=== PATIENT | female | born 1945 | race Caucasian/White ===

== ENCOUNTER → 2017-12-07 13:12 | Outpatient (CLI) | payer OTHER, SELFPAY | PROVIDERS: Family Provider Family Medicine; PCP Family Medicine; Visit Provider Family Medicine | DX: Z78.0 Asymptomatic menopausal state (principal); E07.9 Disorder of thyroid, unspecified; R29.890 Loss of height | CPT/HCPCS: 77080 ==

== ENCOUNTER 2018-07-22 08:38 | Emergency (ER) | payer OTHER, SELFPAY ==
[2018-07-22 08:39] VITALS: BP 176/84; PULSE 105; RESP 14; TEMP 36.7; O2SAT 100; BMI 30.5
--- NOTE | 2018-07-22 08:47 | DI.RAD.S_ITS ---
PROCEDURE: XR CHEST 2V INDICATIONS: fatigue, palpitations TECHNIQUE: 2 views of the chest were acquired. COMPARISON: [facility], , CHEST 2 VIEW, 01/29/2014, 14:43. FINDINGS: Surgical changes and devices: Surgical clips project over the right upper quadrant of the abdomen, suggestive of prior cholecystectomy. Lungs and pleura: There are diffuse bilateral perihilar and reticular interstitial pulmonary opacities. There are hazy opacities projecting over the right lung base. There is prominence of pulmonary vasculature. No pleural effusion or pneumothorax. Mediastinum: Mediastinal silhouette appears within normal limits for size. Cardiac silhouette measures at the upper limits of normal in size. Bones and chest wall: No acute osseous abnormality. Mild multilevel degenerative changes of the imaged spine. IMPRESSION: Findings suggestive of mild pulmonary edema, with hazy opacities at the right lung base likely represent atelectasis (less likely pneumonia). Dictated by: Baron Gutierrez M.D. on 07/22/2018 at 9:22 Approved by: Baron Gutierrez M.D. on 07/22/2018 at 9:24
[2018-07-22 09:06] LABS: Add Manual Diff / Slide Review NO; Basophils Absolute Auto 100 /uL (0-100); Basophils Percent Auto 1.2 % (0-2); Eosinophils Absolute Auto 300 /uL (0-450); Eosinophils Percent Auto 5.2 % (2-4); Hematocrit 40.2 % (36-46); Hemoglobin 13.6 g/dL (12.0-16.0); Lymphocytes Absolute Auto 2000 /uL (1100-4500); Lymphocytes Percent Auto 33.1 % (25-40); Mean Corpuscular HGB Conc 33.7 % (30-36); Mean Corpuscular Hemoglobin 32.4 PG (26-34); Mean Corpuscular Volume 96.1 fL (80-100); Monocytes Absolute Auto 600 /uL (0-900); Monocytes Percent Auto 10.2 % (3-14); Neutrophils Absolute Auto 3100 /uL (1500-7000); Neutrophils Percent Auto 50.3 % (50-75); Platelet Count 245 X10^3/uL (150-400); Red Blood Cell Count 4.18 X10^6/uL (4.0-5.2); White Blood Cell Count 6.1 X10^3/uL (4.5-11.0)
[2018-07-22 09:14] LABS: D Dimer 323 ng/mL (<230)
--- NOTE | 2018-07-22 09:14 | ED_ITS ---
HPI - Arrhythmia/Palpitations General Chief Complaint: Arrhythmia/Palpitations Stated Complaint: RAPID HEART RATE Time Seen by Provider: 07/22/18 08:40 Source: patient and family Mode of arrival: ambulatory Limitations: no limitations History of Present Illness HPI narrative: 73F nonsmoker with minimal medical history presents with her in the chief complaint of palpitation shins this morning which were very bothersome. She felt fatigued and a bit dizzy when they were happening and admittedly that has resolved on her arrival. She states that she has had increasing fatigue, particularly with exertion over the past 6 months and has had multiple episodes of these palpitations, primarily at night. She had been on propanolol for migraines and went to see her primary care provider last week and stopped her propanolol as there was some concern about this contributing to her fatigue. She denies any chest pain or shortness of breath. She denies any recent international travel, history of clots or other risk factors for DVT or PE. MD complaint: rapid heart beat, heart racing and palpitations Onset (ago): week(s) Duration: intermittent Severity: moderate Context: occurred during rest and occurred during exertion Associated symptoms: shortness of breath Related Data Home Medications Medication Instructions Recorded Confirmed [VITEYES areds II] PO DAILY #0 07/21/17 meloxicam 15 mg PO DAILY #0 07/21/17 07/22/18 propranolol 60 mg PO QDAY #0 07/21/17 aspirin 81 mg PO DAILY 07/22/18 07/22/18 Allergies Allergy/AdvReac Type Severity Reaction Status Date / Time meperidine Allergy Unknown EXTREME Verified 07/22/18 08:49 NAUSEA Review of Systems Review of Systems ROS Unobtainable: All systems reviewed & are unremarkable except as noted in HPI and below Constitutional Denies chills, Denies fever(s), Denies lethargy and Denies weakness Eyes Denies change in vision, Denies eye discharge, Denies irritation and Denies loss of vision ENT Ears, Nose, Mouth, and Throat: Denies change in voice, Denies neck pain and Denies sore throat Cardiovascular Denies chest pain, Denies irregular heart rhythm, Denies lightheadedness, Reports palpitations, Reports dyspnea, Reports dyspnea on exertion and Denies orthopnea Respiratory Denies cough, Reports dyspnea, Reports dyspnea on exertion and Denies wheezing Gastrointestinal Gastrointestinal: Denies abdominal pain, Denies change in bowel habits, Denies diarrhea, Denies nausea and Denies vomiting Genitourinary Denies hematuria, Denies flank pain, Denies urinary incontinence and Denies urinary urgency Musculoskeletal Denies neck pain Integumentary/Breasts Denies pruritus, Denies erythema, Denies rash and Denies wounds Neurologic Denies confusion, Denies loss of vision and Denies weakness Psychiatric Denies anxiety, Denies confusion, Denies depression, Denies homicidal ideation and Denies suicidal ideation Endocrine Reports palpitations Hematologic/Lymphatic Denies easy bruising Allergic/Immunologic Denies wheezing [facility] Social History (Updated 07/22/18 @ 09:18 by Vishal Crow DO) marital status: Smoking Status: Never smoker alcohol intake: current Exam Narrative Exam Narrative: GENERAL: 73-year-old female, appears younger than stated age is pleasant and resting comfortably HEAD: Atraumatic. Normocephalic. No temporal or scalp tenderness. EYES: Pupils equal round and reactive. Extraocular motions intact. No scleral icterus. No injection or drainage. ENT: Nose without bleeding, purulent drainage or septal hematoma. Throat without erythema, tonsillar hypertrophy or exudate. Uvula midline. Airway patent. NECK: Trachea midline. No JVD or lymphadenopathy. Supple, nontender, no meningeal signs. CARDIOVASCULAR: Regular rate and rhythm without murmurs, gallops, or rubs. RESPIRATORY: Clear to auscultation. Breath sounds equal bilaterally. No wheezes, rales, or rhonchi. GASTROINTESTINAL: Abdomen soft, non-tender, nondistended. No hepato- splenomegaly, or palpable masses. No guarding. EXTREMITIES: No clubbing, cyanosis, or edema. No joint tenderness, effusion, or edema noted. BACK: Nontender without deformity or crepitance. No flank tenderness. NEURO: AOx3. SKIN: No rash or erythema. Initial Vital Signs Initial Vital Signs: Vital Signs Temperature 98.1 F 07/22/18 08:39 Pulse Rate 105 H 07/22/18 08:39 Respiratory Rate 14 07/22/18 08:39 Blood Pressure 176/84 H 07/22/18 08:39 Pulse Oximetry 100 07/22/18 08:39 Course Course Narrative: 73-year-old female with increasing fatigue and multiple episodes of palpitations. She denies any chest pain or shortness of breath. She denies orthopnea or exertional dyspnea as much as fatigue. Vital signs have improved tremendously over the visit and on discharge her heart rate is down to the 80s and blood pressure is at her normal 105-110. I have spoken with Dr. Segura and related information regarding this patient's recent complaints and findings of her visit. We surely pain in the echocardiogram cardiac monitoring plus or minus a stress test would be indicated Orders Ordered: ED Orders 07/22/18 08:45 EKG-12 Lead Routine 07/22/18 08:47 XR chest 2V Stat 07/22/18 08:55 B Type Natriuretic Peptide Stat Complete Blood Count AUTO DIFF Stat Comprehensive Metabolic Panel Stat D Dimer Stat Magnesium Stat Thyroid Stimulating Hormone Stat Troponin I Stat Sodium Chloride (Normal Saline 0.9%) 1,000 mls @ 150 mls/hr IV CONT ROSS Last Admin: 07/22/18 09:21 Dose: 150 mls/hr Vital Signs - 8 hr 07/22/18 08:39 07/22/18 09:25 Temperature 98.1 F Pulse Rate 105 H 85 Respiratory Rate 14 28 H Blood Pressure 176/84 H Blood Pressure [Left Arm] 150/84 H Pulse Oximetry 100 100 MDM - Arrhythmia/Palpitations Lab Data Attestation: I reviewed the patient's lab results. Lab results narrative: D-dimer is above normal but when corrected for age is below the threshold Result diagrams: 07/22/18 08:55 07/22/18 08:55 Lab Results 07/22/18 07/22/18 07/22/18 Range/Units 08:55 08:55 08:55 WBC 6.1 (4.5-11.0) X10^3/uL RBC 4.18 (4.0-5.2) X10^6/uL Hgb 13.6 (12.0-16.0) g/dL Hct 40.2 (36-46) % MCV 96.1 (80-100) fL MCH 32.4 (26-34) PG MCHC 33.7 (30-36) % RDW 13.0 (11.6-14.8) % Plt Count 245 (150-400) X10^3/uL Neut % (Auto) 50.3 (50-75) % Lymph % (Auto) 33.1 (25-40) % [place] % (Auto) 10.2 (3-14) % Eos % (Auto) 5.2 H (2-4) % Baso % (Auto) 1.2 (0-2) % Neut # (Auto) 3100 (8176-2700) /uL Lymph # (Auto) 2000 (7241-7890) /uL [place] # (Auto) 600 (0-900) /uL Eos # (Auto) 300 (0-450) /uL Baso # (Auto) 100 (0-100) /uL D-Dimer 323 H (<230) ng/mL Sodium 138 (137-145) mmol/L Potassium 3.9 (3.4-5.1) mmol/L Chloride 102 (98-107) mmol/L Carbon Dioxide 26 (22-32) mmol/L BUN 18 H (7-17) mg/dL Creatinine 0.80 (0.52-1.04) mg/dL Estimated GFR > 60.0 (>60) mL/min BUN/Creatinine Ratio 22.5 H (6-22) Glucose 108 (80-110) mg/dL Calcium 9.3 (8.4-10.2) mg/dL Magnesium (1.6-2.3) mg/dL Total Bilirubin 0.4 (0.2-1.3) mg/dL AST 24 (14-36) IU/L ALT 27 (9-52) IU/L Alkaline Phosphatase 86 (38-126) U/L Troponin I < 0.012 (0.01-0.034) ng/mL Total Protein 7.3 (6.3-8.2) g/dL Albumin 4.1 (3.5-5.0) g/dL Globulin 3.2 (1.7-4.1) g/dL Albumin/Globulin Ratio 1.3 (1.0-2.8) 07/22/18 Range/Units 08:55 WBC (4.5-11.0) X10^3/uL RBC (4.0-5.2) X10^6/uL Hgb (12.0-16.0) g/dL Hct (36-46) % MCV (80-100) fL MCH (26-34) PG MCHC (30-36) % RDW (11.6-14.8) % Plt Count (150-400) X10^3/uL Neut % (Auto) (50-75) % Lymph % (Auto) (25-40) % [place] % (Auto) (3-14) % Eos % (Auto) (2-4) % Baso % (Auto) (0-2) % Neut # (Auto) (0271-5364) /uL Lymph # (Auto) (3669-0729) /uL [place] # (Auto) (0-900) /uL Eos # (Auto) (0-450) /uL Baso # (Auto) (0-100) /uL D-Dimer (<230) ng/mL Sodium (137-145) mmol/L Potassium (3.4-5.1) mmol/L Chloride (98-107) mmol/L Carbon Dioxide (22-32) mmol/L BUN (7-17) mg/dL Creatinine (0.52-1.04) mg/dL Estimated GFR (>60) mL/min BUN/Creatinine Ratio (6-22) Glucose (80-110) mg/dL Calcium (8.4-10.2) mg/dL Magnesium 2.0 (1.6-2.3) mg/dL Total Bilirubin (0.2-1.3) mg/dL AST (14-36) IU/L ALT (9-52) IU/L Alkaline Phosphatase (38-126) U/L Troponin I (0.01-0.034) ng/mL Total Protein (6.3-8.2) g/dL Albumin (3.5-5.0) g/dL Globulin (1.7-4.1) g/dL Albumin/Globulin Ratio (1.0-2.8) Imaging Data Chest x-ray: Radiologist's impression: [address] [address] XRay Report Signed Patient: Marci Corrales [facility]#: [id number] : 8Acct:[id number] Age/Sex: 73 / FDate of Service: 07/22/18 Loc: ED Accession Number: [id number] Procedure: XR chest 2V Ordering Provider: Vishal Crow D.O. PROCEDURE: XR CHEST 2V INDICATIONS: fatigue, palpitations TECHNIQUE: 2 views of the chest were acquired. COMPARISON: [facility] , CHEST 2 VIEW, 01/29/2014, 14:43. FINDINGS: Surgical changes and devices: Surgical clips project over the right upper quadrant of the abdomen, suggestive of prior cholecystectomy. Lungs and pleura: There are diffuse bilateral perihilar and reticular interstitial pulmonary opacities. There are hazy opacities projecting over the right lung base. There is prominence of pulmonary vasculature. No pleural effusion or pneumothorax. Mediastinum: Mediastinal silhouette appears within normal limits for size. Cardiac silhouette measures at the upper limits of normal in size. Bones and chest wall: No acute osseous abnormality. Mild multilevel degenerative changes of the imaged spine. IMPRESSION: Findings suggestive of mild pulmonary edema, with hazy opacities at the right lung base likely represent atelectasis (less likely pneumonia). Dictated by: Baron Gutierrez M.D. on 07/22/2018 at 9:22 Approved by: Baron Gutierrez M.D. on 07/22/2018 at 9:24 MDM Narrative Medical decision making narrative: Labs are unremarkable. D-dimer is slightly elevated but when corrected for age is below the threshold. Chest x-ray suggests mild pulmonary edema. Patient complains of no shortness of breath, cou gh and is not hypoxic. Patient has been given extensive return precautions. I have spoken with the on-call provider for her group and they will get her in early in the week Discharge Plan Departure Patient Disposition: Home Clinical Impression: Palpitations Fatigue Qualifiers: Fatigue type: unspecified Qualified Code(s): R53.83 - Other fatigue Instructions: DI for Arrhythmias Activity Restrictions/Additional Instructions: *You have been diagnosed with [ palpitations, fatigue ] *What to do: * continue to take medications as directed. Avoid excess caffeine, nicotine, alcohol as this may precipitate palpitations *Follow up with your primary care provider. I spoke with Dr. Segura today and he encouraged you to call the office 1st thing in the morning so they can get UA in. We sure the opinion that an echocardiogram and some type of heart monitor to evaluate your palpitations and even possibly a stress test are indicated by your complaints *Return to ER if you should have any new, worsening or concerning symptoms Prescriptions: No Action meloxicam 15 MG tablet 15 mg PO DAILY Qty: 0 RF: 0 propranolol 60 MG capsule,extended release 24 hr 60 mg PO QDAY Qty: 0 RF: 0 [VITEYES areds II] PO DAILY Qty: 0 RF: 0 aspirin 81 mg Tablet,Chewable 81 mg PO DAILY RF: 0 Referrals: Juan Lorenzana MD [Primary Care Provider] -
[2018-07-22 09:17] LABS: Alanine Aminotransferase 27 IU/L (9-52); Albumin 4.1 g/dL (3.5-5.0); Albumin Globulin Ratio 1.3 (1.0-2.8); Alkaline Phosphatase 86 U/L (38-126); Aspartate Aminotransferase 24 IU/L (14-36); BUN Creatinine Ratio 22.5 (6-22); Bilirubin Total 0.4 mg/dL (0.2-1.3); Blood Urea Nitrogen 18 mg/dL (7-17); Calcium 9.3 mg/dL (8.4-10.2); Carbon Dioxide 26 mmol/L (22-32); Chloride 102 mmol/L (98-107); Estimated Glomerular Filt Rate > 60.0 mL/min (>60); Globulin 3.2 g/dL (1.7-4.1); Glucose 108 mg/dL (80-110); HEMOLYSIS < 15 (0-50); Potassium 3.9 mmol/L (3.4-5.1); Sodium 138 mmol/L (137-145); Total Protein 7.3 g/dL (6.3-8.2)
[2018-07-22] MEDS: SODIUM CHLORIDE 0.9% 1,000 ML 150 ML IV (09:21)
[2018-07-22 09:25] VITALS: BP 150/84; PULSE 85; RESP 28; O2SAT 100
[2018-07-22 09:28] LABS: Troponin I < 0.012 ng/mL (0.01-0.034)
[2018-07-22 09:47] LABS: Thyroid Stimulating Hormone 2.02 uIU/mL (0.47-4.68)
[2018-07-22 10:03] VITALS: BP 105/84; PULSE 79; RESP 17; O2SAT 97
[2018-07-22 10:26] LABS: B Type Natriuretic Peptide < 100 (<100)
== END 2018-07-22 10:05 | disposition home or self-care (01) ==
PROVIDERS: Emergency Provider Emergency Medicine; PCP Family Medicine
DX: R00.2 Palpitations (principal); R42 Dizziness and giddiness; R53.83 Other fatigue
CPT/HCPCS: 36591; 71046; 80053; 83735; 83880; 84443; 84484; 85025; 85379; 93005; 93010; 93041; 96360; 96361; 99283; 99285

== ENCOUNTER → 2018-08-28 09:03 | Outpatient (CLI) | payer OTHER, SELFPAY ==
--- NOTE | 2018-08-28 | DI.ECHO.S_ITS ---
[facility]---------+ [facility] +---------+ : : [address] [place] : : : : [id number] : : : : Phone: [phone] Echocardiogram Report + + :Name: FRANTZ BUTTERFIELD Study Date: 08/28/2018 Height: 64 in : :[facility] Exam Location: IS Weight: 183 lb : : Gender: Female BSA: 1.9 m2 : :: 1945 Age: 73 yrs BP: 150/75 mmHg: :Reason For Study: VALENTIN : :Ordering Physician: Dr. Valdes : :[place] Performed By: Dennise Page : + + Interpretation Summary The left ventricle is normal in size, wall thickness, and systolic function without any focal wall motion abnormalities. The ejection fraction is estimated to be 60-65%. Diastolic parameters suggest a relaxation abnormality of the left ventricle, consistent with probable normal filling pressures. The right ventricle is normal in size and function. Pulmonary artery pressures cannot be estimated because of the lack of a measurable TR jet velocity. Both atria are normal in size. There is no significant valvular heart disease. The aortic root is normal size. Procedure: A two-dimensional transthoracic echocardiogram with color flow and Doppler was performed. The study quality was technically adequate. There is no prior echocardiogram noted for this patient. The patient was in normal sinus rhythm during the exam. Left Ventricle: The left ventricle is normal in size, wall thickness, and systolic function without any focal wall motion abnormalities. The ejection fraction is estimated to be 60-65%. Diastolic parameters suggest a relaxation abnormality of the left ventricle, consistent with probable normal filling pressures. Right Ventricle: The right ventricle is normal in size and function. Atria: Both atria are normal in size. There is no Doppler evidence for an interatrial shunt. Mitral Valve: The mitral valve is normal in structure and function. There is trace mitral regurgitation. Aortic Valve: The aortic valve is trileaflet. The aortic valve opens well. No aortic regurgitation is present. Tricuspid Valve: The tricuspid valve is normal in structure and function. There is a trace or physiologic amount of tricuspid regurgitation. Pulmonary artery pressures cannot be estimated because of the lack of a measurable TR jet velocity. Pulmonic Valve: The pulmonic valve is not well visualized. There is no significant valvular heart disease. Great Vessels: The aortic root is normal size. The ascending aorta is normal in size. The pulmonary is not well visualized. The IVC is of normal diameter and collapses greater than 50% with a sniff. This suggests a low right atrial pressure of 3 mm Hg. Pericardium/ Pleura There is no pericardial effusion. There is no pleural effusion. MMode/2D Measurements & Calculations LVIDd: 4.2 cm LVOT diam: 2.0 cm LVIDs: 2.5 cm Ao root diam: 3.0 cm FS: 39.4 % asc Aorta Diam: 2.8 cm EPSS: 0.50 cm IVSd: 0.90 cm LVPWd: 0.92 cm LV pantoja. diameter/BSA (cm/m^2): 2.2 LV sys. diameter/BSA (cm/m^2): 1.3 LA A2 area: 19.1 cm2 RA long axis: 4.9 cm LA A4 area: 22.9 cm2 RA area: 16.0 cm2 LA length (vol): 5.9 cm RA vol: 44.6 ml LA vol: 62.9 ml RA : 23.7 ml/m2 LA vol index: 33.4 ml/m2 IVC diam: 1.3 cm RVD1 (basal): 4.2 cm RVD2 (mid): 3.2 cm Doppler Measurements & Calculations Ao V2 max: 145.4 cm/sec LVOT Max Angel: 78.8 cm/sec Ao V2 mean: 104.4 cm/sec LV V1 max P.5 mmHg Ao max P.5 mmHg LV V1 VTI: 15.5 cm Ao mean P.7 mmHg MARTÍN(I,D): 1.6 cm2 Ao V2 VTI: 28.9 cm MARTÍN(V,D): 1.6 cm2 sev ratio: 0.53 MARTÍN indexed to BSA (cm^2/m^2): 0.85 MV E max angel: 67.6 cm/sec PA V2 max: 75.8 cm/sec MV A max angel: 86.6 cm/sec PA V2 mean: 54.7 cm/sec MV E/A: 0.78 PA mean P.3 mmHg Med Peak E' Angel: 6.3 cm/sec PA Accel Time: 0.12 sec E/E' med: 10.7 Lat Peak E' Angel: 6.5 cm/sec E/E' lat: 10.4 E/e' average: 10.6 MV dec time: 0.24 sec MV P1/2t: 72.7 msec MV P1/2t max angel: 67.9 cm/sec SV(LVOT): 46.5 ml MVA(P1/2t): 3.0 cm2 Reading Physician:03:34 PM
== END ==
PROVIDERS: PCP Family Medicine; Visit Provider Family Medicine
DX: R06.00 Dyspnea, unspecified (principal); R06.02 Shortness of breath
CPT/HCPCS: 93306

== ENCOUNTER → 2018-10-02 12:47 | Outpatient (CLI) | payer OTHER, SELFPAY ==
--- NOTE | 2018-10-02 | DI.RAD.S_ITS ---
PROCEDURE: XR KNEE LT 3V INDICATIONS: LEFT KNEE PAIN TECHNIQUE: 3 views of the knee were acquired. COMPARISON: [facility], , KNEE 3V LEFT, 05/10/2016, 11:03. FINDINGS: Bones: No fractures or dislocations. No suspicious bony lesions. Scattered degenerative subchondral sclerosis and spurring. Mild narrowing of the lateral joint space Soft tissues: Prepatellar soft tissue swelling. Possible trace joint effusion. IMPRESSION: Mild left knee joint degeneration. Prepatellar soft tissue swelling. Dictated by: Romie Calderon M.D. on 10/02/2018 at 13:57 Approved by: Romie Calderon M.D. on 10/02/2018 at 13:58
== END ==
PROVIDERS: PCP Family Medicine; Visit Provider Family Medicine
DX: M25.562 Pain in left knee (principal); M79.89 Other specified soft tissue disorders
CPT/HCPCS: 73562

== ENCOUNTER → 2018-10-24 10:53 | Outpatient (CLI) | payer OTHER, SELFPAY ==
--- NOTE | 2018-10-24 | DI.RAD.S_ITS ---
PROCEDURE: XR CHEST 2V INDICATIONS: COUGH TECHNIQUE: 2 views of the chest were acquired. COMPARISON: [facility], , XR CHEST 2V, 07/22/2018, 8:52. [facility], , CHEST 2 VIEW, 01/29/2014, 14:43. FINDINGS: Surgical changes and devices: None. Lungs and pleura: Lungs are clear. No pleural effusions or pneumothorax. Mediastinum: Mediastinal contours are normal. Heart size is normal. Bones and chest wall: No suspicious bony abnormalities. Soft tissues appear unremarkable. IMPRESSION: Source of cough is not seen. No pneumonia suspected. Dictated by: Hammad Browne M.D. on 10/24/2018 at 14:11 Approved by: Hammad Browne M.D. on 10/24/2018 at 14:11
== END ==
PROVIDERS: PCP Student in an Organized Health Care Education/Training Program; Visit Provider Student in an Organized Health Care Education/Training Program
DX: R05 Cough (principal)
CPT/HCPCS: 71046

== ENCOUNTER 2019-01-08 09:00 | Outpatient (RCR) | payer OTHER, SELFPAY ==
--- NOTE | 2018-10-04 17:02 | PT.OIE ---
Current Diagnoses Pain in unspecified joint (10/04/18) Pain in right hip (10/04/18) Pain in left hip (10/04/18) Pain in right knee (10/04/18) Pain in left knee (10/04/18) Weakness (10/04/18) Provider Visit Care Team Role Provider Type Juan Lorenzana MD Attending Provider Physician Primary Care Provider Specialty: Family Practice Address: [address] [place] [address], [facility] Email: [email or web address] Physical Therapy Initial Evaluation PT-OP-A Visit Information Start: 10/04/18 09:24 Freq: Status: Active Protocol: Document 10/04/18 13:44 SAK (Rec: 10/04/18 14:33 SAK [id number]) Out-Patient Physical Therapy Visit Information Visit Information Visit Type Initial Evaluation Visit Start Time 13:45 Visit Stop Time 14:35 Total Visit Minutes 50 Visit Number 1 Number of BALLISTICS EXPERT Visits 0 Evaluation Information Evaluation Date 10/04/18 PT-OP-B Current Condition Start: 10/04/18 09:24 Freq: Status: Active Protocol: Document 10/04/18 13:44 SAK (Rec: 10/04/18 14:33 SAK [id number]) Current Condition History of Current Condition Onset Date 6 months Current Complaints left knee pain, bilateral knee pain History of Current Condition Reports that for the past 6 months she has been noticing soreness and exhaustion after her usual work-outs out at pool and fitness center; usual schedule is 4-5x/wk. Pain bilateral knees and hips, occasional stabbing pain in back of left knee. Has had 1 month of not exercising due to travel and illness from flu and reports some decrease in pain. . Also c/o pain left IT band and enrico tops of feet at times. Has bunion left foot. Reports feeling weak, especially ambulating on stairs. Prior Treatments and Tests left knee OA per x-ray Future Testing and Treatments Planned none planned Treatment Goals Patient/Caregiver Goals Decrease her pain and modify her exercise and activity program to be able to function with less pain and fatigue. Prior Functional Status Baseline Function- ADL's Independent Baseline Function- Mobility Independent Baseline Function- Gait independent with no pain Baseline Function- Recreation/Hobbies painful and exhausting PT-OP-C Subjective Start: 10/04/18 09:24 Freq: Status: Active Protocol: Document 10/04/18 13:44 SAK (Rec: 10/04/18 17:00 [facility] [id number]) OP-PT Pain Assessment Location enrico knees and hips, worst left knee Intensity 4 Other Pain Aggravating Factors lunges, plies PT-OP-D Balance Start: 10/04/18 09:24 Freq: Status: Active Protocol: Document 10/04/18 13:44 SAK (Rec: 10/04/18 17:00 [facility] [id number]) Balance Tests Single Limb Standing Single Limb- Right needs UE support, Trendelenberg Single Limb- Left needs UE support, Trendelenberg PT-OP-G Mobility & Gait Start: 10/04/18 09:24 Freq: Status: Active Protocol: Document 10/04/18 13:44 SAK (Rec: 10/04/18 17:00 [facility] [id number]) OP Mobility Evaluation Transfers Sit to Stand excess ER enrico LE's Functional Movements Squats excess enrico LE ER OP Gait Assessment Gait Gait Assistance Required: Independent Assistive Devices Assistive Device None Comments Gait Comments excess enrico LE ER, increased lateral sway, decreased trunk rotation Stair Climbing Evaluation Evaluation Level of Assist On Stairs Independent Devices Stair Climbing Assistive Devices Left Railing Right Railing PT-OP-H Neuro Start: 10/04/18 09:24 Freq: Status: Active Protocol: Document 10/04/18 13:44 SAK (Rec: 10/04/18 17:00 [facility] [id number]) Sensation Evaluation Gross Sensation Gross Sensation WNL PT-OP-J Posture/Palpation/Skin Start: 10/04/18 09:24 Freq: Status: Active Protocol: Document 10/04/18 13:44 SAK (Rec: 10/04/18 17:00 [facility] [id number]) Posture Evaluation Position Standing Weight Distribution Decreased Wt.Bear on (L) Hip Posture (L) Externally Rotated (R) Externally Rotated Knee Posture (L) Genu Valgus (R) Genu Valgus Patellar Posture (L) Neutral (R) Neutral Ankle/Foot Posture (L) Pronated (R) Pronated Foot Arch (L) Medium Arch (R) Medium Arch PT-OP-K Range of Motion Start: 10/04/18 09:24 Freq: Status: Active Protocol: Document 10/04/18 13:44 [facility] (Rec: 10/04/18 17:00 [facility] [id number]) Hip Goniometric Range of Motion Hip enrico Hip ROM WFL No Hip ROM Limitations Comments mod tightness in left IT band, enrico quads, enrico hamstrings Knee Goniometric Range of Motion Knee enrico Knee ROM WFL No Knee ROM Limitations Knee ROM Limitations Soft Tissue Tightness Ankle and Foot Goniometric Range of Motion Ankle and Foot enrico Ankle/Foot ROM WFL No Dorsiflexion with Knee Flexed 5 Dorsiflexion with Knee Extended 0 Ankle and Foot ROM Limitations ROM Limitations Soft Tissue Tightness PT-OP-M Strength Start: 10/04/18 09:24 Freq: Status: Active Protocol: Document 10/04/18 13:44 [facility] (Rec: 10/04/18 17:00 [facility] [id number]) Hip Strength Hip Manual Muscle Testing Left Flexion (L2) 4 Good Extension (S1) 4 Good Abduction 3+ Fair+ Adduction 3+ Fair+ External Rotation 4- Good- Right Flexion (L2) 4 Good Extension (S1) 4 Good Abduction 4- Good- External Rotation 3+ Fair+ Internal Rotation 4- Good- Knee Strength Knee Manual Muscle Testing Left Flexion (S2) 4+ Good+ Extension (L3) 4+ Good+ Right Flexion (S2) 4+ Good+ Extension (L3) 4+ Good+ Ankle/Foot Strength Ankle and Foot Manual Muscle Testing Left Dorsiflexion (L4) 4+ Good+ Plantarflexion (S1) 4+ Good+ Right Dorsiflexion (L4) 4+ Good+ Plantarflexion (S1) 4+ Good+ PT-OP-Q Treatments Start: 10/04/18 09:24 Freq: Status: Active Protocol: Document 10/04/18 13:44 [facility] (Rec: 10/04/18 17:00 [facility] [id number]) Self-Care/Home Management Treatment Education Patient Education Body Mechanics Home Exercise Program Other Education Emphasis on need for neutral LE alignment statically and dynamically with function, with all ther ex. Issued written HEP. PT-OP-T Assessment and Plan Start: 10/04/18 09:24 Freq: Status: Active Protocol: Document 10/04/18 13:44 [facility] (Rec: 10/04/18 17:00 [facility] [id number]) Physical Therapy Assessment Rehab Potential Rehabilitation Potential Good Evaluation Complexity Number of Personal Factors/Comorbidities 1-2 Number of Body Systems Impaired 3 Clinical Presentation at Evaluation Evolving Impairments Impairments Activity Tolerance Pain Posture Strength Goals 4 Impairment weakness Longterm Goal (LTG) Improve LE strength to at least 4+/5 all muscle groups LTG Duration 12/04/18 3 Impairment Trendelenberg gait [employer] Service Supervisor Goal (LTG) Patient able to ambulate without Trendelenberg LTG Duration 12/04/18 2 Impairment impaired alignment enrico LE's Short Term Goal (STG) Patient to demonstrate good understanding of neutral LE alignment STG Duration 11/03/18 Longterm Goal (LTG) Patient able to demonstrate improved LE alignment with functional movement and activities including gait LTG Duration 12/04/18 1 Impairment pain enrico hips and knees Short Term Goal (STG) Decrease pain 50% STG Duration 11/03/18 [employer] Service Supervisor Goal (LTG) Decrease pain by 75%, with patient able to tolerate HEP, exercise classess both land and aquatic-based without an increase in pain. LTG Duration 12/04/18 Physical Therapy Plan Frequency and Duration Frequency of Treatment 8 visits Duration of Treatment 2 months Plan of Care Start Date 10/04/18 Plan of Care End Date 12/04/18 Therapeutic Interventions Therapeutic Interventions Aquatic Therapy Gait Training Home Exercise Program Manual Therapy Neuromuscular Re-education Patient/Caregiver Education Self-Care/Home Management Soft Tissue Mobilization Taping Therapeutic Activities Therapeutic Exercises Modalities Cold Pack/Ice Massage Electric Stimulation Hot Packs Ultrasound Next Visit Focus/Plan Next Note Type Treatment Note Next Visit Plan Review HEP, initiate gait training with mirror for visual feedback, progress ther ex with emphasis on neutral alignment.
--- NOTE | 2018-10-04 17:02 | PT.OPPOC ---
Current Diagnoses Pain in unspecified joint (10/04/18) Pain in right hip (10/04/18) Pain in left hip (10/04/18) Pain in right knee (10/04/18) Pain in left knee (10/04/18) Weakness (10/04/18) Provider Visit Care Team Role Provider Type Juan Lorenzana MD Attending Provider Physician Primary Care Provider Specialty: Family Practice Address: [address] [place] [address], [facility] Email: [email or web address] Plan Of Care PT-OP-T Assessment and Plan Start: 10/04/18 09:24 Freq: Status: Active Protocol: Document 10/04/18 13:44 SAK (Rec: 10/04/18 17:00 SAK [id number]) Physical Therapy Assessment Rehab Potential Rehabilitation Potential Good Evaluation Complexity Number of Personal Factors/Comorbidities 1-2 Number of Body Systems Impaired 3 Clinical Presentation at Evaluation Evolving Impairments Impairments Activity Tolerance Pain Posture Strength Goals 4 Impairment weakness Manager Hair Goal (LTG) Improve LE strength to at least 4+/5 all muscle groups LTG Duration 12/04/18 3 Impairment Trendelenberg gait Fdc Goal (LTG) Patient able to ambulate without Trendelenberg LTG Duration 12/04/18 2 Impairment impaired alignment enrico LE's Short Term Goal (STG) Patient to demonstrate good understanding of neutral LE alignment STG Duration 11/03/18 Manager Hair Goal (LTG) Patient able to demonstrate improved LE alignment with functional movement and activities including gait LTG Duration 12/04/18 1 Impairment pain enrico hips and knees Short Term Goal (STG) Decrease pain 50% STG Duration 11/03/18 Manager Hair Goal (LTG) Decrease pain by 75%, with patient able to tolerate HEP, exercise classess both land and aquatic-based without an increase in pain. LTG Duration 12/04/18 Physical Therapy Plan Frequency and Duration Frequency of Treatment 8 visits Duration of Treatment 2 months Plan of Care Start Date 10/04/18 Plan of Care End Date 12/04/18 Therapeutic Interventions Therapeutic Interventions Aquatic Therapy Gait Training Home Exercise Program Manual Therapy Neuromuscular Re-education Patient/Caregiver Education Self-Care/Home Management Soft Tissue Mobilization Taping Therapeutic Activities Therapeutic Exercises Modalities Cold Pack/Ice Massage Electric Stimulation Hot Packs Ultrasound Next Visit Focus/Plan Next Note Type Treatment Note Next Visit Plan Review HEP, initiate gait training with mirror for visual feedback, progress ther ex with emphasis on neutral alignment. Plan of Care Dates Plan of Care Start Date 10/04/18 Plan of Care End Date 12/04/18 Please Sign and Return: I have reviewed this Plan of Care and certify that the skilled therapy services above are required to meet the patient?s needs. Physician Signature Date Printed Name and Credentials Clinical Instructor Signature Printed Name and Credentials
--- NOTE | 2018-10-22 16:23 | PT.OTN ---
Current Diagnoses Pain in unspecified joint (10/22/18) Pain in right hip (10/22/18) Pain in left hip (10/22/18) Pain in right knee (10/22/18) Pain in left knee (10/22/18) Weakness (10/22/18) Physical Therapy Treatment Note PT-OP-A Visit Information Start: 10/04/18 09:24 Freq: Status: Active Protocol: Document 10/22/18 16:14 SAK (Rec: 10/22/18 16:23 SAK [id number]) Out-Patient Physical Therapy Visit Information Visit Information Visit Type Aquatic Treatment Note Visit Start Time 12:15 Visit Stop Time 13:00 Total Visit Minutes 45 Number of EIGHT SECTION BLOWER Visits 0 Evaluation Information Evaluation Date 10/04/18 PT-OP-B Current Condition Start: 10/04/18 09:24 Freq: Status: Active Protocol: Document 10/04/18 13:44 SAK (Rec: 10/04/18 14:33 SAK [id number]) Current Condition History of Current Condition Onset Date 6 months Current Complaints left knee pain, bilateral knee pain History of Current Condition Reports that for the past 6 months she has been noticing soreness and exhaustion after her usual work-outs out at pool and fitness center; usual schedule is 4-5x/wk. Pain bilateral knees and hips, occasional stabbing pain in back of left knee. Has had 1 month of not exercising due to travel and illness from flu and reports some decrease in pain. . Also c/o pain left IT band and enrico tops of feet at times. Has bunion left foot. Reports feeling weak, especially ambulating on stairs. Prior Treatments and Tests left knee OA per x-ray Future Testing and Treatments Planned none planned Treatment Goals Patient/Caregiver Goals Decrease her pain and modify her exercise and activity program to be able to function with less pain and fatigue. Prior Functional Status Baseline Function- ADL's Independent Baseline Function- Mobility Independent Baseline Function- Gait independent with no pain Baseline Function- Recreation/Hobbies painful and exhausting PT-OP-C Subjective Start: 10/04/18 09:24 Freq: Status: Active Protocol: Document 10/22/18 16:14 SAK (Rec: 10/22/18 16:23 SAK [id number]) OP-PT Subjective Patient Comments Patient Comments Reports was at a conference in [place], now has a cold but didn't want to miss PT. PT-OP-D Balance Start: 10/04/18 09:24 Freq: Status: Active Protocol: Document 10/04/18 13:44 SAK (Rec: 10/04/18 17:00 [facility] [id number]) Balance Tests Single Limb Standing Single Limb- Right needs UE support, Trendelenberg Single Limb- Left needs UE support, Trendelenberg PT-OP-G Mobility & Gait Start: 10/04/18 09:24 Freq: Status: Active Protocol: Document 10/04/18 13:44 SAK (Rec: 10/04/18 17:00 [facility] [id number]) OP Mobility Evaluation Transfers Sit to Stand excess ER enrico LE's Functional Movements Squats excess enrico LE ER OP Gait Assessment Gait Gait Assistance Required: Independent Assistive Devices Assistive Device None Comments Gait Comments excess enrico LE ER, increased lateral sway, decreased trunk rotation Stair Climbing Evaluation Evaluation Level of Assist On Stairs Independent Devices Stair Climbing Assistive Devices Left Railing Right Railing PT-OP-H Neuro Start: 10/04/18 09:24 Freq: Status: Active Protocol: Document 10/04/18 13:44 [facility] (Rec: 10/04/18 17:00 [facility] [id number]) Sensation Evaluation Gross Sensation Gross Sensation WNL PT-OP-J Posture/Palpation/Skin Start: 10/04/18 09:24 Freq: Status: Active Protocol: Document 10/04/18 13:44 [facility] (Rec: 10/04/18 17:00 [facility] [id number]) Posture Evaluation Position Standing Weight Distribution Decreased Wt.Bear on (L) Hip Posture (L) Externally Rotated (R) Externally Rotated Knee Posture (L) Genu Valgus (R) Genu Valgus Patellar Posture (L) Neutral (R) Neutral Ankle/Foot Posture (L) Pronated (R) Pronated Foot Arch (L) Medium Arch (R) Medium Arch PT-OP-K Range of Motion Start: 10/04/18 09:24 Freq: Status: Active Protocol: Document 10/04/18 13:44 [facility] (Rec: 10/04/18 17:00 [facility] [id number]) Hip Goniometric Range of Motion Hip enrico Hip ROM WFL No Hip ROM Limitations Comments mod tightness in left IT band, enrico quads, enrico hamstrings Knee Goniometric Range of Motion Knee enrico Knee ROM WFL No Knee ROM Limitations Knee ROM Limitations Soft Tissue Tightness Ankle and Foot Goniometric Range of Motion Ankle and Foot enrico Ankle/Foot ROM WFL No Dorsiflexion with Knee Flexed 5 Dorsiflexion with Knee Extended 0 Ankle and Foot ROM Limitations ROM Limitations Soft Tissue Tightness PT-OP-M Strength Start: 10/04/18 09:24 Freq: Status: Active Protocol: Document 10/04/18 13:44 [facility] (Rec: 10/04/18 17:00 [facility] [id number]) Hip Strength Hip Manual Muscle Testing Left Flexion (L2) 4 Good Extension (S1) 4 Good Abduction 3+ Fair+ Adduction 3+ Fair+ External Rotation 4- Good- Right Flexion (L2) 4 Good Extension (S1) 4 Good Abduction 4- Good- External Rotation 3+ Fair+ Internal Rotation 4- Good- Knee Strength Knee Manual Muscle Testing Left Flexion (S2) 4+ Good+ Extension (L3) 4+ Good+ Right Flexion (S2) 4+ Good+ Extension (L3) 4+ Good+ Ankle/Foot Strength Ankle and Foot Manual Muscle Testing Left Dorsiflexion (L4) 4+ Good+ Plantarflexion (S1) 4+ Good+ Right Dorsiflexion (L4) 4+ Good+ Plantarflexion (S1) 4+ Good+ PT-OP-Q Treatments Start: 10/04/18 09:24 Freq: Status: Active Protocol: Document 10/04/18 13:44 [facility] (Rec: 10/04/18 17:00 [facility] [id number]) Self-Care/Home Management Treatment Education Patient Education Body Mechanics Home Exercise Program Other Education Emphasis on need for neutral LE alignment statically and dynamically with function, with all ther ex. Issued written HEP. PT-OP-S Aquatic Treatment Start: 10/04/18 09:24 Freq: Status: Active Protocol: Document 10/22/18 16:14 [facility] (Rec: 10/22/18 16:21 [facility] [id number]) Aquatics Treatment Pool Entry/Exit Pool Entry/Exit Method Stairs Assistance Independent Water Walking Lunge Walk Water Level Chest Level Level of Assistance Verbal Cues Marching Water Level Chest Level Level of Assistance Verbal Cues Sideways Water Level Chest Level Level of Assistance Verbal Cues Backwards Water Level Chest Level Level of Assistance Verbal Cues fwd Water Level Chest Level Level of Assistance Verbal Cues Lower Extremity Exercises squats Body Position Standing Reps/Duration 12x knee flex/ext Body Position Standing Water Level Chest Level Reps/Duration 12x Lower Extremity Stretches DKTC, SKTC Body Position Standing Water Level [place] Reps/Duration edge of pool hip ER Body Position chair position leaning against wall HS Body Position Standing Water Level Chest Level Equipment Small Noodle quad Body Position Standing Water Level Chest Level Equipment Small Noodle Reps/Duration 2x30 [place] Activities [place] Activities Bicycle Bicycle Backwards [place] Running Duration 20 min Comments cues for postural and LE alignment and movement PT-OP-T Assessment and Plan Start: 10/04/18 09:24 Freq: Status: Active Protocol: Document 10/22/18 16:14 JAMES (Rec: 10/22/18 16:21 JAMES [id number]) Physical Therapy Assessment Goals 4 Impairment weakness Camp Assistant Goal (LTG) Improve LE strength to at least 4+/5 all muscle groups LTG Duration 12/04/18 3 Impairment Trendelenberg gait Camp Assistant Goal (LTG) Patient able to ambulate without Trendelenberg LTG Duration 12/04/18 2 Impairment impaired alignment enrico LE's Short Term Goal (STG) Patient to demonstrate good understanding of neutral LE alignment STG Duration 11/03/18 Camp Assistant Goal (LTG) Patient able to demonstrate improved LE alignment with functional movement and activities including gait LTG Duration 12/04/18 1 Impairment pain enrico hips and knees Short Term Goal (STG) Decrease pain 50% STG Duration 11/03/18 Camp Assistant Goal (LTG) Decrease pain by 75%, with patient able to tolerate HEP, exercise classess both land and aquatic-based without an increase in pain. LTG Duration 12/04/18 Assessment Summary Assessment Patient required moderate cues for aquatic exercise performance, asked good questions and demonstrated good understanding when corrected. Appears highly motivated. Denied increase in pain with ther ex this date. Physical Therapy Plan Frequency and Duration Frequency of Treatment 8 visits Duration of Treatment 2 months Plan of Care Start Date 10/04/18 Plan of Care End Date 12/04/18 Therapeutic Interventions Therapeutic Interventions Aquatic Therapy Gait Training Home Exercise Program Manual Therapy Neuromuscular Re-education Patient/Caregiver Education Self-Care/Home Management Soft Tissue Mobilization Taping Therapeutic Activities Therapeutic Exercises Modalities Cold Pack/Ice Massage Electric Stimulation Hot Packs Ultrasound Next Visit Focus/Plan Next Note Type Treatment Note Next Visit Plan If land-based:Review HEP, initiate gait training with mirror for visual feedback, progress ther ex with emphasis on neutral alignment. If aquatic-based: progress aquatic ex as tolerated. Add deep water sit kicks, shallow hip flex/ext, ab/ad
--- NOTE | 2018-10-26 15:38 | PT.OTN ---
Current Diagnoses Pain in unspecified joint (10/26/18) Pain in right hip (10/26/18) Pain in left hip (10/26/18) Pain in right knee (10/26/18) Pain in left knee (10/26/18) Weakness (10/26/18) Physical Therapy Treatment Note PT-OP-A Visit Information Start: 10/04/18 09:24 Freq: Status: Active Protocol: Document 10/26/18 13:00 LJ (Rec: 10/26/18 15:34 LJ [id number]) Out-Patient Physical Therapy Visit Information Visit Information Visit Type Aquatic Treatment Note Visit Start Time 13:00 Visit Stop Time 13:45 Total Visit Minutes 45 Visit Number 2 Number of ENCYCLOPEDIA RESEARCH WORKER Visits 1 Evaluation Information Evaluation Date 10/04/18 PT-OP-B Current Condition Start: 10/04/18 09:24 Freq: Status: Active Protocol: Document 10/04/18 13:44 SAK (Rec: 10/04/18 14:33 SAK [id number]) Current Condition History of Current Condition Onset Date 6 months Current Complaints left knee pain, bilateral knee pain History of Current Condition Reports that for the past 6 months she has been noticing soreness and exhaustion after her usual work-outs out at pool and fitness center; usual schedule is 4-5x/wk. Pain bilateral knees and hips, occasional stabbing pain in back of left knee. Has had 1 month of not exercising due to travel and illness from flu and reports some decrease in pain. . Also c/o pain left IT band and enrico tops of feet at times. Has bunion left foot. Reports feeling weak, especially ambulating on stairs. Prior Treatments and Tests left knee OA per x-ray Future Testing and Treatments Planned none planned Treatment Goals Patient/Caregiver Goals Decrease her pain and modify her exercise and activity program to be able to function with less pain and fatigue. Prior Functional Status Baseline Function- ADL's Independent Baseline Function- Mobility Independent Baseline Function- Gait independent with no pain Baseline Function- Recreation/Hobbies painful and exhausting PT-OP-C Subjective Start: 10/04/18 09:24 Freq: Status: Active Protocol: Document 10/26/18 13:00 LJ (Rec: 10/26/18 15:34 LJ [id number]) OP-PT Subjective Patient Comments Patient Comments Pt arrived 20 min early and began walking and doing deep water exercises. PT-OP-D Balance Start: 10/04/18 09:24 Freq: Status: Active Protocol: Document 10/04/18 13:44 SAK (Rec: 10/04/18 17:00 [facility] [id number]) Balance Tests Single Limb Standing Single Limb- Right needs UE support, Trendelenberg Single Limb- Left needs UE support, Trendelenberg PT-OP-G Mobility & Gait Start: 10/04/18 09:24 Freq: Status: Active Protocol: Document 10/04/18 13:44 SAK (Rec: 10/04/18 17:00 [facility] [id number]) OP Mobility Evaluation Transfers Sit to Stand excess ER enrico LE's Functional Movements Squats excess enrico LE ER OP Gait Assessment Gait Gait Assistance Required: Independent Assistive Devices Assistive Device None Comments Gait Comments excess enrico LE ER, increased lateral sway, decreased trunk rotation Stair Climbing Evaluation Evaluation Level of Assist On Stairs Independent Devices Stair Climbing Assistive Devices Left Railing Right Railing PT-OP-H Neuro Start: 10/04/18 09:24 Freq: Status: Active Protocol: Document 10/04/18 13:44 [facility] (Rec: 10/04/18 17:00 [facility] [id number]) Sensation Evaluation Gross Sensation Gross Sensation WNL PT-OP-J Posture/Palpation/Skin Start: 10/04/18 09:24 Freq: Status: Active Protocol: Document 10/04/18 13:44 [facility] (Rec: 10/04/18 17:00 [facility] [id number]) Posture Evaluation Position Standing Weight Distribution Decreased Wt.Bear on (L) Hip Posture (L) Externally Rotated (R) Externally Rotated Knee Posture (L) Genu Valgus (R) Genu Valgus Patellar Posture (L) Neutral (R) Neutral Ankle/Foot Posture (L) Pronated (R) Pronated Foot Arch (L) Medium Arch (R) Medium Arch PT-OP-K Range of Motion Start: 10/04/18 09:24 Freq: Status: Active Protocol: Document 10/04/18 13:44 [facility] (Rec: 10/04/18 17:00 [facility] [id number]) Hip Goniometric Range of Motion Hip enrico Hip ROM WFL No Hip ROM Limitations Comments mod tightness in left IT band, enrico quads, enrico hamstrings Knee Goniometric Range of Motion Knee enrico Knee ROM WFL No Knee ROM Limitations Knee ROM Limitations Soft Tissue Tightness Ankle and Foot Goniometric Range of Motion Ankle and Foot enrico Ankle/Foot ROM WFL No Dorsiflexion with Knee Flexed 5 Dorsiflexion with Knee Extended 0 Ankle and Foot ROM Limitations ROM Limitations Soft Tissue Tightness PT-OP-M Strength Start: 10/04/18 09:24 Freq: Status: Active Protocol: Document 10/04/18 13:44 [facility] (Rec: 10/04/18 17:00 [facility] [id number]) Hip Strength Hip Manual Muscle Testing Left Flexion (L2) 4 Good Extension (S1) 4 Good Abduction 3+ Fair+ Adduction 3+ Fair+ External Rotation 4- Good- Right Flexion (L2) 4 Good Extension (S1) 4 Good Abduction 4- Good- External Rotation 3+ Fair+ Internal Rotation 4- Good- Knee Strength Knee Manual Muscle Testing Left Flexion (S2) 4+ Good+ Extension (L3) 4+ Good+ Right Flexion (S2) 4+ Good+ Extension (L3) 4+ Good+ Ankle/Foot Strength Ankle and Foot Manual Muscle Testing Left Dorsiflexion (L4) 4+ Good+ Plantarflexion (S1) 4+ Good+ Right Dorsiflexion (L4) 4+ Good+ Plantarflexion (S1) 4+ Good+ PT-OP-Q Treatments Start: 10/04/18 09:24 Freq: Status: Active Protocol: Document 10/04/18 13:44 SAK (Rec: 10/04/18 17:00 [facility] [id number]) Self-Care/Home Management Treatment Education Patient Education Body Mechanics Home Exercise Program Other Education Emphasis on need for neutral LE alignment statically and dynamically with function, with all ther ex. Issued written HEP. PT-OP-S Aquatic Treatment Start: 10/04/18 09:24 Freq: Status: Active Protocol: Document 10/26/18 13:00 CATHERINE (Rec: 10/26/18 15:34 LJ [email or web address]) Aquatics Treatment Pool Entry/Exit Pool Entry/Exit Method Stairs Assistance Independent Water Walking Lunge Walk Water Level Chest Level Level of Assistance Verbal Cues Marching Water Level Chest Level Level of Assistance Verbal Cues Sideways Water Level Chest Level Level of Assistance Verbal Cues Backwards Water Level Chest Level Level of Assistance Verbal Cues fwd Water Level Chest Level Level of Assistance Verbal Cues Lower Extremity Exercises split squats Details on boxes; mini squats Body Position Standing Water Level Waist Level Reps/Duration 12x2 bilat Comments VC for form correction squats Body Position Standing on box at wall Reps/Duration 15x Comments cues for posture Lower Extremity Stretches gastroc and soleus Details on stairs and standing on pool bottom Reps/Duration 2x 45 sec HS Body Position Standing Water Level Chest Level Equipment Small Noodle Reps/Duration 2x45 sec bilat quad Body Position Standing Water Level Chest Level Equipment Small Noodle Reps/Duration 2x30 Comments PT assist Spinal Exercises rotations w/cords Details both cords Body Position Standing Water Level Chest Level Reps/Duration 10x2 bilat PT-OP-T Assessment and Plan Start: 10/04/18 09:24 Freq: Status: Active Protocol: Document 10/26/18 13:00 CATHERINE (Rec: 10/26/18 15:34 CATHERINE [id number]) Physical Therapy Assessment Rehab Potential Rehabilitation Potential Good Evaluation Complexity Number of Personal Factors/Comorbidities 1-2 Number of Body Systems Impaired 3 Clinical Presentation at Evaluation Evolving Impairments Impairments Activity Tolerance Pain Posture Strength Goals 4 Impairment weakness Physician Compensation Analyst Goal (LTG) Improve LE strength to at least 4+/5 all muscle groups LTG Duration 12/04/18 3 Impairment Trendelenberg gait Fdc Goal (LTG) Patient able to ambulate without Trendelenberg LTG Duration 12/04/18 2 Impairment impaired alignment enrico LE's Short Term Goal (STG) Patient to demonstrate good understanding of neutral LE alignment STG Duration 11/03/18 Physician Compensation Analyst Goal (LTG) Patient able to demonstrate improved LE alignment with functional movement and activities including gait LTG Duration 12/04/18 1 Impairment pain enrico hips and knees Short Term Goal (STG) Decrease pain 50% STG Duration 11/03/18 Physician Compensation Analyst Goal (LTG) Decrease pain by 75%, with patient able to tolerate HEP, exercise classess both land and aquatic-based without an increase in pain. LTG Duration 12/04/18 Assessment Summary Assessment Patient required moderate cues for aquatic exercise performance, asked good questions and demonstrated good understanding when corrected. Appears highly motivated. Denied increase in pain with ther ex this date. Physical Therapy Plan Frequency and Duration Frequency of Treatment 8 visits Duration of Treatment 2 months Plan of Care Start Date 10/04/18 Plan of Care End Date 12/04/18 Therapeutic Interventions Therapeutic Interventions Aquatic Therapy Gait Training Home Exercise Program Manual Therapy Neuromuscular Re-education Patient/Caregiver Education Self-Care/Home Management Soft Tissue Mobilization Taping Therapeutic Activities Therapeutic Exercises Modalities Cold Pack/Ice Massage Electric Stimulation Hot Packs Ultrasound Next Visit Focus/Plan Next Note Type Treatment Note Next Visit Plan If land-based:Review HEP, initiate gait training with mirror for visual feedback, progress ther ex with emphasis on neutral alignment. If aquatic-based: progress aquatic ex as tolerated. Add deep water sit kicks, shallow hip flex/ext, ab/ad
--- NOTE | 2018-11-05 16:20 | PT.OTN ---
Current Diagnoses Pain in unspecified joint (11/05/18) Pain in right hip (11/05/18) Pain in left hip (11/05/18) Pain in right knee (11/05/18) Pain in left knee (11/05/18) Weakness (11/05/18) Physical Therapy Treatment Note PT-OP-A Visit Information Start: 10/04/18 09:24 Freq: Status: Active Protocol: Document 11/05/18 15:16 SAK (Rec: 11/05/18 16:20 SAK [id number]) Out-Patient Physical Therapy Visit Information Visit Information Visit Type Treatment Note Visit Start Time 15:15 Visit Stop Time 16:02 Total Visit Minutes 47 Visit Number 3 Number of PILOT SAFETY INSPECTOR Visits 0 Evaluation Information Evaluation Date 10/04/18 PT-OP-B Current Condition Start: 10/04/18 09:24 Freq: Status: Active Protocol: Document 10/04/18 13:44 SAK (Rec: 10/04/18 14:33 SAK [id number]) Current Condition History of Current Condition Onset Date 6 months Current Complaints left knee pain, bilateral knee pain History of Current Condition Reports that for the past 6 months she has been noticing soreness and exhaustion after her usual work-outs out at pool and fitness center; usual schedule is 4-5x/wk. Pain bilateral knees and hips, occasional stabbing pain in back of left knee. Has had 1 month of not exercising due to travel and illness from flu and reports some decrease in pain. . Also c/o pain left IT band and enrico tops of feet at times. Has bunion left foot. Reports feeling weak, especially ambulating on stairs. Prior Treatments and Tests left knee OA per x-ray Future Testing and Treatments Planned none planned Treatment Goals Patient/Caregiver Goals Decrease her pain and modify her exercise and activity program to be able to function with less pain and fatigue. Prior Functional Status Baseline Function- ADL's Independent Baseline Function- Mobility Independent Baseline Function- Gait independent with no pain Baseline Function- Recreation/Hobbies painful and exhausting PT-OP-C Subjective Start: 10/04/18 09:24 Freq: Status: Active Protocol: Document 11/05/18 15:16 SAK (Rec: 11/05/18 16:20 SAK [id number]) OP-PT Subjective Patient Comments Patient Comments compliant with HEP. Doing clamshells, reverse clamshells and hip abd in bed. Feels more comfortable with correct form for squats, needs help with lunges, standing posture, walking mechanics. PT-OP-D Balance Start: 10/04/18 09:24 Freq: Status: Active Protocol: Document 10/04/18 13:44 SAK (Rec: 10/04/18 17:00 [facility] [id number]) Balance Tests Single Limb Standing Single Limb- Right needs UE support, Trendelenberg Single Limb- Left needs UE support, Trendelenberg PT-OP-G Mobility & Gait Start: 10/04/18 09:24 Freq: Status: Active Protocol: Document 10/04/18 13:44 SAK (Rec: 10/04/18 17:00 SAK [id number]) OP Mobility Evaluation Transfers Sit to Stand excess ER enrico LE's Functional Movements Squats excess enrico LE ER OP Gait Assessment Gait Gait Assistance Required: Independent Assistive Devices Assistive Device None Comments Gait Comments excess enrico LE ER, increased lateral sway, decreased trunk rotation Stair Climbing Evaluation Evaluation Level of Assist On Stairs Independent Devices Stair Climbing Assistive Devices Left Railing Right Railing PT-OP-H Neuro Start: 10/04/18 09:24 Freq: Status: Active Protocol: Document 10/04/18 13:44 SAK (Rec: 10/04/18 17:00 [facility] [id number]) Sensation Evaluation Gross Sensation Gross Sensation WNL PT-OP-J Posture/Palpation/Skin Start: 10/04/18 09:24 Freq: Status: Active Protocol: Document 10/04/18 13:44 SAK (Rec: 10/04/18 17:00 [facility] [id number]) Posture Evaluation Position Standing Weight Distribution Decreased Wt.Bear on (L) Hip Posture (L) Externally Rotated (R) Externally Rotated Knee Posture (L) Genu Valgus (R) Genu Valgus Patellar Posture (L) Neutral (R) Neutral Ankle/Foot Posture (L) Pronated (R) Pronated Foot Arch (L) Medium Arch (R) Medium Arch PT-OP-K Range of Motion Start: 10/04/18 09:24 Freq: Status: Active Protocol: Document 10/04/18 13:44 SAK (Rec: 10/04/18 17:00 [facility] [id number]) Hip Goniometric Range of Motion Hip enrico Hip ROM WFL No Hip ROM Limitations Comments mod tightness in left IT band, enrico quads, enrico hamstrings Knee Goniometric Range of Motion Knee enrico Knee ROM WFL No Knee ROM Limitations Knee ROM Limitations Soft Tissue Tightness Ankle and Foot Goniometric Range of Motion Ankle and Foot enrico Ankle/Foot ROM WFL No Dorsiflexion with Knee Flexed 5 Dorsiflexion with Knee Extended 0 Ankle and Foot ROM Limitations ROM Limitations Soft Tissue Tightness PT-OP-M Strength Start: 10/04/18 09:24 Freq: Status: Active Protocol: Document 10/04/18 13:44 [facility] (Rec: 10/04/18 17:00 [facility] [id number]) Hip Strength Hip Manual Muscle Testing Left Flexion (L2) 4 Good Extension (S1) 4 Good Abduction 3+ Fair+ Adduction 3+ Fair+ External Rotation 4- Good- Right Flexion (L2) 4 Good Extension (S1) 4 Good Abduction 4- Good- External Rotation 3+ Fair+ Internal Rotation 4- Good- Knee Strength Knee Manual Muscle Testing Left Flexion (S2) 4+ Good+ Extension (L3) 4+ Good+ Right Flexion (S2) 4+ Good+ Extension (L3) 4+ Good+ Ankle/Foot Strength Ankle and Foot Manual Muscle Testing Left Dorsiflexion (L4) 4+ Good+ Plantarflexion (S1) 4+ Good+ Right Dorsiflexion (L4) 4+ Good+ Plantarflexion (S1) 4+ Good+ PT-OP-Q Treatments Start: 10/04/18 09:24 Freq: Status: Active Protocol: Document 11/05/18 15:16 [facility] (Rec: 11/05/18 16:20 [facility] [id number]) Therapeutic Exercises Sitting Exercises figure 4 and piriformis stretch Side bilateral Reps/Minutes 2x Standing Exercises SLS Reps/Minutes 5x each side Comments UE support, Trendelenberg on right lunges Side bilateral Reps/Minutes 10x squats Reps/Minutes 10x HC and hip flexor stretch Side bilateral Reps/Minutes 2x Gait Training Gait Activity stairs Description 4 stairs Treatment Focus gluteal activaton Comments enrico UE support pre-gait wt shifts Surface 5 min Treatment Focus LE alignment, gluteal activation Neuro Re-Education Treatment Balance Activities heel/toe gait Equipment UE support on parallel bars Reps/Duration 3 min Self-Care/Home Management Treatment Education Patient Education Body Mechanics Home Exercise Program Posture PT-OP-S Aquatic Treatment Start: 10/04/18 09:24 Freq: Status: Active Protocol: Document 10/26/18 13:00 LJ (Rec: 10/26/18 15:34 LJ [email or web address]) Aquatics Treatment Pool Entry/Exit Pool Entry/Exit Method Stairs Assistance Independent Water Walking Lunge Walk Water Level Chest Level Level of Assistance Verbal Cues Marching Water Level Chest Level Level of Assistance Verbal Cues Sideways Water Level Chest Level Level of Assistance Verbal Cues Backwards Water Level Chest Level Level of Assistance Verbal Cues fwd Water Level Chest Level Level of Assistance Verbal Cues Lower Extremity Exercises split squats Details on boxes; mini squats Body Position Standing Water Level Waist Level Reps/Duration 12x2 bilat Comments VC for form correction squats Body Position Standing on box at wall Reps/Duration 15x Comments cues for posture Lower Extremity Stretches gastroc and soleus Details on stairs and standing on pool bottom Reps/Duration 2x 45 sec HS Body Position Standing Water Level Chest Level Equipment Small Noodle Reps/Duration 2x45 sec bilat quad Body Position Standing Water Level Chest Level Equipment Small Noodle Reps/Duration 2x30 Comments PT assist Spinal Exercises rotations w/cords Details both cords Body Position Standing Water Level Chest Level Reps/Duration 10x2 bilat PT-OP-T Assessment and Plan Start: 10/04/18 09:24 Freq: Status: Active Protocol: Document 11/05/18 15:16 SAK (Rec: 11/05/18 16:20 SAK [id number]) Physical Therapy Assessment Goals 4 Impairment weakness Group Home Goal (LTG) Improve LE strength to at least 4+/5 all muscle groups LTG Duration 12/04/18 3 Impairment Trendelenberg gait Senior Windows Systems Administrator Goal (LTG) Patient able to ambulate without Trendelenberg LTG Duration 12/04/18 2 Impairment impaired alignment enrico LE's Short Term Goal (STG) Patient to demonstrate good understanding of neutral LE alignment STG Duration 11/03/18 Senior Windows Systems Administrator Goal (LTG) Patient able to demonstrate improved LE alignment with functional movement and activities including gait LTG Duration 12/04/18 1 Impairment pain enrico hips and knees Short Term Goal (STG) Decrease pain 50% STG Duration 11/03/18 Group Home Goal (LTG) Decrease pain by 75%, with patient able to tolerate HEP, exercise classess both land and aquatic-based without an increase in pain. LTG Duration 12/04/18 Physical Therapy Plan Frequency and Duration Frequency of Treatment 8 visits Duration of Treatment 2 months Plan of Care Start Date 10/04/18 Plan of Care End Date 12/04/18 Therapeutic Interventions Therapeutic Interventions Aquatic Therapy Gait Training Home Exercise Program Manual Therapy Neuromuscular Re-education Patient/Caregiver Education Self-Care/Home Management Soft Tissue Mobilization Taping Therapeutic Activities Therapeutic Exercises Modalities Cold Pack/Ice Massage Electric Stimulation Hot Packs Ultrasound Next Visit Focus/Plan Next Note Type Treatment Note Next Visit Plan Problem solve any further questions about HEP, progress aquatic ex as tolerated with emphasis on neutral LE alignment and correct muscle activation sequencing.
--- NOTE | 2018-11-07 13:00 | PT.OTN ---
Current Diagnoses Pain in unspecified joint (11/07/18) Pain in right hip (11/07/18) Pain in left hip (11/07/18) Pain in right knee (11/07/18) Pain in left knee (11/07/18) Weakness (11/07/18) Physical Therapy Treatment Note PT-OP-A Visit Information Start: 10/04/18 09:24 Freq: Status: Active Protocol: Document 11/07/18 13:00 SAK (Rec: 11/08/18 16:56 [facility] [id number]) Out-Patient Physical Therapy Visit Information Visit Information Visit Type Treatment Note Visit Start Time 13:00 Visit Stop Time 13:45 Total Visit Minutes 45 Visit Number 4 Number of SUPERVISOR DRYING AND SOFTENING Visits 0 PT-OP-B Current Condition Start: 10/04/18 09:24 Freq: Status: Active Protocol: Document 10/04/18 13:44 SAK (Rec: 10/04/18 14:33 SAK [id number]) Current Condition History of Current Condition Onset Date 6 months Current Complaints left knee pain, bilateral knee pain History of Current Condition Reports that for the past 6 months she has been noticing soreness and exhaustion after her usual work-outs out at [employer] and [employer] [facility]; usual schedule is 4-5x/wk. Pain bilateral knees and hips, occasional stabbing pain in back of left knee. Has had 1 month of not exercising due to travel and illness from flu and reports some decrease in pain. . Also c/o pain left IT band and enrico tops of feet at times. Has bunion left foot. Reports feeling weak, especially ambulating on stairs. Prior Treatments and Tests left knee OA per x-ray Future Testing and Treatments Planned none planned Treatment Goals Patient/Caregiver Goals Decrease her pain and modify her exercise and activity program to be able to function with less pain and fatigue. Prior Functional Status Baseline Function- ADL's Independent Baseline Function- Mobility Independent Baseline Function- Gait independent with no pain Baseline Function- Recreation/Hobbies painful and exhausting PT-OP-C Subjective Start: 10/04/18 09:24 Freq: Status: Active Protocol: Document 11/05/18 15:16 SAK (Rec: 11/05/18 16:20 SAK [id number]) OP-PT Subjective Patient Comments Patient Comments compliant with HEP. Doing clamshells, reverse clamshells and hip abd in bed. Feels more comfortable with correct form for squats, needs help with lunges, standing posture, walking mechanics. PT-OP-D Balance Start: 10/04/18 09:24 Freq: Status: Active Protocol: Document 10/04/18 13:44 SAK (Rec: 10/04/18 17:00 [facility] [id number]) Balance Tests Single Limb Standing Single Limb- Right needs UE support, Trendelenberg Single Limb- Left needs UE support, Trendelenberg PT-OP-G Mobility & Gait Start: 10/04/18 09:24 Freq: Status: Active Protocol: Document 10/04/18 13:44 SAK (Rec: 10/04/18 17:00 SAK [id number]) OP Mobility Evaluation Transfers Sit to Stand excess ER enrico LE's Functional Movements Squats excess enrico LE ER OP Gait Assessment Gait Gait Assistance Required: Independent Assistive Devices Assistive Device None Comments Gait Comments excess enrico LE ER, increased lateral sway, decreased trunk rotation Stair Climbing Evaluation Evaluation Level of Assist On Stairs Independent Devices Stair Climbing Assistive Devices Left Railing Right Railing PT-OP-H Neuro Start: 10/04/18 09:24 Freq: Status: Active Protocol: Document 10/04/18 13:44 SAK (Rec: 10/04/18 17:00 [facility] [id number]) Sensation Evaluation Gross Sensation Gross Sensation WNL PT-OP-J Posture/Palpation/Skin Start: 10/04/18 09:24 Freq: Status: Active Protocol: Document 10/04/18 13:44 SAK (Rec: 10/04/18 17:00 [facility] [id number]) Posture Evaluation Position Standing Weight Distribution Decreased Wt.Bear on (L) Hip Posture (L) Externally Rotated (R) Externally Rotated Knee Posture (L) Genu Valgus (R) Genu Valgus Patellar Posture (L) Neutral (R) Neutral Ankle/Foot Posture (L) Pronated (R) Pronated Foot Arch (L) Medium Arch (R) Medium Arch PT-OP-K Range of Motion Start: 10/04/18 09:24 Freq: Status: Active Protocol: Document 10/04/18 13:44 SAK (Rec: 10/04/18 17:00 SAK [id number]) Hip Goniometric Range of Motion Hip enrico Hip ROM WFL No Hip ROM Limitations Comments mod tightness in left IT band, enrico quads, enrico hamstrings Knee Goniometric Range of Motion Knee enrico Knee ROM WFL No Knee ROM Limitations Knee ROM Limitations Soft Tissue Tightness Ankle and Foot Goniometric Range of Motion Ankle and Foot enrico Ankle/Foot ROM WFL No Dorsiflexion with Knee Flexed 5 Dorsiflexion with Knee Extended 0 Ankle and Foot ROM Limitations ROM Limitations Soft Tissue Tightness PT-OP-M Strength Start: 10/04/18 09:24 Freq: Status: Active Protocol: Document 10/04/18 13:44 [facility] (Rec: 10/04/18 17:00 [facility] [id number]) Hip Strength Hip Manual Muscle Testing Left Flexion (L2) 4 Good Extension (S1) 4 Good Abduction 3+ Fair+ Adduction 3+ Fair+ External Rotation 4- Good- Right Flexion (L2) 4 Good Extension (S1) 4 Good Abduction 4- Good- External Rotation 3+ Fair+ Internal Rotation 4- Good- Knee Strength Knee Manual Muscle Testing Left Flexion (S2) 4+ Good+ Extension (L3) 4+ Good+ Right Flexion (S2) 4+ Good+ Extension (L3) 4+ Good+ Ankle/Foot Strength Ankle and Foot Manual Muscle Testing Left Dorsiflexion (L4) 4+ Good+ Plantarflexion (S1) 4+ Good+ Right Dorsiflexion (L4) 4+ Good+ Plantarflexion (S1) 4+ Good+ PT-OP-Q Treatments Start: 10/04/18 09:24 Freq: Status: Active Protocol: Document 11/05/18 15:16 [facility] (Rec: 11/05/18 16:20 [facility] [id number]) Therapeutic Exercises Sitting Exercises figure 4 and piriformis stretch Side bilateral Reps/Minutes 2x Standing Exercises SLS Reps/Minutes 5x each side Comments UE support, Trendelenberg on right lunges Side bilateral Reps/Minutes 10x squats Reps/Minutes 10x HC and hip flexor stretch Side bilateral Reps/Minutes 2x Gait Training Gait Activity stairs Description 4 stairs Treatment Focus gluteal activaton Comments enrico UE support pre-gait wt shifts Surface 5 min Treatment Focus LE alignment, gluteal activation Neuro Re-Education Treatment Balance Activities heel/toe gait Equipment UE support on parallel bars Reps/Duration 3 min Self-Care/Home Management Treatment Education Patient Education Body Mechanics Home Exercise Program Posture PT-OP-S Aquatic Treatment Start: 10/04/18 09:24 Freq: Status: Active Protocol: Document 11/07/18 13:00 [facility] (Rec: 11/08/18 16:56 [facility] [id number]) Aquatics Treatment Pool Entry/Exit Pool Entry/Exit Method Stairs Assistance Independent Water Walking [place] Water Level Chest Level Level of Assistance Verbal Cues Lunge Walk Water Level Chest Level Level of Assistance Verbal Cues Marching Water Level Chest Level Level of Assistance Verbal Cues Sideways Water Level Chest Level Level of Assistance Verbal Cues Backwards Water Level Chest Level Level of Assistance Verbal Cues fwd Water Level Chest Level Level of Assistance Verbal Cues Lower Extremity Exercises hip SLR 4 way with stretch cords Body Position Standing Water Level Chest Level Equipment yellow stretch cord Reps/Duration 10x ea Comments cues for alignment; verbal and manual squats Body Position Standing on box at wall Reps/Duration 15x Comments cues for posture knee flex/ext Body Position Standing Water Level Chest Level Reps/Duration 12x Lower Extremity Stretches gastroc and soleus Details on stairs and standing on pool bottom Reps/Duration 2x 45 sec HS Body Position Standing Water Level Chest Level Equipment Small Noodle Reps/Duration 2x45 sec bilat quad Body Position Standing Water Level Chest Level Equipment Small Noodle Reps/Duration 2x30 Comments PT assist PT-OP-T Assessment and Plan Start: 10/04/18 09:24 Freq: Status: Active Protocol: Document 11/07/18 13:00 [facility] (Rec: 11/08/18 16:56 [facility] [id number]) Physical Therapy Assessment Goals 4 Impairment weakness Snf Goal (LTG) Improve LE strength to at least 4+/5 all muscle groups LTG Duration 12/04/18 3 Impairment Trendelenberg gait Snf Goal (LTG) Patient able to ambulate without Trendelenberg LTG Duration 12/04/18 2 Impairment impaired alignment enrico LE's Short Term Goal (STG) Patient to demonstrate good understanding of neutral LE alignment STG Duration 11/03/18 Snf Goal (LTG) Patient able to demonstrate improved LE alignment with functional movement and activities including gait LTG Duration 12/04/18 1 Impairment pain enrico hips and knees Short Term Goal (STG) Decrease pain 50% STG Duration 11/03/18 Snf Goal (LTG) Decrease pain by 75%, with patient able to tolerate HEP, exercise classess both land and aquatic-based without an increase in pain. LTG Duration 12/04/18 Assessment Summary Assessment Patient demonstrates good undrstanding of neutral LE alignment but has difficulty with functional follow-through . Physical Therapy Plan Frequency and Duration Frequency of Treatment 8 visits Duration of Treatment 2 months Plan of Care Start Date 10/04/18 Plan of Care End Date 12/04/18 Therapeutic Interventions Therapeutic Interventions Aquatic Therapy Gait Training Home Exercise Program Manual Therapy Neuromuscular Re-education Patient/Caregiver Education Self-Care/Home Management Soft Tissue Mobilization Taping Therapeutic Activities Therapeutic Exercises Modalities Cold Pack/Ice Massage Electric Stimulation Hot Packs Ultrasound Next Visit Focus/Plan Next Note Type Treatment Note Next Visit Plan Continue PT with ther ex emphasizing neutral LE alignment and correct muscle activation sequencing.
--- NOTE | 2018-11-08 16:56 | PT.OTN ---
Current Diagnoses Pain in unspecified joint (11/07/18) Pain in right hip (11/07/18) Pain in left hip (11/07/18) Pain in right knee (11/07/18) Pain in left knee (11/07/18) Weakness (11/07/18) Physical Therapy Treatment Note PT-OP-A Visit Information Start: 10/04/18 09:24 Freq: Status: Active Protocol: Document 11/08/18 16:48 SAK (Rec: 11/08/18 16:56 [facility] [id number]) Out-Patient Physical Therapy Visit Information Visit Information Visit Type Treatment Note Visit Start Time 13:00 Visit Stop Time 13:45 Total Visit Minutes 45 Visit Number 4 Number of SENIOR RESEARCH EXECUTIVE Visits 0 PT-OP-B Current Condition Start: 10/04/18 09:24 Freq: Status: Active Protocol: Document 10/04/18 13:44 SAK (Rec: 10/04/18 14:33 SAK [id number]) Current Condition History of Current Condition Onset Date 6 months Current Complaints left knee pain, bilateral knee pain History of Current Condition Reports that for the past 6 months she has been noticing soreness and exhaustion after her usual work-outs out at [employer] [facility] [employer] [facility]; usual schedule is 4-5x/wk. Pain bilateral knees and hips, occasional stabbing pain in back of left knee. Has had 1 month of not exercising due to travel and illness from flu and reports some decrease in pain. . Also c/o pain left IT band and enrico tops of feet at times. Has bunion left foot. Reports feeling weak, especially ambulating on stairs. Prior Treatments and Tests left knee OA per x-ray Future Testing and Treatments Planned none planned Treatment Goals Patient/Caregiver Goals Decrease her pain and modify her exercise and activity program to be able to function with less pain and fatigue. Prior Functional Status Baseline Function- ADL's Independent Baseline Function- Mobility Independent Baseline Function- Gait independent with no pain Baseline Function- Recreation/Hobbies painful and exhausting PT-OP-C Subjective Start: 10/04/18 09:24 Freq: Status: Active Protocol: Document 11/05/18 15:16 SAK (Rec: 11/05/18 16:20 SAK [id number]) OP-PT Subjective Patient Comments Patient Comments compliant with HEP. Doing clamshells, reverse clamshells and hip abd in bed. Feels more comfortable with correct form for squats, needs help with lunges, standing posture, walking mechanics. PT-OP-D Balance Start: 10/04/18 09:24 Freq: Status: Active Protocol: Document 10/04/18 13:44 SAK (Rec: 10/04/18 17:00 [facility] [id number]) Balance Tests Single Limb Standing Single Limb- Right needs UE support, Trendelenberg Single Limb- Left needs UE support, Trendelenberg PT-OP-G Mobility & Gait Start: 10/04/18 09:24 Freq: Status: Active Protocol: Document 10/04/18 13:44 SAK (Rec: 10/04/18 17:00 SAK [id number]) OP Mobility Evaluation Transfers Sit to Stand excess ER enrico LE's Functional Movements Squats excess enrico LE ER OP Gait Assessment Gait Gait Assistance Required: Independent Assistive Devices Assistive Device None Comments Gait Comments excess enrico LE ER, increased lateral sway, decreased trunk rotation Stair Climbing Evaluation Evaluation Level of Assist On Stairs Independent Devices Stair Climbing Assistive Devices Left Railing Right Railing PT-OP-H Neuro Start: 10/04/18 09:24 Freq: Status: Active Protocol: Document 10/04/18 13:44 SAK (Rec: 10/04/18 17:00 [facility] [id number]) Sensation Evaluation Gross Sensation Gross Sensation WNL PT-OP-J Posture/Palpation/Skin Start: 10/04/18 09:24 Freq: Status: Active Protocol: Document 10/04/18 13:44 SAK (Rec: 10/04/18 17:00 [facility] [id number]) Posture Evaluation Position Standing Weight Distribution Decreased Wt.Bear on (L) Hip Posture (L) Externally Rotated (R) Externally Rotated Knee Posture (L) Genu Valgus (R) Genu Valgus Patellar Posture (L) Neutral (R) Neutral Ankle/Foot Posture (L) Pronated (R) Pronated Foot Arch (L) Medium Arch (R) Medium Arch PT-OP-K Range of Motion Start: 10/04/18 09:24 Freq: Status: Active Protocol: Document 10/04/18 13:44 SAK (Rec: 10/04/18 17:00 SAK [id number]) Hip Goniometric Range of Motion Hip enrico Hip ROM WFL No Hip ROM Limitations Comments mod tightness in left IT band, enrico quads, enrico hamstrings Knee Goniometric Range of Motion Knee enrico Knee ROM WFL No Knee ROM Limitations Knee ROM Limitations Soft Tissue Tightness Ankle and Foot Goniometric Range of Motion Ankle and Foot enrico Ankle/Foot ROM WFL No Dorsiflexion with Knee Flexed 5 Dorsiflexion with Knee Extended 0 Ankle and Foot ROM Limitations ROM Limitations Soft Tissue Tightness PT-OP-M Strength Start: 10/04/18 09:24 Freq: Status: Active Protocol: Document 10/04/18 13:44 [facility] (Rec: 10/04/18 17:00 [facility] [id number]) Hip Strength Hip Manual Muscle Testing Left Flexion (L2) 4 Good Extension (S1) 4 Good Abduction 3+ Fair+ Adduction 3+ Fair+ External Rotation 4- Good- Right Flexion (L2) 4 Good Extension (S1) 4 Good Abduction 4- Good- External Rotation 3+ Fair+ Internal Rotation 4- Good- Knee Strength Knee Manual Muscle Testing Left Flexion (S2) 4+ Good+ Extension (L3) 4+ Good+ Right Flexion (S2) 4+ Good+ Extension (L3) 4+ Good+ Ankle/Foot Strength Ankle and Foot Manual Muscle Testing Left Dorsiflexion (L4) 4+ Good+ Plantarflexion (S1) 4+ Good+ Right Dorsiflexion (L4) 4+ Good+ Plantarflexion (S1) 4+ Good+ PT-OP-Q Treatments Start: 10/04/18 09:24 Freq: Status: Active Protocol: Document 11/05/18 15:16 [facility] (Rec: 11/05/18 16:20 [facility] [id number]) Therapeutic Exercises Sitting Exercises figure 4 and piriformis stretch Side bilateral Reps/Minutes 2x Standing Exercises SLS Reps/Minutes 5x each side Comments UE support, Trendelenberg on right lunges Side bilateral Reps/Minutes 10x squats Reps/Minutes 10x HC and hip flexor stretch Side bilateral Reps/Minutes 2x Gait Training Gait Activity stairs Description 4 stairs Treatment Focus gluteal activaton Comments enrico UE support pre-gait wt shifts Surface 5 min Treatment Focus LE alignment, gluteal activation Neuro Re-Education Treatment Balance Activities heel/toe gait Equipment UE support on parallel bars Reps/Duration 3 min Self-Care/Home Management Treatment Education Patient Education Body Mechanics Home Exercise Program Posture PT-OP-S Aquatic Treatment Start: 10/04/18 09:24 Freq: Status: Active Protocol: Document 11/08/18 16:48 SAK (Rec: 11/08/18 16:56 [facility] [id number]) Aquatics Treatment Pool Entry/Exit Pool Entry/Exit Method Stairs Assistance Independent Water Walking [place] Water Level Chest Level Level of Assistance Verbal Cues Lunge Walk Water Level Chest Level Level of Assistance Verbal Cues Marching Water Level Chest Level Level of Assistance Verbal Cues Sideways Water Level Chest Level Level of Assistance Verbal Cues Backwards Water Level Chest Level Level of Assistance Verbal Cues fwd Water Level Chest Level Level of Assistance Verbal Cues Lower Extremity Exercises hip SLR 4 way with stretch cords Body Position Standing Water Level Chest Level Equipment yellow stretch cord Reps/Duration 10x ea Comments cues for alignment; verbal and manual squats Body Position Standing on box at wall Reps/Duration 15x Comments cues for posture knee flex/ext Body Position Standing Water Level Chest Level Reps/Duration 12x Lower Extremity Stretches gastroc and soleus Details on stairs and standing on pool bottom Reps/Duration 2x 45 sec HS Body Position Standing Water Level Chest Level Equipment Small Noodle Reps/Duration 2x45 sec bilat quad Body Position Standing Water Level Chest Level Equipment Small Noodle Reps/Duration 2x30 Comments PT assist PT-OP-T Assessment and Plan Start: 10/04/18 09:24 Freq: Status: Active Protocol: Document 11/08/18 16:48 [facility] (Rec: 11/08/18 16:56 [facility] [id number]) Physical Therapy Assessment Goals 4 Impairment weakness Halfway Goal (LTG) Improve LE strength to at least 4+/5 all muscle groups LTG Duration 12/04/18 3 Impairment Trendelenberg gait Halfway Goal (LTG) Patient able to ambulate without Trendelenberg LTG Duration 12/04/18 2 Impairment impaired alignment enrico LE's Short Term Goal (STG) Patient to demonstrate good understanding of neutral LE alignment STG Duration 11/03/18 Halfway Goal (LTG) Patient able to demonstrate improved LE alignment with functional movement and activities including gait LTG Duration 12/04/18 1 Impairment pain enrico hips and knees Short Term Goal (STG) Decrease pain 50% STG Duration 11/03/18 Halfway Goal (LTG) Decrease pain by 75%, with patient able to tolerate HEP, exercise classess both land and aquatic-based without an increase in pain. LTG Duration 12/04/18 Assessment Summary Assessment Patient demonstrates good undrstanding of neutral LE alignment but has difficulty with functional follow-through . Physical Therapy Plan Frequency and Duration Frequency of Treatment 8 visits Duration of Treatment 2 months Plan of Care Start Date 10/04/18 Plan of Care End Date 12/04/18 Therapeutic Interventions Therapeutic Interventions Aquatic Therapy Gait Training Home Exercise Program Manual Therapy Neuromuscular Re-education Patient/Caregiver Education Self-Care/Home Management Soft Tissue Mobilization Taping Therapeutic Activities Therapeutic Exercises Modalities Cold Pack/Ice Massage Electric Stimulation Hot Packs Ultrasound Next Visit Focus/Plan Next Note Type Treatment Note Next Visit Plan Continue PT with ther ex emphasizing neutral LE alignment and correct muscle activation sequencing.
--- NOTE | 2018-11-16 13:00 | PT.OTN ---
Current Diagnoses Pain in unspecified joint (11/16/18) Pain in right hip (11/16/18) Pain in left hip (11/16/18) Pain in right knee (11/16/18) Pain in left knee (11/16/18) Weakness (11/16/18) Physical Therapy Treatment Note PT-OP-A Visit Information Start: 10/04/18 09:24 Freq: Status: Active Protocol: Document 11/16/18 13:00 SAK (Rec: 11/19/18 16:37 [facility] [id number]) Out-Patient Physical Therapy Visit Information Visit Information Visit Type Aquatic Treatment Note Visit Start Time 13:00 Visit Stop Time 13:45 Total Visit Minutes 45 Visit Number 5 Number of COMPUTER BOOKKEEPER Visits 0 Evaluation Information Evaluation Date 10/04/18 PT-OP-B Current Condition Start: 10/04/18 09:24 Freq: Status: Active Protocol: Document 10/04/18 13:44 SAK (Rec: 10/04/18 14:33 SAK [id number]) Current Condition History of Current Condition Onset Date 6 months Current Complaints left knee pain, bilateral knee pain History of Current Condition Reports that for the past 6 months she has been noticing soreness and exhaustion after her usual work-outs out at pool and fitness center; usual schedule is 4-5x/wk. Pain bilateral knees and hips, occasional stabbing pain in back of left knee. Has had 1 month of not exercising due to travel and illness from flu and reports some decrease in pain. . Also c/o pain left IT band and enrico tops of feet at times. Has bunion left foot. Reports feeling weak, especially ambulating on stairs. Prior Treatments and Tests left knee OA per x-ray Future Testing and Treatments Planned none planned Treatment Goals Patient/Caregiver Goals Decrease her pain and modify her exercise and activity program to be able to function with less pain and fatigue. Prior Functional Status Baseline Function- ADL's Independent Baseline Function- Mobility Independent Baseline Function- Gait independent with no pain Baseline Function- Recreation/Hobbies painful and exhausting PT-OP-C Subjective Start: 10/04/18 09:24 Freq: Status: Active Protocol: Document 11/16/18 13:00 SAK (Rec: 11/19/18 16:37 [facility] [id number]) OP-PT Subjective Patient Comments Patient Comments Reports good compliance to HEP . I know I just have to be consistent with these exercises. PT-OP-D Balance Start: 10/04/18 09:24 Freq: Status: Active Protocol: Document 10/04/18 13:44 [facility] (Rec: 10/04/18 17:00 [facility] [id number]) Balance Tests Single Limb Standing Single Limb- Right needs UE support, Trendelenberg Single Limb- Left needs UE support, Trendelenberg PT-OP-G Mobility & Gait Start: 10/04/18 09:24 Freq: Status: Active Protocol: Document 10/04/18 13:44 SAK (Rec: 10/04/18 17:00 [facility] [id number]) OP Mobility Evaluation Transfers Sit to Stand excess ER enrico LE's Functional Movements Squats excess enrico LE ER OP Gait Assessment Gait Gait Assistance Required: Independent Assistive Devices Assistive Device None Comments Gait Comments excess enrico LE ER, increased lateral sway, decreased trunk rotation Stair Climbing Evaluation Evaluation Level of Assist On Stairs Independent Devices Stair Climbing Assistive Devices Left Railing Right Railing PT-OP-H Neuro Start: 10/04/18 09:24 Freq: Status: Active Protocol: Document 10/04/18 13:44 [facility] (Rec: 10/04/18 17:00 [facility] [id number]) Sensation Evaluation Gross Sensation Gross Sensation WNL PT-OP-J Posture/Palpation/Skin Start: 10/04/18 09:24 Freq: Status: Active Protocol: Document 10/04/18 13:44 [facility] (Rec: 10/04/18 17:00 [facility] [id number]) Posture Evaluation Position Standing Weight Distribution Decreased Wt.Bear on (L) Hip Posture (L) Externally Rotated (R) Externally Rotated Knee Posture (L) Genu Valgus (R) Genu Valgus Patellar Posture (L) Neutral (R) Neutral Ankle/Foot Posture (L) Pronated (R) Pronated Foot Arch (L) Medium Arch (R) Medium Arch PT-OP-K Range of Motion Start: 10/04/18 09:24 Freq: Status: Active Protocol: Document 10/04/18 13:44 [facility] (Rec: 10/04/18 17:00 [facility] [id number]) Hip Goniometric Range of Motion Hip enrico Hip ROM WFL No Hip ROM Limitations Comments mod tightness in left IT band, enrico quads, enrico hamstrings Knee Goniometric Range of Motion Knee enrico Knee ROM WFL No Knee ROM Limitations Knee ROM Limitations Soft Tissue Tightness Ankle and Foot Goniometric Range of Motion Ankle and Foot enrico Ankle/Foot ROM WFL No Dorsiflexion with Knee Flexed 5 Dorsiflexion with Knee Extended 0 Ankle and Foot ROM Limitations ROM Limitations Soft Tissue Tightness PT-OP-M Strength Start: 10/04/18 09:24 Freq: Status: Active Protocol: Document 10/04/18 13:44 [facility] (Rec: 10/04/18 17:00 [facility] [id number]) Hip Strength Hip Manual Muscle Testing Left Flexion (L2) 4 Good Extension (S1) 4 Good Abduction 3+ Fair+ Adduction 3+ Fair+ External Rotation 4- Good- Right Flexion (L2) 4 Good Extension (S1) 4 Good Abduction 4- Good- External Rotation 3+ Fair+ Internal Rotation 4- Good- Knee Strength Knee Manual Muscle Testing Left Flexion (S2) 4+ Good+ Extension (L3) 4+ Good+ Right Flexion (S2) 4+ Good+ Extension (L3) 4+ Good+ Ankle/Foot Strength Ankle and Foot Manual Muscle Testing Left Dorsiflexion (L4) 4+ Good+ Plantarflexion (S1) 4+ Good+ Right Dorsiflexion (L4) 4+ Good+ Plantarflexion (S1) 4+ Good+ PT-OP-Q Treatments Start: 10/04/18 09:24 Freq: Status: Active Protocol: Document 11/05/18 15:16 [facility] (Rec: 11/05/18 16:20 [facility] [id number]) Therapeutic Exercises Sitting Exercises figure 4 and piriformis stretch Side bilateral Reps/Minutes 2x Standing Exercises SLS Reps/Minutes 5x each side Comments UE support, Trendelenberg on right lunges Side bilateral Reps/Minutes 10x squats Reps/Minutes 10x HC and hip flexor stretch Side bilateral Reps/Minutes 2x Gait Training Gait Activity stairs Description 4 stairs Treatment Focus gluteal activaton Comments enrico UE support pre-gait wt shifts Surface 5 min Treatment Focus LE alignment, gluteal activation Neuro Re-Education Treatment Balance Activities heel/toe gait Equipment UE support on parallel bars Reps/Duration 3 min Self-Care/Home Management Treatment Education Patient Education Body Mechanics Home Exercise Program Posture PT-OP-S Aquatic Treatment Start: 10/04/18 09:24 Freq: Status: Active Protocol: Document 08/02/19 13:00 [facility] (Rec: 11/19/18 16:37 [facility] [id number]) Aquatics Treatment Pool Entry/Exit Pool Entry/Exit Method Stairs Assistance Independent Water Walking [place] Water Level Chest Level Level of Assistance Verbal Cues Lunge Walk Water Level Chest Level Level of Assistance Verbal Cues Marching Water Level Chest Level Level of Assistance Verbal Cues Sideways Water Level Chest Level Level of Assistance Verbal Cues Backwards Water Level Chest Level Level of Assistance Verbal Cues fwd Water Level Chest Level Level of Assistance Verbal Cues Lower Extremity Exercises hip SLR [address] way with stretch cords Body Position Standing Water Level Chest Level Equipment yellow stretch cord Reps/Duration 10x ea Comments cues for alignment; verbal and manual split squats Details on boxes; mini squats Body Position Standing Water Level Waist Level Reps/Duration 12x2 bilat Comments VC for form correction squats Body Position Standing on box at wall Reps/Duration 15x Comments cues for posture knee flex/ext Body Position Standing Water Level Chest Level Reps/Duration 12x Lower Extremity Stretches gastroc and soleus Details on stairs and standing on pool bottom Reps/Duration 2x 45 sec DKTC, SKTC Body Position Standing Water Level [place] Reps/Duration edge of pool hip ER Body Position chair position leaning against wall HS Body Position Standing Water Level Chest Level Equipment Small Noodle Reps/Duration 2x45 sec bilat quad Body Position Standing Water Level Chest Level Equipment Small Noodle Reps/Duration 2x30 Comments PT assist Spinal Exercises rotations w/cords Details both cords Body Position Standing Water Level Chest Level Reps/Duration 10x2 bilat [place] Activities [place] Activities Bicycle Bicycle Backwards Cross Country Running Duration 20 min Comments cues for postural and LE alignment and movement PT-OP-T Assessment and Plan Start: 10/04/18 09:24 Freq: Status: Active Protocol: Document 11/16/18 13:00 [facility] (Rec: 11/19/18 16:37 [facility] [id number]) Physical Therapy Assessment Goals 4 Impairment weakness Director Of Teacher Education Goal (LTG) Improve LE strength to at least 4+/5 all muscle groups LTG Duration 12/04/18 3 Impairment Trendelenberg gait [facility] Goal (LTG) Patient able to ambulate without Trendelenberg LTG Duration 12/04/18 2 Impairment impaired alignment enrico LE's Short Term Goal (STG) Patient to demonstrate good understanding of neutral LE alignment STG Duration 11/03/18 [facility] Goal (LTG) Patient able to demonstrate improved LE alignment with functional movement and activities including gait LTG Duration 12/04/18 1 Impairment pain enrico hips and knees Short Term Goal (STG) Decrease pain 50% STG Duration 11/03/18 Director Of Teacher Education Goal (LTG) Decrease pain by 75%, with patient able to tolerate HEP, exercise classess both land and aquatic-based without an increase in pain. LTG Duration 12/04/18 Assessment Summary Assessment Good progress in all goal areas. Recommend patient return in 3-4 weeks after working independently with aquatic exercise program and HEP. Physical Therapy Plan Frequency and Duration Frequency of Treatment 8 visits Duration of Treatment 2 months Plan of Care Start Date 10/04/18 Plan of Care End Date 12/04/18 Therapeutic Interventions Therapeutic Interventions Aquatic Therapy Gait Training Home Exercise Program Manual Therapy Neuromuscular Re-education Patient/Caregiver Education Self-Care/Home Management Soft Tissue Mobilization Taping Therapeutic Activities Therapeutic Exercises Modalities Cold Pack/Ice Massage Electric Stimulation Hot Packs Ultrasound Next Visit Focus/Plan Next Note Type Treatment Note Next Visit Plan PT re-check in 3-4 wks to assess progress and further problem solve any issues with her HEP.
--- NOTE | 2019-01-08 16:28 | PT.OTN ---
Current Diagnoses Pain in unspecified joint (01/08/19) Pain in right hip (01/08/19) Pain in left hip (01/08/19) Pain in right knee (01/08/19) Pain in left knee (01/08/19) Weakness (01/08/19) Physical Therapy Treatment Note PT-OP-A Visit Information Start: 10/04/18 09:24 Freq: Status: Active Protocol: Document 01/08/19 08:59 SAK (Rec: 01/08/19 09:57 SAK [id number]) Out-Patient Physical Therapy Visit Information Visit Information Visit Type Re-Evaluation Visit Start Time 09:00 Visit Stop Time 09:45 Total Visit Minutes 45 Visit Number 6 Number of CHINESE LANGUAGE PROFESSOR Visits 0 Evaluation Information Evaluation Date 10/04/18 PT-OP-B Current Condition Start: 10/04/18 09:24 Freq: Status: Active Protocol: Document 10/04/18 13:44 SAK (Rec: 10/04/18 14:33 SAK [id number]) Current Condition History of Current Condition Onset Date 6 months Current Complaints left knee pain, bilateral knee pain History of Current Condition Reports that for the past 6 months she has been noticing soreness and exhaustion after her usual work-outs out at pool and fitness center; usual schedule is 4-5x/wk. Pain bilateral knees and hips, occasional stabbing pain in back of left knee. Has had 1 month of not exercising due to travel and illness from flu and reports some decrease in pain. . Also c/o pain left IT band and enrico tops of feet at times. Has bunion left foot. Reports feeling weak, especially ambulating on stairs. Prior Treatments and Tests left knee OA per x-ray Future Testing and Treatments Planned none planned Treatment Goals Patient/Caregiver Goals Decrease her pain and modify her exercise and activity program to be able to function with less pain and fatigue. Prior Functional Status Baseline Function- ADL's Independent Baseline Function- Mobility Independent Baseline Function- Gait independent with no pain Baseline Function- Recreation/Hobbies painful and exhausting PT-OP-C Subjective Start: 10/04/18 09:24 Freq: Status: Active Protocol: Document 01/08/19 08:59 SAK (Rec: 01/08/19 09:57 SAK [id number]) OP-PT Subjective Patient Comments Patient Comments Reports she has been working hard on her walking, hoping better. Doing bed exercises includes supine bicycling 12- 15 min before getting up. Knees feeling better, hips bothersome especially after prolonged sitting. PT-OP-D Balance Start: 10/04/18 09:24 Freq: Status: Active Protocol: Document 10/04/18 13:44 SAK (Rec: 10/04/18 17:00 [facility] [id number]) Balance Tests Single Limb Standing Single Limb- Right needs UE support, Trendelenberg Single Limb- Left needs UE support, Trendelenberg PT-OP-G Mobility & Gait Start: 10/04/18 09:24 Freq: Status: Active Protocol: Document 10/04/18 13:44 SAK (Rec: 10/04/18 17:00 [facility] [id number]) OP Mobility Evaluation Transfers Sit to Stand excess ER enrico LE's Functional Movements Squats excess enrico LE ER OP Gait Assessment Gait Gait Assistance Required: Independent Assistive Devices Assistive Device None Comments Gait Comments excess enrico LE ER, increased lateral sway, decreased trunk rotation Stair Climbing Evaluation Evaluation Level of Assist On Stairs Independent Devices Stair Climbing Assistive Devices Left Railing,Right Railing PT-OP-H Neuro Start: 10/04/18 09:24 Freq: Status: Active Protocol: Document 10/04/18 13:44 SAK (Rec: 10/04/18 17:00 [facility] [id number]) Sensation Evaluation Gross Sensation Gross Sensation WNL PT-OP-J Posture/Palpation/Skin Start: 10/04/18 09:24 Freq: Status: Active Protocol: Document 10/04/18 13:44 SAK (Rec: 10/04/18 17:00 [facility] [id number]) Posture Evaluation Position Standing Weight Distribution Decreased Wt.Bear on (L) Hip Posture (L) Externally Rotated,(R) Externally Rotated Knee Posture (L) Genu Valgus,(R) Genu Valgus Patellar Posture (L) Neutral,(R) Neutral Ankle/Foot Posture (L) Pronated,(R) Pronated Foot Arch (L) Medium Arch,(R) Medium Arch PT-OP-K Range of Motion Start: 10/04/18 09:24 Freq: Status: Active Protocol: Document 10/04/18 13:44 SAK (Rec: 10/04/18 17:00 [facility] [id number]) Hip Goniometric Range of Motion Hip enrico Hip ROM WFL No Hip ROM Limitations Comments mod tightness in left IT band, enrico quads, enrico hamstrings Knee Goniometric Range of Motion Knee enrico Knee ROM WFL No Knee ROM Limitations Knee ROM Limitations Soft Tissue Tightness Ankle and Foot Goniometric Range of Motion Ankle and Foot enrico Ankle/Foot ROM WFL No Dorsiflexion with Knee Flexed 5 Dorsiflexion with Knee Extended 0 Ankle and Foot ROM Limitations ROM Limitations Soft Tissue Tightness PT-OP-M Strength Start: 10/04/18 09:24 Freq: Status: Active Protocol: Document 10/04/18 13:44 [facility] (Rec: 10/04/18 17:00 [facility] [id number]) Hip Strength Hip Manual Muscle Testing Left Flexion (L2) 4 Good Extension (S1) 4 Good Abduction 3+ Fair+ Adduction 3+ Fair+ External Rotation 4- Good- Right Flexion (L2) 4 Good Extension (S1) 4 Good Abduction 4- Good- External Rotation 3+ Fair+ Internal Rotation 4- Good- Knee Strength Knee Manual Muscle Testing Left Flexion (S2) 4+ Good+ Extension (L3) 4+ Good+ Right Flexion (S2) 4+ Good+ Extension (L3) 4+ Good+ Ankle/Foot Strength Ankle and Foot Manual Muscle Testing Left Dorsiflexion (L4) 4+ Good+ Plantarflexion (S1) 4+ Good+ Right Dorsiflexion (L4) 4+ Good+ Plantarflexion (S1) 4+ Good+ PT-OP-Q Treatments Start: 10/04/18 09:24 Freq: Status: Active Protocol: Document 01/08/19 08:59 [facility] (Rec: 01/08/19 09:57 [facility] [id number]) Gym Equipment Sport Cord forward Cord/Resistance 2 Comments cues for gluteal activation, LE alignment; mirror for visual feedback Therapeutic Exercises Supine Exercises bridge Reps/Minutes 10x glut sets, TrA, march, SKTC, HS stretch Reps/Minutes 10x Sidelying Exercises hip abd, clamshell, reverse clamshell Reps/Minutes 10x Standing Exercises SLS Reps/Minutes 5x each side Comments UE support, Trendelenberg on right Gait Training Gait Activity pre-gait wt shifts Surface 5 min Treatment Focus LE alignment, gluteal activation Manual Therapy Treatment Other Other Manual Treatments MMT LE's Self-Care/Home Management Treatment Education Patient Education Body Mechanics,Home Exercise Program,Posture PT-OP-S Aquatic Treatment Start: 10/04/18 09:24 Freq: Status: Active Protocol: Document 11/16/18 13:00 [facility] (Rec: 11/19/18 16:37 [facility] [id number]) Aquatics Treatment Pool Entry/Exit Pool Entry/Exit Method Stairs Assistance Independent Water Walking [place] Water Level Chest Level Level of Assistance Verbal Cues Lunge Walk Water Level Chest Level Level of Assistance Verbal Cues Marching Water Level Chest Level Level of Assistance Verbal Cues Sideways Water Level Chest Level Level of Assistance Verbal Cues Backwards Water Level Chest Level Level of Assistance Verbal Cues fwd Water Level Chest Level Level of Assistance Verbal Cues Lower Extremity Exercises hip SLR [address] way with stretch cords Body Position Standing Water Level Chest Level Equipment yellow stretch cord Reps/Duration 10x ea Comments cues for alignment; verbal and manual split squats Details on boxes; mini squats Body Position Standing Water Level Waist Level Reps/Duration 12x2 bilat Comments VC for form correction squats Body Position Standing on box at wall Reps/Duration 15x Comments cues for posture knee flex/ext Body Position Standing Water Level Chest Level Reps/Duration 12x Lower Extremity Stretches gastroc and soleus Details on stairs and standing on pool bottom Reps/Duration 2x 45 sec DKTC, SKTC Body Position Standing Water Level [place] Reps/Duration edge of pool hip ER Body Position chair position leaning against wall HS Body Position Standing Water Level Chest Level Equipment Small Noodle Reps/Duration 2x45 sec bilat quad Body Position Standing Water Level Chest Level Equipment Small Noodle Reps/Duration 2x30 Comments PT assist Spinal Exercises rotations w/cords Details both cords Body Position Standing Water Level Chest Level Reps/Duration 10x2 bilat [place] Activities [place] Activities Bicycle,Bicycle Backwards, Cross Country,Running Duration 20 min Comments cues for postural and LE alignment and movement PT-OP-T Assessment and Plan Start: 10/04/18 09:24 Freq: Status: Active Protocol: Document 01/08/19 08:59 [facility] (Rec: 01/08/19 09:57 [facility] [id number]) Physical Therapy Assessment Goals 4 Impairment weakness Skilled Nursing Goal (LTG) Improve LE strength to at least 4+/5 all muscle groups 01/08/19: goal progress, not achieved in right hip abd, enrico hip extension. Patient has been issued ther ex to address these weak areas 3 Impairment Trendelenberg gait Floriculture Teacher Goal (LTG) Patient able to ambulate without Trendelenberg 01/08/19: good goal progress, patient able to ambulate with minimal Trendelenberg when focusing on it, but as soon as she stops focusing on it, this gait pattern returns 2 Impairment impaired alignment enrico LE's Short Term Goal (STG) Patient to demonstrate good understanding of neutral LE alignment 01/08/19: goal met STG Duration Goal met Floriculture Teacher Goal (LTG) Patient able to demonstrate improved LE alignment with functional movement and activities including gait 01/08/19: goal met LTG Duration Goal met 1 Impairment pain enrico hips and knees Short Term Goal (STG) Decrease pain 50% 01/08/19: goal met STG Duration goal met Floriculture Teacher Goal (LTG) Decrease pain by 75%, with patient able to tolerate HEP, exercise classess both land and aquatic-based without an increase in pain01/08/19: goal met LTG Duration goal met Assessment Summary Assessment Patient demonstrates improving postural awareness hugo ability to perform her HEP, especially after further corrections today. Aquatic exercise program was verbally reviewed. Feel she will do well with continued HEP, aquatic exercise program, and community-based ther ex classes. Ready for discharge after today's PT visit. Physical Therapy Plan Frequency and Duration Frequency of Treatment 1 visit Duration of Treatment 1 wk Plan of Care Start Date 01/08/19 Plan of Care End Date 01/15/19 Therapeutic Interventions Therapeutic Interventions Aquatic Therapy,Gait Training, Home Exercise Program,Manual Therapy,Neuromuscular Re- education,Patient/Caregiver Education,Self-Care/Home Management,Soft Tissue Mobilization,Taping, Therapeutic Activities, Therapeutic Exercises Modalities Cold Pack/Ice Massage,Electric Stimulation,Hot Packs, Ultrasound Discharge Physical Therapy Discharge Comments Patient independent with HEP and aquatic exercise program.
--- NOTE | 2019-01-08 16:29 | PT.OPPOC ---
Current Diagnoses Pain in unspecified joint (01/08/19) Pain in right hip (01/08/19) Pain in left hip (01/08/19) Pain in right knee (01/08/19) Pain in left knee (01/08/19) Weakness (01/08/19) Visit Care Team Role Provider Type Juan Lorenzana MD Attending Provider Non-Staff Primary Care Provider Specialty: [facility] Address: [address] [place] [address], [facility] Email: [email or web address] Plan Of Care PT-OP-T Assessment and Plan Start: 10/04/18 09:24 Freq: Status: Active Protocol: Document 01/08/19 08:59 SAK (Rec: 01/08/19 09:57 SAK [id number]) Physical Therapy Assessment Goals 4 Impairment weakness Assisted Goal (LTG) Improve LE strength to at least 4+/5 all muscle groups 01/08/19: goal progress, not achieved in right hip abd, enrico hip extension. Patient has been issued ther ex to address these weak areas 3 Impairment Trendelenberg gait Appeals Examiner Goal (LTG) Patient able to ambulate without Trendelenberg 01/08/19: good goal progress, patient able to ambulate with minimal Trendelenberg when focusing on it, but as soon as she stops focusing on it, this gait pattern returns 2 Impairment impaired alignment enrico LE's Short Term Goal (STG) Patient to demonstrate good understanding of neutral LE alignment 01/08/19: goal met STG Duration Goal met Assisted Goal (LTG) Patient able to demonstrate improved LE alignment with functional movement and activities including gait 01/08/19: goal met LTG Duration Goal met 1 Impairment pain enrico hips and knees Short Term Goal (STG) Decrease pain 50% 01/08/19: goal met STG Duration goal met Assisted Goal (LTG) Decrease pain by 75%, with patient able to tolerate HEP, exercise classess both land and aquatic-based without an increase in pain01/08/19: goal met LTG Duration goal met Assessment Summary Assessment Patient demonstrates improving postural awareness hugo ability to perform her HEP, especially after further corrections today. Aquatic exercise program was verbally reviewed. Feel she will do well with continued HEP, aquatic exercise program, and community-based ther ex classes. Ready for discharge after today's PT visit. Physical Therapy Plan Frequency and Duration Frequency of Treatment 1 visit Duration of Treatment 1 wk Plan of Care Start Date 01/08/19 Plan of Care End Date 01/15/19 Therapeutic Interventions Therapeutic Interventions Aquatic Therapy,Gait Training, Home Exercise Program,Manual Therapy,Neuromuscular Re- education,Patient/Caregiver Education,Self-Care/Home Management,Soft Tissue Mobilization,Taping, Therapeutic Activities, Therapeutic Exercises Modalities Cold Pack/Ice Massage,Electric Stimulation,Hot Packs, Ultrasound Discharge Physical Therapy Discharge Comments Patient independent with HEP and aquatic exercise program. Plan of Care Dates Plan of Care Start Date 01/08/19 Plan of Care End Date 01/15/19
--- NOTE | 2019-03-07 16:22 | PT.OPDS ---
Current Diagnoses Pain in unspecified joint (01/08/19) Pain in right hip (01/08/19) Pain in left hip (01/08/19) Pain in right knee (01/08/19) Pain in left knee (01/08/19) Weakness (01/08/19) Visit Care Team Role Provider Type Juan Lorenzana MD Attending Provider Non-Staff Primary Care Provider Specialty: [facility] Address: [address] [place] [address], [facility] Email: [email or web address] Visit Number Visit Number 6 Discharge Summary PT-OP-B Current Condition Start: 10/04/18 09:24 Freq: Status: Active Protocol: Document 10/04/18 13:44 SAK (Rec: 10/04/18 14:33 SAK [id number]) Current Condition History of Current Condition Onset Date 6 months Current Complaints left knee pain, bilateral knee pain History of Current Condition Reports that for the past 6 months she has been noticing soreness and exhaustion after her usual work-outs out at [employer] [facility] [employer]; usual schedule is 4-5x/wk. Pain bilateral knees and hips, occasional stabbing pain in back of left knee. Has had 1 month of not exercising due to travel and illness from flu and reports some decrease in pain. . Also c/o pain left IT band and enrico tops of feet at times. Has bunion left foot. Reports feeling weak, especially ambulating on stairs. Prior Treatments and Tests left knee OA per x-ray Future Testing and Treatments Planned none planned Treatment Goals Patient/Caregiver Goals Decrease her pain and modify her exercise and activity program to be able to function with less pain and fatigue. Prior Functional Status Baseline Function- ADL's Independent Baseline Function- Mobility Independent Baseline Function- Gait independent with no pain Baseline Function- Recreation/Hobbies painful and exhausting PT-OP-C Subjective Start: 10/04/18 09:24 Freq: Status: Active Protocol: Document 01/08/19 08:59 SAK (Rec: 01/08/19 09:57 SAK [id number]) OP-PT Subjective Patient Comments Patient Comments Reports she has been working hard on her walking, hoping better. Doing bed exercises includes supine bicycling 12- 15 min before getting up. Knees feeling better, hips bothersome especially after prolonged sitting. PT-OP-D Balance Start: 10/04/18 09:24 Freq: Status: Active Protocol: Document 10/04/18 13:44 SAK (Rec: 10/04/18 17:00 [facility] [id number]) Balance Tests Single Limb Standing Single Limb- Right needs UE support, Trendelenberg Single Limb- Left needs UE support, Trendelenberg PT-OP-G Mobility & Gait Start: 10/04/18 09:24 Freq: Status: Active Protocol: Document 10/04/18 13:44 SAK (Rec: 10/04/18 17:00 [facility] [id number]) OP Mobility Evaluation Transfers Sit to Stand excess ER enrico LE's Functional Movements Squats excess enrico LE ER OP Gait Assessment Gait Gait Assistance Required: Independent Assistive Devices Assistive Device None Comments Gait Comments excess enrico LE ER, increased lateral sway, decreased trunk rotation Stair Climbing Evaluation Evaluation Level of Assist On Stairs Independent Devices Stair Climbing Assistive Devices Left Railing,Right Railing PT-OP-H Neuro Start: 10/04/18 09:24 Freq: Status: Active Protocol: Document 10/04/18 13:44 [facility] (Rec: 10/04/18 17:00 [facility] [id number]) Sensation Evaluation Gross Sensation Gross Sensation WNL PT-OP-J Posture/Palpation/Skin Start: 10/04/18 09:24 Freq: Status: Active Protocol: Document 10/04/18 13:44 [facility] (Rec: 10/04/18 17:00 [facility] [id number]) Posture Evaluation Position Standing Weight Distribution Decreased Wt.Bear on (L) Hip Posture (L) Externally Rotated,(R) Externally Rotated Knee Posture (L) Genu Valgus,(R) Genu Valgus Patellar Posture (L) Neutral,(R) Neutral Ankle/Foot Posture (L) Pronated,(R) Pronated Foot Arch (L) Medium Arch,(R) Medium Arch PT-OP-K Range of Motion Start: 10/04/18 09:24 Freq: Status: Active Protocol: Document 10/04/18 13:44 [facility] (Rec: 10/04/18 17:00 [facility] [id number]) Hip Goniometric Range of Motion Hip enrico Hip ROM WFL No Hip ROM Limitations Comments mod tightness in left IT band, enrico quads, enrico hamstrings Knee Goniometric Range of Motion Knee enrico Knee ROM WFL No Knee ROM Limitations Knee ROM Limitations Soft Tissue Tightness Ankle and Foot Goniometric Range of Motion Ankle and Foot enrico Ankle/Foot ROM WFL No Dorsiflexion with Knee Flexed 5 Dorsiflexion with Knee Extended 0 Ankle and Foot ROM Limitations ROM Limitations Soft Tissue Tightness PT-OP-M Strength Start: 10/04/18 09:24 Freq: Status: Active Protocol: Document 10/04/18 13:44 [facility] (Rec: 10/04/18 17:00 [facility] [id number]) Hip Strength Hip Manual Muscle Testing Left Flexion (L2) 4 Good Extension (S1) 4 Good Abduction 3+ Fair+ Adduction 3+ Fair+ External Rotation 4- Good- Right Flexion (L2) 4 Good Extension (S1) 4 Good Abduction 4- Good- External Rotation 3+ Fair+ Internal Rotation 4- Good- Knee Strength Knee Manual Muscle Testing Left Flexion (S2) 4+ Good+ Extension (L3) 4+ Good+ Right Flexion (S2) 4+ Good+ Extension (L3) 4+ Good+ Ankle/Foot Strength Ankle and Foot Manual Muscle Testing Left Dorsiflexion (L4) 4+ Good+ Plantarflexion (S1) 4+ Good+ Right Dorsiflexion (L4) 4+ Good+ Plantarflexion (S1) 4+ Good+ PT-OP-T Assessment and Plan Start: 10/04/18 09:24 Freq: Status: Active Protocol: Document 01/08/19 08:59 [facility] (Rec: 01/08/19 09:57 [facility] [id number]) Physical Therapy Assessment Goals 4 Impairment weakness Material Chaser Goal (LTG) Improve LE strength to at least 4+/5 all muscle groups 01/08/19: goal progress, not achieved in right hip abd, enrico hip extension. Patient has been issued ther ex to address these weak areas 3 Impairment Trendelenberg gait Mcc Goal (LTG) Patient able to ambulate without Trendelenberg 01/08/19: good goal progress, patient able to ambulate with minimal Trendelenberg when focusing on it, but as soon as she stops focusing on it, this gait pattern returns 2 Impairment impaired alignment enrico LE's Short Term Goal (STG) Patient to demonstrate good understanding of neutral LE alignment 01/08/19: goal met STG Duration Goal met Material Chaser Goal (LTG) Patient able to demonstrate improved LE alignment with functional movement and activities including gait 01/08/19: goal met LTG Duration Goal met 1 Impairment pain enrico hips and knees Short Term Goal (STG) Decrease pain 50% 01/08/19: goal met STG Duration goal met Mcc Goal (LTG) Decrease pain by 75%, with patient able to tolerate HEP, exercise classess both land and aquatic-based without an increase in pain01/08/19: goal met LTG Duration goal met Assessment Summary Assessment Patient demonstrates improving postural awareness hugo ability to perform her HEP, especially after further corrections today. Aquatic exercise program was verbally reviewed. Feel she will do well with continued HEP, aquatic exercise program, and community-based ther ex classes. Ready for discharge after today's PT visit. Physical Therapy Plan Frequency and Duration Frequency of Treatment 1 visit Duration of Treatment 1 wk Plan of Care Start Date 01/08/19 Plan of Care End Date 01/15/19 Therapeutic Interventions Therapeutic Interventions Aquatic Therapy,Gait Training, Home Exercise Program,Manual Therapy,Neuromuscular Re- education,Patient/Caregiver Education,Self-Care/Home Management,Soft Tissue Mobilization,Taping, Therapeutic Activities, Therapeutic Exercises Modalities Cold Pack/Ice Massage,Electric Stimulation,Hot Packs, Ultrasound Discharge Physical Therapy Discharge Comments Patient independent with HEP and aquatic exercise program. Late entry for 01/08/19
== END 2019-04-12 11:56 ==
LOC: PHYS 09:00
PROVIDERS: PCP Family Medicine; Visit Provider Family Medicine
DX: M25.50 Pain in unspecified joint (principal); R53.1 Weakness; M25.552 Pain in left hip; M25.562 Pain in left knee; M25.561 Pain in right knee; M25.551 Pain in right hip
CPT/HCPCS: 97110; 97113; 97116; 97161; 97535

== ENCOUNTER 2019-11-19 13:56 | Outpatient (RCR) | payer OTHER, SELFPAY ==
--- NOTE | 2019-11-19 15:15 | PT.OIE ---
Current Diagnoses Difficulty in walking, not elsewhere classified (11/19/19) Weakness (11/19/19) Other fatigue (11/19/19) Visit Care Team Role Provider Type Maria Elena Canchola MD Attending Provider Physician Primary Care Provider Referring Provider Specialty: [facility] Address: [address] [place] [address], [id number] Email: [email or web address] Physical Therapy Initial Evaluation PT-OP-A Visit Information Start: 11/18/19 17:56 Freq: Status: Active Protocol: Document 11/19/19 15:21 SAK (Rec: 11/24/19 13:11 SAK [id number]) Out-Patient Physical Therapy Visit Information Visit Information Visit Type Initial Evaluation Visit Start Time 15:15 Visit Stop Time 16:00 Total Visit Minutes 45 Visit Number 1 Number of CHECKER LOADER Visits 0 Evaluation Information Evaluation Date 11/19/19 PT-OP-B Current Condition Start: 11/18/19 17:56 Freq: Status: Active Protocol: Document 11/19/19 15:21 SAK (Rec: 11/19/19 15:27 SAK [id number]) Current Condition History of Current Condition Onset Date 1 yr Current Complaints concern about fatigue, weakness, is HEP adequate History of Current Condition Has been not been doing much, staying home due to Covid19, feels weak and fatigued. Trying to do HEP, hasn't been able to go to the pool as she typically does. Compliant to HEP. Can now do bridge, reports can stretch hamstring better. Wants help in assessing her HEP, but doesn't have a lot of energy. Wants to be able to travel when able . Treatment Goals Patient/Caregiver Goals Assess for further PT needs including modification of HEP to address fatigue and weakness Prior Functional Status Baseline Function- ADL's Independent Baseline Function- Mobility Independent Baseline Function- Gait independent, no device Baseline Function- Work/School retired Current Functional Impairments (Reported) Functional Limitations- ADL's takes more time, balance not as good Functional Limitations- Mobility/Gait can't walk as far Personal Factors Other Personal Factors That May Effect Patient is highly motivated Therapy/Recovery and compliant to her HEP. PT-OP-D Balance Start: 11/18/19 17:56 Freq: Status: Active Protocol: Document 11/19/19 15:21 [facility] (Rec: 11/24/19 13:11 [facility] [id number]) Balance Tests Single Limb Standing Single Limb- Right 6 Single Limb- Left 7 Tandem Tandem Standing 4 sec Raymond Balance Assessment Evaluation Sitting to Standing Ability Independent w/out Hands Unsupported Stance Safely- 2 minutes Sitting Unsupported, Feet on Floor Safely- 2 minutes Standing to Sitting Ability Safely, Minimal Hand Use Transfer Ability Safely, Minimal Hand Use Unsupported Stance- Eyes Closed Supervision, 10 seconds Unsupported Stance- Eyes Open Independent, 1 minute Reaching Forward Standing Safely, 5 inches Pick- Up Object From Floor Independent/Safe Look Behind Shoulder - Standing Shifts Weight Well Turning 360 Degrees Turns , < 4 secs Unsupported Stance, Alternating Feet on (I)- 8 Steps in > 20 secs Stair Unsupported Tandem Stance Balance Lost- Step/Stand Unilateral Leg Stance Lifts Leg/Holds 5-10 secs Total Score Raymond Total Score (out of 56 points) 47 PT-OP-E Functional Tests Start: 11/18/19 17:56 Freq: Status: Active Protocol: Document 11/19/19 15:21 [facility] (Rec: 11/24/19 13:11 [facility] [id number]) Functional Tests Five Times Sit to Stand Test Score 12 sec PT-OP-G Mobility & Gait Start: 11/18/19 17:56 Freq: Status: Active Protocol: Document 11/19/19 15:21 [facility] (Rec: 11/24/19 13:11 [facility] [id number]) OP Mobility Evaluation Bed Mobility Rolling indep Supine to and from Sit indep Transfers Sit to Stand indep Bed to Chair Transfers indep Car Transfers indep OP Gait Assessment Gait Gait Assistance Required: Independent Assistive Devices Assistive Device None Gait Deviations General Gait Pattern Wide Based Gait Stair Climbing Evaluation Evaluation Level of Assist On Stairs Independent Devices Stair Climbing Assistive Devices Left Railing PT-OP-K Range of Motion Start: 11/18/19 17:56 Freq: Status: Active Protocol: Document 11/19/19 15:21 [facility] (Rec: 11/24/19 13:11 [facility] [id number]) Hip Goniometric Range of Motion Hip enrico Hip ROM WFL Yes Knee Goniometric Range of Motion Knee nerico Knee ROM WFL Yes Ankle and Foot Goniometric Range of Motion Ankle and Foot enrico Ankle/Foot ROM WFL Yes PT-OP-M Strength Start: 11/18/19 17:56 Freq: Status: Active Protocol: Document 11/19/19 15:21 [facility] (Rec: 11/24/19 13:11 [facility] [id number]) Trunk Strength Trunk Manual Muscle Testing Reason Not Measured WFL Hip Strength Hip Manual Muscle Testing enrico Flexion (L2) 4- Good- Extension (S1) 4 Good Abduction 4 Good External Rotation 4+ Good+ Internal Rotation 4+ Good+ Knee Strength Knee Manual Muscle Testing enrico Flexion (S2) 5 Normal Extension (L3) 4+ Good+ Ankle/Foot Strength Ankle and Foot Manual Muscle Testing enrico Dorsiflexion (L4) 4+ Good+ Plantarflexion (S1) 4+ Good+ PT-OP-Q Treatments Start: 11/18/19 17:56 Freq: Status: Active Protocol: Document 11/19/19 15:21 [facility] (Rec: 11/24/19 13:11 [facility] [id number]) Self-Care/Home Management Treatment Education Patient Education Home Exercise Program Other Education Evaluation of current HEP with instruction in addition of SLR, SLS and tandem stand to HEP. Corrections made to performance of sidelying hip abduction and clamshell exercises. Discussed benefits vs risks of further PT during Covid19 pandemic and mutual decision for this to be only PT visit at this time. Patient given PT card with instructions to call or email with any questions PT-OP-T Assessment and Plan Start: 11/18/19 17:56 Freq: Status: Active Protocol: Document 11/19/19 15:21 [facility] (Rec: 11/24/19 13:11 [facility] [id number]) Physical Therapy Assessment Rehab Potential Rehabilitation Potential Good Evaluation Complexity Number of Personal Factors/Comorbidities 1-2 Number of Body Systems Impaired 3 Clinical Presentation at Evaluation Stable Impairments Impairments Activity Tolerance,Balance, Strength Goals 4 Impairment weakness It Admin Goal (LTG) Modification of HEP as indicated to address weakness in hip flex, abduction, and extension LTG Duration met this date 2 Impairment balance dysfunction; Raymond Balance score 47/56 Alf Goal (LTG) Patient will be independent with HEP to address balance dysfunction LTG Duration met today 1 Impairment activity tolerance Alf Goal (LTG) Patient to gradually increase length/time of walks to improve her activity tolerance . LTG Duration will be ongoing but no further PT needed to address this Assessment Summary Assessment Patient presented back to PT approximately 1 year after last being seen reporting weakness and fatigue, decreased activity tolerance , and some increased difficulty with balance. Patient evaluation including evaluation of her current HEP was performed. Corrections and modifications made to her HEP and 2 balance exercises added with patient demonstrating good understanding. She is highly motivated and compliant with her HEP. Will try to get back to aquatic exercise as local pool has reopened with modifications. We discussed benefits vs risks of continued in person PT during Covid19 pandemic and at this time have decided as she is highly motivated and compliant with her HEP she will continue independently. She has contact information for PT if she has any questions. She should do well with HEP and resumption of aquatic exercise if comfortable for her during this pandemic. No further PT needs at this time. Physical Therapy Plan Frequency and Duration Frequency of Treatment 1x/Week Duration of Treatment 1 week Plan of Care Start Date 11/19/19 Plan of Care End Date 11/26/19 Therapeutic Interventions Therapeutic Interventions Self-Care/Home Management Next Visit Focus/Plan Next Note Type Discharge Summary Next Visit Plan No further PT needs.
--- NOTE | 2019-11-19 15:15 | PT.OPPOC ---
Physical, Occupational & Speech Therapy At [facility] Current Diagnoses Difficulty in walking, not elsewhere classified (11/19/19) Weakness (11/19/19) Other fatigue (11/19/19) Visit Care Team Role Provider Type Maria Elena Canchola MD Attending Provider Physician Primary Care Provider Referring Provider Specialty: [facility] Address: [address] [place] [address], [facility] Email: Plan Of Care PT-OP-T Assessment and Plan Start: 11/18/19 17:56 Freq: Status: Active Protocol: Document 11/19/19 15:21 JAMES (Rec: 11/24/19 13:11 SAK [id number]) Physical Therapy Assessment Rehab Potential Rehabilitation Potential Good Evaluation Complexity Number of Personal Factors/Comorbidities 1-2 Number of Body Systems Impaired 3 Clinical Presentation at Evaluation Stable Impairments Impairments Activity Tolerance,Balance, Strength Goals 4 Impairment weakness Junior Assistant Manager Goal (LTG) Modification of HEP as indicated to address weakness in hip flex, abduction, and extension LTG Duration met this date 2 Impairment balance dysfunction; Raymond Balance score 47/56 Snf Goal (LTG) Patient will be independent with HEP to address balance dysfunction LTG Duration met today 1 Impairment activity tolerance Snf Goal (LTG) Patient to gradually increase length/time of walks to improve her activity tolerance . LTG Duration will be ongoing but no further PT needed to address this Assessment Summary Assessment Patient presented back to PT approximately 1 year after last being seen reporting weakness and fatigue, decreased activity tolerance , and some increased difficulty with balance. Patient evaluation including evaluation of her current HEP was performed. Corrections and modifications made to her HEP and 2 balance exercises added with patient demonstrating good understanding. She is highly motivated and compliant with her HEP. Will try to get back to aquatic exercise as local pool has reopened with modifications. We discussed benefits vs risks of continued in person PT during Covid19 pandemic and at this time have decided as she is highly motivated and compliant with her HEP she will continue independently. She has contact information for PT if she has any questions. She should do well with HEP and resumption of aquatic exercise if comfortable for her during this pandemic. No further PT needs at this time. Physical Therapy Plan Frequency and Duration Frequency of Treatment 1x/Week Duration of Treatment 1 week Plan of Care Start Date 11/19/19 Plan of Care End Date 11/26/19 Therapeutic Interventions Therapeutic Interventions Self-Care/Home Management Next Visit Focus/Plan Next Note Type Discharge Summary Next Visit Plan No further PT needs. Plan of Care Dates Plan of Care Start Date 11/19/19 Plan of Care End Date 11/26/19 Electronically Signed by: Fadumo Morse, PT 11/24/19 [id number] Please Sign and Return: I have reviewed this Plan of Care and certify that the skilled therapy services above are required to meet the patient?s needs. Physician Signature Date Printed Name and Credentials Clinical Instructor Signature Printed Name and Credentials
== END 2019-11-26 14:03 ==
LOC: PHYS 13:56
PROVIDERS: PCP Student in an Organized Health Care Education/Training Program; Referring Provider Student in an Organized Health Care Education/Training Program; Visit Provider Student in an Organized Health Care Education/Training Program
DX: R53.83 Other fatigue (principal); R53.1 Weakness; R26.2 Difficulty in walking, not elsewhere classified
CPT/HCPCS: 97161

== ENCOUNTER → 2019-11-29 11:19 | Outpatient (CLI) | payer OTHER, SELFPAY ==
--- NOTE | 2019-11-29 | DI.MG.S_ITS ---
BILATERAL DIGITAL SCREENING MAMMOGRAM 3D/2D WITH CAD: 11/29/2019 CLINICAL: Routine screening. Comparison is made to exams dated: 05/19/2017 mammogram, 01/29/2015 mammogram, 12/07/2012 mammogram, 02/23/2011 mammogram, 02/19/2010 mammogram, and 02/02/2009 mammogram - [facility]. The tissue of both breasts is predominantly fatty. Current study was also evaluated with a Computer Aided Detection (CAD) system. No significant masses, calcifications, or other findings are seen in either breast. There has been no significant interval change. IMPRESSION: NEGATIVE There is no mammographic evidence of malignancy. A 1 year screening mammogram is recommended. This exam was interpreted at Station ID: [id number]. NOTE: For mammograms, a report in lay terms will be sent to the patient. Approximately 15% of breast malignancies will not be visualized mammographically. In the management of a palpable breast mass, a negative mammogram must not discourage biopsy of a clinically suspicious lesion. Electronically Signed By: Ashu valdes/tiffanie:11/29/2019 13:00:30 letter sent: Normal Exam ACR BI-RADS Category 1: Negative 3341F
== END ==
PROVIDERS: PCP Student in an Organized Health Care Education/Training Program; Referring Provider Student in an Organized Health Care Education/Training Program; Visit Provider Student in an Organized Health Care Education/Training Program
DX: Z12.31 Encounter for screening mammogram for malignant neoplasm of breast (principal)
CPT/HCPCS: 77063; 77067

== ENCOUNTER → 2020-01-31 14:09 | Outpatient (CLI) | payer OTHER, SELFPAY | PROVIDERS: PCP Student in an Organized Health Care Education/Training Program; Referring Provider Student in an Organized Health Care Education/Training Program; Visit Provider Student in an Organized Health Care Education/Training Program | DX: M85.852 Other specified disorders of bone density and structure, left thigh (principal); Z78.0 Asymptomatic menopausal state; E07.9 Disorder of thyroid, unspecified; Z82.62 Family history of osteoporosis | CPT/HCPCS: 77080 ==

== ENCOUNTER → 2021-11-15 15:33 | Outpatient (CLI) | payer MEDICARE, SELFPAY ==
--- NOTE | 2021-11-15 15:35 | DI.RAD.S_ITS ---
PROCEDURE: XR HIP W PEL IF DONE KIARA MIN 4V INDICATIONS: GLUTEAL PAIN TECHNIQUE: AP pelvis with lateral view(s) of the right and left hip(s). COMPARISON: None. FINDINGS: Bones: No fractures or dislocations. Pelvic ring appears intact. No suspicious bony lesions. Mild osseous hypertrophy noted in the hips bilaterally compatible with mild osteoarthritis. Soft tissues: The visualized bowel gas pattern is normal. No suspicious soft tissue calcifications. IMPRESSION: Mild bilateral hip osteoarthritis. Dictated by: Indy Nuno MD, PhD on 11/15/2021 at 17:01 Approved by: Indy Nuno MD, PhD on 11/15/2021 at 17:02
== END ==
PROVIDERS: Family Provider Internal Medicine; PCP Internal Medicine; Referring Provider Internal Medicine; Visit Provider Internal Medicine
DX: M16.0 Bilateral primary osteoarthritis of hip (principal); M79.18 Myalgia, other site
CPT/HCPCS: 73522

== ENCOUNTER → 2021-11-26 14:44 | Outpatient (CLI) | payer MEDICARE, SELFPAY ==
--- NOTE | 2021-11-26 | DI.MG.S_ITS ---
BILATERAL DIGITAL SCREENING MAMMOGRAM 3D/2D WITH CAD: 11/26/2021 CLINICAL: Routine screening. Comparison is made to exams dated: 11/29/2019 mammogram, 05/19/2017 mammogram, and 01/29/2015 mammogram - [facility]. The tissue of both breasts is predominantly fatty. Current study was also evaluated with a Computer Aided Detection (CAD) system. No significant masses, calcifications, or other findings are seen in either breast. There has been no significant interval change. IMPRESSION: NEGATIVE There is no mammographic evidence of malignancy. A 1 year screening mammogram is recommended. Based on the Tyrer Cuzick model (a risk assessment model) the patient's lifetime risk is 2.1% and her 10 year risk is 1.9%. According to the ACR, ACS, and NCCN guidelines, an annual breast MRI exam along with mammogram is recommended if the patient's lifetime risk is 20% or greater. This exam was interpreted at Station ID: [id number]. NOTE: For mammograms, a report in lay terms will be sent to the patient. Approximately 15% of breast malignancies will not be visualized mammographically. In the management of a palpable breast mass, a negative mammogram must not discourage biopsy of a clinically suspicious lesion. Electronically Signed By: Ashu valdes/tiffanie:11/27/2021 16:19:48 letter sent: Normal Exam ACR BI-RADS Category 1: Negative [id number]
--- NOTE | 2021-11-26 14:49 | DI.RAD.S_ITS ---
PROCEDURE: XR T AND L SPINE 4 TO 5 VIEWS INDICATIONS: ASYMMETRICAL HIPS, LOW BACK PAIN, R/O SCOLIOSIS TECHNIQUE: 2 views acquired of the thoracolumbar spine. COMPARISON: None. FINDINGS: Bones: No acute fractures or dislocations. Visualized inferior ribs appear intact. No suspicious bony lesions. There is mild levoconvex curvature of the lower thoracic and upper lumbar spine centered at the L1 level with Mario angle measuring approximately 12?. Mild secondary dextroconvex curvature of the lower lumbar spine measures approximately 5?. There is also trace levoconvex curvature of the upper thoracic spine. There is grade 2 anterolisthesis of L5 on S1 measuring approximately 12 mm. Mild 4 mm grade 1 anterolisthesis of L3 on L4. There is also approximately 4 mm retrolisthesis of L2 on L3 and L1 on L2. Multilevel disc space narrowing degenerative endplate changes are seen. Prominent facet hypertrophy is seen throughout the lumbar spine that is most prominent at the L4-5 level. No anomalous vertebral body. Twelve rib-bearing vertebral bodies are present. There are 5 [id number] lumbar vertebral bodies. Soft tissues: No suspicious soft tissue calcifications. Right upper quadrant cholecystectomy clips. IMPRESSION: 1. Mild scoliotic curvature of the lower thoracic and lumbar spine. 2. Multilevel degenerative spondylolisthesis throughout the lumbar spine, most prominent at the L4-5 level where there is grade 2 anterolisthesis of L4 on L5. 3. Multilevel moderate to severe spondylosis. Dictated by: Ian Bowen M.D. on 11/26/2021 at 16:23 Approved by: Ian Bowen M.D. on 11/26/2021 at 16:31
== END ==
PROVIDERS: Family Provider Internal Medicine; PCP Internal Medicine; Referring Provider Internal Medicine; Visit Provider Internal Medicine
DX: Z12.31 Encounter for screening mammogram for malignant neoplasm of breast (principal); Z13.820 Encounter for screening for osteoporosis; Z78.0 Asymptomatic menopausal state; M85.852 Other specified disorders of bone density and structure, left thigh; M41.86 Other forms of scoliosis, lumbar region; M41.84 Other forms of scoliosis, thoracic region; M43.16 Spondylolisthesis, lumbar region; M47.816 Spondylosis without myelopathy or radiculopathy, lumbar region
CPT/HCPCS: 72083; 77063; 77067; 77080

== ENCOUNTER 2022-02-03 11:16 | Emergency (ER) | payer MEDICARE, SELFPAY ==
[2022-02-03 11:21] VITALS: BP 144/69; PULSE 87; RESP 17; TEMP 35.8; O2SAT 95; BMI 29.0
--- NOTE | 2022-02-03 12:52 | ED_ITS ---
HPI - Extremity Problem <Morris Garcia PA-C - Last Filed: 02/03/22 12:59> General Chief complaint: Extremity Problem,Nontraumatic Stated complaint: extreme pain in hips and legs Time Seen by Provider: 02/03/22 12:36 Source: patient Mode of arrival: Wheelchair History of Present Illness HPI Narrative: This is a 76-year-old female presents to the emergency department due to acute on chronic sciatic like pain. Patient states that she has been dealing with this pain for ?months? and has seen her primary care physician for this similar problem. Patient has tried physical therapy, NSAIDs, and gabapentin. Recently saw her primary care provider yesterday who recommended increasing the gabapentin the patient has not done so. Patient denies any saddle paresthesia, urinary or bowel incontinence, fevers, midline lower back pain, unilateral weakness, or any other concerning signs or symptoms. Patient has had bilateral hip x-rays as well as lumbar x-rays which show no concerning or acute findings, only mild osteoarthritis. Related Data Home Medications Medication Instructions Recorded Confirmed [VAL[place] areds II] PO DAILY ##0 07/21/17 meloxicam 15 mg tablet 15 mg PO DAILY ##0 07/21/17 07/22/18 propranolol 60 mg capsule,24 60 mg PO QDAY ##0 07/21/17 hr,extended release aspirin 81 mg chewable tablet 81 mg PO DAILY 07/22/18 07/22/18 Allergies Allergy/AdvReac Type Severity Reaction Status Date / Time meperidine Allergy Unknown EXTREME Verified 02/03/22 11:21 NAUSEA Review of Systems <Morris Garcia PA-C - Last Filed: 02/03/22 12:59> Review of Systems Narrative: GENERAL: Denies chills, fatigue, malaise, fever, sweats. HEENT: Denies sinus pain, ear pain, sore throat, difficulty swallowing, dizziness. RESPIRATORY: Denies dyspnea, cough, wheezing, hemoptysis, sputum. CARDIOVASCULAR: Denies chest pain, palpitations, orthopnea, edema, GASTROINTESTINAL: Denies nausea, vomiting, abdominal pain, diarrhea, constipation, melena. : Denies dysuria, frequency, incontinence, hematuria, urinary retention. MUSCULOSKELETAL: Reports buttock and lower extremity pain, denies weakness SKIN: Denies rash, skin lesions, or other NEUROLOGIC: Denies weakness, headache, numbness, change in speech, confusion, seizures, incoordination. PSYCHIATRIC: No concerning psychosocial issues. 12 point review of systems is negative except for those stated above Patient History <Morris Garcia PA-C - Last Filed: 02/03/22 12:59> Social History (Updated 07/22/18 @ 09:18 by Vishal Crow DO) marital status: Smoking Status: Never smoker alcohol intake: current Smoking Status: Never smoker alcohol intake frequency: holidays/special occasions only Substance Use Type: does not use Exam <Morris Garcia PA-C - Last Filed: 02/03/22 12:59> Narrative Exam Narrative: GENERAL: Well-developed patient, in mild distress. HEAD: Atraumatic. Normocephalic. EYES: Pupils equal round and reactive. Extraocular motions intact. No scleral icterus. No injection or drainage. ENT: Nose without bleeding, purulent drainage. Throat without erythema, tonsillar hypertrophy or exudate. Airway patent. NECK: Trachea midline. Non tender CARDIOVASCULAR: Regular rate and rhythm without murmurs, gallops, or rubs. RESPIRATORY: Clear to auscultation. Breath sounds equal bilaterally. No wheezes, rales, or rhonchi. GASTROINTESTINAL: Abdomen soft, non-tender, nondistended. EXTREMITIES: Mild tenderness to palpation to bilateral SI joint areas BACK: Nontender without deformity or crepitance. No flank tenderness. NEURO: AOx3. SKIN: No rash or erythema of visible areas Initial Vital Signs Initial Vital Signs: Vital Signs Temperature 96.5 F L 02/03/22 11:21 Pulse Rate 87 02/03/22 11:21 Respiratory Rate 17 02/03/22 11:21 Blood Pressure 144/69 H 02/03/22 11:21 Pulse Oximetry 95 02/03/22 11:21 Oxygen Delivery Method 02/03/22 11:21 <Monika Heller DO - Last Filed: 02/04/22 07:53> Initial Vital Signs Initial Vital Signs: Vital Signs Temperature 96.5 F L 02/03/22 11:21 Pulse Rate 87 02/03/22 11:21 Respiratory Rate 17 02/03/22 11:21 Blood Pressure 144/69 H 02/03/22 11:21 Pulse Oximetry 95 02/03/22 11:21 Oxygen Delivery Method 02/03/22 11:21 Course <Morris Garcia PA-C - Last Filed: 02/03/22 12:59> Vital Signs Vital signs: Vital Signs - 8 hr 02/03/22 11:21 Temperature 96.5 F L Pulse Rate 87 Respiratory Rate 17 Blood Pressure 144/69 H Pulse Oximetry 95 Oxygen Delivery Method Room Air <Monika Heller DO - Last Filed: 02/04/22 07:53> Vital Signs Vital signs: Vital Signs - 8 hr 02/03/22 11:21 Temperature 96.5 F L Pulse Rate 87 Respiratory Rate 17 Blood Pressure 144/69 H Pulse Oximetry 95 Oxygen Delivery Method Room Air MDM - Extremity (Nontraumatic) <Morris Garcia PA-C - Last Filed: 02/03/22 12:59> MDM Narrative Medical decision making narrative: This is a 76-year-old female presents emergency department due to acute on chronic sciatic leg pain. Patient is not describe any red flag symptoms including urinary or bowel incontinence, saddle paresthesia, unilateral weakness, or any other concerning signs or symptoms. Patient is mostly frustrated due to the chronic pain and states that ?nothing has helped?. I advised patient to continue following up with her primary care provider and pain medicine clinic that she was recently referred to for continued management of his bilateral sciatic like pain. Patient has already had x-rays performed which showed no fractures and patient is not describe any recent injuries. Patient was instructed to increase her gabapentin from T3 100 q.d. to 300 t.i.d. which I advised her to do. Patient declined a Toradol injection as she states that ?I do not do well with NSAIDs?. Discharge Plan Departure Patient Disposition: Home Clinical Impression: Sciatica Instructions: DI for Sciatica Activity Restrictions/Additional Instructions: Thank you for coming to the [facility] Emergency Department today. As we discussed I think this is acute on chronic sciatic like pain. I recommend and you continue falling off the primary care provider and pain clinic that you ref erred to [facility] to help treat this long-term pain. Also recommend you increasing gabapentin as instructed by your primary care provider as I believe this is the best medication to help treat this pain. Also recommend getting the MRI that you are referred to as well for further investigation. I hope you feel better soon. Prescriptions: No Action meloxicam 15 MG tablet 15 mg PO DAILY Qty: 0 propranolol 60 MG capsule,extended release 24 hr 60 mg PO QDAY Qty: 0 [VITEYES areds II] PO DAILY Qty: 0 aspirin 81 mg Tablet,Chewable 81 mg PO DAILY Referrals: Shannon Moura ARNP [Primary Care Provider] - Visit Report Forms: Patient Portal/API <Monika Heller DO - Last Filed: 02/04/22 07:53> Cosign ED Attending Cosmiguelinaature Attestation: I was immediately available in the department for consultation. Documentation has been reviewed. I agree with assessment and plan.
== END 2022-02-03 13:05 | disposition home or self-care (01) ==
PROVIDERS: Emergency Provider Physician Assistant Medical; Family Provider Internal Medicine; PCP Internal Medicine
DX: M54.32 Sciatica, left side (principal); M54.31 Sciatica, right side
CPT/HCPCS: 99281

== ENCOUNTER → 2022-02-04 14:28 | Outpatient (CLI) | payer MEDICARE, SELFPAY ==
--- NOTE | 2022-02-04 14:29 | DI.MRI.S_ITS ---
PROCEDURE: MR LUMBAR SPINE WO CON INDICATIONS: Radiculopathy, lumbar region TECHNIQUE: Noncontrast sagittal T1 spin echo and T2 fast echo, sagittal STIR, and T2 fast spin echo through the lumbar spine. In cases with scoliosis, additional coronal T2 fast spin echo may be performed. COMPARISON: None. FINDINGS: Image quality: Excellent. Alignment and Curvature: There is grade 1 anterolisthesis of L4 on L5 measuring 8 mm, 4 mm anterolisthesis of L3 on L4, 3 mm retrolisthesis of L1 on L2, L2 on L3. Bone Marrow: Marrow is of normal overall signal. There is mild reactive endplate changes at L1-2, L2-3, moderate L4-5, minimal L3-4 and L5-S1. No acute vertebral body compression fractures. Spinal Cord: Conus medullaris terminates at the L1 level. Visualized cord demonstrates normal signal and size. There is a somewhat oval circumscribed appearance of increased T2 signal within the distal spinal canal at the level of L5-S1. Paraspinous Soft Tissues: No paravertebral masses. Discs: Multilevel severe desiccation is present. L1-L2: Mild disc bulge with slight appearance of canal narrowing. Moderate bilateral foraminal narrowing with facet and ligamentum flavum hypertrophy. L2-L3: Mild disc bulge with moderate spinal stenosis. Moderate left foraminal narrowing with facet and ligamentum flavum hypertrophy. L3-L4: Mild disc bulge with severe spinal stenosis and canal compression. Severe left foraminal narrowing with facet and ligamentum flavum hypertrophy. L4-L5: Mild disc bulge with severe spinal stenosis and canal compression. Moderate to severe right and moderate left foraminal narrowing with facet and ligamentum flavum hypertrophy. L5-S1: Mild disc bulge without spinal stenosis. Severe right foraminal narrowing with facet and ligamentum flavum hypertrophy. IMPRESSION: Multilevel spinal stenosis severe at L3-4 and L4-5 secondary to disc bulge with contributing effect of facet/ligamentum flavum arthropathy. Multilevel foraminal narrowing severe at L3-4, L5-S1 predominance secondary to facet arthropathy. Ovoid circumscribed focus of increased T2 signal in the spinal canal as above. While this could represent a large Tarlov cyst, given appearance, lumbar spine with contrast is recommended for further evaluation to exclude other pathology. Dictated by: Aurora Sow M.D. on 02/04/2022 at 17:06 Approved by: Aurora Sow M.D. on 02/04/2022 at 17:13
== END ==
PROVIDERS: Family Provider Internal Medicine; PCP Internal Medicine; Referring Provider Internal Medicine; Visit Provider Internal Medicine
DX: M48.061 Spinal stenosis, lumbar region without neurogenic claudication (principal); M48.07 Spinal stenosis, lumbosacral region; M47.26 Other spondylosis with radiculopathy, lumbar region; M51.16 Intervertebral disc disorders with radiculopathy, lumbar region; M79.18 Myalgia, other site
CPT/HCPCS: 72148

== ENCOUNTER 2022-02-05 10:49 | Emergency (ER) | payer MEDICARE, SELFPAY ==
--- NOTE | 2022-02-05 10:59 | ED_ITS ---
HPI - Back Pain/Injury General Chief Complaint: Back Pain/Injury Stated Complaint: severe Hip, groin pain Time Seen by Provider: 02/05/22 10:52 History of Present Illness HPI Narrative: 76-year-old female nonsmoker with history of known lumbar radiculopathy presents with a chief complaint of pain on her left anterior thigh which is new. She had been having trouble with increasing pain in her lower back into her left hip and sometimes down her leg and actually had an MRI without contrast yesterday demonstrating spinal stenosis and disc bulge as well as an ovoid circumscribed focus of increased T2 signal in the spinal canal at L5-S1 which recommended lumbar spine with contrast. She denies any injury or overuse. She denies any lower extremity weakness, fever, chills or the use of blood thinners. She denies loss of control of bowel or bladder, lower extremity weakness, footdrop or other red flag finding Related Data Home Medications Medication Instructions Recorded Confirmed [VALENTINA areds II] PO DAILY ##0 07/21/17 meloxicam 15 mg tablet 15 mg PO DAILY ##0 07/21/17 07/22/18 propranolol 60 mg capsule,24 60 mg PO QDAY ##0 07/21/17 hr,extended release aspirin 81 mg chewable tablet 81 mg PO DAILY 07/22/18 07/22/18 Previous Rx's Medication Instructions Recorded cyclobenzaprine 10 mg tablet 10 mg PO TID PRN muscle spasm #14 02/05/22 tabs hydrocodone 5 mg-acetaminophen 325 1 tab PO Q4-6H PRN pain #10 tabs 02/05/22 mg tablet methylprednisolone 4 mg tablets in See Rx Instructions PO .COMPLEX 02/05/22 a dose pack (Medrol (Santino)) #21 ea Allergies Allergy/AdvReac Type Severity Reaction Status Date / Time meperidine Allergy Unknown EXTREME Verified 02/05/22 11:05 NAUSEA Review of Systems Review of Systems Narrative: GENERAL: Denies chills, fatigue, malaise, fever, sweats. HEENT: Denies sinus pain, ear pain, sore throat, difficulty swallowing, dizziness. RESPIRATORY: Denies dyspnea, cough, wheezing, hemoptysis, sputum. CARDIOVASCULAR: Denies chest pain, palpitations, orthopnea, edema, GASTROINTESTINAL: Denies nausea, vomiting, abdominal pain, diarrhea, constipation, melena. : Denies dysuria, frequency, incontinence, hematuria, urinary retention. MUSCULOSKELETAL: See HPI SKIN: Denies rash, skin lesions, or other NEUROLOGIC: See HPI PSYCHIATRIC: No concerning psychosocial issues. 12 point review of systems is negative except for those stated above Patient History Social History marital status: Smoking Status: Never smoker alcohol intake: current Smoking Status: Never smoker alcohol intake frequency: holidays/special occasions only Substance Use Type: does not use Exam Narrative Exam Narrative: GENERAL: [76] year old patient appears stated age. Well-developed patient, in mild distress. HEAD: Atraumatic. Normocephalic. EYES: Pupils equal round and reactive. Extraocular motions intact. No scleral icterus. No injection or drainage. ENT: Nose without bleeding, purulent drainage. Throat without erythema, tonsillar hypertrophy or exudate. Airway patent. NECK: Trachea midline. Non tender CARDIOVASCULAR: Regular rate and rhythm without murmurs, gallops, or rubs. RESPIRATORY: Clear to auscultation. Breath sounds equal bilaterally. No wheezes, rales, or rhonchi. GASTROINTESTINAL: Abdomen soft, non-tender, nondistended. EXTREMITIES: No edema or joint tenderness. BACK: nub card tender but free of any obvious external abnormalities. no CVA tenderness, or vertebral point tenderness. There are no symptoms of cauda equina such as saddle anesthesia, and decreased reflexes, decreased sensation or strength. NEURO: AOx3. SKIN: No rash or erythema of visible areas Initial Vital Signs Initial Vital Signs: Vital Signs Temperature 97.5 F L 02/05/22 11:05 Pulse Rate 101 H 02/05/22 11:05 Respiratory Rate 20 02/05/22 11:05 Blood Pressure 186/102 H 02/05/22 11:05 Pulse Oximetry 96 02/05/22 11:05 Oxygen Delivery Method 02/05/22 11:05 Course Orders Ordered: ED Orders 02/05/22 11:14 BMP [Basic Metabolic Panel] Stat CBC Auto Diff [Complete Blood Count AUTO DIFF] Stat CRP [C-Reactive Protein Quant] Stat ESR [Erythrocyte Sedimentation Rate] Stat 02/05/22 12:37 MR lumbar spine w con Stat Discontinued Medications Dexamethasone (Dexamethasone 4 Mg/Ml Vial) 4 mg IV NOW ONE Stop: 02/05/22 15:49 Last Admin: 02/05/22 16:01 Dose: 4 mg Documented By: GAGE Ketorolac Tromethamine (Ketorolac 30 Mg/Ml Vial) 15 mg IV NOW ONE Stop: 02/05/22 15:49 Last Admin: 02/05/22 16:05 Dose: 15 mg Documented By: GAGE Vital Signs Vital signs: Vital Signs - 8 hr 02/05/22 11:05 02/05/22 14:43 Temperature 97.5 F L Pulse Rate 101 H 70 Respiratory Rate 20 16 Blood Pressure 186/102 H 156/72 H Pulse Oximetry 96 98 Oxygen Delivery Method Room Air Room Air MDM - Back Pain/Injury Lab Data Result diagrams: 02/05/22 11:14 02/05/22 11:14 Labs: Lab Results 02/05/22 02/05/22 Range/Units 11:14 11:14 WBC 9.1 (4.5-11.0) X10^3/uL RBC 3.92 L (4.0-5.2) X10^6/uL Hgb 12.9 (12.0-16.0) g/dL Hct 38.6 (36-46) % MCV 98.4 (80-100) fL MCH 32.9 (26-34) PG MCHC 33.4 (30-36) % RDW 12.9 (11.6-14.8) % Plt Count 274 (150-400) X10^3/uL Neut % (Auto) 67.2 (50-75) % Lymph % (Auto) 21.0 L (25-40) % Kaufman % (Auto) 9.2 (3-14) % Eos % (Auto) 1.8 L (2-4) % Baso % (Auto) 0.8 (0-2) % Neut # (Auto) 6100 (8983-0466) /uL Lymph # (Auto) 1900 (2204-2039) /uL Kaufman # (Auto) 800 (0-900) /uL Eos # (Auto) 200 (0-450) /uL Baso # (Auto) 100 (0-100) /uL ESR 12 (0-20) MM/HR Sodium 137 (137-145) mmol/L Potassium 3.9 (3.4-5.1) mmol/L Chloride 104 (98-107) mmol/L Carbon Dioxide 23 (22-32) mmol/L BUN 13 (7-17) mg/dL Creatinine 0.63 (0.52-1.04) mg/dL Estimated GFR > 60 (>60) mL/min BUN/Creatinine Ratio 20.6 (6-22) Glucose 126 H (80-110) mg/dL Calcium 8.8 (8.4-10.2) mg/dL C-Reactive Protein < 0.5 (<1.0) mg/dL Discharge Plan Departure Patient Disposition: Home Clinical Impression: Acute back pain with radiculopathy Activity Restrictions/Additional Instructions: *You have been diagnosed with [lumbar radiculopathy due to spinal stenosis] *What to do: *Please continue to take your regular medications as directed. [ x] New medication prescriptions sent to your pharmacy: [ [facility]] [ ] New medication written as a paper prescription [ ] No new medications given *Please follow up with your primary care provider in 2-3 days, call for an appointment. Let them know you were seen in the Emergency Department and that we ask that you be seen in follow up. We will electronically transmit a record of today's note if your PCP is in our system * as we discussed, I have included contact information for Dr. Braxton and Dr. Hardwick, both work here at [facility] and are back pain specialists. I will electronically transmitted a copy of the note as well *Return to Emergency Department if you should have any new, worsening or concerning symptoms, such as [fever greater than 101 F, shaking chills, worsening pain, persistent vomiting or other bothersome symptoms] Prescriptions: New cyclobenzaprine 10 mg tablet 10 mg PO TID PRN (Reason: muscle spasm) Qty: 14 0RF hydrocodone-acetaminophen 5-325 mg tablet 1 tab PO Q4-6H PRN (Reason: pain) Qty: 10 0RF methylprednisolone [Medrol (Santino)] 4 mg tablets,dose pack See Rx Instructions .ROUTE .COMPLEX Qty: 21 0RF Rx Instructions: orally per package directions No Action meloxicam 15 MG tablet 15 mg PO DAILY Qty: 0 propranolol 60 MG capsule,extended release 24 hr 60 mg PO QDAY Qty: 0 [VITEYES areds II] PO DAILY Qty: 0 aspirin 81 mg Tablet,Chewable 81 mg PO DAILY Referrals: Roddy Braxton DO [Physician] - Angela Hardwick MD [Physician] - Shannon Moura ARNP [Primary Care Provider] -
[2022-02-05 11:05] VITALS: BP 186/102; PULSE 101; RESP 20; TEMP 36.4; O2SAT 96; BMI 28.6
[2022-02-05 11:29] LABS: Add Manual Diff / Slide Review NO; Basophils Absolute Auto 100 /uL (0-100); Basophils Percent Auto 0.8 % (0-2); Eosinophils Absolute Auto 200 /uL (0-450); Eosinophils Percent Auto 1.8 % (2-4); Hematocrit 38.6 % (36-46); Hemoglobin 12.9 g/dL (12.0-16.0); Lymphocytes Absolute Auto 1900 /uL (1100-4500); Mean Corpuscular HGB Conc 33.4 % (30-36); Mean Corpuscular Hemoglobin 32.9 PG (26-34); Mean Corpuscular Volume 98.4 fL (80-100); Monocytes Absolute Auto 800 /uL (0-900); Monocytes Percent Auto 9.2 % (3-14); Neutrophils Absolute Auto 6100 /uL (1500-7000); Neutrophils Percent Auto 67.2 % (50-75); Platelet Count 274 X10^3/uL (150-400); Red Blood Cell Count 3.92 X10^6/uL (4.0-5.2); Red Cell Distribution Width 12.9 % (11.6-14.8); White Blood Cell Count 9.1 X10^3/uL (4.5-11.0)
[2022-02-05 11:51] LABS: BUN Creatinine Ratio 20.6 (6-22); Blood Urea Nitrogen 13 mg/dL (7-17); C-Reactive Protein Quant < 0.5 mg/dL (<1.0); Calcium 8.8 mg/dL (8.4-10.2); Carbon Dioxide 23 mmol/L (22-32); Chloride 104 mmol/L (98-107); Estimated Glomerular Filt Rate > 60 mL/min (>60); Glucose 126 mg/dL (80-110); Potassium 3.9 mmol/L (3.4-5.1); Sodium 137 mmol/L (137-145)
[2022-02-05 11:55] LABS: HEMOLYSIS 58 (0-50)
[2022-02-05 12:32] LABS: Erythrocyte Sedimentation Rate 12 MM/HR (0-20)
--- NOTE | 2022-02-05 12:37 | DI.MRI.S_ITS ---
PROCEDURE: MR LUMBAR SPINE W CON INDICATIONS: radicular pains, increased T2 signal at L5-S1 TECHNIQUE: Noncontrast axial T1 and postcontrast sagittal and axial T1 imaging was acquired. COMPARISON: [facility], , MR LUMBAR SPINE WO CON, 02/04/2022, 14:58. FINDINGS: Image quality: Excellent. Postcontrast only exam is focused on the L5-S1 spinal canal. L1 through L4 levels as described previously. There is no unusual enhancement in the vertebral bodies or cord to the L4 level. Grade 1 anterolisthesis at L4-5. Contrast outlines of focal left disc herniation with cranial extrusion extending 1.5 cm above the disc line. Mild diffuse disc bulge caudally and severe facet arthropathy all contribute to severe central canal stenosis at this level. Distal to the stenosis, nerve roots are no longer clumped and have no suspicious enhancement. There is no peripheral enhancement of T2 hyperintense ovoid area behind L5 and S1. IMPRESSION: 1. No unusual peripheral or internal enhancement the homogeneously T2 hyperintense ectasia of the central canal at the L5-S1 level. 2. 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 Dictated by: Liz Odonnell M.D. on 02/05/2022 at 13:51 Approved by: Liz Odonnell M.D. on 02/05/2022 at 14:02
[2022-02-05 14:43] VITALS: BP 156/72; PULSE 70; RESP 16; O2SAT 98
[2022-02-05] MEDS: DEXAMETHASONE 4 MG/ML VIAL IV (16:01)
[2022-02-05] MEDS: KETOROLAC 30 MG/ML VIAL 15 MG IV (16:05)
== END 2022-02-05 16:20 | disposition home or self-care (01) ==
PROVIDERS: Emergency Provider Emergency Medicine; Family Provider Internal Medicine; PCP Internal Medicine
DX: M54.16 Radiculopathy, lumbar region (principal)
CPT/HCPCS: 36415; 72149; 80048; 85025; 85651; 86140; 96374; 96375; 99284; A9579; J1100; J1885

== ENCOUNTER 2022-02-12 06:59 | Emergency (ER) | payer MEDICARE, SELFPAY ==
--- NOTE | 2022-02-12 07:04 | ED_ITS ---
HPI - Back Pain/Injury General Chief Complaint: Back Pain/Injury Stated Complaint: back pain Time Seen by Provider: 02/12/22 07:02 History of Present Illness HPI Narrative: 76-year-old female nonsmoker with history of known lumbar radiculopathy presents with a chief complaint of?back pain which has been increasingly bothersome over the past few months but significantly increasing over the past week. She denies any new trauma or injury. She is had no fever or chills. She denies use of blood thinners. She has severe pain in her left lower back that radiates down her left leg and is notably worse when she attempts to move. She denies loss of control of bowel or bladder, she denies numbness or tingling in her groin, she denies lower extremity weakness or footdrop but does admit to numbness and tingling in her great toe. Patient was seen and evaluated by myself on February 05 and had an MRI of her lumbar spine noting disc herniation and extrusion at L4-L5 with significant central canal stenosis. She states she had been doing relatively well on the cocktail medications that she was given which includes gabapentin 3 times daily, hydrocodone, Flexeril and steroid taper but these have run out. She has an appointment with neuro surgery in [place] on Monday Related Data Home Medications Medication Instructions Recorded Confirmed [VALENTINA smith II] PO DAILY ##0 07/21/17 meloxicam 15 mg tablet 15 mg PO DAILY ##0 07/21/17 07/22/18 propranolol 60 mg capsule,24 60 mg PO QDAY ##0 07/21/17 hr,extended release aspirin 81 mg chewable tablet 81 mg PO DAILY 07/22/18 07/22/18 Previous Rx's Medication Instructions Recorded cyclobenzaprine 10 mg tablet 10 mg PO TID PRN muscle spasm #14 02/05/22 tabs hydrocodone 5 mg-acetaminophen 325 1 tab PO Q4-6H PRN pain #10 tabs 02/05/22 mg tablet methylprednisolone 4 mg tablets in See Rx Instructions PO .COMPLEX 02/05/22 a dose pack (Medrol (Santino)) #21 ea gabapentin 300 mg capsule See Rx Instructions .Route 02/12/22 .COMPLEX #30 caps hydrocodone 5 mg-acetaminophen 325 1 tab PO Q4-6H PRN pain #20 tabs 02/12/22 mg tablet ketorolac 10 mg tablet 10 mg PO Q6H PRN pain #20 tabs 02/12/22 lorazepam 0.5 mg tablet 0.5 mg PO BID PRN back spasm #20 02/12/22 tabs Allergies Allergy/AdvReac Type Severity Reaction Status Date / Time meperidine Allergy Unknown EXTREME Verified 02/05/22 11:05 NAUSEA Review of Systems Review of Systems Narrative: GENERAL: Denies chills, fatigue, malaise, fever, sweats. HEENT: Denies sinus pain, ear pain, sore throat, difficulty swallowing, dizziness. RESPIRATORY: Denies dyspnea, cough, wheezing, hemoptysis, sputum. CARDIOVASCULAR: Denies chest pain, palpitations, orthopnea, edema, GASTROINTESTINAL: Denies nausea, vomiting, abdominal pain, diarrhea, constipation, melena. : Denies dysuria, frequency, incontinence, hematuria, urinary retention. MUSCULOSKELETAL: See HPI SKIN: Denies rash, skin lesions, or other NEUROLOGIC: See HPI PSYCHIATRIC: No concerning psychosocial issues. 12 point review of systems is negative except for those stated above Patient History Social History marital status: Smoking Status: Never smoker alcohol intake: current Smoking Status: Never smoker alcohol intake frequency: holidays/special occasions only Substance Use Type: does not use Exam Narrative Exam Narrative: GENERAL: [76] year old patient appears stated age. Well-developed patient, in mild distress. HEAD: Atraumatic. Normocephalic. EYES: Pupils equal round and reactive. Extraocular motions intact. No scleral icterus. No injection or drainage. ENT: Nose without bleeding, purulent drainage. Throat without erythema, tonsillar hypertrophy or exudate. Airway patent. NECK: Trachea midline. Non tender CARDIOVASCULAR: Regular rate and rhythm without murmurs, gallops, or rubs. RESPIRATORY: Clear to auscultation. Breath sounds equal bilaterally. No wheezes, rales, or rhonchi. GASTROINTESTINAL: Abdomen soft, non-tender, nondistended. EXTREMITIES: No edema or joint tenderness. BACK: screen tender but free of any obvious external abnormalities. Patient exam notes no obvious muscle spasm, but no CVA tenderness, or vertebral point tenderness. There are no symptoms of cauda equina such as saddle anesthesia, an d decreased reflexes, decreased sensation or strength. Cap refill, sensation in tact. DP pulse 2+ NEURO: AOx3. SKIN: No rash or erythema of visible areas Initial Vital Signs Initial Vital Signs: Vital Signs Temperature 97.9 F 02/12/22 07:07 Pulse Rate 80 02/12/22 07:07 Respiratory Rate 18 02/12/22 07:07 Blood Pressure 178/94 H 02/12/22 07:07 Pulse Oximetry 100 02/12/22 07:07 Oxygen Delivery Method 02/12/22 07:07 Course Orders Ordered: Discontinued Medications Dexamethasone (Dexamethasone 4 Mg/Ml Vial) 4 mg IV NOW ONE Stop: 02/12/22 07:54 Last Admin: 02/12/22 08:06 Dose: 4 mg Documented By: CRYSTAL Ketorolac Tromethamine (Ketorolac 30 Mg/Ml Vial) 15 mg IV NOW ONE Stop: 02/12/22 07:54 Last Admin: 02/12/22 08:05 Dose: 15 mg Documented By: CRYSTAL Lorazepam (Lorazepam 2 Mg/Ml Inj) 0.5 mg IV NOW ONE Stop: 02/12/22 07:54 Last Admin: 02/12/22 08:04 Dose: 0.5 mg Documented By: CRYSTAL Reevaluation(s) Reevaluation #1: Patient with significant improvement after above-stated therapies. She is ambulatory through the department with use of a walker Consultations Consultation #1: Discussed with Dr. Louise (neurosurgery instructional design specialist for Dr. Rose). In agreement that there is no indication for neurosurgical emergent intervention. Recommend against the use of another round of steroids. Does recommend increasing dosing of gabapentin to 600 mg at night for now Vital Signs Vital signs: Vital Signs - 8 hr 02/12/22 07:07 Temperature 97.9 F Pulse Rate 80 Respiratory Rate 18 Blood Pressure 178/94 H Pulse Oximetry 100 Oxygen Delivery Method Room Air MDM - Back Pain/Injury MDM Narrative Medical decision making narrative: Multiple etiologies of back pain considered including; Epidural abscess, cauda equina, mass occupying lesion, and other considered, however, thankfully, no signs or symptoms of red flag findings at this time. Will increase dosing regimen of her gabapentin per my discussion with Neurosurgery. Patient given extensive return precautions and questions answered to her apparent satisfaction Discharge Plan Departure Patient Disposition: Home Clinical Impression: Acute back pain with radiculopathy Instructions: DI for Back Pain With Sciatica Activity Restrictions/Additional Instructions: *You have been diagnosed with [lumbar radiculopathy] *What to do: *Please continue to take your regular medications as directed. [ x] New medication prescriptions sent to your pharmacy: [ [facility] in [place]] [ ] New medication written as a paper prescription [ ] No new medications given *Please follow up with your neurosurgeon on Monday as planned *Return to Emergency Department if you should have any new, worsening or concerning symptoms, such as [fever greater than 101 F, shaking chills, worsening pain, persistent vomiting or other bothersome symptoms] You have been prescribed a short course of narcotic medications. These are potentially dangerous and addictive medications that should be used carefully. While on these medications you cannot drive or operate heavy machinery. Additionally, you cannot sign legal documents or perform any duties such as this. Many people get constipated on narcotic medications so it would be advisable to discuss stool softeners with the pharmacist when you picker packer your prescription. Please understand that we cannot provide further refills of narcotics or controlled substances through the ED and your pain management will need to be through your Primary Care Provider Prescriptions: New hydrocodone-acetaminophen 5-325 mg tablet 1 tab PO Q4-6H PRN (Reason: pain) Qty: 20 0RF ketorolac 10 mg tablet 10 mg PO Q6H PRN (Reason: pain) Qty: 20 0RF lorazepam 0.5 mg tablet 0.5 mg PO BID PRN (Reason: back spasm) Qty: 20 0RF gabapentin 300 mg capsule See Rx Instructions .ROUTE .COMPLEX Qty: 30 0RF Rx Instructions: 300 mg orally morning and afternoon 600mg orally at night #30 No Action meloxicam 15 MG tablet 15 mg PO DAILY Qty: 0 propranolol 60 MG capsule,extended release 24 hr 60 mg PO QDAY Qty: 0 [VITEYES areds II] PO DAILY Qty: 0 aspirin 81 mg Tablet,Chewable 81 mg PO DAILY cyclobenzaprine 10 mg tablet 10 mg PO TID PRN (Reason: muscle spasm) Qty: 14 0RF hydrocodone-acetaminophen 5-325 mg tablet 1 tab PO Q4-6H PRN (Reason: pain) Qty: 10 0RF methylprednisolone [Medrol (Santino)] 4 mg tablets,dose pack See Rx Instructions .ROUTE .COMPLEX Qty: 21 0RF Rx Instructions: orally per package directions Referrals: Shannon Moura ARNP [Primary Care Provider] -
[2022-02-12 07:07] VITALS: BP 178/94; PULSE 80; RESP 18; TEMP 36.6; O2SAT 100
[2022-02-12] MEDS: LORazepam 2 MG/ML INJ 0.5 MG IV (08:04)
[2022-02-12] MEDS: KETOROLAC 30 MG/ML VIAL 15 MG IV (08:05)
[2022-02-12] MEDS: DEXAMETHASONE 4 MG/ML VIAL IV (08:06)
[2022-02-12 10:17] VITALS: BP 135/65; PULSE 83; O2SAT 99
== END 2022-02-12 10:17 | disposition home or self-care (01) ==
PROVIDERS: Emergency Provider Emergency Medicine; Family Provider Internal Medicine; PCP Internal Medicine
DX: M54.16 Radiculopathy, lumbar region (principal)
CPT/HCPCS: 96374; 96375; 99283; 99284; J1100; J1885; J2060

== ENCOUNTER 2022-03-21 11:45 | Outpatient (RCR) | payer MEDICARE, SELFPAY ==
--- NOTE | 2021-12-21 17:56 | PT.OIE ---
Current Diagnoses Myalgia, other site (12/21/21) Difficulty in walking, not elsewhere classified (12/21/21) Visit Care Team Role Provider Type DAMION Guadalupe Attending Provider Advanced Deputy Commonwealth'S Attorney Family Provider Primary Care Provider Referring Provider Specialty: Family Practice Address: [address] [place] [address], [facility] [place], [address] Email: [email or web address] Physical Therapy Initial Evaluation PT-OP-A Visit Information Start: 12/21/21 08:47 Freq: Status: Active Protocol: Document 12/21/21 11:15 AW (Rec: 12/21/21 08:55 AW [id number]) Out-Patient Physical Therapy Visit Information Visit Information Visit Type Initial Evaluation Visit Start Time 10:30 Visit Stop Time 11:15 Total Visit Minutes 45 Visit Number 1 Evaluation Information Evaluation Date 12/21/21 Precautions Precautions osteopenia PT-OP-B Current Condition Start: 12/21/21 08:47 Freq: Status: Active Protocol: Document 12/21/21 11:15 AW (Rec: 12/21/21 08:55 AW [id number]) Current Condition History of Current Condition Onset Date 3+ months Current Complaints bilateral hip/buttock pain History of Current Condition Marci reports terrible pain in the back of her hips first thing in the morning before getting out of bed. I dread it. Better with rest and heat . For the past few days, she has tried icing before she gets out of bed and that has been even more effective than heat. Right side is worse in the morning but both sides hurt getting out of the bed. Worse with walking even just a few blocks. Getting out of bed, sitting down to the toilet, anything jarring such as stubbing her toe or sudden movement hurts. There are stairs at home but Marci is able to avoid them. She is taking 1000 mg Tylenol 3x/day and etodolac 400 mg 2x/day. Feels she hasn't been getting as much exercise as before because of pandemic. Trying to walk and to go to the pool twice/week. Pool feels good. Has stairs at home but does not have to do them. Has done some calf stretching and does some stretches and simple movement in the bed before getting up in the morning. She is wearing supportive shoes inside and outside the house. Prior Treatments and Tests -11/15 hip x-ray: mild B hip OA -11/26 thoraco-lumbar x-ray: 1. Mild scoliotic curvature of the lower thoracic and lumbar spine. 2. Multilevel degenerative spondylolisthesis throughout the lumbar spine, most prominent at the L4-5 level where there is grade 2 anterolisthesis of L4 on L5. 3 . Multilevel moderate to severe spondylosis. -Previous PT for knee pain Treatment Goals Patient/Caregiver Goals Reduce pain, improve strength, walk better, be able to move on the bed with less pain. PT-OP-C Subjective Start: 12/21/21 08:47 Freq: Status: Active Protocol: Document 12/21/21 11:15 AW (Rec: 12/21/21 17:39 AW [id number]) OP-PT Pain Assessment Pain Assessment Grid Paper Pain Assessment Grid Completed No Home Pain Medication Use Pain Medications Used Yes Home Pain Medication Frequency Tylenol 100 mg 3x/day. Etodolac 400 mg 2x/day. Patient Goal Reduce PT-OP-D Balance Start: 12/21/21 08:47 Freq: Status: Active Protocol: Document 12/21/21 11:15 AW (Rec: 12/21/21 17:39 AW [id number]) Balance Tests Single Limb Standing Single Limb- Right needs UE support, positive Trendelenberg Single Limb- Left needs UE support, positive Trendelenberg PT-OP-G Mobility & Gait Start: 12/21/21 08:47 Freq: Status: Active Protocol: Document 12/21/21 11:15 AW (Rec: 12/21/21 18:00 AW [id number]) OP Mobility Evaluation Bed Mobility Rolling Bridging is challenging and increases pain. Supine to and from Sit Pt log rolls and has difficulty primarily with the roll. SL to sit takes extra time but pt is able to manage. Transfers Sit to Stand Positive Harris's sign OP Gait Assessment Gait Gait Assistance Required: Independent Comments Gait Comments Pt has bilateral foot turnout in gait, increased right ipsilateral lean in stance phase, decreased trunk rotation generally. PT-OP-J Posture/Palpation/Skin Start: 12/21/21 08:47 Freq: Status: Active Protocol: Document 12/21/21 11:15 AW (Rec: 12/21/21 18:00 AW [id number]) Posture Evaluation Comments Posture Comments Decreased RLE weightbearing, bilateral ER hips, bilateral genu valgus, pronated feet, moderate arch at feet. Palpation Assessment Location ischial tuberosities Palpation Location ischial tuberosities Palpation Findings Tenderness Palpation Details Pt has point tenderness at both ischial tuberosities. PT-OP-K Range of Motion Start: 12/21/21 08:47 Freq: Status: Active Protocol: Document 12/21/21 11:15 AW (Rec: 12/21/21 18:00 AW [id number]) Hip Goniometric Range of Motion Hip bilat Comments Moderate tightness in bilateral ITB and hamstrings. Pt lacks ~20 degrees in passive SLR bilaterally. IR:ER ratio is ~1:3 bilaterally and end-range PROM does not reproduce pain. Hip ROM Limitations Hip ROM Limitations Soft Tissue Tightness,Pain Knee Goniometric Range of Motion Knee bilat Knee ROM WFL Yes Ankle and Foot Goniometric Range of Motion Ankle and Foot bilat Comments Dorsiflexion is to neutral with knees flexed and to ~5 deg with knees extended. PT-OP-L Special Tests Start: 12/21/21 08:47 Freq: Status: Active Protocol: Document 12/21/21 11:15 AW (Rec: 12/21/21 18:04 AW [id number]) Special Tests Hip Special Tests Buttocks Sign Test Results negative bilaterally Scour Test Test Results negative bilaterally PT-OP-M Strength Start: 12/21/21 08:47 Freq: Status: Active Protocol: Document 12/21/21 11:15 AW (Rec: 12/21/21 18:04 AW [id number]) Hip Strength Hip Manual Muscle Testing bilat Flexion (L2) 4 Good Extension (S1) 4 Good Abduction 3 Fair Adduction 3+ Fair+ External Rotation 4 Good Internal Rotation 4- Good- Knee Strength Knee Manual Muscle Testing bilat Flexion (S2) 4+ Good+ Extension (L3) 4+ Good+ Ankle/Foot Strength Ankle and Foot Manual Muscle Testing bilat Dorsiflexion (L4) 4 Good Plantarflexion (S1) 4 Good PT-OP-Q Treatments Start: 12/21/21 08:47 Freq: Status: Active Protocol: Document 12/21/21 11:15 AW (Rec: 12/22/21 12:32 AW [id number]) Self-Care/Home Management Treatment Education Other Education Educated pt on evaluation findings and proposed plan of care baseed on pain management , gait training, and strengthening. Pt understood and agreed. PT-OP-T Assessment and Plan Start: 12/21/21 08:47 Freq: Status: Active Protocol: Document 12/21/21 11:15 AW (Rec: 12/22/21 12:32 AW [id number]) Physical Therapy Assessment Rehab Potential Rehabilitation Potential Good Evaluation Complexity Number of Personal Factors/Comorbidities 1-2 Number of Body Systems Impaired 1-2 Clinical Presentation at Evaluation Evolving Impairments Impairments Balance,Gait,Pain,Posture,ROM, Sensation,Soft Tissue Mobility ,Strength Goals Four Impairment pain limits bed mobility Jail Goal (LTG) [place] will roll and bridge without increase in baseline pain. LTG Duration 03/23/22 Three Impairment gait Community Outreach Director Goal (LTG) Pt will complete 6MWT without AD or with LRAD without Trendelenberg sign. LTG Duration 03/23/22 Two Impairment impaired strength Community Outreach Director Goal (LTG) Pt will improve BLE hip strength to at least 4+/5 all planes for improved gait mechanics. LTG Duration 03/23/22 One Impairment lacks HEP Short Term Goal (STG) Pt will be instructed in HEP for hip mobility and strength to support therapy services provided in clinic. STG Duration 02/01/22 Community Outreach Director Goal (LTG) Pt will be independent with HEP for hip mobility and strength to maintain and improve upon goal progress. LTG Duration 03/23/22 Assessment Summary Assessment Marci attends outpatient physical therapy with complaints of bilateral hip/ buttock pain which is worst in the morning and has not been responsive to regular stretching and exercise program. She presents with point tenderness at both ischial tuberosities and lacks ~20 degrees in passive straight leg raise, suggesting possible hamstring tendinosis . Her gait is characterized by Trendelenberg sign. She is expected to benefit from skilled therapy to reduce pain , improve hip mobility, and improve hip strength. Physical Therapy Plan Frequency and Duration Frequency of Treatment 2x/Week Duration of Treatment 3 months Plan of Care Start Date 12/22/21 Plan of Care End Date 03/23/22 Therapeutic Interventions Therapeutic Interventions Aquatic Therapy,Gait Training, Home Exercise Program,Manual Therapy,Neuromuscular Re- education,Self-Care/Home Management,Soft Tissue Mobilization,Taping, Therapeutic Activities, Therapeutic Exercises Next Visit Focus/Plan Next Note Type Treatment Note Next Visit Plan STM proximal hamstrings. Hip mobility and gentle strengthening. Consider assessing 6MWT. Consider assessing gait with AD.
--- NOTE | 2021-12-21 17:57 | PT.OPPOC ---
Physical, Occupational & Speech Therapy At [facility] Current Diagnoses Myalgia, other site (12/21/21) Difficulty in walking, not elsewhere classified (12/21/21) Visit Care Team Role Provider Type DAMION Guadalupe Attending Provider Advanced Java Jsf Developer Family Provider Primary Care Provider Referring Provider Specialty: Family Practice Address: [address] [place] [address] [place], [facility] Email: Plan Of Care PT-OP-T Assessment and Plan Start: 12/21/21 08:47 Freq: Status: Active Protocol: Document 12/21/21 11:15 AW (Rec: 12/22/21 12:32 AW [id number]) Physical Therapy Assessment Rehab Potential Rehabilitation Potential Good Evaluation Complexity Number of Personal Factors/Comorbidities 1-2 Number of Body Systems Impaired 1-2 Clinical Presentation at Evaluation Evolving Impairments Impairments Balance,Gait,Pain,Posture,ROM, Sensation,Soft Tissue Mobility ,Strength Goals Four Impairment pain limits bed mobility Straddle Carrier Operator Goal (LTG) Marci will roll and bridge without increase in baseline pain. LTG Duration 03/23/22 Three Impairment gait Care Home Goal (LTG) Pt will complete 6MWT without AD or with LRAD without Trendelenberg sign. LTG Duration 03/23/22 Two Impairment impaired strength Care Home Goal (LTG) Pt will improve BLE hip strength to at least 4+/5 all planes for improved gait mechanics. LTG Duration 03/23/22 One Impairment lacks HEP Short Term Goal (STG) Pt will be instructed in HEP for hip mobility and strength to support therapy services provided in clinic. STG Duration 02/01/22 Care Home Goal (LTG) Pt will be independent with HEP for hip mobility and strength to maintain and improve upon goal progress. LTG Duration 03/23/22 Assessment Summary Assessment Marci attends outpatient physical therapy with complaints of bilateral hip/ buttock pain which is worst in the morning and has not been responsive to regular stretching and exercise program. She presents with point tenderness at both ischial tuberosities and lacks ~20 degrees in passive straight leg raise, suggesting possible hamstring tendinosis . Her gait is characterized by Trendelenberg sign. She is expected to benefit from skilled therapy to reduce pain , improve hip mobility, and improve hip strength. Physical Therapy Plan Frequency and Duration Frequency of Treatment 2x/Week Duration of Treatment 3 months Plan of Care Start Date 12/22/21 Plan of Care End Date 03/23/22 Therapeutic Interventions Therapeutic Interventions Aquatic Therapy,Gait Training, Home Exercise Program,Manual Therapy,Neuromuscular Re- education,Self-Care/Home Management,Soft Tissue Mobilization,Taping, Therapeutic Activities, Therapeutic Exercises Next Visit Focus/Plan Next Note Type Treatment Note Next Visit Plan STM proximal hamstrings. Hip mobility and gentle strengthening. Consider assessing 6MWT. Consider assessing gait with AD. Plan of Care Dates Plan of Care Start Date 12/22/21 Plan of Care End Date 03/23/22 Electronically Signed by: Sandra Mitchell, PT 12/22/21 2477 If you are in agreement with this Plan of Care, please return a signed and dated copy. I have reviewed this Plan of Care and certify that the skilled therapy services above are required to meet the patient?s needs. Physician Signature Date Printed Name and Credentials Clinical Instructor Signature Printed Name and Credentials
--- NOTE | 2021-12-23 16:00 | PT.OTN ---
Current Diagnoses Myalgia, other site (12/23/21) Difficulty in walking, not elsewhere classified (12/23/21) Physical Therapy Treatment Note PT-OP-A Visit Information Start: 12/21/21 08:47 Freq: Status: Active Protocol: Document 12/23/21 14:30 AMB (Rec: 12/23/21 15:39 AMB [id number]) Out-Patient Physical Therapy Visit Information Visit Information Visit Type Treatment Note Visit Start Time 14:30 Visit Stop Time 15:15 Total Visit Minutes 45 Visit Number 2 PT-OP-B Current Condition Start: 12/21/21 08:47 Freq: Status: Active Protocol: Document 12/21/21 11:15 AW (Rec: 12/21/21 08:55 AW [id number]) Current Condition History of Current Condition Onset Date 3+ months Current Complaints bilateral hip/buttock pain History of Current Condition Marci reports terrible pain in the back of her hips first thing in the morning before getting out of bed. I dread it. Better with rest and heat . For the past few days, she has tried icing before she gets out of bed and that has been even more effective than heat. Right side is worse in the morning but both sides hurt getting out of the bed. Worse with walking even just a few blocks. Getting out of bed, sitting down to the toilet, anything jarring such as stubbing her toe or sudden movement hurts. There are stairs at home but Marci is able to avoid them. She is taking 1000 mg Tylenol 3x/day and etodolac 400 mg 2x/day. Feels she hasn't been getting as much exercise as before because of pandemic. Trying to walk and to go to the pool twice/week. Pool feels good. Has stairs at home but does not have to do them. Has done some calf stretching and does some stretches and simple movement in the bed before getting up in the morning. She is wearing supportive shoes inside and outside the house. Prior Treatments and Tests -11/15 hip x-ray: mild B hip OA -11/26 thoraco-lumbar x-ray: 1. Mild scoliotic curvature of the lower thoracic and lumbar spine. 2. Multilevel degenerative spondylolisthesis throughout the lumbar spine, most prominent at the L4-5 level where there is grade 2 anterolisthesis of L4 on L5. 3 . Multilevel moderate to severe spondylosis. -Previous PT for knee pain Treatment Goals Patient/Caregiver Goals Reduce pain, improve strength, walk better, be able to move on the bed with less pain. PT-OP-C Subjective Start: 12/21/21 08:47 Freq: Status: Active Protocol: Document 12/23/21 14:30 AMB (Rec: 12/23/21 15:39 AMB [id number]) OP-PT Subjective Patient Comments Patient Comments Getting out of bed this morning took 20 minutes, another 30 minutes later feeling PT-OP-D Balance Start: 12/21/21 08:47 Freq: Status: Active Protocol: Document 12/21/21 11:15 AW (Rec: 12/21/21 17:39 AW [id number]) Balance Tests Single Limb Standing Single Limb- Right needs UE support, positive Trendelenberg Single Limb- Left needs UE support, positive Trendelenberg PT-OP-G Mobility & Gait Start: 12/21/21 08:47 Freq: Status: Active Protocol: Document 12/21/21 11:15 AW (Rec: 12/21/21 18:00 AW [id number]) OP Mobility Evaluation Bed Mobility Rolling Bridging is challenging and increases pain. Supine to and from Sit Pt log rolls and has difficulty primarily with the roll. SL to sit takes extra time but pt is able to manage. Transfers Sit to Stand Positive Emily's sign OP Gait Assessment Gait Gait Assistance Required: Independent Comments Gait Comments Pt has bilateral foot turnout in gait, increased right ipsilateral lean in stance phase, decreased trunk rotation generally. PT-OP-J Posture/Palpation/Skin Start: 12/21/21 08:47 Freq: Status: Active Protocol: Document 12/21/21 11:15 AW (Rec: 12/21/21 18:00 AW [id number]) Posture Evaluation Comments Posture Comments Decreased RLE weightbearing, bilateral ER hips, bilateral genu valgus, pronated feet, moderate arch at feet. Palpation Assessment Location ischial tuberosities Palpation Location ischial tuberosities Palpation Findings Tenderness Palpation Details Pt has point tenderness at both ischial tuberosities. PT-OP-K Range of Motion Start: 12/21/21 08:47 Freq: Status: Active Protocol: Document 12/21/21 11:15 AW (Rec: 12/21/21 18:00 AW [id number]) Hip Goniometric Range of Motion Hip bilat Comments Moderate tightness in bilateral ITB and hamstrings. Pt lacks ~20 degrees in passive SLR bilaterally. IR:ER ratio is ~1:3 bilaterally and end-range PROM does not reproduce pain. Hip ROM Limitations Hip ROM Limitations Soft Tissue Tightness,Pain Knee Goniometric Range of Motion Knee bilat Knee ROM WFL Yes Ankle and Foot Goniometric Range of Motion Ankle and Foot bilat Comments Dorsiflexion is to neutral with knees flexed and to ~5 deg with knees extended. PT-OP-L Special Tests Start: 12/21/21 08:47 Freq: Status: Active Protocol: Document 12/21/21 11:15 AW (Rec: 12/21/21 18:04 AW [id number]) Special Tests Hip Special Tests Buttocks Sign Test Results negative bilaterally Scour Test Test Results negative bilaterally PT-OP-M Strength Start: 12/21/21 08:47 Freq: Status: Active Protocol: Document 12/21/21 11:15 AW (Rec: 12/21/21 18:04 AW [id number]) Hip Strength Hip Manual Muscle Testing bilat Flexion (L2) 4 Good Extension (S1) 4 Good Abduction 3 Fair Adduction 3+ Fair+ External Rotation 4 Good Internal Rotation 4- Good- Knee Strength Knee Manual Muscle Testing bilat Flexion (S2) 4+ Good+ Extension (L3) 4+ Good+ Ankle/Foot Strength Ankle and Foot Manual Muscle Testing bilat Dorsiflexion (L4) 4 Good Plantarflexion (S1) 4 Good PT-OP-Q Treatments Start: 12/21/21 08:47 Freq: Status: Active Protocol: Document 12/23/21 14:30 AMB (Rec: 12/24/21 11:24 AMB [id number]) Therapeutic Exercises Supine Exercises DTKC Reps/Minutes 5x5 Comments don't force LTR Reps/Minutes 10 Sitting Exercises pelvic tilt Reps/Minutes 10 Gait Training Gait Activity SPC Comments 50'x2 with education on step through gait patterning FWW Comments educate in how to adjust for height if she gets one from [facility], educate in appropriate usage Self-Care/Home Management Treatment Activities Self-Care/Home Management Activities Bed mobility ideas: keep legs together, flex hips and knees in sidelying push with UEs to get into sitting, then perform pelvic tilts before moving from sit to stand. Encouraged to sit upright as much as possible when taking tylenol, if can provide extra pillows, and to perform chin tuck while swallowing pills. PT-OP-T Assessment and Plan Start: 12/21/21 08:47 Freq: Status: Active Protocol: Document 12/23/21 14:30 AMB (Rec: 12/24/21 11:24 AMB [id number]) Physical Therapy Assessment Goals Four Impairment pain limits bed mobility Counseling Aide Goal (LTG) [place] will roll and bridge without increase in baseline pain. LTG Duration 03/23/22 Three Impairment gait [facility] Goal (LTG) Pt will complete 6MWT without AD or with LRAD without Trendelenberg sign. LTG Duration 03/23/22 Two Impairment impaired strength [facility] Goal (LTG) Pt will improve BLE hip strength to at least 4+/5 all planes for improved gait mechanics. LTG Duration 03/23/22 One Impairment lacks HEP Short Term Goal (STG) Pt will be instructed in HEP for hip mobility and strength to support therapy services provided in clinic. STG Duration 02/01/22 [facility] Goal (LTG) Pt will be independent with HEP for hip mobility and strength to maintain and improve upon goal progress. LTG Duration 03/23/22 Assessment Summary Assessment Addressed a number of patient' s questions regarding bed mobility, exercise. Difficult as exercise does not really hurt when she is doing it so difficult to know if she is overdoing. Did encourage FWW for first 20 minutes of the day as pt endorses a fear that she would fall during that time period. Otherwise could consider SPC although would need further gait training with this. Physical Therapy Plan Next Visit Focus/Plan Next Note Type Treatment Note Next Visit Plan Review body mechanics with bed mobility, address AD that pt should have gotten from [facility]. STM proximal hamstrings. Hip mobility and gentle strengthening. Consider assessing 6MWT. Consider assessing gait with AD.
--- NOTE | 2021-12-28 12:59 | PT.OTN ---
Current Diagnoses Myalgia, other site (12/28/21) Difficulty in walking, not elsewhere classified (12/28/21) Physical Therapy Treatment Note PT-OP-A Visit Information Start: 12/21/21 08:47 Freq: Status: Active Protocol: Document 12/28/21 10:30 SAK (Rec: 12/28/21 11:15 SAK [id number]) Out-Patient Physical Therapy Visit Information Visit Information Visit Type Treatment Note Visit Start Time 10:30 Visit Stop Time 11:15 Total Visit Minutes 45 Visit Number 3 Evaluation Information Evaluation Date 12/21/21 Precautions Precautions osteopenia PT-OP-B Current Condition Start: 12/21/21 08:47 Freq: Status: Active Protocol: Document 12/21/21 11:15 AW (Rec: 12/21/21 08:55 AW [id number]) Current Condition History of Current Condition Onset Date 3+ months Current Complaints bilateral hip/buttock pain History of Current Condition Marci reports terrible pain in the back of her hips first thing in the morning before getting out of bed. I dread it. Better with rest and heat . For the past few days, she has tried icing before she gets out of bed and that has been even more effective than heat. Right side is worse in the morning but both sides hurt getting out of the bed. Worse with walking even just a few blocks. Getting out of bed, sitting down to the toilet, anything jarring such as stubbing her toe or sudden movement hurts. There are stairs at home but Marci is able to avoid them. She is taking 1000 mg Tylenol 3x/day and etodolac 400 mg 2x/day. Feels she hasn't been getting as much exercise as before because of pandemic. Trying to walk and to go to the pool twice/week. Pool feels good. Has stairs at home but does not have to do them. Has done some calf stretching and does some stretches and simple movement in the bed before getting up in the morning. She is wearing supportive shoes inside and outside the house. Prior Treatments and Tests -11/15 hip x-ray: mild B hip OA -11/26 thoraco-lumbar x-ray: 1. Mild scoliotic curvature of the lower thoracic and lumbar spine. 2. Multilevel degenerative spondylolisthesis throughout the lumbar spine, most prominent at the L4-5 level where there is grade 2 anterolisthesis of L4 on L5. 3 . Multilevel moderate to severe spondylosis. -Previous PT for knee pain Treatment Goals Patient/Caregiver Goals Reduce pain, improve strength, walk better, be able to move on the bed with less pain. PT-OP-C Subjective Start: 12/21/21 08:47 Freq: Status: Active Protocol: Document 12/28/21 10:30 SAK (Rec: 12/28/21 11:15 SAK [id number]) OP-PT Subjective Patient Comments Patient Comments Continues to have worst pain in am. Wakes up either on side or on back. Trying to utilize recommended log roll and set up for in am. Difficult to roll side to side . Low dosage Tylenol is medication of choice, now trying to take in the middle of the night. PT-OP-D Balance Start: 12/21/21 08:47 Freq: Status: Active Protocol: Document 12/21/21 11:15 AW (Rec: 12/21/21 17:39 AW [id number]) Balance Tests Single Limb Standing Single Limb- Right needs UE support, positive Trendelenberg Single Limb- Left needs UE support, positive Trendelenberg PT-OP-G Mobility & Gait Start: 12/21/21 08:47 Freq: Status: Active Protocol: Document 12/21/21 11:15 AW (Rec: 12/21/21 18:00 AW [id number]) OP Mobility Evaluation Bed Mobility Rolling Bridging is challenging and increases pain. Supine to and from Sit Pt log rolls and has difficulty primarily with the roll. SL to sit takes extra time but pt is able to manage. Transfers Sit to Stand Positive Monroe's sign OP Gait Assessment Gait Gait Assistance Required: Independent Comments Gait Comments Pt has bilateral foot turnout in gait, increased right ipsilateral lean in stance phase, decreased trunk rotation generally. PT-OP-J Posture/Palpation/Skin Start: 12/21/21 08:47 Freq: Status: Active Protocol: Document 12/21/21 11:15 AW (Rec: 12/21/21 18:00 AW [id number]) Posture Evaluation Comments Posture Comments Decreased RLE weightbearing, bilateral ER hips, bilateral genu valgus, pronated feet, moderate arch at feet. Palpation Assessment Location ischial tuberosities Palpation Location ischial tuberosities Palpation Findings Tenderness Palpation Details Pt has point tenderness at both ischial tuberosities. PT-OP-K Range of Motion Start: 12/21/21 08:47 Freq: Status: Active Protocol: Document 12/21/21 11:15 AW (Rec: 12/21/21 18:00 AW [id number]) Hip Goniometric Range of Motion Hip bilat Comments Moderate tightness in bilateral ITB and hamstrings. Pt lacks ~20 degrees in passive SLR bilaterally. IR:ER ratio is ~1:3 bilaterally and end-range PROM does not reproduce pain. Hip ROM Limitations Hip ROM Limitations Soft Tissue Tightness,Pain Knee Goniometric Range of Motion Knee bilat Knee ROM WFL Yes Ankle and Foot Goniometric Range of Motion Ankle and Foot bilat Comments Dorsiflexion is to neutral with knees flexed and to ~5 deg with knees extended. PT-OP-L Special Tests Start: 12/21/21 08:47 Freq: Status: Active Protocol: Document 12/21/21 11:15 AW (Rec: 12/21/21 18:04 AW [id number]) Special Tests Hip Special Tests Buttocks Sign Test Results negative bilaterally Scour Test Test Results negative bilaterally PT-OP-M Strength Start: 12/21/21 08:47 Freq: Status: Active Protocol: Document 12/21/21 11:15 AW (Rec: 12/21/21 18:04 AW [id number]) Hip Strength Hip Manual Muscle Testing bilat Flexion (L2) 4 Good Extension (S1) 4 Good Abduction 3 Fair Adduction 3+ Fair+ External Rotation 4 Good Internal Rotation 4- Good- Knee Strength Knee Manual Muscle Testing bilat Flexion (S2) 4+ Good+ Extension (L3) 4+ Good+ Ankle/Foot Strength Ankle and Foot Manual Muscle Testing bilat Dorsiflexion (L4) 4 Good Plantarflexion (S1) 4 Good PT-OP-Q Treatments Start: 12/21/21 08:47 Freq: Status: Active Protocol: Document 12/28/21 10:30 SAK (Rec: 12/28/21 11:15 SAK [id number]) Cardio Equipment Recumbent Elliptical (Biodex) Duration (Minutes) 6 Resistance 1 Seat Position 9 Other cues for core engagement, neutral LE's Therapeutic Exercises Supine Exercises abdominal drawing in Reps/Minutes 5x Comments cues for slow, gradual glut set Reps/Minutes 10x LTR Reps/Minutes 10 Comments start small Therapeutic Activity Therapeutic Activity bed mobility and bed positioning. Reps/Minutes 14 min Comments cues for core engagement, log- roll, use of pillows and towel for positioning with good feedback, reported her body missed them after removing towel and pillows. Gait Training Gait Activity SPC Description SPC and quad cane Comments 50'x2 with education on step through gait patterning, gluteal activation Self-Care/Home Management Treatment Education Patient Education Body Mechanics,Home Exercise Program,Pain Management, Posture Other Education issued handout for bed positioning. Activities Self-Care/Home Management Activities Bed mobility and positioning review and practice PT-OP-T Assessment and Plan Start: 12/21/21 08:47 Freq: Status: Active Protocol: Document 12/28/21 10:30 SAK (Rec: 12/28/21 11:15 [facility] [id number]) Physical Therapy Assessment Goals Four Impairment pain limits bed mobility Fdc Goal (LTG) Covarrubias will roll and bridge without increase in baseline pain. LTG Duration 03/23/22 Three Impairment gait Fdc Goal (LTG) Pt will complete 6MWT without AD or with LRAD without Trendelenberg sign. LTG Duration 03/23/22 Two Impairment impaired strength Fdc Goal (LTG) Pt will improve BLE hip strength to at least 4+/5 all planes for improved gait mechanics. LTG Duration 03/23/22 One Impairment lacks HEP Short Term Goal (STG) Pt will be instructed in HEP for hip mobility and strength to support therapy services provided in clinic. STG Duration 02/01/22 Rejector Goal (LTG) Pt will be independent with HEP for hip mobility and strength to maintain and improve upon goal progress. LTG Duration 03/23/22 Assessment Summary Assessment Patient needs moderate cues for deep core activation in isolation and prior to movement. Further instruction and review of bed mobility and gait with SPC and trial quad cane per patient request. Improved core activation after review without as much accessory muscle activation. Demonstrated good understanding of bed positioning principles and appeared to benefit from pillows between legs and towel at side and under belly; issued handout. Trendelenberg gait persists but dec with use of cane/quad cane. Physical Therapy Plan Frequency and Duration Frequency of Treatment 2x/Week Duration of Treatment 3 months Plan of Care Start Date 12/22/21 Plan of Care End Date 03/23/22 Therapeutic Interventions Therapeutic Interventions Aquatic Therapy,Gait Training, Home Exercise Program,Manual Therapy,Neuromuscular Re- education,Self-Care/Home Management,Soft Tissue Mobilization,Taping, Therapeutic Activities, Therapeutic Exercises Next Visit Focus/Plan Next Note Type Treatment Note Next Visit Plan STM proximal hamstrings. Hip mobility and gentle strengthening. Consider assessing 6MWT. Continue gentle progression of core strengthening, incorporating into function.
--- NOTE | 2021-12-30 16:22 | PT.OTN ---
Current Diagnoses Myalgia, other site (12/30/21) Difficulty in walking, not elsewhere classified (12/30/21) Physical Therapy Treatment Note PT-OP-A Visit Information Start: 12/21/21 08:47 Freq: Status: Active Protocol: Document 12/30/21 14:28 SAK (Rec: 12/30/21 15:17 SAK [id number]) Out-Patient Physical Therapy Visit Information Visit Information Visit Type Treatment Note Visit Start Time 14:30 Visit Stop Time 15:15 Total Visit Minutes 45 Visit Number 4 Evaluation Information Evaluation Date 12/21/21 Precautions Precautions osteopenia PT-OP-B Current Condition Start: 12/21/21 08:47 Freq: Status: Active Protocol: Document 12/21/21 11:15 AW (Rec: 12/21/21 08:55 AW [id number]) Current Condition History of Current Condition Onset Date 3+ months Current Complaints bilateral hip/buttock pain History of Current Condition Marci reports terrible pain in the back of her hips first thing in the morning before getting out of bed. I dread it. Better with rest and heat . For the past few days, she has tried icing before she gets out of bed and that has been even more effective than heat. Right side is worse in the morning but both sides hurt getting out of the bed. Worse with walking even just a few blocks. Getting out of bed, sitting down to the toilet, anything jarring such as stubbing her toe or sudden movement hurts. There are stairs at home but Marci is able to avoid them. She is taking 1000 mg Tylenol 3x/day and etodolac 400 mg 2x/day. Feels she hasn't been getting as much exercise as before because of pandemic. Trying to walk and to go to the pool twice/week. Pool feels good. Has stairs at home but does not have to do them. Has done some calf stretching and does some stretches and simple movement in the bed before getting up in the morning. She is wearing supportive shoes inside and outside the house. Prior Treatments and Tests -11/15 hip x-ray: mild B hip OA -11/26 thoraco-lumbar x-ray: 1. Mild scoliotic curvature of the lower thoracic and lumbar spine. 2. Multilevel degenerative spondylolisthesis throughout the lumbar spine, most prominent at the L4-5 level where there is grade 2 anterolisthesis of L4 on L5. 3 . Multilevel moderate to severe spondylosis. -Previous PT for knee pain Treatment Goals Patient/Caregiver Goals Reduce pain, improve strength, walk better, be able to move on the bed with less pain. PT-OP-C Subjective Start: 12/21/21 08:47 Freq: Status: Active Protocol: Document 12/30/21 14:28 SAK (Rec: 12/30/21 16:20 SAK [id number]) OP-PT Subjective Patient Comments Patient Comments Best morning I've had in a long time. Used bath towel between knees and hand towel at side, looking for better pilow than what she has for between knees. Also reports performed increased core and back warm up exercises as instrsucted prior to geting OOB. Patient Reported Progress Improving PT-OP-D Balance Start: 12/21/21 08:47 Freq: Status: Active Protocol: Document 12/21/21 11:15 AW (Rec: 12/21/21 17:39 AW [id number]) Balance Tests Single Limb Standing Single Limb- Right needs UE support, positive Trendelenberg Single Limb- Left needs UE support, positive Trendelenberg PT-OP-G Mobility & Gait Start: 12/21/21 08:47 Freq: Status: Active Protocol: Document 12/21/21 11:15 AW (Rec: 12/21/21 18:00 AW [id number]) OP Mobility Evaluation Bed Mobility Rolling Bridging is challenging and increases pain. Supine to and from Sit Pt log rolls and has difficulty primarily with the roll. SL to sit takes extra time but pt is able to manage. Transfers Sit to Stand Positive Ewen's sign OP Gait Assessment Gait Gait Assistance Required: Independent Comments Gait Comments Pt has bilateral foot turnout in gait, increased right ipsilateral lean in stance phase, decreased trunk rotation generally. PT-OP-J Posture/Palpation/Skin Start: 12/21/21 08:47 Freq: Status: Active Protocol: Document 12/21/21 11:15 AW (Rec: 12/21/21 18:00 AW [id number]) Posture Evaluation Comments Posture Comments Decreased RLE weightbearing, bilateral ER hips, bilateral genu valgus, pronated feet, moderate arch at feet. Palpation Assessment Location ischial tuberosities Palpation Location ischial tuberosities Palpation Findings Tenderness Palpation Details Pt has point tenderness at both ischial tuberosities. PT-OP-K Range of Motion Start: 12/21/21 08:47 Freq: Status: Active Protocol: Document 12/21/21 11:15 AW (Rec: 12/21/21 18:00 AW [id number]) Hip Goniometric Range of Motion Hip bilat Comments Moderate tightness in bilateral ITB and hamstrings. Pt lacks ~20 degrees in passive SLR bilaterally. IR:ER ratio is ~1:3 bilaterally and end-range PROM does not reproduce pain. Hip ROM Limitations Hip ROM Limitations Soft Tissue Tightness,Pain Knee Goniometric Range of Motion Knee bilat Knee ROM WFL Yes Ankle and Foot Goniometric Range of Motion Ankle and Foot bilat Comments Dorsiflexion is to neutral with knees flexed and to ~5 deg with knees extended. PT-OP-L Special Tests Start: 12/21/21 08:47 Freq: Status: Active Protocol: Document 12/21/21 11:15 AW (Rec: 12/21/21 18:04 AW [id number]) Special Tests Hip Special Tests Buttocks Sign Test Results negative bilaterally Scour Test Test Results negative bilaterally PT-OP-M Strength Start: 12/21/21 08:47 Freq: Status: Active Protocol: Document 12/21/21 11:15 AW (Rec: 12/21/21 18:04 AW [id number]) Hip Strength Hip Manual Muscle Testing bilat Flexion (L2) 4 Good Extension (S1) 4 Good Abduction 3 Fair Adduction 3+ Fair+ External Rotation 4 Good Internal Rotation 4- Good- Knee Strength Knee Manual Muscle Testing bilat Flexion (S2) 4+ Good+ Extension (L3) 4+ Good+ Ankle/Foot Strength Ankle and Foot Manual Muscle Testing bilat Dorsiflexion (L4) 4 Good Plantarflexion (S1) 4 Good PT-OP-Q Treatments Start: 12/21/21 08:47 Freq: Status: Active Protocol: Document 12/30/21 14:28 SAK (Rec: 12/30/21 15:17 SAK [id number]) Gym Equipment Shuttle Recovery Unilateral Squats Details next session Therapeutic Exercises Supine Exercises HS stretch Reps/Minutes 2x30 single leg lowering Supine Exercise Name holding SKTC opp side Reps/Minutes 10x Comments cues for core engagement dbl leg lowering Reps/Minutes 10x Comments knees bent abdominal drawing in Reps/Minutes 5x Comments cues for slow, gradual glut set Reps/Minutes 10x Comments start of bridge DTKC Reps/Minutes 5x5 Comments don't force LTR Reps/Minutes 10 Comments start small Standing Exercises resisted sidestepping Equipment Used yellow band Reps/Minutes 10 ft x 4 SLS Reps/Minutes 5x10 Gait Training Gait Activity SPC Description SPC and quad cane Level of Assistance mirror for visual feedback, verbal and tactile cues Comments 50'x4 with education on step through gait patterning, gluteal activation. Education in correct height and use of both types of canes PT-OP-T Assessment and Plan Start: 12/21/21 08:47 Freq: Status: Active Protocol: Document 12/30/21 14:28 SAK (Rec: 12/30/21 15:17 SAK [id number]) Physical Therapy Assessment Goals Four Impairment pain limits bed mobility Group Home Goal (LTG) Covarrubias will roll and bridge without increase in baseline pain. LTG Duration 03/23/22 Three Impairment gait Executive Advisor Goal (LTG) Pt will complete 6MWT without AD or with LRAD without Trendelenberg sign. LTG Duration 03/23/22 Two Impairment impaired strength Executive Advisor Goal (LTG) Pt will improve BLE hip strength to at least 4+/5 all planes for improved gait mechanics. LTG Duration 03/23/22 One Impairment lacks HEP Short Term Goal (STG) Pt will be instructed in HEP for hip mobility and strength to support therapy services provided in clinic. STG Duration 02/01/22 Group Home Goal (LTG) Pt will be independent with HEP for hip mobility and strength to maintain and improve upon goal progress. LTG Duration 03/23/22 Assessment Summary Assessment improved bed mobility with less pain today, patient used bath towel between knees ( looking for better pillow), and towel at side as instructed. Also did more core warm-up exercises as instructed prior to moving out of bed to decrease pain and stiffness. Physical Therapy Plan Frequency and Duration Frequency of Treatment 2x/Week Duration of Treatment 3 months Plan of Care Start Date 12/22/21 Plan of Care End Date 03/23/22 Therapeutic Interventions Therapeutic Interventions Aquatic Therapy,Gait Training, Home Exercise Program,Manual Therapy,Neuromuscular Re- education,Self-Care/Home Management,Soft Tissue Mobilization,Taping, Therapeutic Activities, Therapeutic Exercises Next Visit Focus/Plan Next Note Type Treatment Note Next Visit Plan Continue strengthening and flexibility, core strengthening, gait training. Modalities and manual therapy as needed for paoin.
--- NOTE | 2022-01-03 14:18 | PT.OTN ---
Current Diagnoses Myalgia, other site (01/03/22) Difficulty in walking, not elsewhere classified (01/03/22) Physical Therapy Treatment Note PT-OP-A Visit Information Start: 12/21/21 08:47 Freq: Status: Active Protocol: Document 01/03/22 09:03 SAK (Rec: 01/03/22 09:52 SAK [id number]) Out-Patient Physical Therapy Visit Information Visit Information Visit Type Treatment Note Visit Start Time 14:30 Visit Stop Time 15:15 Total Visit Minutes 45 Visit Number 5 Evaluation Information Evaluation Date 12/21/21 Precautions Precautions osteopenia PT-OP-B Current Condition Start: 12/21/21 08:47 Freq: Status: Active Protocol: Document 12/21/21 11:15 AW (Rec: 12/21/21 08:55 AW [id number]) Current Condition History of Current Condition Onset Date 3+ months Current Complaints bilateral hip/buttock pain History of Current Condition Marci reports terrible pain in the back of her hips first thing in the morning before getting out of bed. I dread it. Better with rest and heat . For the past few days, she has tried icing before she gets out of bed and that has been even more effective than heat. Right side is worse in the morning but both sides hurt getting out of the bed. Worse with walking even just a few blocks. Getting out of bed, sitting down to the toilet, anything jarring such as stubbing her toe or sudden movement hurts. There are stairs at home but Marci is able to avoid them. She is taking 1000 mg Tylenol 3x/day and etodolac 400 mg 2x/day. Feels she hasn't been getting as much exercise as before because of pandemic. Trying to walk and to go to the pool twice/week. Pool feels good. Has stairs at home but does not have to do them. Has done some calf stretching and does some stretches and simple movement in the bed before getting up in the morning. She is wearing supportive shoes inside and outside the house. Prior Treatments and Tests -11/15 hip x-ray: mild B hip OA -11/26 thoraco-lumbar x-ray: 1. Mild scoliotic curvature of the lower thoracic and lumbar spine. 2. Multilevel degenerative spondylolisthesis throughout the lumbar spine, most prominent at the L4-5 level where there is grade 2 anterolisthesis of L4 on L5. 3 . Multilevel moderate to severe spondylosis. -Previous PT for knee pain Treatment Goals Patient/Caregiver Goals Reduce pain, improve strength, walk better, be able to move on the bed with less pain. PT-OP-C Subjective Start: 12/21/21 08:47 Freq: Status: Active Protocol: Document 01/03/22 09:03 SAK (Rec: 01/03/22 09:52 SAK [id number]) OP-PT Subjective Patient Comments Patient Comments Hasn't had as good of a morning as on 12/30. Yesterday slid off her bed onto the floor while getting up, no injury. Mornings continue to be most painful, just moving in bed painful. Much better after being up for at least 30 min. PT-OP-D Balance Start: 12/21/21 08:47 Freq: Status: Active Protocol: Document 12/21/21 11:15 AW (Rec: 12/21/21 17:39 AW [id number]) Balance Tests Single Limb Standing Single Limb- Right needs UE support, positive Trendelenberg Single Limb- Left needs UE support, positive Trendelenberg PT-OP-G Mobility & Gait Start: 12/21/21 08:47 Freq: Status: Active Protocol: Document 12/21/21 11:15 AW (Rec: 12/21/21 18:00 AW [id number]) OP Mobility Evaluation Bed Mobility Rolling Bridging is challenging and increases pain. Supine to and from Sit Pt log rolls and has difficulty primarily with the roll. SL to sit takes extra time but pt is able to manage. Transfers Sit to Stand Positive Emily's sign OP Gait Assessment Gait Gait Assistance Required: Independent Comments Gait Comments Pt has bilateral foot turnout in gait, increased right ipsilateral lean in stance phase, decreased trunk rotation generally. PT-OP-J Posture/Palpation/Skin Start: 12/21/21 08:47 Freq: Status: Active Protocol: Document 12/21/21 11:15 AW (Rec: 12/21/21 18:00 AW [id number]) Posture Evaluation Comments Posture Comments Decreased RLE weightbearing, bilateral ER hips, bilateral genu valgus, pronated feet, moderate arch at feet. Palpation Assessment Location ischial tuberosities Palpation Location ischial tuberosities Palpation Findings Tenderness Palpation Details Pt has point tenderness at both ischial tuberosities. PT-OP-K Range of Motion Start: 12/21/21 08:47 Freq: Status: Active Protocol: Document 12/21/21 11:15 AW (Rec: 12/21/21 18:00 AW [id number]) Hip Goniometric Range of Motion Hip bilat Comments Moderate tightness in bilateral ITB and hamstrings. Pt lacks ~20 degrees in passive SLR bilaterally. IR:ER ratio is ~1:3 bilaterally and end-range PROM does not reproduce pain. Hip ROM Limitations Hip ROM Limitations Soft Tissue Tightness,Pain Knee Goniometric Range of Motion Knee bilat Knee ROM WFL Yes Ankle and Foot Goniometric Range of Motion Ankle and Foot bilat Comments Dorsiflexion is to neutral with knees flexed and to ~5 deg with knees extended. PT-OP-L Special Tests Start: 12/21/21 08:47 Freq: Status: Active Protocol: Document 12/21/21 11:15 AW (Rec: 12/21/21 18:04 AW [id number]) Special Tests Hip Special Tests Buttocks Sign Test Results negative bilaterally Scour Test Test Results negative bilaterally PT-OP-M Strength Start: 12/21/21 08:47 Freq: Status: Active Protocol: Document 12/21/21 11:15 AW (Rec: 12/21/21 18:04 AW [id number]) Hip Strength Hip Manual Muscle Testing bilat Flexion (L2) 4 Good Extension (S1) 4 Good Abduction 3 Fair Adduction 3+ Fair+ External Rotation 4 Good Internal Rotation 4- Good- Knee Strength Knee Manual Muscle Testing bilat Flexion (S2) 4+ Good+ Extension (L3) 4+ Good+ Ankle/Foot Strength Ankle and Foot Manual Muscle Testing bilat Dorsiflexion (L4) 4 Good Plantarflexion (S1) 4 Good PT-OP-Q Treatments Start: 12/21/21 08:47 Freq: Status: Active Protocol: Document 01/03/22 09:03 SAK (Rec: 01/03/22 09:52 SAK [id number]) Cardio Equipment Recumbent Elliptical (Biodex) Duration (Minutes) 7 Resistance 1.5 Seat Position 9 Other cues for core engagement, neutral LE's Therapeutic Exercises Sitting Exercises sit to stand Sitting Exercise Name also miniquat Reps/Minutes 10x Comments cues for hip hinge seated clam Equipment Used L2 TB Reps/Minutes 10x Comments cues for core activation ball squeeze Reps/Minutes 10x Comments cues for core activation piriformis stretch Reps/Minutes 2x30 Comments cues for core activation hs stretch Reps/Minutes 2x30 Comments cues for core activation pelvic tilt Reps/Minutes 10 Standing Exercises resisted sidestepping Equipment Used L2 TB Reps/Minutes 10 ft x 4 Therapeutic Activity Therapeutic Activity bed mobility and bed positioning. Comments verbal discussion Gait Training Gait Activity SPC Description SPC and quad cane Level of Assistance mirror for visual feedback, verbal and tactile cues Comments 100' with education on step through gait patterning, gluteal activation. Education in correct height and use of both types of canes Self-Care/Home Management Treatment Education Patient Education Body Mechanics,Home Exercise Program,Pain Management, Posture Other Education consider heated mattress pad follow-up appointment with physician initial pain neuroscience education regarding increased sensitivity of her nervous system PT-OP-T Assessment and Plan Start: 12/21/21 08:47 Freq: Status: Active Protocol: Document 01/03/22 09:03 JAMES (Rec: 01/03/22 09:52 [facility] [id number]) Physical Therapy Assessment Goals Four Impairment pain limits bed mobility Alf Goal (LTG) Covarrubias will roll and bridge without increase in baseline pain. LTG Duration 03/23/22 Three Impairment gait Talent Acquisition Operations Manager Goal (LTG) Pt will complete 6MWT without AD or with LRAD without Trendelenberg sign. LTG Duration 03/23/22 Two Impairment impaired strength Tal[employer] Acquisition Operations Manager Goal (LTG) Pt will improve BLE hip strength to at least 4+/5 all planes for improved gait mechanics. LTG Duration 03/23/22 One Impairment lacks HEP Short Term Goal (STG) Pt will be instructed in HEP for hip mobility and strength to support therapy services provided in clinic. STG Duration 02/01/22 Alf Goal (LTG) Pt will be independent with HEP for hip mobility and strength to maintain and improve upon goal progress. LTG Duration 03/23/22 Assessment Summary Assessment Recommended patient try heated mattress pad, return to doctor to discuss further medication alternatives. Hasn't yet obtained a cane from [employer]. Initial patient education regarding pain neuroscience with patient demonstrating good understanding. Seated core strengthening exercises and flexibility to more easily fit into her day without having to lay down; issued updated handout. Patient demonstrated good understanding. Physical Therapy Plan Frequency and Duration Frequency of Treatment 2x/Week Duration of Treatment 3 months Plan of Care Start Date 12/22/21 Plan of Care End Date 03/23/22 Therapeutic Interventions Therapeutic Interventions Aquatic Therapy,Gait Training, Home Exercise Program,Manual Therapy,Neuromuscular Re- education,Self-Care/Home Management,Soft Tissue Mobilization,Taping, Therapeutic Activities, Therapeutic Exercises Next Visit Focus/Plan Next Note Type Treatment Note Next Visit Plan Continue strengthening and flexibility, core strengthening, gait training. Modalities and manual therapy as needed for pain. Further pain neuroscience education, possibly loan patient Why Do I hurt book.
--- NOTE | 2022-01-06 16:25 | PT.OTN ---
Current Diagnoses Myalgia, other site (01/06/22) Difficulty in walking, not elsewhere classified (01/06/22) Physical Therapy Treatment Note PT-OP-A Visit Information Start: 12/21/21 08:47 Freq: Status: Active Protocol: Document 01/06/22 13:47 SAK (Rec: 01/06/22 14:32 SAK [id number]) Out-Patient Physical Therapy Visit Information Visit Information Visit Type Treatment Note Visit Start Time 13:45 Visit Stop Time 14:30 Total Visit Minutes 45 Visit Number 6 Evaluation Information Evaluation Date 12/21/21 Precautions Precautions osteopenia PT-OP-B Current Condition Start: 12/21/21 08:47 Freq: Status: Active Protocol: Document 12/21/21 11:15 AW (Rec: 12/21/21 08:55 AW [id number]) Current Condition History of Current Condition Onset Date 3+ months Current Complaints bilateral hip/buttock pain History of Current Condition Marci reports terrible pain in the back of her hips first thing in the morning before getting out of bed. I dread it. Better with rest and heat . For the past few days, she has tried icing before she gets out of bed and that has been even more effective than heat. Right side is worse in the morning but both sides hurt getting out of the bed. Worse with walking even just a few blocks. Getting out of bed, sitting down to the toilet, anything jarring such as stubbing her toe or sudden movement hurts. There are stairs at home but Marci is able to avoid them. She is taking 1000 mg Tylenol 3x/day and etodolac 400 mg 2x/day. Feels she hasn't been getting as much exercise as before because of pandemic. Trying to walk and to go to the pool twice/week. Pool feels good. Has stairs at home but does not have to do them. Has done some calf stretching and does some stretches and simple movement in the bed before getting up in the morning. She is wearing supportive shoes inside and outside the house. Prior Treatments and Tests -11/15 hip x-ray: mild B hip OA -11/26 thoraco-lumbar x-ray: 1. Mild scoliotic curvature of the lower thoracic and lumbar spine. 2. Multilevel degenerative spondylolisthesis throughout the lumbar spine, most prominent at the L4-5 level where there is grade 2 anterolisthesis of L4 on L5. 3 . Multilevel moderate to severe spondylosis. -Previous PT for knee pain Treatment Goals Patient/Caregiver Goals Reduce pain, improve strength, walk better, be able to move on the bed with less pain. PT-OP-C Subjective Start: 12/21/21 08:47 Freq: Status: Active Protocol: Document 01/06/22 13:47 SAK (Rec: 01/06/22 14:32 SAK [id number]) OP-PT Subjective Patient Comments Patient Comments Thinks moving around in bed has been a little easier the past few days. Talked with her doctor, thinking arthritis more than anything else, bloodwork didn't show inflammatory markers. Gabapentin prescribed, has referral to Dr. Braxton. Likes the feather pillows for bed positioning and use of towel at waist. Last 1-2 days has had sharp pain when sits down in office chair and pain in hamstrings and down into her calf. Got a new heating pad. Trying to prepare for taking a cruise. Needs to practice sit to stand. PT-OP-D Balance Start: 12/21/21 08:47 Freq: Status: Active Protocol: Document 12/21/21 11:15 AW (Rec: 12/21/21 17:39 AW [id number]) Balance Tests Single Limb Standing Single Limb- Right needs UE support, positive Trendelenberg Single Limb- Left needs UE support, positive Trendelenberg PT-OP-G Mobility & Gait Start: 12/21/21 08:47 Freq: Status: Active Protocol: Document 12/21/21 11:15 AW (Rec: 12/21/21 18:00 AW [id number]) OP Mobility Evaluation Bed Mobility Rolling Bridging is challenging and increases pain. Supine to and from Sit Pt log rolls and has difficulty primarily with the roll. SL to sit takes extra time but pt is able to manage. Transfers Sit to Stand Positive [place]'s sign OP Gait Assessment Gait Gait Assistance Required: Independent Comments Gait Comments Pt has bilateral foot turnout in gait, increased right ipsilateral lean in stance phase, decreased trunk rotation generally. PT-OP-J Posture/Palpation/Skin Start: 12/21/21 08:47 Freq: Status: Active Protocol: Document 12/21/21 11:15 AW (Rec: 12/21/21 18:00 AW [id number]) Posture Evaluation Comments Posture Comments Decreased RLE weightbearing, bilateral ER hips, bilateral genu valgus, pronated feet, moderate arch at feet. Palpation Assessment Location ischial tuberosities Palpation Location ischial tuberosities Palpation Findings Tenderness Palpation Details Pt has point tenderness at both ischial tuberosities. PT-OP-K Range of Motion Start: 12/21/21 08:47 Freq: Status: Active Protocol: Document 12/21/21 11:15 AW (Rec: 12/21/21 18:00 AW [id number]) Hip Goniometric Range of Motion Hip bilat Comments Moderate tightness in bilateral ITB and hamstrings. Pt lacks ~20 degrees in passive SLR bilaterally. IR:ER ratio is ~1:3 bilaterally and end-range PROM does not reproduce pain. Hip ROM Limitations Hip ROM Limitations Soft Tissue Tightness,Pain Knee Goniometric Range of Motion Knee bilat Knee ROM WFL Yes Ankle and Foot Goniometric Range of Motion Ankle and Foot bilat Comments Dorsiflexion is to neutral with knees flexed and to ~5 deg with knees extended. PT-OP-L Special Tests Start: 12/21/21 08:47 Freq: Status: Active Protocol: Document 12/21/21 11:15 AW (Rec: 12/21/21 18:04 AW [id number]) Special Tests Hip Special Tests Buttocks Sign Test Results negative bilaterally Scour Test Test Results negative bilaterally PT-OP-M Strength Start: 12/21/21 08:47 Freq: Status: Active Protocol: Document 12/21/21 11:15 AW (Rec: 12/21/21 18:04 AW [id number]) Hip Strength Hip Manual Muscle Testing bilat Flexion (L2) 4 Good Extension (S1) 4 Good Abduction 3 Fair Adduction 3+ Fair+ External Rotation 4 Good Internal Rotation 4- Good- Knee Strength Knee Manual Muscle Testing bilat Flexion (S2) 4+ Good+ Extension (L3) 4+ Good+ Ankle/Foot Strength Ankle and Foot Manual Muscle Testing bilat Dorsiflexion (L4) 4 Good Plantarflexion (S1) 4 Good PT-OP-Q Treatments Start: 12/21/21 08:47 Freq: Status: Active Protocol: Document 01/06/22 13:47 SAK (Rec: 01/06/22 14:32 SAK [id number]) Cardio Equipment Recumbent Elliptical (Biodex) Duration (Minutes) 8 Resistance 1.5 Seat Position 9 Other cues for core engagement, neutral LE's, 0.81 miles Therapeutic Exercises Supine Exercises marching Reps/Minutes 10x bicycles Reps/Minutes 10x sciatic nerve glides Reps/Minutes 10x HS stretch Reps/Minutes 2x30 glut set Reps/Minutes 10x Comments start of bridge LTR Reps/Minutes 10 Sitting Exercises sciatic nerve glides Reps/Minutes 10x sit to stand Sitting Exercise Name also miniquat Reps/Minutes 10x Comments cues for hip hinge Therapeutic Activity Therapeutic Activity bed mobility and bed positioning. Comments practice without walker as will be doing while on cruise. supine to sit 2x with verbal instruction, patient problem- solving. Gait Training Gait Activity SPC Description SPC and quad cane Level of Assistance mirror for visual feedback, verbal and tactile cues Comments 100' with education on step through gait patterning, gluteal activation. Education in correct height and use of both types of canes Self-Care/Home Management Treatment Education Patient Education Body Mechanics,Home Exercise Program,Pain Management, Posture PT-OP-T Assessment and Plan Start: 12/21/21 08:47 Freq: Status: Active Protocol: Document 01/06/22 13:47 [facility] (Rec: 01/06/22 14:32 [facility] [id number]) Physical Therapy Assessment Goals Four Impairment pain limits bed mobility Model Builder Goal (LTG) Covarrubias will roll and bridge without increase in baseline pain. LTG Duration 03/23/22 Three Impairment gait Model Builder Goal (LTG) Pt will complete 6MWT without AD or with LRAD without Trendelenberg sign. LTG Duration 03/23/22 Two Impairment impaired strength Half-Way Goal (LTG) Pt will improve BLE hip strength to at least 4+/5 all planes for improved gait mechanics. LTG Duration 03/23/22 One Impairment lacks HEP Short Term Goal (STG) Pt will be instructed in HEP for hip mobility and strength to support therapy services provided in clinic. STG Duration 02/01/22 Half-Way Goal (LTG) Pt will be independent with HEP for hip mobility and strength to maintain and improve upon goal progress. LTG Duration 03/23/22 Assessment Summary Assessment patient to start Gabapentine; discuss response. Clamshell and reverse clamshell. Patient reported less pain with bed mobility, persistent pain with sitting though unable to identify location. didn't find use of tennis ball for self-massage helpful. Physical Therapy Plan Frequency and Duration Frequency of Treatment 2x/Week Duration of Treatment 3 months Plan of Care Start Date 12/22/21 Plan of Care End Date 03/23/22 Therapeutic Interventions Therapeutic Interventions Aquatic Therapy,Gait Training, Home Exercise Program,Manual Therapy,Neuromuscular Re- education,Self-Care/Home Management,Soft Tissue Mobilization,Taping, Therapeutic Activities, Therapeutic Exercises Next Visit Focus/Plan Next Note Type Treatment Note Next Visit Plan Continue strengthening and flexibility, core strengthening, gait training. Modalities and manual therapy as needed for pain. Further pain neuroscience education, possibly loan patient Why Do I hurt book.
--- NOTE | 2022-01-11 16:33 | PT.OTN ---
Current Diagnoses Myalgia, other site (01/11/22) Difficulty in walking, not elsewhere classified (01/11/22) Physical Therapy Treatment Note PT-OP-A Visit Information Start: 12/21/21 08:47 Freq: Status: Active Protocol: Document 01/11/22 14:32 SAK (Rec: 01/11/22 15:19 SAK [id number]) Out-Patient Physical Therapy Visit Information Visit Information Visit Type Treatment Note Visit Start Time 13:45 Visit Stop Time 14:30 Total Visit Minutes 45 Visit Number 7 Evaluation Information Evaluation Date 12/21/21 Precautions Precautions osteopenia PT-OP-B Current Condition Start: 12/21/21 08:47 Freq: Status: Active Protocol: Document 12/21/21 11:15 AW (Rec: 12/21/21 08:55 AW [id number]) Current Condition History of Current Condition Onset Date 3+ months Current Complaints bilateral hip/buttock pain History of Current Condition Marci reports terrible pain in the back of her hips first thing in the morning before getting out of bed. I dread it. Better with rest and heat . For the past few days, she has tried icing before she gets out of bed and that has been even more effective than heat. Right side is worse in the morning but both sides hurt getting out of the bed. Worse with walking even just a few blocks. Getting out of bed, sitting down to the toilet, anything jarring such as stubbing her toe or sudden movement hurts. There are stairs at home but Marci is able to avoid them. She is taking 1000 mg Tylenol 3x/day and etodolac 400 mg 2x/day. Feels she hasn't been getting as much exercise as before because of pandemic. Trying to walk and to go to the pool twice/week. Pool feels good. Has stairs at home but does not have to do them. Has done some calf stretching and does some stretches and simple movement in the bed before getting up in the morning. She is wearing supportive shoes inside and outside the house. Prior Treatments and Tests -11/15 hip x-ray: mild B hip OA -11/26 thoraco-lumbar x-ray: 1. Mild scoliotic curvature of the lower thoracic and lumbar spine. 2. Multilevel degenerative spondylolisthesis throughout the lumbar spine, most prominent at the L4-5 level where there is grade 2 anterolisthesis of L4 on L5. 3 . Multilevel moderate to severe spondylosis. -Previous PT for knee pain Treatment Goals Patient/Caregiver Goals Reduce pain, improve strength, walk better, be able to move on the bed with less pain. PT-OP-C Subjective Start: 12/21/21 08:47 Freq: Status: Active Protocol: Document 01/11/22 14:32 SAK (Rec: 01/11/22 15:19 SAK [id number]) OP-PT Subjective Patient Comments Patient Comments Feeling better, practicing getting out of bed using chair instead of walker. Got prescription for Gabapentin, started taking it last , helps her sleep better, doesn't change how she feels trying to get out of bed in am (still does 30 min simple exercise prior to being able to get out of bed with less pain). Less pain during the day, was able to walk up stairs at pool. Has discovered sore spot at waistline in back. Leaves for cruise later this week, no PT until after that vacation PT-OP-D Balance Start: 12/21/21 08:47 Freq: Status: Active Protocol: Document 12/21/21 11:15 AW (Rec: 12/21/21 17:39 AW [id number]) Balance Tests Single Limb Standing Single Limb- Right needs UE support, positive Trendelenberg Single Limb- Left needs UE support, positive Trendelenberg PT-OP-G Mobility & Gait Start: 12/21/21 08:47 Freq: Status: Active Protocol: Document 12/21/21 11:15 AW (Rec: 12/21/21 18:00 AW [id number]) OP Mobility Evaluation Bed Mobility Rolling Bridging is challenging and increases pain. Supine to and from Sit Pt log rolls and has difficulty primarily with the roll. SL to sit takes extra time but pt is able to manage. Transfers Sit to Stand Positive Emily's sign OP Gait Assessment Gait Gait Assistance Required: Independent Comments Gait Comments Pt has bilateral foot turnout in gait, increased right ipsilateral lean in stance phase, decreased trunk rotation generally. PT-OP-J Posture/Palpation/Skin Start: 12/21/21 08:47 Freq: Status: Active Protocol: Document 12/21/21 11:15 AW (Rec: 12/21/21 18:00 AW [id number]) Posture Evaluation Comments Posture Comments Decreased RLE weightbearing, bilateral ER hips, bilateral genu valgus, pronated feet, moderate arch at feet. Palpation Assessment Location ischial tuberosities Palpation Location ischial tuberosities Palpation Findings Tenderness Palpation Details Pt has point tenderness at both ischial tuberosities. PT-OP-K Range of Motion Start: 12/21/21 08:47 Freq: Status: Active Protocol: Document 12/21/21 11:15 AW (Rec: 12/21/21 18:00 AW [id number]) Hip Goniometric Range of Motion Hip bilat Comments Moderate tightness in bilateral ITB and hamstrings. Pt lacks ~20 degrees in passive SLR bilaterally. IR:ER ratio is ~1:3 bilaterally and end-range PROM does not reproduce pain. Hip ROM Limitations Hip ROM Limitations Soft Tissue Tightness,Pain Knee Goniometric Range of Motion Knee bilat Knee ROM WFL Yes Ankle and Foot Goniometric Range of Motion Ankle and Foot bilat Comments Dorsiflexion is to neutral with knees flexed and to ~5 deg with knees extended. PT-OP-L Special Tests Start: 12/21/21 08:47 Freq: Status: Active Protocol: Document 12/21/21 11:15 AW (Rec: 12/21/21 18:04 AW [id number]) Special Tests Hip Special Tests Buttocks Sign Test Results negative bilaterally Scour Test Test Results negative bilaterally PT-OP-M Strength Start: 12/21/21 08:47 Freq: Status: Active Protocol: Document 12/21/21 11:15 AW (Rec: 12/21/21 18:04 AW [id number]) Hip Strength Hip Manual Muscle Testing bilat Flexion (L2) 4 Good Extension (S1) 4 Good Abduction 3 Fair Adduction 3+ Fair+ External Rotation 4 Good Internal Rotation 4- Good- Knee Strength Knee Manual Muscle Testing bilat Flexion (S2) 4+ Good+ Extension (L3) 4+ Good+ Ankle/Foot Strength Ankle and Foot Manual Muscle Testing bilat Dorsiflexion (L4) 4 Good Plantarflexion (S1) 4 Good PT-OP-Q Treatments Start: 12/21/21 08:47 Freq: Status: Active Protocol: Document 01/11/22 14:32 SAK (Rec: 01/11/22 15:19 SAK [id number]) Cardio Equipment Recumbent Bicycle Duration (Minutes) 8 Resistance 1 Seat Position 4 Other cues for neutral LE alignment Treadmill Duration (Minutes) 5 Speed 1.2 Incline 0 Other cues for core and gluteal engagement, upright posture, neutral LE alignment Gym Equipment Sport Cord forward Cord/Resistance 5x Comments cues for gluteal activation, LE alignment; mirror for visual feedback Therapeutic Exercises Supine Exercises sciatic nerve glides Reps/Minutes 10x HS stretch Reps/Minutes 2x30 Standing Exercises HC stretch Reps/Minutes 2x30: Comments cues for upright posture, neutral LE alignment Self-Care/Home Management Treatment Education Patient Education Body Mechanics,Home Exercise Program,Pain Management, Posture PT-OP-T Assessment and Plan Start: 12/21/21 08:47 Freq: Status: Active Protocol: Document 01/11/22 14:32 SAK (Rec: 01/11/22 15:19 SAK [id number]) Physical Therapy Assessment Goals Four Impairment pain limits bed mobility Permanent Waver Goal (LTG) Covarrubias will roll and bridge without increase in baseline pain. 01/10/22: some goal progress LTG Duration 03/23/22 Three Impairment gait Permanent Waver Goal (LTG) Pt will complete 6MWT without AD or with LRAD without Trendelenberg sign. 01/10/22: goal progress, improving gait tolerance but still demonstrates significant Trendelenberg LTG Duration 03/23/22 Two Impairment impaired strength Permanent Waver Goal (LTG) Pt will improve BLE hip strength to at least 4+/5 all planes for improved gait mechanics. 01/10/22: no change in MMT LTG Duration 03/23/22 One Impairment lacks HEP Short Term Goal (STG) Pt will be instructed in HEP for hip mobility and strength to support therapy services provided in clinic. 01/10/22: ongoing STG Duration 02/01/22 Permanent Waver Goal (LTG) Pt will be independent with HEP for hip mobility and strength to maintain and improve upon goal progress. LTG Duration 03/23/22 Assessment Summary Assessment Patient seems to be responding well to Gabapentin with improved sleep. she is demonstrating improved understanding and compliance to HEP including doing ex in bed to warm up for getting up out of bed. She continues to exhibit Trendelenberg, though decreases some with verbal and visual feedback. Use of cane decreases Trendelenberg. Physical Therapy Plan Frequency and Duration Frequency of Treatment 2x/Week Plan of Care Start Date 12/22/21 Therapeutic Interventions Therapeutic Interventions Aquatic Therapy,Gait Training, Home Exercise Program,Manual Therapy,Neuromuscular Re- education,Self-Care/Home Management,Soft Tissue Mobilization,Taping, Therapeutic Activities, Therapeutic Exercises Next Visit Focus/Plan Next Note Type Treatment Note Next Visit Plan Patient to be gone on vacation 2 weeks. She plans to use fitness center on cruise ship and do HEP. Will resume PT when she returns.
--- NOTE | 2022-01-25 21:48 | PT.OTN ---
Current Diagnoses Myalgia, other site (01/25/22) Difficulty in walking, not elsewhere classified (01/25/22) Physical Therapy Treatment Note PT-OP-A Visit Information Start: 12/21/21 08:47 Freq: Status: Active Protocol: Document 01/25/22 10:32 AMB (Rec: 01/25/22 11:15 AMB [id number]) Out-Patient Physical Therapy Visit Information Visit Information Visit Type Treatment Note Visit Start Time 10:30 Visit Stop Time 11:15 Total Visit Minutes 45 Visit Number 8 PT-OP-B Current Condition Start: 12/21/21 08:47 Freq: Status: Active Protocol: Document 12/21/21 11:15 AW (Rec: 12/21/21 08:55 AW [id number]) Current Condition History of Current Condition Onset Date 3+ months Current Complaints bilateral hip/buttock pain History of Current Condition Marci reports terrible pain in the back of her hips first thing in the morning before getting out of bed. I dread it. Better with rest and heat . For the past few days, she has tried icing before she gets out of bed and that has been even more effective than heat. Right side is worse in the morning but both sides hurt getting out of the bed. Worse with walking even just a few blocks. Getting out of bed, sitting down to the toilet, anything jarring such as stubbing her toe or sudden movement hurts. There are stairs at home but Marci is able to avoid them. She is taking 1000 mg Tylenol 3x/day and etodolac 400 mg 2x/day. Feels she hasn't been getting as much exercise as before because of pandemic. Trying to walk and to go to the pool twice/week. Pool feels good. Has stairs at home but does not have to do them. Has done some calf stretching and does some stretches and simple movement in the bed before getting up in the morning. She is wearing supportive shoes inside and outside the house. Prior Treatments and Tests -11/15 hip x-ray: mild B hip OA -11/26 thoraco-lumbar x-ray: 1. Mild scoliotic curvature of the lower thoracic and lumbar spine. 2. Multilevel degenerative spondylolisthesis throughout the lumbar spine, most prominent at the L4-5 level where there is grade 2 anterolisthesis of L4 on L5. 3 . Multilevel moderate to severe spondylosis. -Previous PT for knee pain Treatment Goals Patient/Caregiver Goals Reduce pain, improve strength, walk better, be able to move on the bed with less pain. PT-OP-C Subjective Start: 12/21/21 08:47 Freq: Status: Active Protocol: Document 01/25/22 10:32 AMB (Rec: 01/25/22 11:15 AMB [id number]) OP-PT Subjective Patient Comments Patient Comments Pt notes she was unable to get a refill of gabapentin before her cruise, so she took one pill every day, now has been able to get the full amount of gabapentin and has been able to sleep again sot hings are going better. PT-OP-D Balance Start: 12/21/21 08:47 Freq: Status: Active Protocol: Document 12/21/21 11:15 AW (Rec: 12/21/21 17:39 AW [id number]) Balance Tests Single Limb Standing Single Limb- Right needs UE support, positive Trendelenberg Single Limb- Left needs UE support, positive Trendelenberg PT-OP-G Mobility & Gait Start: 12/21/21 08:47 Freq: Status: Active Protocol: Document 12/21/21 11:15 AW (Rec: 12/21/21 18:00 AW [id number]) OP Mobility Evaluation Bed Mobility Rolling Bridging is challenging and increases pain. Supine to and from Sit Pt log rolls and has difficulty primarily with the roll. SL to sit takes extra time but pt is able to manage. Transfers Sit to Stand Positive Emily's sign OP Gait Assessment Gait Gait Assistance Required: Independent Comments Gait Comments Pt has bilateral foot turnout in gait, increased right ipsilateral lean in stance phase, decreased trunk rotation generally. PT-OP-J Posture/Palpation/Skin Start: 12/21/21 08:47 Freq: Status: Active Protocol: Document 12/21/21 11:15 AW (Rec: 12/21/21 18:00 AW [id number]) Posture Evaluation Comments Posture Comments Decreased RLE weightbearing, bilateral ER hips, bilateral genu valgus, pronated feet, moderate arch at feet. Palpation Assessment Location ischial tuberosities Palpation Location ischial tuberosities Palpation Findings Tenderness Palpation Details Pt has point tenderness at both ischial tuberosities. PT-OP-K Range of Motion Start: 12/21/21 08:47 Freq: Status: Active Protocol: Document 12/21/21 11:15 AW (Rec: 12/21/21 18:00 AW [id number]) Hip Goniometric Range of Motion Hip bilat Comments Moderate tightness in bilateral ITB and hamstrings. Pt lacks ~20 degrees in passive SLR bilaterally. IR:ER ratio is ~1:3 bilaterally and end-range PROM does not reproduce pain. Hip ROM Limitations Hip ROM Limitations Soft Tissue Tightness,Pain Knee Goniometric Range of Motion Knee bilat Knee ROM WFL Yes Ankle and Foot Goniometric Range of Motion Ankle and Foot bilat Comments Dorsiflexion is to neutral with knees flexed and to ~5 deg with knees extended. PT-OP-L Special Tests Start: 12/21/21 08:47 Freq: Status: Active Protocol: Document 12/21/21 11:15 AW (Rec: 12/21/21 18:04 AW [id number]) Special Tests Hip Special Tests Buttocks Sign Test Results negative bilaterally Scour Test Test Results negative bilaterally PT-OP-M Strength Start: 12/21/21 08:47 Freq: Status: Active Protocol: Document 12/21/21 11:15 AW (Rec: 12/21/21 18:04 AW [id number]) Hip Strength Hip Manual Muscle Testing bilat Flexion (L2) 4 Good Extension (S1) 4 Good Abduction 3 Fair Adduction 3+ Fair+ External Rotation 4 Good Internal Rotation 4- Good- Knee Strength Knee Manual Muscle Testing bilat Flexion (S2) 4+ Good+ Extension (L3) 4+ Good+ Ankle/Foot Strength Ankle and Foot Manual Muscle Testing bilat Dorsiflexion (L4) 4 Good Plantarflexion (S1) 4 Good PT-OP-Q Treatments Start: 12/21/21 08:47 Freq: Status: Active Protocol: Document 01/25/22 10:32 AMB (Rec: 01/25/22 11:15 AMB [id number]) Therapeutic Exercises Supine Exercises marching Reps/Minutes 10x single leg lowering Supine Exercise Name holding SKTC opp side Reps/Minutes 10x Comments cues for core engagement abdominal drawing in Reps/Minutes 5x Comments cues for slow, gradual LTR Reps/Minutes 10 Sidelying Exercises clamshell Reps/Minutes 2x10 Sitting Exercises piriformis stretch Reps/Minutes 2x30 Comments cues for core activation hs stretch Reps/Minutes 2x30 Comments cues for core activation pelvic tilt Reps/Minutes 10 Manual Therapy Treatment Soft Tissue Mobilization LB/piriformis Body Location left LB/piriformis Mobilization Type Myofascial Release Body Position Sidelying Comments passive stretching with MFR PT-OP-T Assessment and Plan Start: 12/21/21 08:47 Freq: Status: Active Protocol: Document 01/25/22 10:32 AMB (Rec: 01/25/22 11:15 AMB [id number]) Physical Therapy Assessment Goals Four Impairment pain limits bed mobility Longterm Goal (LTG) Marci will roll and bridge without increase in baseline pain. 01/10/22: some goal progress LTG Duration 03/23/22 Three Impairment gait [employer] Supervisor Goal (LTG) Pt will complete 6MWT without AD or with LRAD without Trendelenberg sign. 01/10/22: goal progress, improving gait tolerance but still demonstrates significant Trendelenberg LTG Duration 03/23/22 Two Impairment impaired strength Longterm Goal (LTG) Pt will improve BLE hip strength to at least 4+/5 all planes for improved gait mechanics. 01/10/22: no change in MMT LTG Duration 03/23/22 One Impairment lacks HEP Short Term Goal (STG) Pt will be instructed in HEP for hip mobility and strength to support therapy services provided in clinic. 01/10/22: ongoing STG Duration 02/01/22 [employer] Supervisor Goal (LTG) Pt will be independent with HEP for hip mobility and strength to maintain and improve upon goal progress. LTG Duration 03/23/22 Assessment Summary Assessment Encourged Marci that now that she is getting back to a good routine, and will be able to exercise in the afternoon after getting a nap. Nerve pain is better than it was, but still very limiting in the mornign, gait compensations continue. Physical Therapy Plan Next Visit Focus/Plan Next Note Type Treatment Note Next Visit Plan Review HEP, can pt progress to doing more strengthening later in the day. Continue to work on reducing nerve tension. Pt to start aquatics , has a few more land after that scheduled.
--- NOTE | 2022-01-31 14:50 | PT.OTN ---
Current Diagnoses Myalgia, other site (01/25/22) Difficulty in walking, not elsewhere classified (01/25/22) Physical Therapy Treatment Note PT-OP-A Visit Information Start: 12/21/21 08:47 Freq: Status: Active Protocol: Document 01/31/22 11:45 SAK (Rec: 01/31/22 14:49 SAK [id number]) Out-Patient Physical Therapy Visit Information Visit Information Visit Type Aquatic Treatment Note Visit Start Time 11:45 Visit Stop Time 12:30 Total Visit Minutes 45 Visit Number 9 Precautions Precautions osteopenia PT-OP-B Current Condition Start: 12/21/21 08:47 Freq: Status: Active Protocol: Document 12/21/21 11:15 AW (Rec: 12/21/21 08:55 AW [id number]) Current Condition History of Current Condition Onset Date 3+ months Current Complaints bilateral hip/buttock pain History of Current Condition Marci reports terrible pain in the back of her hips first thing in the morning before getting out of bed. I dread it. Better with rest and heat . For the past few days, she has tried icing before she gets out of bed and that has been even more effective than heat. Right side is worse in the morning but both sides hurt getting out of the bed. Worse with walking even just a few blocks. Getting out of bed, sitting down to the toilet, anything jarring such as stubbing her toe or sudden movement hurts. There are stairs at home but Marci is able to avoid them. She is taking 1000 mg Tylenol 3x/day and etodolac 400 mg 2x/day. Feels she hasn't been getting as much exercise as before because of pandemic. Trying to walk and to go to the pool twice/week. Pool feels good. Has stairs at home but does not have to do them. Has done some calf stretching and does some stretches and simple movement in the bed before getting up in the morning. She is wearing supportive shoes inside and outside the house. Prior Treatments and Tests -11/15 hip x-ray: mild B hip OA -11/26 thoraco-lumbar x-ray: 1. Mild scoliotic curvature of the lower thoracic and lumbar spine. 2. Multilevel degenerative spondylolisthesis throughout the lumbar spine, most prominent at the L4-5 level where there is grade 2 anterolisthesis of L4 on L5. 3 . Multilevel moderate to severe spondylosis. -Previous PT for knee pain Treatment Goals Patient/Caregiver Goals Reduce pain, improve strength, walk better, be able to move on the bed with less pain. PT-OP-C Subjective Start: 12/21/21 08:47 Freq: Status: Active Protocol: Document 01/31/22 11:45 SAK (Rec: 01/31/22 14:49 SAK [id number]) OP-PT Subjective Patient Comments Patient Comments Patient reports she has having intestinal issues ( constipation). Also has been having increased pain level past couple days, more difficulty getting out of bed. Just started setting herself a 30 min timer as a reminder to get up and move for a few min. PT-OP-D Balance Start: 12/21/21 08:47 Freq: Status: Active Protocol: Document 12/21/21 11:15 AW (Rec: 12/21/21 17:39 AW [id number]) Balance Tests Single Limb Standing Single Limb- Right needs UE support, positive Trendelenberg Single Limb- Left needs UE support, positive Trendelenberg PT-OP-G Mobility & Gait Start: 12/21/21 08:47 Freq: Status: Active Protocol: Document 12/21/21 11:15 AW (Rec: 12/21/21 18:00 AW [id number]) OP Mobility Evaluation Bed Mobility Rolling Bridging is challenging and increases pain. Supine to and from Sit Pt log rolls and has difficulty primarily with the roll. SL to sit takes extra time but pt is able to manage. Transfers Sit to Stand Positive Emily's sign OP Gait Assessment Gait Gait Assistance Required: Independent Comments Gait Comments Pt has bilateral foot turnout in gait, increased right ipsilateral lean in stance phase, decreased trunk rotation generally. PT-OP-J Posture/Palpation/Skin Start: 12/21/21 08:47 Freq: Status: Active Protocol: Document 12/21/21 11:15 AW (Rec: 12/21/21 18:00 AW [id number]) Posture Evaluation Comments Posture Comments Decreased RLE weightbearing, bilateral ER hips, bilateral genu valgus, pronated feet, moderate arch at feet. Palpation Assessment Location ischial tuberosities Palpation Location ischial tuberosities Palpation Findings Tenderness Palpation Details Pt has point tenderness at both ischial tuberosities. PT-OP-K Range of Motion Start: 12/21/21 08:47 Freq: Status: Active Protocol: Document 12/21/21 11:15 AW (Rec: 12/21/21 18:00 AW [id number]) Hip Goniometric Range of Motion Hip bilat Comments Moderate tightness in bilateral ITB and hamstrings. Pt lacks ~20 degrees in passive SLR bilaterally. IR:ER ratio is ~1:3 bilaterally and end-range PROM does not reproduce pain. Hip ROM Limitations Hip ROM Limitations Soft Tissue Tightness,Pain Knee Goniometric Range of Motion Knee bilat Knee ROM WFL Yes Ankle and Foot Goniometric Range of Motion Ankle and Foot bilat Comments Dorsiflexion is to neutral with knees flexed and to ~5 deg with knees extended. PT-OP-L Special Tests Start: 12/21/21 08:47 Freq: Status: Active Protocol: Document 12/21/21 11:15 AW (Rec: 12/21/21 18:04 AW [id number]) Special Tests Hip Special Tests Buttocks Sign Test Results negative bilaterally Scour Test Test Results negative bilaterally PT-OP-M Strength Start: 12/21/21 08:47 Freq: Status: Active Protocol: Document 12/21/21 11:15 AW (Rec: 12/21/21 18:04 AW [id number]) Hip Strength Hip Manual Muscle Testing bilat Flexion (L2) 4 Good Extension (S1) 4 Good Abduction 3 Fair Adduction 3+ Fair+ External Rotation 4 Good Internal Rotation 4- Good- Knee Strength Knee Manual Muscle Testing bilat Flexion (S2) 4+ Good+ Extension (L3) 4+ Good+ Ankle/Foot Strength Ankle and Foot Manual Muscle Testing bilat Dorsiflexion (L4) 4 Good Plantarflexion (S1) 4 Good PT-OP-Q Treatments Start: 12/21/21 08:47 Freq: Status: Active Protocol: Document 01/25/22 10:32 AMB (Rec: 01/25/22 11:15 AMB [id number]) Therapeutic Exercises Supine Exercises marching Reps/Minutes 10x single leg lowering Supine Exercise Name holding SKTC opp side Reps/Minutes 10x Comments cues for core engagement abdominal drawing in Reps/Minutes 5x Comments cues for slow, gradual LTR Reps/Minutes 10 Sidelying Exercises clamshell Reps/Minutes 2x10 Sitting Exercises piriformis stretch Reps/Minutes 2x30 Comments cues for core activation hs stretch Reps/Minutes 2x30 Comments cues for core activation pelvic tilt Reps/Minutes 10 Manual Therapy Treatment Soft Tissue Mobilization LB/piriformis Body Location left LB/piriformis Mobilization Type Myofascial Release Body Position Sidelying Comments passive stretching with MFR PT-OP-S Aquatic Treatment Start: 01/31/22 14:44 Freq: Status: Active Protocol: Document 01/31/22 11:45 [facility] (Rec: 01/31/22 14:49 [facility] [id number]) Aquatics Treatment Pool Entry/Exit Pool Entry/Exit Method Stairs Assistance Independent Water Walking Marching Water Level Chest Level Level of Assistance Verbal Cues Sideways Water Level Chest Level Level of Assistance Verbal Cues Backwards Water Level Chest Level Level of Assistance Verbal Cues fwd Water Level Chest Level Level of Assistance Verbal Cues Lower Extremity Stretches HS Body Position Standing Water Level Chest Level Equipment gentle manual Reps/Duration 2x30 sec bilat [place] Activities [place] Activities Bicycle,Bicycle Backwards, Cross Country,Running Other Activities trial deep water traction: 5# enrico Equipment no flotation required Duration 20 min Comments cues for postural and LE alignment and movement PT-OP-T Assessment and Plan Start: 12/21/21 08:47 Freq: Status: Active Protocol: Document 01/31/22 11:45 [facility] (Rec: 01/31/22 14:49 [facility] [id number]) Physical Therapy Assessment Impairments Impairments Balance,Gait,Pain,Posture,ROM, Sensation,Soft Tissue Mobility ,Strength Goals Four Impairment pain limits bed mobility Chief Engineer Production Goal (LTG) [place]ias will roll and bridge without increase in baseline pain. 01/10/22: some goal progress LTG Duration 03/23/22 Three Impairment gait Chief Engineer Production Goal (LTG) Pt will complete 6MWT without AD or with LRAD without Trendelenberg sign. 01/10/22: goal progress, improving gait tolerance but still demonstrates significant Trendelenberg LTG Duration 03/23/22 Two Impairment impaired strength Longterm Goal (LTG) Pt will improve BLE hip strength to at least 4+/5 all planes for improved gait mechanics. 01/10/22: no change in MMT LTG Duration 03/23/22 One Impairment lacks HEP Short Term Goal (STG) Pt will be instructed in HEP for hip mobility and strength to support therapy services provided in clinic. 01/10/22: ongoing STG Duration 02/01/22 [employer] Engineer Production Goal (LTG) Pt will be independent with HEP for hip mobility and strength to maintain and improve upon goal progress. LTG Duration 03/23/22 Physical Therapy Plan Frequency and Duration Frequency of Treatment 2x/Week Duration of treatment (weeks) 12 Plan of Care Start Date 12/22/21 Plan of Care End Date 03/23/22 Therapeutic Interventions Therapeutic Interventions Aquatic Therapy,Gait Training, Home Exercise Program,Manual Therapy,Neuromuscular Re- education,Self-Care/Home Management,Soft Tissue Mobilization,Taping, Therapeutic Activities, Therapeutic Exercises Next Visit Focus/Plan Next Note Type Treatment Note Next Visit Plan ASsess response to aquatic PT, progress as indicated with ther ex for strengthening, flexibility, core stab. Consider further manual techniques.
--- NOTE | 2022-02-07 14:24 | PT.OTN ---
Current Diagnoses Myalgia, other site (02/07/22) Difficulty in walking, not elsewhere classified (02/07/22) Physical Therapy Treatment Note PT-OP-A Visit Information Start: 12/21/21 08:47 Freq: Status: Active Protocol: Document 02/07/22 14:18 SAK (Rec: 02/07/22 14:24 SAK [id number]) Out-Patient Physical Therapy Visit Information Visit Information Visit Type Aquatic Treatment Note Visit Start Time 11:45 Visit Stop Time 12:30 Total Visit Minutes 45 Visit Number 10 Precautions Precautions osteopenia PT-OP-B Current Condition Start: 12/21/21 08:47 Freq: Status: Active Protocol: Document 12/21/21 11:15 AW (Rec: 12/21/21 08:55 AW [id number]) Current Condition History of Current Condition Onset Date 3+ months Current Complaints bilateral hip/buttock pain History of Current Condition Marci reports terrible pain in the back of her hips first thing in the morning before getting out of bed. I dread it. Better with rest and heat . For the past few days, she has tried icing before she gets out of bed and that has been even more effective than heat. Right side is worse in the morning but both sides hurt getting out of the bed. Worse with walking even just a few blocks. Getting out of bed, sitting down to the toilet, anything jarring such as stubbing her toe or sudden movement hurts. There are stairs at home but Marci is able to avoid them. She is taking 1000 mg Tylenol 3x/day and etodolac 400 mg 2x/day. Feels she hasn't been getting as much exercise as before because of pandemic. Trying to walk and to go to the pool twice/week. Pool feels good. Has stairs at home but does not have to do them. Has done some calf stretching and does some stretches and simple movement in the bed before getting up in the morning. She is wearing supportive shoes inside and outside the house. Prior Treatments and Tests -11/15 hip x-ray: mild B hip OA -11/26 thoraco-lumbar x-ray: 1. Mild scoliotic curvature of the lower thoracic and lumbar spine. 2. Multilevel degenerative spondylolisthesis throughout the lumbar spine, most prominent at the L4-5 level where there is grade 2 anterolisthesis of L4 on L5. 3 . Multilevel moderate to severe spondylosis. -Previous PT for knee pain Treatment Goals Patient/Caregiver Goals Reduce pain, improve strength, walk better, be able to move on the bed with less pain. PT-OP-C Subjective Start: 12/21/21 08:47 Freq: Status: Active Protocol: Document 02/07/22 14:18 SAK (Rec: 02/07/22 14:24 SAK [id number]) OP-PT Subjective Patient Comments Patient Comments In ER and Monday, had regular MRI and contrast MRI. Was started on pain cocktail including Prednisone; has been on for 24 hours. Wasn't sure she should come to PT today. PT-OP-D Balance Start: 12/21/21 08:47 Freq: Status: Active Protocol: Document 12/21/21 11:15 AW (Rec: 12/21/21 17:39 AW [id number]) Balance Tests Single Limb Standing Single Limb- Right needs UE support, positive Trendelenberg Single Limb- Left needs UE support, positive Trendelenberg PT-OP-G Mobility & Gait Start: 12/21/21 08:47 Freq: Status: Active Protocol: Document 12/21/21 11:15 AW (Rec: 12/21/21 18:00 AW [id number]) OP Mobility Evaluation Bed Mobility Rolling Bridging is challenging and increases pain. Supine to and from Sit Pt log rolls and has difficulty primarily with the roll. SL to sit takes extra time but pt is able to manage. Transfers Sit to Stand Positive Emily's sign OP Gait Assessment Gait Gait Assistance Required: Independent Comments Gait Comments Pt has bilateral foot turnout in gait, increased right ipsilateral lean in stance phase, decreased trunk rotation generally. PT-OP-J Posture/Palpation/Skin Start: 12/21/21 08:47 Freq: Status: Active Protocol: Document 12/21/21 11:15 AW (Rec: 12/21/21 18:00 AW [id number]) Posture Evaluation Comments Posture Comments Decreased RLE weightbearing, bilateral ER hips, bilateral genu valgus, pronated feet, moderate arch at feet. Palpation Assessment Location ischial tuberosities Palpation Location ischial tuberosities Palpation Findings Tenderness Palpation Details Pt has point tenderness at both ischial tuberosities. PT-OP-K Range of Motion Start: 12/21/21 08:47 Freq: Status: Active Protocol: Document 12/21/21 11:15 AW (Rec: 12/21/21 18:00 AW [id number]) Hip Goniometric Range of Motion Hip bilat Comments Moderate tightness in bilateral ITB and hamstrings. Pt lacks ~20 degrees in passive SLR bilaterally. IR:ER ratio is ~1:3 bilaterally and end-range PROM does not reproduce pain. Hip ROM Limitations Hip ROM Limitations Soft Tissue Tightness,Pain Knee Goniometric Range of Motion Knee bilat Knee ROM WFL Yes Ankle and Foot Goniometric Range of Motion Ankle and Foot bilat Comments Dorsiflexion is to neutral with knees flexed and to ~5 deg with knees extended. PT-OP-L Special Tests Start: 12/21/21 08:47 Freq: Status: Active Protocol: Document 12/21/21 11:15 AW (Rec: 12/21/21 18:04 AW [id number]) Special Tests Hip Special Tests Buttocks Sign Test Results negative bilaterally Scour Test Test Results negative bilaterally PT-OP-M Strength Start: 12/21/21 08:47 Freq: Status: Active Protocol: Document 12/21/21 11:15 AW (Rec: 12/21/21 18:04 AW [id number]) Hip Strength Hip Manual Muscle Testing bilat Flexion (L2) 4 Good Extension (S1) 4 Good Abduction 3 Fair Adduction 3+ Fair+ External Rotation 4 Good Internal Rotation 4- Good- Knee Strength Knee Manual Muscle Testing bilat Flexion (S2) 4+ Good+ Extension (L3) 4+ Good+ Ankle/Foot Strength Ankle and Foot Manual Muscle Testing bilat Dorsiflexion (L4) 4 Good Plantarflexion (S1) 4 Good PT-OP-Q Treatments Start: 12/21/21 08:47 Freq: Status: Active Protocol: Document 01/25/22 10:32 AMB (Rec: 01/25/22 11:15 AMB [id number]) Therapeutic Exercises Supine Exercises marching Reps/Minutes 10x single leg lowering Supine Exercise Name holding SKTC opp side Reps/Minutes 10x Comments cues for core engagement abdominal drawing in Reps/Minutes 5x Comments cues for slow, gradual LTR Reps/Minutes 10 Sidelying Exercises clamshell Reps/Minutes 2x10 Sitting Exercises piriformis stretch Reps/Minutes 2x30 Comments cues for core activation hs stretch Reps/Minutes 2x30 Comments cues for core activation pelvic tilt Reps/Minutes 10 Manual Therapy Treatment Soft Tissue Mobilization LB/piriformis Body Location left LB/piriformis Mobilization Type Myofascial Release Body Position Sidelying Comments passive stretching with MFR PT-OP-S Aquatic Treatment Start: 01/31/22 14:44 Freq: Status: Active Protocol: Document 02/07/22 14:18 [facility] (Rec: 02/07/22 14:24 [facility] [id number]) Aquatics Treatment Pool Entry/Exit Pool Entry/Exit Method Stairs Assistance Independent Water Walking fwd Water Level Chest Level Level of Assistance Verbal Cues Spinal Exercises posterior pelvic tilt Water Level Neck Level Equipment wall Reps/Duration 10x5 Comments verbal and tactile cues [place] Activities [place] Activities Bicycle Other Activities deep water hang 1 min x 2 with deep breathing DKTC at wall Equipment small noodle in front Duration 20 min PT-OP-T Assessment and Plan Start: 12/21/21 08:47 Freq: Status: Active Protocol: Document 02/07/22 14:18 [facility] (Rec: 02/07/22 14:24 [facility] [id number]) Physical Therapy Assessment Impairments Impairments Balance,Gait,Pain,Posture,ROM, Sensation,Soft Tissue Mobility ,Strength Goals Four Impairment pain limits bed mobility Vp Production Goal (LTG) [place]ias will roll and bridge without increase in baseline pain. 01/10/22: some goal progress LTG Duration 03/23/22 Three Impairment gait Vp Production Goal (LTG) Pt will complete 6MWT without AD or with LRAD without Trendelenberg sign. 01/10/22: goal progress, improving gait tolerance but still demonstrates significant Trendelenberg LTG Duration 03/23/22 Two Impairment impaired strength Senior Care Goal (LTG) Pt will improve BLE hip strength to at least 4+/5 all planes for improved gait mechanics. 01/10/22: no change in MMT LTG Duration 03/23/22 One Impairment lacks HEP Short Term Goal (STG) Pt will be instructed in HEP for hip mobility and strength to support therapy services provided in clinic. 01/10/22: ongoing STG Duration 02/01/22 Senior Care Goal (LTG) Pt will be independent with HEP for hip mobility and strength to maintain and improve upon goal progress. LTG Duration 03/23/22 Assessment Summary Assessment MRI results: 1. No unusual peripheral or internal enhancement the homogeneously T2 hyperintense ectasia of the central canal at the L5-S1 level. 2. 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 Today's treatment gentle aquatic PT with no spinal extension, much work on posterior pelvic tilt for opening posterior spinal reg, deep breathing for calming nervous system Physical Therapy Plan Frequency and Duration Frequency of Treatment 2x/Week Duration of treatment (weeks) 12 Plan of Care Start Date 12/22/21 Plan of Care End Date 03/23/22 Therapeutic Interventions Therapeutic Interventions Aquatic Therapy,Gait Training, Home Exercise Program,Manual Therapy,Neuromuscular Re- education,Self-Care/Home Management,Soft Tissue Mobilization,Taping, Therapeutic Activities, Therapeutic Exercises Next Visit Focus/Plan Next Note Type Progress Note Next Visit Plan Continue PT with preference for aquatic PT for decompression of spine and improved ease of mobility. Core strengthening, issue written HO for PPT as patient has difficulty activing musculature correctly.
--- NOTE | 2022-02-07 14:46 | PT.OPPN ---
Current Diagnoses Myalgia, other site (02/09/22) Difficulty in walking, not elsewhere classified (02/09/22) Physical Therapy Progress Note PT-OP-A Visit Information Start: 12/21/21 08:47 Freq: Status: Active Protocol: Document 02/07/22 14:18 SAK (Rec: 02/07/22 14:24 SAK [id number]) Out-Patient Physical Therapy Visit Information Visit Information Visit Type Aquatic Treatment Note Visit Start Time 11:45 Visit Stop Time 12:30 Total Visit Minutes 45 Visit Number 10 Precautions Precautions osteopenia PT-OP-B Current Condition Start: 12/21/21 08:47 Freq: Status: Active Protocol: Document 12/21/21 11:15 AW (Rec: 12/21/21 08:55 AW [id number]) Current Condition History of Current Condition Onset Date 3+ months Current Complaints bilateral hip/buttock pain History of Current Condition Marci reports terrible pain in the back of her hips first thing in the morning before getting out of bed. I dread it. Better with rest and heat . For the past few days, she has tried icing before she gets out of bed and that has been even more effective than heat. Right side is worse in the morning but both sides hurt getting out of the bed. Worse with walking even just a few blocks. Getting out of bed, sitting down to the toilet, anything jarring such as stubbing her toe or sudden movement hurts. There are stairs at home but Marci is able to avoid them. She is taking 1000 mg Tylenol 3x/day and etodolac 400 mg 2x/day. Feels she hasn't been getting as much exercise as before because of pandemic. Trying to walk and to go to the pool twice/week. Pool feels good. Has stairs at home but does not have to do them. Has done some calf stretching and does some stretches and simple movement in the bed before getting up in the morning. She is wearing supportive shoes inside and outside the house. Prior Treatments and Tests -11/15 hip x-ray: mild B hip OA -11/26 thoraco-lumbar x-ray: 1. Mild scoliotic curvature of the lower thoracic and lumbar spine. 2. Multilevel degenerative spondylolisthesis throughout the lumbar spine, most prominent at the L4-5 level where there is grade 2 anterolisthesis of L4 on L5. 3 . Multilevel moderate to severe spondylosis. -Previous PT for knee pain Treatment Goals Patient/Caregiver Goals Reduce pain, improve strength, walk better, be able to move on the bed with less pain. PT-OP-C Subjective Start: 12/21/21 08:47 Freq: Status: Active Protocol: Document 02/07/22 14:18 SAK (Rec: 02/07/22 14:24 SAK [id number]) OP-PT Subjective Patient Comments Patient Comments In ER and Monday, had regular MRI and contrast MRI. Was started on pain cocktail including Prednisone; has been on for 24 hours. Wasn't sure she should come to PT today. PT-OP-D Balance Start: 12/21/21 08:47 Freq: Status: Active Protocol: Document 12/21/21 11:15 AW (Rec: 12/21/21 17:39 AW [id number]) Balance Tests Single Limb Standing Single Limb- Right needs UE support, positive Trendelenberg Single Limb- Left needs UE support, positive Trendelenberg PT-OP-G Mobility & Gait Start: 12/21/21 08:47 Freq: Status: Active Protocol: Document 12/21/21 11:15 AW (Rec: 12/21/21 18:00 AW [id number]) OP Mobility Evaluation Bed Mobility Rolling Bridging is challenging and increases pain. Supine to and from Sit Pt log rolls and has difficulty primarily with the roll. SL to sit takes extra time but pt is able to manage. Transfers Sit to Stand Positive Emily's sign OP Gait Assessment Gait Gait Assistance Required: Independent Comments Gait Comments Pt has bilateral foot turnout in gait, increased right ipsilateral lean in stance phase, decreased trunk rotation generally. PT-OP-J Posture/Palpation/Skin Start: 12/21/21 08:47 Freq: Status: Active Protocol: Document 12/21/21 11:15 AW (Rec: 12/21/21 18:00 AW [id number]) Posture Evaluation Comments Posture Comments Decreased RLE weightbearing, bilateral ER hips, bilateral genu valgus, pronated feet, moderate arch at feet. Palpation Assessment Location ischial tuberosities Palpation Location ischial tuberosities Palpation Findings Tenderness Palpation Details Pt has point tenderness at both ischial tuberosities. PT-OP-K Range of Motion Start: 12/21/21 08:47 Freq: Status: Active Protocol: Document 12/21/21 11:15 AW (Rec: 12/21/21 18:00 AW [id number]) Hip Goniometric Range of Motion Hip Measured in Degrees bilat Comments Moderate tightness in bilateral ITB and hamstrings. Pt lacks ~20 degrees in passive SLR bilaterally. IR:ER ratio is ~1:3 bilaterally and end-range PROM does not reproduce pain. Hip ROM Limitations Hip ROM Limitations Soft Tissue Tightness,Pain Knee Goniometric Range of Motion Knee Measured in Degrees bilat Knee ROM WFL Yes Ankle and Foot Goniometric Range of Motion Ankle and Foot Measured in Degrees bilat Comments Dorsiflexion is to neutral with knees flexed and to ~5 deg with knees extended. PT-OP-L Special Tests Start: 12/21/21 08:47 Freq: Status: Active Protocol: Document 12/21/21 11:15 AW (Rec: 12/21/21 18:04 AW [id number]) Special Tests Hip Special Tests Buttocks Sign Test Results negative bilaterally Scour Test Test Results negative bilaterally PT-OP-M Strength Start: 12/21/21 08:47 Freq: Status: Active Protocol: Document 12/21/21 11:15 AW (Rec: 12/21/21 18:04 AW [id number]) Hip Strength Hip Manual Muscle Testing bilat Flexion (L2) 4 Good Extension (S1) 4 Good Abduction 3 Fair Adduction 3+ Fair+ External Rotation 4 Good Internal Rotation 4- Good- Knee Strength Knee Manual Muscle Testing bilat Flexion (S2) 4+ Good+ Extension (L3) 4+ Good+ Ankle/Foot Strength Ankle and Foot Manual Muscle Testing bilat Dorsiflexion (L4) 4 Good Plantarflexion (S1) 4 Good PT-OP-T Assessment and Plan Start: 12/21/21 08:47 Freq: Status: Active Protocol: Document 02/07/22 14:18 SAK (Rec: 02/07/22 14:24 SAK [id number]) Physical Therapy Assessment Impairments Impairments Balance,Gait,Pain,Posture,ROM, Sensation,Soft Tissue Mobility ,Strength Goals Four Impairment pain limits bed mobility Supervisor Stage Carpentry Goal (LTG) Covarrubias will roll and bridge without increase in baseline pain. 01/10/22: some goal progress LTG Duration 03/23/22 Three Impairment gait Supervisor Stage Carpentry Goal (LTG) Pt will complete 6MWT without AD or with LRAD without Trendelenberg sign. 01/10/22: goal progress, improving gait tolerance but still demonstrates significant Trendelenberg LTG Duration 03/23/22 Two Impairment impaired strength [facility]iary Goal (LTG) Pt will improve BLE hip strength to at least 4+/5 all planes for improved gait mechanics. 01/10/22: no change in MMT LTG Duration 03/23/22 One Impairment lacks HEP Short Term Goal (STG) Pt will be instructed in HEP for hip mobility and strength to support therapy services provided in clinic. 01/10/22: ongoing STG Duration 02/01/22 [facility]entiary Goal (LTG) Pt will be independent with HEP for hip mobility and strength to maintain and improve upon goal progress. LTG Duration 03/23/22 Assessment Summary Assessment MRI results: 1. No unusual peripheral or internal enhancement the homogeneously T2 hyperintense ectasia of the central canal at the L5-S1 level. 2. 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 Today's treatment gentle aquatic PT with no spinal extension, much work on posterior pelvic tilt for opening posterior spinal reg, deep breathing for calming nervous system Physical Therapy Plan Frequency and Duration Frequency of Treatment 2x/Week Duration of treatment (weeks) 12 Plan of Care Start Date 12/22/21 Plan of Care End Date 03/23/22 Therapeutic Interventions Therapeutic Interventions Aquatic Therapy,Gait Training, Home Exercise Program,Manual Therapy,Neuromuscular Re- education,Self-Care/Home Management,Soft Tissue Mobilization,Taping, Therapeutic Activities, Therapeutic Exercises Next Visit Focus/Plan Next Note Type Progress Note Next Visit Plan Continue PT with preference for aquatic PT for decompression of spine and improved ease of mobility. Core strengthening, issue written HO for PPT as patient has difficulty activing musculature correctly.
--- NOTE | 2022-02-09 09:29 | PT.OTN ---
Current Diagnoses Myalgia, other site (02/07/22) Difficulty in walking, not elsewhere classified (02/07/22) Physical Therapy Treatment Note PT-OP-A Visit Information Start: 12/21/21 08:47 Freq: Status: Active Protocol: Document 02/07/22 14:18 SAK (Rec: 02/07/22 14:24 SAK [id number]) Out-Patient Physical Therapy Visit Information Visit Information Visit Type Aquatic Treatment Note Visit Start Time 11:45 Visit Stop Time 12:30 Total Visit Minutes 45 Visit Number 10 Precautions Precautions osteopenia PT-OP-B Current Condition Start: 12/21/21 08:47 Freq: Status: Active Protocol: Document 12/21/21 11:15 AW (Rec: 12/21/21 08:55 AW [id number]) Current Condition History of Current Condition Onset Date 3+ months Current Complaints bilateral hip/buttock pain History of Current Condition Marci reports terrible pain in the back of her hips first thing in the morning before getting out of bed. I dread it. Better with rest and heat . For the past few days, she has tried icing before she gets out of bed and that has been even more effective than heat. Right side is worse in the morning but both sides hurt getting out of the bed. Worse with walking even just a few blocks. Getting out of bed, sitting down to the toilet, anything jarring such as stubbing her toe or sudden movement hurts. There are stairs at home but Marci is able to avoid them. She is taking 1000 mg Tylenol 3x/day and etodolac 400 mg 2x/day. Feels she hasn't been getting as much exercise as before because of pandemic. Trying to walk and to go to the pool twice/week. Pool feels good. Has stairs at home but does not have to do them. Has done some calf stretching and does some stretches and simple movement in the bed before getting up in the morning. She is wearing supportive shoes inside and outside the house. Prior Treatments and Tests -11/15 hip x-ray: mild B hip OA -11/26 thoraco-lumbar x-ray: 1. Mild scoliotic curvature of the lower thoracic and lumbar spine. 2. Multilevel degenerative spondylolisthesis throughout the lumbar spine, most prominent at the L4-5 level where there is grade 2 anterolisthesis of L4 on L5. 3 . Multilevel moderate to severe spondylosis. -Previous PT for knee pain Treatment Goals Patient/Caregiver Goals Reduce pain, improve strength, walk better, be able to move on the bed with less pain. PT-OP-C Subjective Start: 12/21/21 08:47 Freq: Status: Active Protocol: Document 02/07/22 14:18 SAK (Rec: 02/07/22 14:24 SAK [id number]) OP-PT Subjective Patient Comments Patient Comments In ER and Monday, had regular MRI and contrast MRI. Was started on pain cocktail including Prednisone; has been on for 24 hours. Wasn't sure she should come to PT today. PT-OP-D Balance Start: 12/21/21 08:47 Freq: Status: Active Protocol: Document 12/21/21 11:15 AW (Rec: 12/21/21 17:39 AW [id number]) Balance Tests Single Limb Standing Single Limb- Right needs UE support, positive Trendelenberg Single Limb- Left needs UE support, positive Trendelenberg PT-OP-G Mobility & Gait Start: 12/21/21 08:47 Freq: Status: Active Protocol: Document 12/21/21 11:15 AW (Rec: 12/21/21 18:00 AW [id number]) OP Mobility Evaluation Bed Mobility Rolling Bridging is challenging and increases pain. Supine to and from Sit Pt log rolls and has difficulty primarily with the roll. SL to sit takes extra time but pt is able to manage. Transfers Sit to Stand Positive Emily's sign OP Gait Assessment Gait Gait Assistance Required: Independent Comments Gait Comments Pt has bilateral foot turnout in gait, increased right ipsilateral lean in stance phase, decreased trunk rotation generally. PT-OP-J Posture/Palpation/Skin Start: 12/21/21 08:47 Freq: Status: Active Protocol: Document 12/21/21 11:15 AW (Rec: 12/21/21 18:00 AW [id number]) Posture Evaluation Comments Posture Comments Decreased RLE weightbearing, bilateral ER hips, bilateral genu valgus, pronated feet, moderate arch at feet. Palpation Assessment Location ischial tuberosities Palpation Location ischial tuberosities Palpation Findings Tenderness Palpation Details Pt has point tenderness at both ischial tuberosities. PT-OP-K Range of Motion Start: 12/21/21 08:47 Freq: Status: Active Protocol: Document 12/21/21 11:15 AW (Rec: 12/21/21 18:00 AW [id number]) Hip Goniometric Range of Motion Hip bilat Comments Moderate tightness in bilateral ITB and hamstrings. Pt lacks ~20 degrees in passive SLR bilaterally. IR:ER ratio is ~1:3 bilaterally and end-range PROM does not reproduce pain. Hip ROM Limitations Hip ROM Limitations Soft Tissue Tightness,Pain Knee Goniometric Range of Motion Knee bilat Knee ROM WFL Yes Ankle and Foot Goniometric Range of Motion Ankle and Foot bilat Comments Dorsiflexion is to neutral with knees flexed and to ~5 deg with knees extended. PT-OP-L Special Tests Start: 12/21/21 08:47 Freq: Status: Active Protocol: Document 12/21/21 11:15 AW (Rec: 12/21/21 18:04 AW [id number]) Special Tests Hip Special Tests Buttocks Sign Test Results negative bilaterally Scour Test Test Results negative bilaterally PT-OP-M Strength Start: 12/21/21 08:47 Freq: Status: Active Protocol: Document 12/21/21 11:15 AW (Rec: 12/21/21 18:04 AW [id number]) Hip Strength Hip Manual Muscle Testing bilat Flexion (L2) 4 Good Extension (S1) 4 Good Abduction 3 Fair Adduction 3+ Fair+ External Rotation 4 Good Internal Rotation 4- Good- Knee Strength Knee Manual Muscle Testing bilat Flexion (S2) 4+ Good+ Extension (L3) 4+ Good+ Ankle/Foot Strength Ankle and Foot Manual Muscle Testing bilat Dorsiflexion (L4) 4 Good Plantarflexion (S1) 4 Good PT-OP-Q Treatments Start: 12/21/21 08:47 Freq: Status: Active Protocol: Document 01/25/22 10:32 AMB (Rec: 01/25/22 11:15 AMB [id number]) Therapeutic Exercises Supine Exercises marching Reps/Minutes 10x single leg lowering Supine Exercise Name holding SKTC opp side Reps/Minutes 10x Comments cues for core engagement abdominal drawing in Reps/Minutes 5x Comments cues for slow, gradual LTR Reps/Minutes 10 Sidelying Exercises clamshell Reps/Minutes 2x10 Sitting Exercises piriformis stretch Reps/Minutes 2x30 Comments cues for core activation hs stretch Reps/Minutes 2x30 Comments cues for core activation pelvic tilt Reps/Minutes 10 Manual Therapy Treatment Soft Tissue Mobilization LB/piriformis Body Location left LB/piriformis Mobilization Type Myofascial Release Body Position Sidelying Comments passive stretching with MFR PT-OP-S Aquatic Treatment Start: 01/31/22 14:44 Freq: Status: Active Protocol: Document 02/07/22 14:18 [facility] (Rec: 02/07/22 14:24 [facility] [id number]) Aquatics Treatment Pool Entry/Exit Pool Entry/Exit Method Stairs Assistance Independent Water Walking fwd Water Level Chest Level Level of Assistance Verbal Cues Spinal Exercises posterior pelvic tilt Water Level Neck Level Equipment wall Reps/Duration 10x5 Comments verbal and tactile cues [place] Activities [place] Activities Bicycle Other Activities deep water hang 1 min x 2 with deep breathing DKTC at wall Equipment small noodle in front Duration 20 min PT-OP-T Assessment and Plan Start: 12/21/21 08:47 Freq: Status: Active Protocol: Document 02/07/22 14:18 [facility] (Rec: 02/07/22 14:24 [facility] [id number]) Physical Therapy Assessment Impairments Impairments Balance,Gait,Pain,Posture,ROM, Sensation,Soft Tissue Mobility ,Strength Goals Four Impairment pain limits bed mobility Nursery Attendant Goal (LTG) Covarrubias will roll and bridge without increase in baseline pain. 01/10/22: some goal progress LTG Duration 03/23/22 Three Impairment gait Nursery Attendant Goal (LTG) Pt will complete 6MWT without AD or with LRAD without Trendelenberg sign. 01/10/22: goal progress, improving gait tolerance but still demonstrates significant Trendelenberg LTG Duration 03/23/22 Two Impairment impaired strength Shelter Goal (LTG) Pt will improve BLE hip strength to at least 4+/5 all planes for improved gait mechanics. 01/10/22: no change in MMT LTG Duration 03/23/22 One Impairment lacks HEP Short Term Goal (STG) Pt will be instructed in HEP for hip mobility and strength to support therapy services provided in clinic. 01/10/22: ongoing STG Duration 02/01/22 Shelter Goal (LTG) Pt will be independent with HEP for hip mobility and strength to maintain and improve upon goal progress. LTG Duration 03/23/22 Assessment Summary Assessment MRI results: 1. No unusual peripheral or internal enhancement the homogeneously T2 hyperintense ectasia of the central canal at the L5-S1 level. 2. 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 Today's treatment gentle aquatic PT with no spinal extension, much work on posterior pelvic tilt for opening posterior spinal reg, deep breathing for calming nervous system Physical Therapy Plan Frequency and Duration Frequency of Treatment 2x/Week Duration of treatment (weeks) 12 Plan of Care Start Date 12/22/21 Plan of Care End Date 03/23/22 Therapeutic Interventions Therapeutic Interventions Aquatic Therapy,Gait Training, Home Exercise Program,Manual Therapy,Neuromuscular Re- education,Self-Care/Home Management,Soft Tissue Mobilization,Taping, Therapeutic Activities, Therapeutic Exercises Next Visit Focus/Plan Next Note Type Progress Note Next Visit Plan Continue PT with preference for aquatic PT for decompression of spine and improved ease of mobility. Core strengthening, issue written HO for PPT as patient has difficulty activing musculature correctly.
--- NOTE | 2022-02-09 15:02 | PT.OTN ---
Current Diagnoses Myalgia, other site (02/09/22) Difficulty in walking, not elsewhere classified (02/09/22) Physical Therapy Treatment Note PT-OP-A Visit Information Start: 12/21/21 08:47 Freq: Status: Active Protocol: Document 02/09/22 14:47 SAK (Rec: 02/10/22 15:02 SAK [id number]) Out-Patient Physical Therapy Visit Information Visit Information Visit Type Aquatic Treatment Note Visit Start Time 13:25 Visit Stop Time 14:00 Total Visit Minutes 35 Visit Number 11 Precautions Precautions osteopenia PT-OP-B Current Condition Start: 12/21/21 08:47 Freq: Status: Active Protocol: Document 12/21/21 11:15 AW (Rec: 12/21/21 08:55 AW [id number]) Current Condition History of Current Condition Onset Date 3+ months Current Complaints bilateral hip/buttock pain History of Current Condition Marci reports terrible pain in the back of her hips first thing in the morning before getting out of bed. I dread it. Better with rest and heat . For the past few days, she has tried icing before she gets out of bed and that has been even more effective than heat. Right side is worse in the morning but both sides hurt getting out of the bed. Worse with walking even just a few blocks. Getting out of bed, sitting down to the toilet, anything jarring such as stubbing her toe or sudden movement hurts. There are stairs at home but Marci is able to avoid them. She is taking 1000 mg Tylenol 3x/day and etodolac 400 mg 2x/day. Feels she hasn't been getting as much exercise as before because of pandemic. Trying to walk and to go to the pool twice/week. Pool feels good. Has stairs at home but does not have to do them. Has done some calf stretching and does some stretches and simple movement in the bed before getting up in the morning. She is wearing supportive shoes inside and outside the house. Prior Treatments and Tests -11/15 hip x-ray: mild B hip OA -11/26 thoraco-lumbar x-ray: 1. Mild scoliotic curvature of the lower thoracic and lumbar spine. 2. Multilevel degenerative spondylolisthesis throughout the lumbar spine, most prominent at the L4-5 level where there is grade 2 anterolisthesis of L4 on L5. 3 . Multilevel moderate to severe spondylosis. -Previous PT for knee pain Treatment Goals Patient/Caregiver Goals Reduce pain, improve strength, walk better, be able to move on the bed with less pain. PT-OP-C Subjective Start: 12/21/21 08:47 Freq: Status: Active Protocol: Document 02/09/22 14:47 SAK (Rec: 02/10/22 15:02 SAK [id number]) OP-PT Subjective Patient Comments Patient Comments Comer a little better during and after aquatic PT but pain still quite severe, not sure if medications helping. Sees neurosurgeon next week. Thinking she might need to get used to her limitations as a new normal. PT-OP-D Balance Start: 12/21/21 08:47 Freq: Status: Active Protocol: Document 12/21/21 11:15 AW (Rec: 12/21/21 17:39 AW [id number]) Balance Tests Single Limb Standing Single Limb- Right needs UE support, positive Trendelenberg Single Limb- Left needs UE support, positive Trendelenberg PT-OP-G Mobility & Gait Start: 12/21/21 08:47 Freq: Status: Active Protocol: Document 12/21/21 11:15 AW (Rec: 12/21/21 18:00 AW [id number]) OP Mobility Evaluation Bed Mobility Rolling Bridging is challenging and increases pain. Supine to and from Sit Pt log rolls and has difficulty primarily with the roll. SL to sit takes extra time but pt is able to manage. Transfers Sit to Stand Positive Emily's sign OP Gait Assessment Gait Gait Assistance Required: Independent Comments Gait Comments Pt has bilateral foot turnout in gait, increased right ipsilateral lean in stance phase, decreased trunk rotation generally. PT-OP-J Posture/Palpation/Skin Start: 12/21/21 08:47 Freq: Status: Active Protocol: Document 12/21/21 11:15 AW (Rec: 12/21/21 18:00 AW [id number]) Posture Evaluation Comments Posture Comments Decreased RLE weightbearing, bilateral ER hips, bilateral genu valgus, pronated feet, moderate arch at feet. Palpation Assessment Location ischial tuberosities Palpation Location ischial tuberosities Palpation Findings Tenderness Palpation Details Pt has point tenderness at both ischial tuberosities. PT-OP-K Range of Motion Start: 12/21/21 08:47 Freq: Status: Active Protocol: Document 12/21/21 11:15 AW (Rec: 12/21/21 18:00 AW [id number]) Hip Goniometric Range of Motion Hip bilat Comments Moderate tightness in bilateral ITB and hamstrings. Pt lacks ~20 degrees in passive SLR bilaterally. IR:ER ratio is ~1:3 bilaterally and end-range PROM does not reproduce pain. Hip ROM Limitations Hip ROM Limitations Soft Tissue Tightness,Pain Knee Goniometric Range of Motion Knee bilat Knee ROM WFL Yes Ankle and Foot Goniometric Range of Motion Ankle and Foot bilat Comments Dorsiflexion is to neutral with knees flexed and to ~5 deg with knees extended. PT-OP-L Special Tests Start: 12/21/21 08:47 Freq: Status: Active Protocol: Document 12/21/21 11:15 AW (Rec: 12/21/21 18:04 AW [id number]) Special Tests Hip Special Tests Buttocks Sign Test Results negative bilaterally Scour Test Test Results negative bilaterally PT-OP-M Strength Start: 12/21/21 08:47 Freq: Status: Active Protocol: Document 12/21/21 11:15 AW (Rec: 12/21/21 18:04 AW [id number]) Hip Strength Hip Manual Muscle Testing bilat Flexion (L2) 4 Good Extension (S1) 4 Good Abduction 3 Fair Adduction 3+ Fair+ External Rotation 4 Good Internal Rotation 4- Good- Knee Strength Knee Manual Muscle Testing bilat Flexion (S2) 4+ Good+ Extension (L3) 4+ Good+ Ankle/Foot Strength Ankle and Foot Manual Muscle Testing bilat Dorsiflexion (L4) 4 Good Plantarflexion (S1) 4 Good PT-OP-Q Treatments Start: 12/21/21 08:47 Freq: Status: Active Protocol: Document 01/25/22 10:32 AMB (Rec: 01/25/22 11:15 AMB [id number]) Therapeutic Exercises Supine Exercises marching Reps/Minutes 10x single leg lowering Supine Exercise Name holding SKTC opp side Reps/Minutes 10x Comments cues for core engagement abdominal drawing in Reps/Minutes 5x Comments cues for slow, gradual LTR Reps/Minutes 10 Sidelying Exercises clamshell Reps/Minutes 2x10 Sitting Exercises piriformis stretch Reps/Minutes 2x30 Comments cues for core activation hs stretch Reps/Minutes 2x30 Comments cues for core activation pelvic tilt Reps/Minutes 10 Manual Therapy Treatment Soft Tissue Mobilization LB/piriformis Body Location left LB/piriformis Mobilization Type Myofascial Release Body Position Sidelying Comments passive stretching with MFR PT-OP-S Aquatic Treatment Start: 01/31/22 14:44 Freq: Status: Active Protocol: Document 02/09/22 14:47 [facility] (Rec: 02/10/22 15:02 [facility] [id number]) Aquatics Treatment Pool Entry/Exit Pool Entry/Exit Method Stairs Assistance Independent Water Walking fwd Water Level Chest Level Level of Assistance Verbal Cues Lower Extremity Exercises squats Details with UE support x 10, then w/o x 10 Reps/Duration 10x2 Comments cues for posture Lower Extremity Stretches DKTC, SKTC Body Position Standing Water Level [place] Reps/Duration edge of pool HS Body Position Standing Water Level Chest Level Equipment gentle manual Reps/Duration 2x30 sec bilat Spinal Exercises wall squat DLS Details with enrico and unil UE movements Reps/Duration 5 min Comments cues for core engagement, PPT [place] Activities [place] Activities Bicycle Other Activities deep water hang 1 min x 2 with deep breathing DKTC at wall Equipment small noodle in front Duration 15 min Comments cues for postural and LE alignment and movement PT-OP-T Assessment and Plan Start: 12/21/21 08:47 Freq: Status: Active Protocol: Document 02/09/22 14:47 [facility] (Rec: 02/10/22 15:02 [facility] [id number]) Physical Therapy Assessment Goals Four Impairment pain limits bed mobility Pipe Threader Goal (LTG) [place]ias will roll and bridge without increase in baseline pain. 01/10/22: some goal progress LTG Duration 03/23/22 Three Impairment gait Pipe Threader Goal (LTG) Pt will complete 6MWT without AD or with LRAD without Trendelenberg sign. 01/10/22: goal progress, improving gait tolerance but still demonstrates significant Trendelenberg LTG Duration 03/23/22 Two Impairment impaired strength Pipe Threader Goal (LTG) Pt will improve BLE hip strength to at least 4+/5 all planes for improved gait mechanics. 01/10/22: no change in MMT LTG Duration 03/23/22 One Impairment lacks HEP Short Term Goal (STG) Pt will be instructed in HEP for hip mobility and strength to support therapy services provided in clinic. 01/10/22: ongoing STG Duration 02/01/22 Pipe Threader Goal (LTG) Pt will be independent with HEP for hip mobility and strength to maintain and improve upon goal progress. LTG Duration 03/23/22 Assessment Summary Assessment Patient continues to have difficulty with posterior pelvic tilt understanding despite verbal and tactile cues and PT demonstration. Appears to understand rationale for decreasing pain from stenosis, will need further work statically and dynamically with function. Physical Therapy Plan Frequency and Duration Frequency of Treatment 2x/Week Duration of treatment (weeks) 12 Plan of Care Start Date 12/22/21 Plan of Care End Date 03/23/22 Therapeutic Interventions Therapeutic Interventions Aquatic Therapy,Gait Training, Home Exercise Program,Manual Therapy,Neuromuscular Re- education,Self-Care/Home Management,Soft Tissue Mobilization,Taping, Therapeutic Activities, Therapeutic Exercises Next Visit Focus/Plan Next Note Type Progress Note Next Visit Plan Continue PT with preference for aquatic PT for decompression of spine and improved ease of mobility. Core strengthening, issue written HO for PPT as patient has difficulty activing musculature correctly.
--- NOTE | 2022-02-21 12:30 | PT.OTN ---
Current Diagnoses Myalgia, other site (02/21/22) Difficulty in walking, not elsewhere classified (02/21/22) Physical Therapy Treatment Note PT-OP-A Visit Information Start: 12/21/21 08:47 Freq: Status: Active Protocol: Document 02/21/22 12:30 SAK (Rec: 02/22/22 08:19 SAK [id number]) Out-Patient Physical Therapy Visit Information Visit Information Visit Type Treatment Note Visit Start Time 12:30 Visit Stop Time 13:15 Total Visit Minutes 45 Visit Number 12 Precautions Precautions osteopenia PT-OP-B Current Condition Start: 12/21/21 08:47 Freq: Status: Active Protocol: Document 12/21/21 11:15 AW (Rec: 12/21/21 08:55 AW [id number]) Current Condition History of Current Condition Onset Date 3+ months Current Complaints bilateral hip/buttock pain History of Current Condition Marci reports terrible pain in the back of her hips first thing in the morning before getting out of bed. I dread it. Better with rest and heat . For the past few days, she has tried icing before she gets out of bed and that has been even more effective than heat. Right side is worse in the morning but both sides hurt getting out of the bed. Worse with walking even just a few blocks. Getting out of bed, sitting down to the toilet, anything jarring such as stubbing her toe or sudden movement hurts. There are stairs at home but Marci is able to avoid them. She is taking 1000 mg Tylenol 3x/day and etodolac 400 mg 2x/day. Feels she hasn't been getting as much exercise as before because of pandemic. Trying to walk and to go to the pool twice/week. Pool feels good. Has stairs at home but does not have to do them. Has done some calf stretching and does some stretches and simple movement in the bed before getting up in the morning. She is wearing supportive shoes inside and outside the house. Prior Treatments and Tests -11/15 hip x-ray: mild B hip OA -11/26 thoraco-lumbar x-ray: 1. Mild scoliotic curvature of the lower thoracic and lumbar spine. 2. Multilevel degenerative spondylolisthesis throughout the lumbar spine, most prominent at the L4-5 level where there is grade 2 anterolisthesis of L4 on L5. 3 . Multilevel moderate to severe spondylosis. -Previous PT for knee pain Treatment Goals Patient/Caregiver Goals Reduce pain, improve strength, walk better, be able to move on the bed with less pain. PT-OP-C Subjective Start: 12/21/21 08:47 Freq: Status: Active Protocol: Document 02/21/22 12:30 SAK (Rec: 02/22/22 08:19 SAK [id number]) OP-PT Subjective Patient Comments Patient Comments Continues to have high pain level. Saw neurosurgeon on [place] who told her he thought he could make her 85% better. Patient states she can't remember everything they talked about and is requesting a copy of the visit not. He recommended a second opinion for her at in [place] but she and her are not comfortable with driving there, may have 2nd opinion either in [place] or [facility]. PT-OP-D Balance Start: 12/21/21 08:47 Freq: Status: Active Protocol: Document 12/21/21 11:15 AW (Rec: 12/21/21 17:39 AW [id number]) Balance Tests Single Limb Standing Single Limb- Right needs UE support, positive Trendelenberg Single Limb- Left needs UE support, positive Trendelenberg PT-OP-G Mobility & Gait Start: 12/21/21 08:47 Freq: Status: Active Protocol: Document 12/21/21 11:15 AW (Rec: 12/21/21 18:00 AW [id number]) OP Mobility Evaluation Bed Mobility Rolling Bridging is challenging and increases pain. Supine to and from Sit Pt log rolls and has difficulty primarily with the roll. SL to sit takes extra time but pt is able to manage. Transfers Sit to Stand Positive [place]'s sign OP Gait Assessment Gait Gait Assistance Required: Independent Comments Gait Comments Pt has bilateral foot turnout in gait, increased right ipsilateral lean in stance phase, decreased trunk rotation generally. PT-OP-J Posture/Palpation/Skin Start: 12/21/21 08:47 Freq: Status: Active Protocol: Document 12/21/21 11:15 AW (Rec: 12/21/21 18:00 AW [id number]) Posture Evaluation Comments Posture Comments Decreased RLE weightbearing, bilateral ER hips, bilateral genu valgus, pronated feet, moderate arch at feet. Palpation Assessment Location ischial tuberosities Palpation Location ischial tuberosities Palpation Findings Tenderness Palpation Details Pt has point tenderness at both ischial tuberosities. PT-OP-K Range of Motion Start: 12/21/21 08:47 Freq: Status: Active Protocol: Document 12/21/21 11:15 AW (Rec: 12/21/21 18:00 AW [id number]) Hip Goniometric Range of Motion Hip bilat Comments Moderate tightness in bilateral ITB and hamstrings. Pt lacks ~20 degrees in passive SLR bilaterally. IR:ER ratio is ~1:3 bilaterally and end-range PROM does not reproduce pain. Hip ROM Limitations Hip ROM Limitations Soft Tissue Tightness,Pain Knee Goniometric Range of Motion Knee bilat Knee ROM WFL Yes Ankle and Foot Goniometric Range of Motion Ankle and Foot bilat Comments Dorsiflexion is to neutral with knees flexed and to ~5 deg with knees extended. PT-OP-L Special Tests Start: 12/21/21 08:47 Freq: Status: Active Protocol: Document 12/21/21 11:15 AW (Rec: 12/21/21 18:04 AW [id number]) Special Tests Hip Special Tests Buttocks Sign Test Results negative bilaterally Scour Test Test Results negative bilaterally PT-OP-M Strength Start: 12/21/21 08:47 Freq: Status: Active Protocol: Document 12/21/21 11:15 AW (Rec: 12/21/21 18:04 AW [id number]) Hip Strength Hip Manual Muscle Testing bilat Flexion (L2) 4 Good Extension (S1) 4 Good Abduction 3 Fair Adduction 3+ Fair+ External Rotation 4 Good Internal Rotation 4- Good- Knee Strength Knee Manual Muscle Testing bilat Flexion (S2) 4+ Good+ Extension (L3) 4+ Good+ Ankle/Foot Strength Ankle and Foot Manual Muscle Testing bilat Dorsiflexion (L4) 4 Good Plantarflexion (S1) 4 Good PT-OP-Q Treatments Start: 12/21/21 08:47 Freq: Status: Active Protocol: Document 01/25/22 10:32 AMB (Rec: 01/25/22 11:15 AMB [id number]) Therapeutic Exercises Supine Exercises marching Reps/Minutes 10x single leg lowering Supine Exercise Name holding SKTC opp side Reps/Minutes 10x Comments cues for core engagement abdominal drawing in Reps/Minutes 5x Comments cues for slow, gradual LTR Reps/Minutes 10 Sidelying Exercises clamshell Reps/Minutes 2x10 Sitting Exercises piriformis stretch Reps/Minutes 2x30 Comments cues for core activation hs stretch Reps/Minutes 2x30 Comments cues for core activation pelvic tilt Reps/Minutes 10 Manual Therapy Treatment Soft Tissue Mobilization LB/piriformis Body Location left LB/piriformis Mobilization Type Myofascial Release Body Position Sidelying Comments passive stretching with MFR PT-OP-S Aquatic Treatment Start: 01/31/22 14:44 Freq: Status: Active Protocol: Document 02/21/22 12:30 [facility] (Rec: 02/22/22 08:19 [facility] [id number]) Aquatics Treatment Pool Entry/Exit Pool Entry/Exit Method Stairs Assistance Independent,Standby Assistance Comments Min assist back to locker room with SPC, reminded to bring walker for safet Water Walking Sideways Water Level Chest Level Level of Assistance Verbal Cues Backwards Water Level Chest Level Level of Assistance Verbal Cues fwd Water Level Chest Level Level of Assistance Verbal Cues Lower Extremity Exercises squats Details with UE support x 10, then w/o x 10 Reps/Duration 10x2 Comments cues for posture Lower Extremity Stretches DKTC, SKTC Body Position Standing Water Level [place] Reps/Duration edge of pool Comments at ladder HS Body Position Standing Water Level Chest Level Equipment gentle manual Reps/Duration 2x30 sec bilat quad Body Position Standing Water Level Chest Level Equipment Small Noodle Reps/Duration 2x30 Comments PT assist Spinal Exercises wall squat DLS Details with enrico and unil UE movements Reps/Duration 5 min Comments cues for core engagement, PPT posterior pelvic tilt Water Level Neck Level Equipment wall Reps/Duration 10x5 Comments verbal and tactile cues [place] Activities [place] Activities Bicycle Other Activities deep water hang 1 min x 2 with deep breathing DKTC at wall Equipment small noodle in front Duration 15 min Comments cues for postural and LE alignment and movement PT-OP-T Assessment and Plan Start: 12/21/21 08:47 Freq: Status: Active Protocol: Document 02/21/22 12:30 [facility] (Rec: 02/22/22 08:19 [facility] [id number]) Physical Therapy Assessment Impairments Impairments Balance,Gait,Pain,Posture,ROM, Sensation,Soft Tissue Mobility ,Strength Goals Four Impairment pain limits bed mobility Locomotive Oiler Goal (LTG) Covarrubias will roll and bridge without increase in baseline pain. 01/10/22: some goal progress LTG Duration 03/23/22 Three Impairment gait Detention Goal (LTG) Pt will complete 6MWT without AD or with LRAD without Trendelenberg sign. 01/10/22: goal progress, improving gait tolerance but still demonstrates significant Trendelenberg LTG Duration 03/23/22 Two Impairment impaired strength Detention Goal (LTG) Pt will improve BLE hip strength to at least 4+/5 all planes for improved gait mechanics. 01/10/22: no change in MMT LTG Duration 03/23/22 One Impairment lacks HEP Short Term Goal (STG) Pt will be instructed in HEP for hip mobility and strength to support therapy services provided in clinic. 01/10/22: ongoing STG Duration 02/01/22 Locomotive Oiler Goal (LTG) Pt will be independent with HEP for hip mobility and strength to maintain and improve upon goal progress. LTG Duration 03/23/22 Assessment Summary Assessment Some improvement in posterior pelvic tilt though still requires cues, given information for watching video online for further instruction as needed. Patient has difficulty performing. Patient reported she was able to sleep in a chair and felt less pain getting up in am; PT recommendation for power recliner (unable to physically manage her 's), and consider adjustable bed for ease of change of position and getting out of bed. Physical Therapy Plan Frequency and Duration Frequency of Treatment 2x/Week Duration of treatment (weeks) 12 Plan of Care Start Date 12/22/21 Plan of Care End Date 03/23/22 Therapeutic Interventions Therapeutic Interventions Aquatic Therapy,Gait Training, Home Exercise Program,Manual Therapy,Neuromuscular Re- education,Self-Care/Home Management,Soft Tissue Mobilization,Taping, Therapeutic Activities, Therapeutic Exercises Next Visit Focus/Plan Next Note Type Treatment Note Next Visit Plan Continue aquatic PT, further instruction in neutral posture , posterior pelvic tilt. Further discussion of sleeping positions and option for adjustable bed and power recliner.
--- NOTE | 2022-02-24 10:16 | PT-OP ANOTE ---
cancelled due to not feeling well.
--- NOTE | 2022-02-28 14:40 | PT.OTN ---
Current Diagnoses Myalgia, other site (02/28/22) Difficulty in walking, not elsewhere classified (02/28/22) Physical Therapy Treatment Note PT-OP-A Visit Information Start: 12/21/21 08:47 Freq: Status: Active Protocol: Document 02/28/22 14:29 SAK (Rec: 02/28/22 14:40 SAK [id number]) Out-Patient Physical Therapy Visit Information Visit Information Visit Type Treatment Note Visit Start Time 12:30 Visit Stop Time 13:15 Total Visit Minutes 45 Visit Number 13 Evaluation Information Evaluation Date 12/21/21 PT-OP-B Current Condition Start: 12/21/21 08:47 Freq: Status: Active Protocol: Document 12/21/21 11:15 AW (Rec: 12/21/21 08:55 AW [id number]) Current Condition History of Current Condition Onset Date 3+ months Current Complaints bilateral hip/buttock pain History of Current Condition Marci reports terrible pain in the back of her hips first thing in the morning before getting out of bed. I dread it. Better with rest and heat . For the past few days, she has tried icing before she gets out of bed and that has been even more effective than heat. Right side is worse in the morning but both sides hurt getting out of the bed. Worse with walking even just a few blocks. Getting out of bed, sitting down to the toilet, anything jarring such as stubbing her toe or sudden movement hurts. There are stairs at home but Marci is able to avoid them. She is taking 1000 mg Tylenol 3x/day and etodolac 400 mg 2x/day. Feels she hasn't been getting as much exercise as before because of pandemic. Trying to walk and to go to the pool twice/week. Pool feels good. Has stairs at home but does not have to do them. Has done some calf stretching and does some stretches and simple movement in the bed before getting up in the morning. She is wearing supportive shoes inside and outside the house. Prior Treatments and Tests -11/15 hip x-ray: mild B hip OA -11/26 thoraco-lumbar x-ray: 1. Mild scoliotic curvature of the lower thoracic and lumbar spine. 2. Multilevel degenerative spondylolisthesis throughout the lumbar spine, most prominent at the L4-5 level where there is grade 2 anterolisthesis of L4 on L5. 3 . Multilevel moderate to severe spondylosis. -Previous PT for knee pain Treatment Goals Patient/Caregiver Goals Reduce pain, improve strength, walk better, be able to move on the bed with less pain. PT-OP-C Subjective Start: 12/21/21 08:47 Freq: Status: Active Protocol: Document 02/28/22 14:29 SAK (Rec: 02/28/22 14:40 SAK [id number]) OP-PT Subjective Patient Comments Patient Comments Patient reports she is anticipating having back surgery with Dr. Rose as soon as it can get scheduled. Had a better day yesterday, not as good today. Sleeping in a straight back chair, can' t tolerate getting in or out of bed. PT-OP-D Balance Start: 12/21/21 08:47 Freq: Status: Active Protocol: Document 12/21/21 11:15 AW (Rec: 12/21/21 17:39 AW [id number]) Balance Tests Single Limb Standing Single Limb- Right needs UE support, positive Trendelenberg Single Limb- Left needs UE support, positive Trendelenberg PT-OP-G Mobility & Gait Start: 12/21/21 08:47 Freq: Status: Active Protocol: Document 12/21/21 11:15 AW (Rec: 12/21/21 18:00 AW [id number]) OP Mobility Evaluation Bed Mobility Rolling Bridging is challenging and increases pain. Supine to and from Sit Pt log rolls and has difficulty primarily with the roll. SL to sit takes extra time but pt is able to manage. Transfers Sit to Stand Positive [place]'s sign OP Gait Assessment Gait Gait Assistance Required: Independent Comments Gait Comments Pt has bilateral foot turnout in gait, increased right ipsilateral lean in stance phase, decreased trunk rotation generally. PT-OP-J Posture/Palpation/Skin Start: 12/21/21 08:47 Freq: Status: Active Protocol: Document 12/21/21 11:15 AW (Rec: 12/21/21 18:00 AW [id number]) Posture Evaluation Comments Posture Comments Decreased RLE weightbearing, bilateral ER hips, bilateral genu valgus, pronated feet, moderate arch at feet. Palpation Assessment Location ischial tuberosities Palpation Location ischial tuberosities Palpation Findings Tenderness Palpation Details Pt has point tenderness at both ischial tuberosities. PT-OP-K Range of Motion Start: 12/21/21 08:47 Freq: Status: Active Protocol: Document 12/21/21 11:15 AW (Rec: 12/21/21 18:00 AW [id number]) Hip Goniometric Range of Motion Hip bilat Comments Moderate tightness in bilateral ITB and hamstrings. Pt lacks ~20 degrees in passive SLR bilaterally. IR:ER ratio is ~1:3 bilaterally and end-range PROM does not reproduce pain. Hip ROM Limitations Hip ROM Limitations Soft Tissue Tightness,Pain Knee Goniometric Range of Motion Knee bilat Knee ROM WFL Yes Ankle and Foot Goniometric Range of Motion Ankle and Foot bilat Comments Dorsiflexion is to neutral with knees flexed and to ~5 deg with knees extended. PT-OP-L Special Tests Start: 12/21/21 08:47 Freq: Status: Active Protocol: Document 12/21/21 11:15 AW (Rec: 12/21/21 18:04 AW [id number]) Special Tests Hip Special Tests Buttocks Sign Test Results negative bilaterally Scour Test Test Results negative bilaterally PT-OP-M Strength Start: 12/21/21 08:47 Freq: Status: Active Protocol: Document 12/21/21 11:15 AW (Rec: 12/21/21 18:04 AW [id number]) Hip Strength Hip Manual Muscle Testing bilat Flexion (L2) 4 Good Extension (S1) 4 Good Abduction 3 Fair Adduction 3+ Fair+ External Rotation 4 Good Internal Rotation 4- Good- Knee Strength Knee Manual Muscle Testing bilat Flexion (S2) 4+ Good+ Extension (L3) 4+ Good+ Ankle/Foot Strength Ankle and Foot Manual Muscle Testing bilat Dorsiflexion (L4) 4 Good Plantarflexion (S1) 4 Good PT-OP-Q Treatments Start: 12/21/21 08:47 Freq: Status: Active Protocol: Document 01/25/22 10:32 AMB (Rec: 01/25/22 11:15 AMB [id number]) Therapeutic Exercises Supine Exercises marching Reps/Minutes 10x single leg lowering Supine Exercise Name holding SKTC opp side Reps/Minutes 10x Comments cues for core engagement abdominal drawing in Reps/Minutes 5x Comments cues for slow, gradual LTR Reps/Minutes 10 Sidelying Exercises clamshell Reps/Minutes 2x10 Sitting Exercises piriformis stretch Reps/Minutes 2x30 Comments cues for core activation hs stretch Reps/Minutes 2x30 Comments cues for core activation pelvic tilt Reps/Minutes 10 Manual Therapy Treatment Soft Tissue Mobilization LB/piriformis Body Location left LB/piriformis Mobilization Type Myofascial Release Body Position Sidelying Comments passive stretching with MFR PT-OP-S Aquatic Treatment Start: 01/31/22 14:44 Freq: Status: Active Protocol: Document 02/28/22 14:29 [facility] (Rec: 02/28/22 14:40 [facility] [id number]) Aquatics Treatment Pool Entry/Exit Pool Entry/Exit Method Stairs Assistance Independent Comments pt brought FWW for use at pool Water Walking Marching Water Level Chest Level Level of Assistance Verbal Cues Sideways Water Level Chest Level Level of Assistance Verbal Cues Backwards Water Level Chest Level Level of Assistance Verbal Cues fwd Water Level Chest Level Level of Assistance Verbal Cues Lower Extremity Stretches DKTC, SKTC Body Position Standing Water Level [place] Reps/Duration edge of pool Comments at ladder Spinal Exercises posterior pelvic tilt Water Level Neck Level Equipment wall Reps/Duration 10x5 Comments verbal and tactile cues [place] Activities [place] Activities Bicycle,Bicycle Backwards, [place],Running Other Activities deep water hang 1 min x 2 with deep breathing DKTC at wall Equipment small noodle in front, bb's for backward Duration 15 min Comments cues for postural and LE alignment and movement PT-OP-T Assessment and Plan Start: 12/21/21 08:47 Freq: Status: Active Protocol: Document 02/28/22 14:29 [facility] (Rec: 02/28/22 14:40 [facility] [id number]) Physical Therapy Assessment Impairments Impairments Balance,Gait,Pain,Posture,ROM, Sensation,Soft Tissue Mobility ,Strength Goals Four Impairment pain limits bed mobility Auto Electrician Goal (LTG) Covarrubias will roll and bridge without increase in baseline pain. 01/10/22: some goal progress LTG Duration 03/23/22 Three Impairment gait Correction Goal (LTG) Pt will complete 6MWT without AD or with LRAD without Trendelenberg sign. 01/10/22: goal progress, improving gait tolerance but still demonstrates significant Trendelenberg LTG Duration 03/23/22 Two Impairment impaired strength Correction Goal (LTG) Pt will improve BLE hip strength to at least 4+/5 all planes for improved gait mechanics. 01/10/22: no change in MMT LTG Duration 03/23/22 One Impairment lacks HEP Short Term Goal (STG) Pt will be instructed in HEP for hip mobility and strength to support therapy services provided in clinic. 01/10/22: ongoing STG Duration 02/01/22 Auto Electrician Goal (LTG) Pt will be independent with HEP for hip mobility and strength to maintain and improve upon goal progress. LTG Duration 03/23/22 Assessment Summary Assessment Patient needs frequent cues for neutral posture, core stabilization with all activities. Struggles with posterior pelvic tilt but some improved and given information in writing about online video to help with this . Appears more hopeful now that she has a plan for surgery. Better tolerance for aquatic exercise today vs last week. Patient continues to consider change in sleeping surface. [place]ons[place] good understanding of instruction for improved posture while brushing teeth for back protection Physical Therapy Plan Frequency and Duration Frequency of Treatment 2x/Week Duration of treatment (weeks) 12 Plan of Care Start Date 12/22/21 Plan of Care End Date 03/23/22 Therapeutic Interventions Therapeutic Interventions Aquatic Therapy,Gait Training, Home Exercise Program,Manual Therapy,Neuromuscular Re- education,Self-Care/Home Management,Soft Tissue Mobilization,Taping, Therapeutic Activities, Therapeutic Exercises Next Visit Focus/Plan Next Note Type Treatment Note Next Visit Plan Continue gentle progression of gentle core and LE strengthening, flexibility with aquatic PT in preparation for back surgery. Manual techniques as tolerated but patient gets cold easily so anticipate limited ability to do manual techniques in pool. Patient has poor tolerance for land-based PT so prefers aquatic when able and I concur .
--- NOTE | 2022-03-07 14:21 | PT.OTN ---
Current Diagnoses Myalgia, other site (03/07/22) Difficulty in walking, not elsewhere classified (03/07/22) Physical Therapy Treatment Note PT-OP-A Visit Information Start: 12/21/21 08:47 Freq: Status: Active Protocol: Document 03/07/22 14:12 SAK (Rec: 03/07/22 14:21 SAK [id number]) Out-Patient Physical Therapy Visit Information Visit Information Visit Type Treatment Note Visit Start Time 12:30 Visit Stop Time 13:10 Total Visit Minutes 40 Visit Number 14 Evaluation Information Evaluation Date 12/21/21 PT-OP-B Current Condition Start: 12/21/21 08:47 Freq: Status: Active Protocol: Document 12/21/21 11:15 AW (Rec: 12/21/21 08:55 AW [id number]) Current Condition History of Current Condition Onset Date 3+ months Current Complaints bilateral hip/buttock pain History of Current Condition Marci reports terrible pain in the back of her hips first thing in the morning before getting out of bed. I dread it. Better with rest and heat . For the past few days, she has tried icing before she gets out of bed and that has been even more effective than heat. Right side is worse in the morning but both sides hurt getting out of the bed. Worse with walking even just a few blocks. Getting out of bed, sitting down to the toilet, anything jarring such as stubbing her toe or sudden movement hurts. There are stairs at home but Marci is able to avoid them. She is taking 1000 mg Tylenol 3x/day and etodolac 400 mg 2x/day. Feels she hasn't been getting as much exercise as before because of pandemic. Trying to walk and to go to the pool twice/week. Pool feels good. Has stairs at home but does not have to do them. Has done some calf stretching and does some stretches and simple movement in the bed before getting up in the morning. She is wearing supportive shoes inside and outside the house. Prior Treatments and Tests -11/15 hip x-ray: mild B hip OA -11/26 thoraco-lumbar x-ray: 1. Mild scoliotic curvature of the lower thoracic and lumbar spine. 2. Multilevel degenerative spondylolisthesis throughout the lumbar spine, most prominent at the L4-5 level where there is grade 2 anterolisthesis of L4 on L5. 3 . Multilevel moderate to severe spondylosis. -Previous PT for knee pain Treatment Goals Patient/Caregiver Goals Reduce pain, improve strength, walk better, be able to move on the bed with less pain. PT-OP-C Subjective Start: 12/21/21 08:47 Freq: Status: Active Protocol: Document 03/07/22 14:12 SAK (Rec: 03/07/22 14:21 SAK [id number]) OP-PT Subjective Patient Comments Patient Comments Not yet scheduled for surgery, may call surgeon's office again as is anxious to have that done. Continues to sleep in chair, pain variable, worst is down left LE with left LE feeling weak. PT-OP-D Balance Start: 12/21/21 08:47 Freq: Status: Active Protocol: Document 12/21/21 11:15 AW (Rec: 12/21/21 17:39 AW [id number]) Balance Tests Single Limb Standing Single Limb- Right needs UE support, positive Trendelenberg Single Limb- Left needs UE support, positive Trendelenberg PT-OP-G Mobility & Gait Start: 12/21/21 08:47 Freq: Status: Active Protocol: Document 12/21/21 11:15 AW (Rec: 12/21/21 18:00 AW [id number]) OP Mobility Evaluation Bed Mobility Rolling Bridging is challenging and increases pain. Supine to and from Sit Pt log rolls and has difficulty primarily with the roll. SL to sit takes extra time but pt is able to manage. Transfers Sit to Stand Positive Emily's sign OP Gait Assessment Gait Gait Assistance Required: Independent Comments Gait Comments Pt has bilateral foot turnout in gait, increased right ipsilateral lean in stance phase, decreased trunk rotation generally. PT-OP-J Posture/Palpation/Skin Start: 12/21/21 08:47 Freq: Status: Active Protocol: Document 12/21/21 11:15 AW (Rec: 12/21/21 18:00 AW [id number]) Posture Evaluation Comments Posture Comments Decreased RLE weightbearing, bilateral ER hips, bilateral genu valgus, pronated feet, moderate arch at feet. Palpation Assessment Location ischial tuberosities Palpation Location ischial tuberosities Palpation Findings Tenderness Palpation Details Pt has point tenderness at both ischial tuberosities. PT-OP-K Range of Motion Start: 12/21/21 08:47 Freq: Status: Active Protocol: Document 12/21/21 11:15 AW (Rec: 12/21/21 18:00 AW [id number]) Hip Goniometric Range of Motion Hip bilat Comments Moderate tightness in bilateral ITB and hamstrings. Pt lacks ~20 degrees in passive SLR bilaterally. IR:ER ratio is ~1:3 bilaterally and end-range PROM does not reproduce pain. Hip ROM Limitations Hip ROM Limitations Soft Tissue Tightness,Pain Knee Goniometric Range of Motion Knee bilat Knee ROM WFL Yes Ankle and Foot Goniometric Range of Motion Ankle and Foot bilat Comments Dorsiflexion is to neutral with knees flexed and to ~5 deg with knees extended. PT-OP-L Special Tests Start: 12/21/21 08:47 Freq: Status: Active Protocol: Document 12/21/21 11:15 AW (Rec: 12/21/21 18:04 AW [id number]) Special Tests Hip Special Tests Buttocks Sign Test Results negative bilaterally Scour Test Test Results negative bilaterally PT-OP-M Strength Start: 12/21/21 08:47 Freq: Status: Active Protocol: Document 12/21/21 11:15 AW (Rec: 12/21/21 18:04 AW [id number]) Hip Strength Hip Manual Muscle Testing bilat Flexion (L2) 4 Good Extension (S1) 4 Good Abduction 3 Fair Adduction 3+ Fair+ External Rotation 4 Good Internal Rotation 4- Good- Knee Strength Knee Manual Muscle Testing bilat Flexion (S2) 4+ Good+ Extension (L3) 4+ Good+ Ankle/Foot Strength Ankle and Foot Manual Muscle Testing bilat Dorsiflexion (L4) 4 Good Plantarflexion (S1) 4 Good PT-OP-Q Treatments Start: 12/21/21 08:47 Freq: Status: Active Protocol: Document 01/25/22 10:32 AMB (Rec: 01/25/22 11:15 AMB [id number]) Therapeutic Exercises Supine Exercises marching Reps/Minutes 10x single leg lowering Supine Exercise Name holding SKTC opp side Reps/Minutes 10x Comments cues for core engagement abdominal drawing in Reps/Minutes 5x Comments cues for slow, gradual LTR Reps/Minutes 10 Sidelying Exercises clamshell Reps/Minutes 2x10 Sitting Exercises piriformis stretch Reps/Minutes 2x30 Comments cues for core activation hs stretch Reps/Minutes 2x30 Comments cues for core activation pelvic tilt Reps/Minutes 10 Manual Therapy Treatment Soft Tissue Mobilization LB/piriformis Body Location left LB/piriformis Mobilization Type Myofascial Release Body Position Sidelying Comments passive stretching with MFR PT-OP-S Aquatic Treatment Start: 01/31/22 14:44 Freq: Status: Active Protocol: Document 03/07/22 14:12 [facility] (Rec: 03/07/22 14:21 [facility] [id number]) Aquatics Treatment Pool Entry/Exit Pool Entry/Exit Method Stairs Assistance Independent Comments pt brought FWW for use at pool Water Walking Marching Water Level Chest Level Level of Assistance Verbal Cues Comments cues for postural alignment and core and gluteal engagement Backwards Level of Assistance Verbal Cues Comments cues for postural alignment and core and gluteal engagement fwd Water Level Chest Level Level of Assistance Verbal Cues Comments cues for postural alignment and core and gluteal engagemen Lower Extremity Exercises sciatic nerve glide Body Position Standing Reps/Duration 10x squats Details with UE support x 10, then w/o x 10 Reps/Duration 10x2 Comments cues for posture, gluteal engagement Lower Extremity Stretches DKTC, SKTC Body Position Standing Water Level Windfall Reps/Duration edge of pool Comments at ladder HS Body Position Standing Water Level Chest Level Equipment gentle manual Reps/Duration 2x30 sec bilat Spinal Exercises wall squat DLS Details with enrico and unil UE movements Reps/Duration 5 min Comments cues for core engagement, PPT posterior pelvic tilt Water Level Neck Level Equipment wall Reps/Duration 10x5 Comments verbal and tactile cues, demonstration Windfall Activities Windfall Activities Bicycle,Cross Country,Running Other Activities deep water hang 1 min x 2 with deep breathing DKTC at wall Equipment small noodle in front Duration 15 min Comments cues for postural and LE alignment and movement unable to do backward today, didn't feel balanced. PT-OP-T Assessment and Plan Start: 12/21/21 08:47 Freq: Status: Active Protocol: Document 03/07/22 14:12 [facility] (Rec: 03/07/22 14:21 [facility] [id number]) Physical Therapy Assessment Impairments Impairments Balance,Gait,Pain,Posture,ROM, Sensation,Soft Tissue Mobility ,Strength Goals Four Impairment pain limits bed mobility Air Saw Operator Goal (LTG) Covarrubias will roll and bridge without increase in baseline pain. 01/10/22: some goal progress LTG Duration 03/23/22 Three Impairment gait Correction Goal (LTG) Pt will complete 6MWT without AD or with LRAD without Trendelenberg sign. 01/10/22: goal progress, improving gait tolerance but still demonstrates significant Trendelenberg LTG Duration 03/23/22 Two Impairment impaired strength Correction Goal (LTG) Pt will improve BLE hip strength to at least 4+/5 all planes for improved gait mechanics. 01/10/22: no change in MMT LTG Duration 03/23/22 One Impairment lacks HEP Short Term Goal (STG) Pt will be instructed in HEP for hip mobility and strength to support therapy services provided in clinic. 01/10/22: ongoing STG Duration 02/01/22 Correction Goal (LTG) Pt will be independent with HEP for hip mobility and strength to maintain and improve upon goal progress. LTG Duration 03/23/22 Assessment Summary Assessment Patient experiences best pain relief when in deep water, poor tolerance for any activity in shallow water, reporting increase in left LE pain. Becomes cold in water easily, needs to keep moving. Physical Therapy Plan Frequency and Duration Frequency of Treatment 2x/Week Duration of treatment (weeks) 12 Plan of Care Start Date 12/22/21 Plan of Care End Date 03/23/22 Therapeutic Interventions Therapeutic Interventions Aquatic Therapy,Gait Training, Home Exercise Program,Manual Therapy,Neuromuscular Re- education,Self-Care/Home Management,Soft Tissue Mobilization,Taping, Therapeutic Activities, Therapeutic Exercises Next Visit Focus/Plan Next Note Type Treatment Note Next Visit Plan Assess pelvic alignment. Continue gentle progression of gentle core and LE strengthening, flexibility with aquatic PT in preparation for back surgery. anticipate limited ability to do manual techniques in pool due to patient getting cold. Further discussion of pressure relieving seat cushion for pain reduction, bring written examples.
--- NOTE | 2022-03-14 14:22 | PT.OTN ---
Current Diagnoses Myalgia, other site (03/07/22) Difficulty in walking, not elsewhere classified (03/07/22) Physical Therapy Treatment Note PT-OP-A Visit Information Start: 12/21/21 08:47 Freq: Status: Active Protocol: Document 03/14/22 14:17 SAK (Rec: 03/14/22 14:22 SAK [id number]) Out-Patient Physical Therapy Visit Information Visit Information Visit Type Treatment Note Visit Start Time 12:30 Visit Stop Time 13:10 Total Visit Minutes 40 Visit Number 15 Evaluation Information Evaluation Date 12/21/21 PT-OP-B Current Condition Start: 12/21/21 08:47 Freq: Status: Active Protocol: Document 12/21/21 11:15 AW (Rec: 12/21/21 08:55 AW [id number]) Current Condition History of Current Condition Onset Date 3+ months Current Complaints bilateral hip/buttock pain History of Current Condition Marci reports terrible pain in the back of her hips first thing in the morning before getting out of bed. I dread it. Better with rest and heat . For the past few days, she has tried icing before she gets out of bed and that has been even more effective than heat. Right side is worse in the morning but both sides hurt getting out of the bed. Worse with walking even just a few blocks. Getting out of bed, sitting down to the toilet, anything jarring such as stubbing her toe or sudden movement hurts. There are stairs at home but Marci is able to avoid them. She is taking 1000 mg Tylenol 3x/day and etodolac 400 mg 2x/day. Feels she hasn't been getting as much exercise as before because of pandemic. Trying to walk and to go to the pool twice/week. Pool feels good. Has stairs at home but does not have to do them. Has done some calf stretching and does some stretches and simple movement in the bed before getting up in the morning. She is wearing supportive shoes inside and outside the house. Prior Treatments and Tests -11/15 hip x-ray: mild B hip OA -11/26 thoraco-lumbar x-ray: 1. Mild scoliotic curvature of the lower thoracic and lumbar spine. 2. Multilevel degenerative spondylolisthesis throughout the lumbar spine, most prominent at the L4-5 level where there is grade 2 anterolisthesis of L4 on L5. 3 . Multilevel moderate to severe spondylosis. -Previous PT for knee pain Treatment Goals Patient/Caregiver Goals Reduce pain, improve strength, walk better, be able to move on the bed with less pain. PT-OP-C Subjective Start: 12/21/21 08:47 Freq: Status: Active Protocol: Document 03/14/22 14:17 SAK (Rec: 03/14/22 14:22 SAK [id number]) OP-PT Subjective Patient Comments Patient Comments Is having some better days, some not as good. Today is a better day, though in middle of night had a lot of pain and had to take medication. PT-OP-D Balance Start: 12/21/21 08:47 Freq: Status: Active Protocol: Document 12/21/21 11:15 AW (Rec: 12/21/21 17:39 AW [id number]) Balance Tests Single Limb Standing Single Limb- Right needs UE support, positive Trendelenberg Single Limb- Left needs UE support, positive Trendelenberg PT-OP-G Mobility & Gait Start: 12/21/21 08:47 Freq: Status: Active Protocol: Document 12/21/21 11:15 AW (Rec: 12/21/21 18:00 AW [id number]) OP Mobility Evaluation Bed Mobility Rolling Bridging is challenging and increases pain. Supine to and from Sit Pt log rolls and has difficulty primarily with the roll. SL to sit takes extra time but pt is able to manage. Transfers Sit to Stand Positive Emily's sign OP Gait Assessment Gait Gait Assistance Required: Independent Comments Gait Comments Pt has bilateral foot turnout in gait, increased right ipsilateral lean in stance phase, decreased trunk rotation generally. PT-OP-J Posture/Palpation/Skin Start: 12/21/21 08:47 Freq: Status: Active Protocol: Document 12/21/21 11:15 AW (Rec: 12/21/21 18:00 AW [id number]) Posture Evaluation Comments Posture Comments Decreased RLE weightbearing, bilateral ER hips, bilateral genu valgus, pronated feet, moderate arch at feet. Palpation Assessment Location ischial tuberosities Palpation Location ischial tuberosities Palpation Findings Tenderness Palpation Details Pt has point tenderness at both ischial tuberosities. PT-OP-K Range of Motion Start: 12/21/21 08:47 Freq: Status: Active Protocol: Document 12/21/21 11:15 AW (Rec: 12/21/21 18:00 AW [id number]) Hip Goniometric Range of Motion Hip bilat Comments Moderate tightness in bilateral ITB and hamstrings. Pt lacks ~20 degrees in passive SLR bilaterally. IR:ER ratio is ~1:3 bilaterally and end-range PROM does not reproduce pain. Hip ROM Limitations Hip ROM Limitations Soft Tissue Tightness,Pain Knee Goniometric Range of Motion Knee bilat Knee ROM WFL Yes Ankle and Foot Goniometric Range of Motion Ankle and Foot bilat Comments Dorsiflexion is to neutral with knees flexed and to ~5 deg with knees extended. PT-OP-L Special Tests Start: 12/21/21 08:47 Freq: Status: Active Protocol: Document 12/21/21 11:15 AW (Rec: 12/21/21 18:04 AW [id number]) Special Tests Hip Special Tests Buttocks Sign Test Results negative bilaterally Scour Test Test Results negative bilaterally PT-OP-M Strength Start: 12/21/21 08:47 Freq: Status: Active Protocol: Document 12/21/21 11:15 AW (Rec: 12/21/21 18:04 AW [id number]) Hip Strength Hip Manual Muscle Testing bilat Flexion (L2) 4 Good Extension (S1) 4 Good Abduction 3 Fair Adduction 3+ Fair+ External Rotation 4 Good Internal Rotation 4- Good- Knee Strength Knee Manual Muscle Testing bilat Flexion (S2) 4+ Good+ Extension (L3) 4+ Good+ Ankle/Foot Strength Ankle and Foot Manual Muscle Testing bilat Dorsiflexion (L4) 4 Good Plantarflexion (S1) 4 Good PT-OP-Q Treatments Start: 12/21/21 08:47 Freq: Status: Active Protocol: Document 01/25/22 10:32 AMB (Rec: 01/25/22 11:15 AMB [id number]) Therapeutic Exercises Supine Exercises marching Reps/Minutes 10x single leg lowering Supine Exercise Name holding SKTC opp side Reps/Minutes 10x Comments cues for core engagement abdominal drawing in Reps/Minutes 5x Comments cues for slow, gradual LTR Reps/Minutes 10 Sidelying Exercises clamshell Reps/Minutes 2x10 Sitting Exercises piriformis stretch Reps/Minutes 2x30 Comments cues for core activation hs stretch Reps/Minutes 2x30 Comments cues for core activation pelvic tilt Reps/Minutes 10 Manual Therapy Treatment Soft Tissue Mobilization LB/piriformis Body Location left LB/piriformis Mobilization Type Myofascial Release Body Position Sidelying Comments passive stretching with MFR PT-OP-S Aquatic Treatment Start: 01/31/22 14:44 Freq: Status: Active Protocol: Document 03/14/22 14:17 [facility] (Rec: 03/14/22 14:22 [facility] [id number]) Aquatics Treatment Pool Entry/Exit Pool Entry/Exit Method Stairs Assistance Independent Comments pt brought FWW for use at pool Water Walking Marching Water Level Chest Level Level of Assistance Verbal Cues Comments cues for postural alignment and core and gluteal engagement Sideways Water Level Chest Level Level of Assistance Verbal Cues Comments cues for postural alignment and core and gluteal engagemen fwd Water Level Chest Level Level of Assistance Verbal Cues Comments cues for postural alignment and core and gluteal engagemen Lower Extremity Stretches figure 4 Reps/Duration 2x30 HS Body Position Standing Water Level Chest Level Equipment gentle manual Reps/Duration 2x30 sec bilat Spinal Exercises wall squat DLS Details away from wall. with enrico UE movements Reps/Duration 5 min Comments cues for core engagement, PPT posterior pelvic tilt Water Level Neck Level Equipment wall Reps/Duration 10x5 Comments verbal and tactile cues, demonstration [place] Activities [place] Activities Bicycle,Cross Country,Running Other Activities deep water hang 1 min x 2 with deep breathing DKTC at wall intervals at 30: 15 fast/ slow x 10 min Equipment small noodle in front Duration 20min Comments cues for postural and LE alignment and movement PT-OP-T Assessment and Plan Start: 12/21/21 08:47 Freq: Status: Active Protocol: Document 03/14/22 14:17 [facility] (Rec: 03/14/22 14:22 [facility] [id number]) Physical Therapy Assessment Impairments Impairments Balance,Gait,Pain,Posture,ROM, Sensation,Soft Tissue Mobility ,Strength Goals Four Impairment pain limits bed mobility [facility]iary Goal (LTG) Covarrubias will roll and bridge without increase in baseline pain. 01/10/22: some goal progress LTG Duration 03/23/22 Three Impairment gait [facility]iary Goal (LTG) Pt will complete 6MWT without AD or with LRAD without Trendelenberg sign. 01/10/22: goal progress, improving gait tolerance but still demonstrates significant Trendelenberg LTG Duration 03/23/22 Two Impairment impaired strength Line Servicer Goal (LTG) Pt will improve BLE hip strength to at least 4+/5 all planes for improved gait mechanics. 01/10/22: no change in MMT LTG Duration 03/23/22 One Impairment lacks HEP Short Term Goal (STG) Pt will be instructed in HEP for hip mobility and strength to support therapy services provided in clinic. 01/10/22: ongoing STG Duration 02/01/22 Line Servicer Goal (LTG) Pt will be independent with HEP for hip mobility and strength to maintain and improve upon goal progress. LTG Duration 03/23/22 Assessment Summary Assessment demonstrated good understanding of interval training concept, needed cues to remind which phase she was in. Cues for postural alignment and core stab, PPT. Decreased pain today. Continues to use walker for gait and sit in chair, hasn't felt up to trying transfer into bed. Reports swelling in LE's and has started wearing compression stockings Physical Therapy Plan Frequency and Duration Frequency of Treatment 2x/Week Duration of treatment (weeks) 12 Plan of Care Start Date 12/22/21 Plan of Care End Date 03/23/22 Therapeutic Interventions Therapeutic Interventions Aquatic Therapy,Gait Training, Home Exercise Program,Manual Therapy,Neuromuscular Re- education,Self-Care/Home Management,Soft Tissue Mobilization,Taping, Therapeutic Activities, Therapeutic Exercises Next Visit Focus/Plan Next Note Type Treatment Note Next Visit Plan Continue HIIT in deep if tolerated well today. Assess pelvic alignment. Continue gentle progression of gentle core and LE strengthening, flexibility with aquatic PT in preparation for back surgery, no manual techniques due to patient getting cold. Further discussion of pressure relieving seat cushion for pain reduction, bring written examples.
--- NOTE | 2022-03-21 14:19 | PT.OTN ---
Current Diagnoses Myalgia, other site (03/21/22) Difficulty in walking, not elsewhere classified (03/21/22) Physical Therapy Treatment Note PT-OP-A Visit Information Start: 12/21/21 08:47 Freq: Status: Active Protocol: Document 03/21/22 14:16 SAK (Rec: 03/21/22 14:18 SAK [id number]) Out-Patient Physical Therapy Visit Information Visit Information Visit Type Treatment Note Visit Start Time 11:45 Visit Stop Time 12:25 Total Visit Minutes 40 Visit Number 16 Evaluation Information Evaluation Date 12/21/21 PT-OP-B Current Condition Start: 12/21/21 08:47 Freq: Status: Active Protocol: Document 12/21/21 11:15 AW (Rec: 12/21/21 08:55 AW [id number]) Current Condition History of Current Condition Onset Date 3+ months Current Complaints bilateral hip/buttock pain History of Current Condition Marci reports terrible pain in the back of her hips first thing in the morning before getting out of bed. I dread it. Better with rest and heat . For the past few days, she has tried icing before she gets out of bed and that has been even more effective than heat. Right side is worse in the morning but both sides hurt getting out of the bed. Worse with walking even just a few blocks. Getting out of bed, sitting down to the toilet, anything jarring such as stubbing her toe or sudden movement hurts. There are stairs at home but Marci is able to avoid them. She is taking 1000 mg Tylenol 3x/day and etodolac 400 mg 2x/day. Feels she hasn't been getting as much exercise as before because of pandemic. Trying to walk and to go to the pool twice/week. Pool feels good. Has stairs at home but does not have to do them. Has done some calf stretching and does some stretches and simple movement in the bed before getting up in the morning. She is wearing supportive shoes inside and outside the house. Prior Treatments and Tests -11/15 hip x-ray: mild B hip OA -11/26 thoraco-lumbar x-ray: 1. Mild scoliotic curvature of the lower thoracic and lumbar spine. 2. Multilevel degenerative spondylolisthesis throughout the lumbar spine, most prominent at the L4-5 level where there is grade 2 anterolisthesis of L4 on L5. 3 . Multilevel moderate to severe spondylosis. -Previous PT for knee pain Treatment Goals Patient/Caregiver Goals Reduce pain, improve strength, walk better, be able to move on the bed with less pain. PT-OP-C Subjective Start: 12/21/21 08:47 Freq: Status: Active Protocol: Document 03/21/22 14:16 SAK (Rec: 03/21/22 14:18 SAK [id number]) OP-PT Subjective Patient Comments Patient Comments Today will bew last PT appointment, patient having back surgery 04/01/22. Needs to review aquatic ex program to be performed independently until then. Has PT scheduled to start again in April. PT-OP-D Balance Start: 12/21/21 08:47 Freq: Status: Active Protocol: Document 12/21/21 11:15 AW (Rec: 12/21/21 17:39 AW [id number]) Balance Tests Single Limb Standing Single Limb- Right needs UE support, positive Trendelenberg Single Limb- Left needs UE support, positive Trendelenberg PT-OP-G Mobility & Gait Start: 12/21/21 08:47 Freq: Status: Active Protocol: Document 12/21/21 11:15 AW (Rec: 12/21/21 18:00 AW [id number]) OP Mobility Evaluation Bed Mobility Rolling Bridging is challenging and increases pain. Supine to and from Sit Pt log rolls and has difficulty primarily with the roll. SL to sit takes extra time but pt is able to manage. Transfers Sit to Stand Positive Agency's sign OP Gait Assessment Gait Gait Assistance Required: Independent Comments Gait Comments Pt has bilateral foot turnout in gait, increased right ipsilateral lean in stance phase, decreased trunk rotation generally. PT-OP-J Posture/Palpation/Skin Start: 12/21/21 08:47 Freq: Status: Active Protocol: Document 12/21/21 11:15 AW (Rec: 12/21/21 18:00 AW [id number]) Posture Evaluation Comments Posture Comments Decreased RLE weightbearing, bilateral ER hips, bilateral genu valgus, pronated feet, moderate arch at feet. Palpation Assessment Location ischial tuberosities Palpation Location ischial tuberosities Palpation Findings Tenderness Palpation Details Pt has point tenderness at both ischial tuberosities. PT-OP-K Range of Motion Start: 12/21/21 08:47 Freq: Status: Active Protocol: Document 12/21/21 11:15 AW (Rec: 12/21/21 18:00 AW [id number]) Hip Goniometric Range of Motion Hip bilat Comments Moderate tightness in bilateral ITB and hamstrings. Pt lacks ~20 degrees in passive SLR bilaterally. IR:ER ratio is ~1:3 bilaterally and end-range PROM does not reproduce pain. Hip ROM Limitations Hip ROM Limitations Soft Tissue Tightness,Pain Knee Goniometric Range of Motion Knee bilat Knee ROM WFL Yes Ankle and Foot Goniometric Range of Motion Ankle and Foot bilat Comments Dorsiflexion is to neutral with knees flexed and to ~5 deg with knees extended. PT-OP-L Special Tests Start: 12/21/21 08:47 Freq: Status: Active Protocol: Document 12/21/21 11:15 AW (Rec: 12/21/21 18:04 AW [id number]) Special Tests Hip Special Tests Buttocks Sign Test Results negative bilaterally Scour Test Test Results negative bilaterally PT-OP-M Strength Start: 12/21/21 08:47 Freq: Status: Active Protocol: Document 12/21/21 11:15 AW (Rec: 12/21/21 18:04 AW [id number]) Hip Strength Hip Manual Muscle Testing bilat Flexion (L2) 4 Good Extension (S1) 4 Good Abduction 3 Fair Adduction 3+ Fair+ External Rotation 4 Good Internal Rotation 4- Good- Knee Strength Knee Manual Muscle Testing bilat Flexion (S2) 4+ Good+ Extension (L3) 4+ Good+ Ankle/Foot Strength Ankle and Foot Manual Muscle Testing bilat Dorsiflexion (L4) 4 Good Plantarflexion (S1) 4 Good PT-OP-Q Treatments Start: 12/21/21 08:47 Freq: Status: Active Protocol: Document 01/25/22 10:32 AMB (Rec: 01/25/22 11:15 AMB [id number]) Therapeutic Exercises Supine Exercises marching Reps/Minutes 10x single leg lowering Supine Exercise Name holding SKTC opp side Reps/Minutes 10x Comments cues for core engagement abdominal drawing in Reps/Minutes 5x Comments cues for slow, gradual LTR Reps/Minutes 10 Sidelying Exercises clamshell Reps/Minutes 2x10 Sitting Exercises piriformis stretch Reps/Minutes 2x30 Comments cues for core activation hs stretch Reps/Minutes 2x30 Comments cues for core activation pelvic tilt Reps/Minutes 10 Manual Therapy Treatment Soft Tissue Mobilization LB/piriformis Body Location left LB/piriformis Mobilization Type Myofascial Release Body Position Sidelying Comments passive stretching with MFR PT-OP-S Aquatic Treatment Start: 01/31/22 14:44 Freq: Status: Active Protocol: Document 03/21/22 14:16 [facility] (Rec: 03/21/22 14:18 [facility] [id number]) Aquatics Treatment Pool Entry/Exit Pool Entry/Exit Method Stairs Assistance Independent Comments pt brought FWW for use at pool Water Walking Marching Water Level Chest Level Level of Assistance Verbal Cues Comments cues for postural alignment and core and gluteal engagement Sideways Water Level Chest Level Level of Assistance Verbal Cues Comments cues for postural alignment and core and gluteal engagemen fwd Water Level Chest Level Level of Assistance Verbal Cues Comments cues for postural alignment and core and gluteal engagemen Lower Extremity Exercises sciatic nerve glide Body Position Standing Reps/Duration 10x squats Details with UE support x 10, then w/o x 10 Reps/Duration 10x2 Comments cues for posture, gluteal engagement Lower Extremity Stretches DKTC, SKTC Body Position Standing Water Level [place] Reps/Duration edge of pool Comments at ladder HS Body Position Standing Water Level Chest Level Equipment gentle manual Reps/Duration 2x30 sec bilat Spinal Exercises wall squat DLS Details away from wall. with enrico UE movements Reps/Duration 5 min Comments cues for core engagement, PPT posterior pelvic tilt Water Level Neck Level Equipment wall Reps/Duration 10x5 Comments verbal and tactile cues, demonstration [place] Activities [place] Activities Bicycle,Cross Country,Running Other Activities deep water hang 1 min x 2 with deep breathing DKTC at wall intervals at 30: 15 fast/ slow x 10 min Equipment small noodle in front Duration 20min Comments cues for postural and LE alignment and movement PT-OP-T Assessment and Plan Start: 12/21/21 08:47 Freq: Status: Active Protocol: Document 03/21/22 14:16 [facility] (Rec: 03/21/22 14:18 [facility] [id number]) Physical Therapy Assessment Impairments Impairments Balance,Gait,Pain,Posture,ROM, Sensation,Soft Tissue Mobility ,Strength Goals Four Impairment pain limits bed mobility Fdc Goal (LTG) Covarrubias will roll and bridge without increase in baseline pain. 01/10/22: some goal progress LTG Duration 03/23/22 Three Impairment gait Oleomargarine Maker Goal (LTG) Pt will complete 6MWT without AD or with LRAD without Trendelenberg sign. 01/10/22: goal progress, improving gait tolerance but still demonstrates significant Trendelenberg LTG Duration 03/23/22 Two Impairment impaired strength Oleomargarine Maker Goal (LTG) Pt will improve BLE hip strength to at least 4+/5 all planes for improved gait mechanics. 01/10/22: no change in MMT LTG Duration 03/23/22 One Impairment lacks HEP Short Term Goal (STG) Pt will be instructed in HEP for hip mobility and strength to support therapy services provided in clinic. 01/10/22: ongoing STG Duration 02/01/22 Oleomargarine Maker Goal (LTG) Pt will be independent with HEP for hip mobility and strength to maintain and improve upon goal progress. LTG Duration 03/23/22 Assessment Summary Assessment goals only partially achieved, patient scheduled for spinal surgery 04/01/22. Physical Therapy Plan Frequency and Duration Frequency of Treatment 2x/Week Duration of treatment (weeks) 12 Plan of Care Start Date 12/22/21 Plan of Care End Date 03/23/22 Therapeutic Interventions Therapeutic Interventions Aquatic Therapy,Gait Training, Home Exercise Program,Manual Therapy,Neuromuscular Re- education,Self-Care/Home Management,Soft Tissue Mobilization,Taping, Therapeutic Activities, Therapeutic Exercises Discharge Physical Therapy Discharge Reasons Change in Medical Status Discharge Comments Having spinal surgery.
== END 2022-03-23 16:33 | disposition home or self-care (01) ==
LOC: PHYS 11:45
PROVIDERS: Family Provider Internal Medicine; PCP Internal Medicine; Referring Provider Internal Medicine; Visit Provider Internal Medicine
DX: M79.18 Myalgia, other site (principal); R26.2 Difficulty in walking, not elsewhere classified
CPT/HCPCS: 97110; 97113; 97116; 97140; 97162; 97530; 97535

== ENCOUNTER → 2022-03-29 15:58 | Outpatient (ROUT) | payer MEDICARE, SELFPAY ==
[2022-03-29 16:26] LABS: COVID19 -Nasal RAPID Negative (Negative)
== END ==
PROVIDERS: Family Provider Internal Medicine; PCP Internal Medicine; Visit Provider Internal Medicine
DX: Z20.822 Contact with and (suspected) exposure to COVID-19 (principal)
CPT/HCPCS: 87635

== ENCOUNTER 2022-08-10 13:45 | Outpatient (RCR) | payer MEDICARE, SELFPAY ==
--- NOTE | 2022-06-22 13:02 | PT.OPPOC ---
Physical, Occupational & Speech Therapy At [facility] Current Diagnoses Pain in right hip (06/22/22) Pain in left hip (06/22/22) Pain in leg, unspecified (06/22/22) Visit Care Team Role Provider Type DAMION Guadalupe Attending Provider Advanced Nurse Recruiter Family Provider Primary Care Provider Referring Provider Specialty: Family Practice Address: [address] [place] [address], [facility] [place], [place], [facility] Email: Plan Of Care PT-OP-T Assessment and Plan Start: 06/21/22 17:18 Freq: Status: Active Protocol: Document 06/22/22 13:02 JAMES (Rec: 06/22/22 13:52 SAK [id number]) Physical Therapy Assessment Rehab Potential Rehabilitation Potential Good Evaluation Complexity Number of Personal Factors/Comorbidities 1-2 Number of Body Systems Impaired 3 Clinical Presentation at Evaluation Evolving Impairments Impairments Functional Activities, Functional Mobility,Gait, Integument,Pain,Posture,ROM, Soft Tissue Mobility,Strength Goals Four Impairment functional activity tolerance Impairment painful bed mobility. Short Term Goal (STG) Patient to report 50% reduction in pain experienced during bed mobility STG Duration 08/05/22 Recep Goal (LTG) Patient to be able to move in bed and from sit >< supine without an increase in pain LTG Duration 09/22/22 Three Impairment poor scar mobility Recep Goal (LTG) Improve scar mobility from spinal surgery to WNL for improved soft tissue function LTG Duration 09/22/22 Two Impairment gait dysfunction Impairment excess lateral sway, hip ER, Trendelenberg Short Term Goal (STG) Patient to demonstrate gait with 50% reduction in gait dysfunction for improved efficiency and decreased pain STG Duration 08/05/22 Recep Goal (LTG) Patient will be able to walk community distances with LRD with minimal gait dysfunction to allow her to resume prior level of activity and return to travel LTG Duration 09/22/22 One Impairment weakness and poor core stab Short Term Goal (STG) Patient to be independent in HEP to support therapy activities for strengthening and core stab STG Duration 08/05/22 Long-Term Goal (LTG) Patient to demonstrate improved MMT of hips and core to at least 4+/5 for improved function in the home and community LTG Duration 09/22/22 Assessment Summary Assessment Patient presents to PT with function-limiting low back pain of a chronic nature, s/p lumbar laminectomy, ore and hip muscle weakness, Trendelenberg gait with increased lateral sway as well as excess hip external rotation with gait. Feel she would benefit from PT to decrease her pain, improve her strength and core stab, improve her gait, and overall function at home and in the community. We discussed POC and she is in agreement. Physical Therapy Plan Frequency and Duration Frequency of Treatment 2x/Week Duration of treatment (weeks) 12 Plan of Care Start Date 06/22/22 Plan of Care End Date 09/22/22 Therapeutic Interventions Therapeutic Interventions Gait Training,Home Exercise Program,Manual Therapy, Neuromuscular Re-education, Patient/Caregiver Education, Self-Care/Home Management,Soft Tissue Mobilization,Taping, Therapeutic Activities, Therapeutic Exercises Modalities Cold Pack/Ice Massage,Electric Stimulation,Hot Packs, Infrared Therapy,Ultrasound Next Visit Focus/Plan Next Note Type Treatment Note Next Visit Plan Review HEP. Gentle progression of strengthening and core stab exercises, gait training to dec compensatory patterns including use of assistive device as needed. Manual therapy and modalities as needed. Plan of Care Dates Plan of Care Start Date 06/22/22 Plan of Care End Date 09/22/22 Electronically Signed by: Fadumo Morse, PT 06/27/22 6700 If you are in agreement with this Plan of Care, please return a signed and dated copy. I have reviewed this Plan of Care and certify that the skilled therapy services above are required to meet the patient?s needs. Physician Signature Date Printed Name and Credentials Clinical Instructor Signature Printed Name and Credentials
--- NOTE | 2022-06-22 13:02 | PT.OIE ---
Current Diagnoses Pain in right hip (06/22/22) Pain in left hip (06/22/22) Pain in leg, unspecified (06/22/22) Visit Care Team Role Provider Type DAMION Guadalupe Attending Provider Advanced Backshoe Person Family Provider Primary Care Provider Referring Provider Specialty: Family Practice Address: [address] [place] [address] [place], [address] Email: [email or web address] Physical Therapy Initial Evaluation PT-OP-A Visit Information Start: 06/21/22 17:18 Freq: Status: Active Protocol: Document 06/22/22 13:02 SAK (Rec: 06/22/22 13:52 SAK [id number]) Out-Patient Physical Therapy Visit Information Visit Information Visit Type Initial Evaluation Visit Start Time 13:02 Visit Stop Time 13:45 Total Visit Minutes 43 Visit Number 1 PT-OP-B Current Condition Start: 06/21/22 17:18 Freq: Status: Active Protocol: Document 06/22/22 13:02 SAK (Rec: 06/22/22 13:52 SAK [id number]) Current Condition History of Current Condition Onset Date 04/01/23 Current Complaints weakness, back pain History of Current Condition Lumbar lami L3,4,5 04/01/23 at [facility] with Dr. Rose . Saw Dr. Rose was given written PT referral for aquatic PT, but no aquatic PT available with this clinic at this time. Saw PT in surgery right after surgery with recommendation of walking 5 min 5x per day, initially using walker. Now not using an assistive device but admits to not walking very well. Has gone to pool independently a few times. Pain has decreased in a global sense, still taking some Gabapentin and Tylenol. Pain much more localized, she is more mobile than prior to surgery. Occasional ice or heat. Left foot still with some radicular symptoms but improving. Future Testing and Treatments Planned return to doctor after PT Treatment Goals Patient/Caregiver Goals improve walking quality and distance return to travelling including standing and walking in a museum for about an hour balance Prior Functional Status Baseline Function- ADL's Modified Independent Baseline Function- Mobility Modified Independent Baseline Function- Gait used cane or walker Baseline Function- Work/School retired Baseline Function- Recreation/Hobbies travelling with Current Functional Impairments (Reported) Functional Limitations- ADL's painful with in/out of bed, rolling in bed Functional Limitations- Mobility/Gait no device except outside Functional Limitations- Recreation/ unable to travel Hobbies Personal Factors Other Personal Factors That May Effect anxiety, poor kinesthetic Therapy/Recovery awareness PT-OP-C Subjective Start: 06/21/22 17:18 Freq: Status: Active Protocol: Document 06/22/22 13:02 [facility] (Rec: 06/27/22 12:17 [facility] [id number]) OP-PT Pain Assessment Pain Assessment Grid Paper Pain Assessment Grid Completed Yes Location Back Intensity 8 Description Aching,Tightness Frequency Frequent Pain Aggravating Factors Changing Position,ADL's, Activity,Exercise,Standing, Walking Pain Behaviors Pain Behaviors Facial Grimacing,Guarding, Wincing PT-OP-F Manual Assessment Start: 06/21/22 17:18 Freq: Status: Active Protocol: Document 06/22/22 13:02 [facility] (Rec: 06/27/22 12:18 [facility] [id number]) Manual Assessments Soft Tissue Assessment Soft Tissue Mobility Assessment decreased scar mobility, tightness palpable bilateral luumbar paraspinals PT-OP-G Mobility & Gait Start: 06/21/22 17:18 Freq: Status: Active Protocol: Document 06/22/22 13:02 [facility] (Rec: 06/22/22 13:52 [facility] [id number]) OP Mobility Evaluation Bed Mobility Rolling painful Supine to and from Sit painful via logroll. OP Gait Assessment Gait Gait Assistance Required: Independent Assistive Devices Assistive Device None Gait Deviations General Gait Pattern Lateral Trunk Lean,Wide Based Gait PT-OP-J Posture/Palpation/Skin Start: 06/21/22 17:18 Freq: Status: Active Protocol: Document 06/22/22 13:02 [facility] (Rec: 06/22/22 13:52 [facility] [id number]) Posture Evaluation Position Standing Head/C-Spine Posture Forward Head T-Spine Posture Increased Kyphosis L-Spine Posture Increased Lordosis Hip Posture (L) Externally Rotated,(R) Externally Rotated Palpation Assessment Location piriformis Palpation Findings Soft Tissue Tightness lumbar paraspinals Palpation Findings Soft Tissue Tightness PT-OP-M Strength Start: 06/21/22 17:18 Freq: Status: Active Protocol: Document 06/22/22 13:02 [facility] (Rec: 06/27/22 12:17 [facility] [id number]) Trunk Strength Trunk Manual Muscle Testing Flexion 3+ Fair+ Extension 3+ Fair+ Core Stabilization poor Hip Strength Hip Manual Muscle Testing enrico Flexion (L2) 3+ Fair+ Extension (S1) 3- Fair- Abduction 3+ Fair+ External Rotation 3+ Fair+ Internal Rotation 4- Good- Knee Strength Knee Manual Muscle Testing enrico Flexion (S2) 4 Good Extension (L3) 4 Good Ankle/Foot Strength Ankle and Foot Manual Muscle Testing enrico Dorsiflexion (L4) 4 Good Plantarflexion (S1) 4 Good PT-OP-Q Treatments Start: 06/21/22 17:18 Freq: Status: Active Protocol: Document 06/22/22 13:02 [facility] (Rec: 06/27/22 12:18 [facility] [id number]) Self-Care/Home Management Treatment Education Patient Education Home Exercise Program,Pain Management,Posture Other Education gait dysfunction PT-OP-T Assessment and Plan Start: 06/21/22 17:18 Freq: Status: Active Protocol: Document 06/22/22 13:02 [facility] (Rec: 06/22/22 13:52 [facility] [id number]) Physical Therapy Assessment Rehab Potential Rehabilitation Potential Good Evaluation Complexity Number of Personal Factors/Comorbidities 1-2 Number of Body Systems Impaired 3 Clinical Presentation at Evaluation Evolving Impairments Impairments Functional Activities, Functional Mobility,Gait, Integument,Pain,Posture,ROM, Soft Tissue Mobility,Strength Goals Four Impairment functional activity tolerance Impairment painful bed mobility. Short Term Goal (STG) Patient to report 50% reduction in pain experienced during bed mobility STG Duration 08/05/22 Pbx Wire Chief Goal (LTG) Patient to be able to move in bed and from sit >< supine without an increase in pain LTG Duration 09/22/22 Three Impairment poor scar mobility Longterm Goal (LTG) Improve scar mobility from spinal surgery to WNL for improved soft tissue function LTG Duration 09/22/22 Two Impairment gait dysfunction Impairment excess lateral sway, hip ER, Trendelenberg Short Term Goal (STG) Patient to demonstrate gait with 50% reduction in gait dysfunction for improved efficiency and decreased pain STG Duration 08/05/22 Pbx Wire Chief Goal (LTG) Patient will be able to walk community distances with LRD with minimal gait dysfunction to allow her to resume prior level of activity and return to travel LTG Duration 09/22/22 One Impairment weakness and poor core stab Short Term Goal (STG) Patient to be independent in HEP to support therapy activities for strengthening and core stab STG Duration 08/05/22 Longterm Goal (LTG) Patient to demonstrate improved MMT of hips and core to at least 4+/5 for improved function in the home and community LTG Duration 09/22/22 Assessment Summary Assessment Patient presents to PT with function-limiting low back pain of a chronic nature, s/p lumbar laminectomy, ore and hip muscle weakness, Trendelenberg gait with increased lateral sway as well as excess hip external rotation with gait. Feel she would benefit from PT to decrease her pain, improve her strength and core stab, improve her gait, and overall function at home and in the community. We discussed POC and she is in agreement. Physical Therapy Plan Frequency and Duration Frequency of Treatment 2x/Week Duration of treatment (weeks) 12 Plan of Care Start Date 06/22/22 Plan of Care End Date 09/22/22 Therapeutic Interventions Therapeutic Interventions Gait Training,Home Exercise Program,Manual Therapy, Neuromuscular Re-education, Patient/Caregiver Education, Self-Care/Home Management,Soft Tissue Mobilization,Taping, Therapeutic Activities, Therapeutic Exercises Modalities Cold Pack/Ice Massage,Electric Stimulation,Hot Packs, Infrared Therapy,Ultrasound Next Visit Focus/Plan Next Note Type Treatment Note Next Visit Plan Review HEP. Gentle progression of strengthening and core stab exercises, gait training to dec compensatory patterns including use of assistive device as needed. Manual therapy and modalities as needed.
--- NOTE | 2022-06-27 16:19 | PT.OTN ---
Current Diagnoses Pain in right hip (06/27/22) Pain in left hip (06/27/22) Pain in leg, unspecified (06/27/22) Physical Therapy Treatment Note PT-OP-A Visit Information Start: 06/21/22 17:18 Freq: Status: Active Protocol: Document 06/27/22 15:20 SAK (Rec: 06/27/22 16:19 [facility] [id number]) Out-Patient Physical Therapy Visit Information Visit Information Visit Type Treatment Note Visit Start Time 15:20 Visit Number 2 Evaluation Information Evaluation Date 06/22/22 PT-OP-B Current Condition Start: 06/21/22 17:18 Freq: Status: Active Protocol: Document 06/27/22 15:20 SAK (Rec: 06/27/22 16:19 [facility] [id number]) Current Condition History of Current Condition Onset Date 04/01/23 Current Complaints weakness, back pain History of Current Condition Lumbar lami L3,4,5 04/01/[address] [facility] [address]. Rose . Saw Dr. Rose was given written PT referral for aquatic PT, but no aquatic PT available with this clinic at this time. Saw PT in surgery right after surgery with recommendation of walking 5 min 5x per day, initially using walker. Now not using an assistive device but admits to not walking very well. Has gone to pool independently a few times. Pain has decreased in a global sense, still taking some Gabapentin and Tylenol. Pain much more localized, she is more mobile than prior to surgery. Occasional ice or heat. Left foot still with some radicular symptoms but improving. Future Testing and Treatments Planned return to doctor after PT Treatment Goals Patient/Caregiver Goals improve walking quality and distance return to travelling including standing and walking in a museum for about an hour balance PT-OP-C Subjective Start: 06/21/22 17:18 Freq: Status: Active Protocol: Document 06/27/22 15:20 SAK (Rec: 06/27/22 16:19 [facility] [id number]) OP-PT Subjective Patient Comments Patient Comments Tired, went to pool this am, felt good. Has been working to decrease her meds. Resistant to using assistive device for walking it feels like I'm going backward. used backpack instead of purse, got pillow for between her knees. Walked 2 x in house for 15 min when weather not good. PT-OP-F Manual Assessment Start: 06/21/22 17:18 Freq: Status: Active Protocol: Document 06/22/22 13:02 [facility] (Rec: 06/27/22 12:18 [facility] [id number]) Manual Assessments Soft Tissue Assessment Soft Tissue Mobility Assessment decreased scar mobility, tightness palpable bilateral luumbar paraspinals PT-OP-G Mobility & Gait Start: 06/21/22 17:18 Freq: Status: Active Protocol: Document 06/22/22 13:02 [facility] (Rec: 06/22/22 13:52 [facility] [id number]) OP Mobility Evaluation Bed Mobility Rolling painful Supine to and from Sit painful via logroll. OP Gait Assessment Gait Gait Assistance Required: Independent Assistive Devices Assistive Device None Gait Deviations General Gait Pattern Lateral Trunk Lean,Wide Based Gait PT-OP-J Posture/Palpation/Skin Start: 06/21/22 17:18 Freq: Status: Active Protocol: Document 06/22/22 13:02 [facility] (Rec: 06/22/22 13:52 [facility] [id number]) Posture Evaluation Position Standing Head/C-Spine Posture Forward Head T-Spine Posture Increased Kyphosis L-Spine Posture Increased Lordosis Hip Posture (L) Externally Rotated,(R) Externally Rotated Palpation Assessment Location piriformis Palpation Findings Soft Tissue Tightness lumbar paraspinals Palpation Findings Soft Tissue Tightness PT-OP-M Strength Start: 06/21/22 17:18 Freq: Status: Active Protocol: Document 06/22/22 13:02 [facility] (Rec: 06/27/22 12:17 [facility] [id number]) Trunk Strength Trunk Manual Muscle Testing Flexion 3+ Fair+ Extension 3+ Fair+ Core Stabilization poor Hip Strength Hip Manual Muscle Testing enrico Flexion (L2) 3+ Fair+ Extension (S1) 3- Fair- Abduction 3+ Fair+ External Rotation 3+ Fair+ Internal Rotation 4- Good- Knee Strength Knee Manual Muscle Testing enrico Flexion (S2) 4 Good Extension (L3) 4 Good Ankle/Foot Strength Ankle and Foot Manual Muscle Testing enrico Dorsiflexion (L4) 4 Good Plantarflexion (S1) 4 Good PT-OP-Q Treatments Start: 06/21/22 17:18 Freq: Status: Active Protocol: Document 06/27/22 15:20 [facility] (Rec: 06/27/22 16:19 [facility] [id number]) Cardio Equipment Recumbent Stepper (Sci-Fit) Duration (Minutes) 5 Resistance 1 Seat Position 10 Gym Equipment Shuttle Recovery Bilateral Squats Resistance 50 Shuttle Recovery Platform Stable Reps/Time 10x Unilateral Squats Resistance 25 Shuttle Recovery Platform Stable Reps/Time 10x Therapeutic Exercises Standing Exercises SLS Reps/Minutes 5x10 enrico Comments mirror for visual feedback, UE support PRN (mod), cues for level hips Gait Training Gait Activity level Device Used none, cane Level of Assistance VC Surface firm Treatment Focus level hips, dec lateral sway Comments mirror for visual feedback Manual Therapy Treatment Soft Tissue Mobilization enrico lumbar paraspinals, surgical scar Mobilization Type Myofascial Release,Strumming Self-Care/Home Management Treatment Education Patient Education Home Exercise Program,Pain Management,Posture PT-OP-T Assessment and Plan Start: 06/21/22 17:18 Freq: Status: Active Protocol: Document 06/27/22 15:20 SAK (Rec: 06/27/22 16:19 SAK [id number]) Physical Therapy Assessment Impairments Impairments Functional Activities, Functional Mobility,Gait, Integument,Pain,Posture,ROM, Soft Tissue Mobility,Strength Goals Four Impairment functional activity tolerance Impairment painful bed mobility. Short Term Goal (STG) Patient to report 50% reduction in pain experienced during bed mobility STG Duration 08/05/22 Skilled Nursing Goal (LTG) Patient to be able to move in bed and from sit >< supine without an increase in pain LTG Duration 09/22/22 Three Impairment poor scar mobility Skilled Nursing Goal (LTG) Improve scar mobility from spinal surgery to WNL for improved soft tissue function LTG Duration 09/22/22 Two Impairment gait dysfunction Impairment excess lateral sway, hip ER, Trendelenberg Short Term Goal (STG) Patient to demonstrate gait with 50% reduction in gait dysfunction for improved efficiency and decreased pain STG Duration 08/05/22 Park Interpretive Ranger Goal (LTG) Patient will be able to walk community distances with LRD with minimal gait dysfunction to allow her to resume prior level of activity and return to travel LTG Duration 09/22/22 One Impairment weakness and poor core stab Short Term Goal (STG) Patient to be independent in HEP to support therapy activities for strengthening and core stab STG Duration 08/05/22 Park Interpretive Ranger Goal (LTG) Patient to demonstrate improved MMT of hips and core to at least 4+/5 for improved function in the home and community LTG Duration 09/22/22 Physical Therapy Plan Frequency and Duration Frequency of Treatment 2x/Week Duration of treatment (weeks) 12 Plan of Care Start Date 06/22/22 Plan of Care End Date 09/22/22 Therapeutic Interventions Therapeutic Interventions Gait Training,Home Exercise Program,Manual Therapy, Neuromuscular Re-education, Patient/Caregiver Education, Self-Care/Home Management,Soft Tissue Mobilization,Taping, Therapeutic Activities, Therapeutic Exercises Modalities Cold Pack/Ice Massage,Electric Stimulation,Hot Packs, Infrared Therapy,Ultrasound Next Visit Focus/Plan Next Note Type Treatment Note Next Visit Plan Review HEP. Gentle progression of strengthening and core stab exercises, gait training to dec compensatory patterns including use of assistive device as needed. Manual therapy and modalities as needed.
--- NOTE | 2022-07-04 16:20 | PT.OTN ---
Current Diagnoses Pain in right hip (07/04/22) Pain in left hip (07/04/22) Pain in leg, unspecified (07/04/22) Physical Therapy Treatment Note PT-OP-A Visit Information Start: 06/21/22 17:18 Freq: Status: Active Protocol: Document 07/04/22 14:34 SAK (Rec: 07/04/22 15:14 SAK [id number]) Out-Patient Physical Therapy Visit Information Visit Information Visit Type Treatment Note Visit Start Time 14:34 Visit Stop Time 15:15 Total Visit Minutes 44 Visit Number 4 Evaluation Information Evaluation Date 06/22/22 PT-OP-B Current Condition Start: 06/21/22 17:18 Freq: Status: Active Protocol: Document 07/04/22 14:34 SAK (Rec: 07/04/22 15:14 SAK [id number]) Current Condition History of Current Condition Onset Date 04/01/23 Current Complaints weakness, back pain History of Current Condition Lumbar lami L3,4,5 04/01/23 at [facility] with Dr. Rose . Saw Dr. Rose was given written PT referral for aquatic PT, but no aquatic PT available with this clinic at this time. Saw PT in surgery right after surgery with recommendation of walking 5 min 5x per day, initially using walker. Now not using an assistive device but admits to not walking very well. Has gone to pool independently a few times. Pain has decreased in a global sense, still taking some Gabapentin and Tylenol. Pain much more localized, she is more mobile than prior to surgery. Occasional ice or heat. Left foot still with some radicular symptoms but improving. Future Testing and Treatments Planned return to doctor after PT Treatment Goals Patient/Caregiver Goals improve walking quality and distance return to travelling including standing and walking in a museum for about an hour balance PT-OP-C Subjective Start: 06/21/22 17:18 Freq: Status: Active Protocol: Document 07/04/22 14:34 SAK (Rec: 07/04/22 15:14 SAK [id number]) OP-PT Subjective Patient Comments Patient Comments A bit worn out today because worked pretty hard at exercises at home and other household tasks. Has written questions about HEP PT-OP-F Manual Assessment Start: 06/21/22 17:18 Freq: Status: Active Protocol: Document 06/22/22 13:02 SAK (Rec: 06/27/22 12:18 [facility] [id number]) Manual Assessments Soft Tissue Assessment Soft Tissue Mobility Assessment decreased scar mobility, tightness palpable bilateral luumbar paraspinals PT-OP-G Mobility & Gait Start: 06/21/22 17:18 Freq: Status: Active Protocol: Document 06/22/22 13:02 [facility] (Rec: 06/22/22 13:52 [facility] [id number]) OP Mobility Evaluation Bed Mobility Rolling painful Supine to and from Sit painful via logroll. OP Gait Assessment Gait Gait Assistance Required: Independent Assistive Devices Assistive Device None Gait Deviations General Gait Pattern Lateral Trunk Lean,Wide Based Gait PT-OP-J Posture/Palpation/Skin Start: 06/21/22 17:18 Freq: Status: Active Protocol: Document 06/22/22 13:02 [facility] (Rec: 06/22/22 13:52 [facility] [id number]) Posture Evaluation Position Standing Head/C-Spine Posture Forward Head T-Spine Posture Increased Kyphosis L-Spine Posture Increased Lordosis Hip Posture (L) Externally Rotated,(R) Externally Rotated Palpation Assessment Location piriformis Palpation Findings Soft Tissue Tightness lumbar paraspinals Palpation Findings Soft Tissue Tightness PT-OP-M Strength Start: 06/21/22 17:18 Freq: Status: Active Protocol: Document 06/22/22 13:02 [facility] (Rec: 06/27/22 12:17 [facility] [id number]) Trunk Strength Trunk Manual Muscle Testing Flexion 3+ Fair+ Extension 3+ Fair+ Core Stabilization poor Hip Strength Hip Manual Muscle Testing enrico Flexion (L2) 3+ Fair+ Extension (S1) 3- Fair- Abduction 3+ Fair+ External Rotation 3+ Fair+ Internal Rotation 4- Good- Knee Strength Knee Manual Muscle Testing enrico Flexion (S2) 4 Good Extension (L3) 4 Good Ankle/Foot Strength Ankle and Foot Manual Muscle Testing enrico Dorsiflexion (L4) 4 Good Plantarflexion (S1) 4 Good PT-OP-Q Treatments Start: 06/21/22 17:18 Freq: Status: Active Protocol: Document 07/04/22 14:34 [facility] (Rec: 07/04/22 15:14 [facility] [id number]) Cardio Equipment Recumbent Stepper (Sci-Fit) Duration (Minutes) 7 Resistance 1.5 Seat Position 11 Therapeutic Exercises Supine Exercises quad set Reps/Minutes 5x5 june Reps/Minutes 10x Comments cues for push through opp foot , level pelvis LTR Reps/Minutes 10x Comments cues for core activation gluteal set Reps/Minutes 10x5 Comments cues for core activation kegel, TA Reps/Minutes 10x5 Comments cues for accessory muscle relaxation Sitting Exercises pelvic tilt Reps/Minutes 10x Standing Exercises wall posture Reps/Minutes 10x5 Gait Training Gait Activity level Device Used none, cane, parallel bars Level of Assistance VC Surface firm Treatment Focus level hips, dec lateral sway Comments mirror for visual feedback Self-Care/Home Management Treatment Education Patient Education Home Exercise Program,Pain Management,Posture Other Education Answering multiple questions about HEP, patient demonstrating improved understanding after review and instruction PT-OP-T Assessment and Plan Start: 06/21/22 17:18 Freq: Status: Active Protocol: Document 07/04/22 14:34 [facility] (Rec: 07/04/22 15:14 [facility] [id number]) Physical Therapy Assessment Impairments Impairments Functional Activities, Functional Mobility,Gait, Integument,Pain,Posture,ROM, Soft Tissue Mobility,Strength Goals Four Impairment functional activity tolerance Impairment painful bed mobility. Short Term Goal (STG) Patient to report 50% reduction in pain experienced during bed mobility STG Duration 08/05/22 Poultry Slaughterer Goal (LTG) Patient to be able to move in bed and from sit >< supine without an increase in pain LTG Duration 09/22/22 Three Impairment poor scar mobility Poultry Slaughterer Goal (LTG) Improve scar mobility from spinal surgery to WNL for improved soft tissue function LTG Duration 09/22/22 Two Impairment gait dysfunction Impairment excess lateral sway, hip ER, Trendelenberg Short Term Goal (STG) Patient to demonstrate gait with 50% reduction in gait dysfunction for improved efficiency and decreased pain STG Duration 08/05/22 Poultry Slaughterer Goal (LTG) Patient will be able to walk community distances with LRD with minimal gait dysfunction to allow her to resume prior level of activity and return to travel LTG Duration 09/22/22 One Impairment weakness and poor core stab Short Term Goal (STG) Patient to be independent in HEP to support therapy activities for strengthening and core stab STG Duration 08/05/22 Residential Goal (LTG) Patient to demonstrate improved MMT of hips and core to at least 4+/5 for improved function in the home and community LTG Duration 09/22/22 Assessment Summary Assessment Better gait with enrico canes or poles, use of mirror. While carrying coat, purse, and HEP in hands poor gait with excess lateral sway and LE ER, improves dramatically with poles/canes and use of mirror, but significant weakness throughout core and hips evident Physical Therapy Plan Frequency and Duration Frequency of Treatment 2x/Week Duration of treatment (weeks) 12 Plan of Care Start Date 06/22/22 Plan of Care End Date 09/22/22 Therapeutic Interventions Therapeutic Interventions Gait Training,Home Exercise Program,Manual Therapy, Neuromuscular Re-education, Patient/Caregiver Education, Self-Care/Home Management,Soft Tissue Mobilization,Taping, Therapeutic Activities, Therapeutic Exercises Modalities Cold Pack/Ice Massage,Electric Stimulation,Hot Packs, Infrared Therapy,Ultrasound Next Visit Focus/Plan Next Note Type Treatment Note Next Visit Plan continue body mechancis education, progressive strengthening, core stab, and gait training. Modalities and manual therapy PRN
--- NOTE | 2022-07-06 15:19 | PT.OTN ---
Current Diagnoses Pain in right hip (07/06/22) Pain in left hip (07/06/22) Pain in leg, unspecified (07/06/22) Physical Therapy Treatment Note PT-OP-A Visit Information Start: 06/21/22 17:18 Freq: Status: Active Protocol: Document 07/06/22 14:35 SAK (Rec: 07/06/22 15:19 SAK [id number]) Out-Patient Physical Therapy Visit Information Visit Information Visit Type Treatment Note Visit Start Time 14:34 Visit Stop Time 15:15 Total Visit Minutes 44 Visit Number 4 PT-OP-B Current Condition Start: 06/21/22 17:18 Freq: Status: Active Protocol: Document 07/06/22 14:35 SAK (Rec: 07/06/22 15:19 SAK [id number]) Current Condition History of Current Condition Onset Date 04/01/23 Current Complaints weakness, back pain History of Current Condition Lumbar lami L3,4,5 04/01/23 at [facility] with Dr. Rose . Saw Dr. Rose was given written PT referral for aquatic PT, but no aquatic PT available with this clinic at this time. Saw PT in surgery right after surgery with recommendation of walking 5 min 5x per day, initially using walker. Now not using an assistive device but admits to not walking very well. Has gone to pool independently a few times. Pain has decreased in a global sense, still taking some Gabapentin and Tylenol. Pain much more localized, she is more mobile than prior to surgery. Occasional ice or heat. Left foot still with some radicular symptoms but improving. Future Testing and Treatments Planned return to doctor after PT Treatment Goals Patient/Caregiver Goals improve walking quality and distance return to travelling including standing and walking in a museum for about an hour balance PT-OP-C Subjective Start: 06/21/22 17:18 Freq: Status: Active Protocol: Document 07/06/22 14:35 SAK (Rec: 07/06/22 15:19 SAK [id number]) OP-PT Subjective Patient Comments Patient Comments No new c/o, walks in to PT using 2 canes. Back pain variable, working on good sleep behaviors, improved sleep over the past week. PT-OP-F Manual Assessment Start: 06/21/22 17:18 Freq: Status: Active Protocol: Document 06/22/22 13:02 SAK (Rec: 06/27/22 12:18 [facility] [id number]) Manual Assessments Soft Tissue Assessment Soft Tissue Mobility Assessment decreased scar mobility, tightness palpable bilateral luumbar paraspinals PT-OP-G Mobility & Gait Start: 06/21/22 17:18 Freq: Status: Active Protocol: Document 06/22/22 13:02 [facility] (Rec: 06/22/22 13:52 [facility] [id number]) OP Mobility Evaluation Bed Mobility Rolling painful Supine to and from Sit painful via logroll. OP Gait Assessment Gait Gait Assistance Required: Independent Assistive Devices Assistive Device None Gait Deviations General Gait Pattern Lateral Trunk Lean,Wide Based Gait PT-OP-J Posture/Palpation/Skin Start: 06/21/22 17:18 Freq: Status: Active Protocol: Document 06/22/22 13:02 [facility] (Rec: 06/22/22 13:52 [facility] [id number]) Posture Evaluation Position Standing Head/C-Spine Posture Forward Head T-Spine Posture Increased Kyphosis L-Spine Posture Increased Lordosis Hip Posture (L) Externally Rotated,(R) Externally Rotated Palpation Assessment Location piriformis Palpation Findings Soft Tissue Tightness lumbar paraspinals Palpation Findings Soft Tissue Tightness PT-OP-M Strength Start: 06/21/22 17:18 Freq: Status: Active Protocol: Document 06/22/22 13:02 [facility] (Rec: 06/27/22 12:17 [facility] [id number]) Trunk Strength Trunk Manual Muscle Testing Flexion 3+ Fair+ Extension 3+ Fair+ Core Stabilization poor Hip Strength Hip Manual Muscle Testing enrico Flexion (L2) 3+ Fair+ Extension (S1) 3- Fair- Abduction 3+ Fair+ External Rotation 3+ Fair+ Internal Rotation 4- Good- Knee Strength Knee Manual Muscle Testing enrico Flexion (S2) 4 Good Extension (L3) 4 Good Ankle/Foot Strength Ankle and Foot Manual Muscle Testing enrico Dorsiflexion (L4) 4 Good Plantarflexion (S1) 4 Good PT-OP-Q Treatments Start: 06/21/22 17:18 Freq: Status: Active Protocol: Document 07/06/22 14:35 [facility] (Rec: 07/06/22 15:19 [facility] [id number]) Cardio Equipment Recumbent Stepper (Sci-Fit) Duration (Minutes) 8 Resistance 1.5>1.7 Seat Position 11 Gym Equipment Shuttle Recovery Bilateral Squats Resistance 50 Shuttle Recovery Platform Stable Reps/Time 10x Unilateral Squats Resistance 25 Shuttle Recovery Platform Stable Reps/Time 10x Gait Training Gait Activity level Device Used none, cane, parallel bars, hallway, varying speed Level of Assistance VC Surface firm Treatment Focus level hips, dec lateral sway Comments mirror for visual feedback PT-OP-T Assessment and Plan Start: 06/21/22 17:18 Freq: Status: Active Protocol: Document 07/06/22 14:35 [facility] (Rec: 07/06/22 15:19 [facility] [id number]) Physical Therapy Assessment Impairments Impairments Functional Activities, Functional Mobility,Gait, Integument,Pain,Posture,ROM, Soft Tissue Mobility,Strength Goals Four Impairment functional activity tolerance Impairment painful bed mobility. Short Term Goal (STG) Patient to report 50% reduction in pain experienced during bed mobility STG Duration 08/05/22 Mcfp Goal (LTG) Patient to be able to move in bed and from sit >< supine without an increase in pain LTG Duration 09/22/22 Three Impairment poor scar mobility Product Development Specialist Goal (LTG) Improve scar mobility from spinal surgery to WNL for improved soft tissue function LTG Duration 09/22/22 Two Impairment gait dysfunction Impairment excess lateral sway, hip ER, Trendelenberg Short Term Goal (STG) Patient to demonstrate gait with 50% reduction in gait dysfunction for improved efficiency and decreased pain STG Duration 08/05/22 Mcfp Goal (LTG) Patient will be able to walk community distances with LRD with minimal gait dysfunction to allow her to resume prior level of activity and return to travel LTG Duration 09/22/22 One Impairment weakness and poor core stab Short Term Goal (STG) Patient to be independent in HEP to support therapy activities for strengthening and core stab STG Duration 08/05/22 Product Development Specialist Goal (LTG) Patient to demonstrate improved MMT of hips and core to at least 4+/5 for improved function in the home and community LTG Duration 09/22/22 Assessment Summary Assessment Discussed balance of working on gait and patient's quality of life and frustration with using canes, PT reasons for working on patient's walking quality. She demonstrated good understanding. GAit improves with use of canes, but with inc speed without canes much better than slow. Patient to continue working on gait but appeared less frustrated after discussion Physical Therapy Plan Frequency and Duration Frequency of Treatment 2x/Week Duration of treatment (weeks) 12 Plan of Care Start Date 06/22/22 Plan of Care End Date 09/22/22 Therapeutic Interventions Therapeutic Interventions Gait Training,Home Exercise Program,Manual Therapy, Neuromuscular Re-education, Patient/Caregiver Education, Self-Care/Home Management,Soft Tissue Mobilization,Taping, Therapeutic Activities, Therapeutic Exercises Modalities Cold Pack/Ice Massage,Electric Stimulation,Hot Packs, Infrared Therapy,Ultrasound Next Visit Focus/Plan Next Note Type Treatment Note Next Visit Plan continue body mechancis education, progressive strengthening, core stab, and gait training. Modalities and manual therapy PRN
--- NOTE | 2022-07-12 16:45 | PT.OTN ---
Current Diagnoses Pain in right hip (07/12/22) Pain in left hip (07/12/22) Pain in leg, unspecified (07/12/22) Physical Therapy Treatment Note PT-OP-A Visit Information Start: 06/21/22 17:18 Freq: Status: Active Protocol: Document 07/12/22 14:32 SAK (Rec: 07/12/22 15:16 SAK [id number]) Out-Patient Physical Therapy Visit Information Visit Information Visit Type Treatment Note Visit Start Time 14:32 Visit Stop Time 15:15 Total Visit Minutes 40 Visit Number 6 Evaluation Information Evaluation Date 06/22/22 PT-OP-B Current Condition Start: 06/21/22 17:18 Freq: Status: Active Protocol: Document 07/12/22 14:32 SAK (Rec: 07/12/22 15:16 SAK [id number]) Current Condition History of Current Condition Onset Date 04/01/23 Current Complaints weakness, back pain History of Current Condition Lumbar lami L3,4,5 04/01/23 at [facility] with Dr. Rose . Saw Dr. Rose was given written PT referral for aquatic PT, but no aquatic PT available with this clinic at this time. Saw PT in surgery right after surgery with recommendation of walking 5 min 5x per day, initially using walker. Now not using an assistive device but admits to not walking very well. Has gone to pool independently a few times. Pain has decreased in a global sense, still taking some Gabapentin and Tylenol. Pain much more localized, she is more mobile than prior to surgery. Occasional ice or heat. Left foot still with some radicular symptoms but improving. Future Testing and Treatments Planned return to doctor after PT Treatment Goals Patient/Caregiver Goals improve walking quality and distance return to travelling including standing and walking in a museum for about an hour balance PT-OP-C Subjective Start: 06/21/22 17:18 Freq: Status: Active Protocol: Document 07/12/22 14:32 SAK (Rec: 07/12/22 15:16 SAK [id number]) OP-PT Subjective Patient Comments Patient Comments Brought 1 cane, 2 trekking poles for instruction in how to use. Wants to talk through how to get up from the floor. PT-OP-F Manual Assessment Start: 06/21/22 17:18 Freq: Status: Active Protocol: Document 06/22/22 13:02 SAK (Rec: 06/27/22 12:18 [facility] [id number]) Manual Assessments Soft Tissue Assessment Soft Tissue Mobility Assessment decreased scar mobility, tightness palpable bilateral luumbar paraspinals PT-OP-G Mobility & Gait Start: 06/21/22 17:18 Freq: Status: Active Protocol: Document 06/22/22 13:02 [facility] (Rec: 06/22/22 13:52 [facility] [id number]) OP Mobility Evaluation Bed Mobility Rolling painful Supine to and from Sit painful via logroll. OP Gait Assessment Gait Gait Assistance Required: Independent Assistive Devices Assistive Device None Gait Deviations General Gait Pattern Lateral Trunk Lean,Wide Based Gait PT-OP-J Posture/Palpation/Skin Start: 06/21/22 17:18 Freq: Status: Active Protocol: Document 06/22/22 13:02 [facility] (Rec: 06/22/22 13:52 [facility] [id number]) Posture Evaluation Position Standing Head/C-Spine Posture Forward Head T-Spine Posture Increased Kyphosis L-Spine Posture Increased Lordosis Hip Posture (L) Externally Rotated,(R) Externally Rotated Palpation Assessment Location piriformis Palpation Findings Soft Tissue Tightness lumbar paraspinals Palpation Findings Soft Tissue Tightness PT-OP-M Strength Start: 06/21/22 17:18 Freq: Status: Active Protocol: Document 06/22/22 13:02 [facility] (Rec: 06/27/22 12:17 [facility] [id number]) Trunk Strength Trunk Manual Muscle Testing Flexion 3+ Fair+ Extension 3+ Fair+ Core Stabilization poor Hip Strength Hip Manual Muscle Testing enrico Flexion (L2) 3+ Fair+ Extension (S1) 3- Fair- Abduction 3+ Fair+ External Rotation 3+ Fair+ Internal Rotation 4- Good- Knee Strength Knee Manual Muscle Testing enrico Flexion (S2) 4 Good Extension (L3) 4 Good Ankle/Foot Strength Ankle and Foot Manual Muscle Testing enrico Dorsiflexion (L4) 4 Good Plantarflexion (S1) 4 Good PT-OP-Q Treatments Start: 06/21/22 17:18 Freq: Status: Active Protocol: Document 07/12/22 14:32 [facility] (Rec: 07/12/22 15:16 [facility] [id number]) Cardio Equipment Recumbent Stepper (Sci-Fit) Duration (Minutes) 8 Resistance 1.8 Seat Position 11 Gym Equipment Shuttle Balance chains red Details bal and wt shift, fwd/bck, side Therapeutic Exercises Supine Exercises neutral spine Supine Exercise Name alternate arch/flatten, find neutral march Reps/Minutes 10x Comments cues for push through opp foot , level pelvis gluteal set Reps/Minutes 10x5 Comments cues for core activation Therapeutic Activity Therapeutic Activity floor transfer Comments x1 supine to all 4's, to kneeling, to stand using chair Gait Training Gait Activity level Device Used trekking poles x2, cane x 1, nothing Level of Assistance VC Surface firm Treatment Focus level hips, dec lateral sway, safety Comments mirror for visual feedback PT-OP-T Assessment and Plan Start: 06/21/22 17:18 Freq: Status: Active Protocol: Document 07/12/22 14:32 SAK (Rec: 07/12/22 15:16 [facility] [id number]) Physical Therapy Assessment Impairments Impairments Functional Activities, Functional Mobility,Gait, Integument,Pain,Posture,ROM, Soft Tissue Mobility,Strength Goals Four Impairment functional activity tolerance Impairment painful bed mobility. Short Term Goal (STG) Patient to report 50% reduction in pain experienced during bed mobility STG Duration 08/05/22 Social Director Goal (LTG) Patient to be able to move in bed and from sit >< supine without an increase in pain LTG Duration 09/22/22 Three Impairment poor scar mobility Social Director Goal (LTG) Improve scar mobility from spinal surgery to WNL for improved soft tissue function LTG Duration 09/22/22 Two Impairment gait dysfunction Impairment excess lateral sway, hip ER, Trendelenberg Short Term Goal (STG) Patient to demonstrate gait with 50% reduction in gait dysfunction for improved efficiency and decreased pain STG Duration 08/05/22 Social Director Goal (LTG) Patient will be able to walk community distances with LRD with minimal gait dysfunction to allow her to resume prior level of activity and return to travel LTG Duration 09/22/22 One Impairment weakness and poor core stab Short Term Goal (STG) Patient to be independent in HEP to support therapy activities for strengthening and core stab STG Duration 08/05/22 Social Director Goal (LTG) Patient to demonstrate improved MMT of hips and core to at least 4+/5 for improved function in the home and community LTG Duration 09/22/22 Assessment Summary Assessment Best gait with SPC today, demonstrated good understanding use of trekking poles but prefers cane. Improving gait and postural awareness. AFter instruction patient able to do floor transfer with SBA. Physical Therapy Plan Frequency and Duration Frequency of Treatment 2x/Week Duration of treatment (weeks) 12 Plan of Care Start Date 06/22/22 Plan of Care End Date 09/22/22 Therapeutic Interventions Therapeutic Interventions Gait Training,Home Exercise Program,Manual Therapy, Neuromuscular Re-education, Patient/Caregiver Education, Self-Care/Home Management,Soft Tissue Mobilization,Taping, Therapeutic Activities, Therapeutic Exercises Modalities Cold Pack/Ice Massage,Electric Stimulation,Hot Packs, Infrared Therapy,Ultrasound Next Visit Focus/Plan Next Note Type Treatment Note Next Visit Plan continue body mechancis education, progressive strengthening, core stab, and gait training. Modalities and manual therapy PRN
--- NOTE | 2022-07-14 16:11 | PT.OTN ---
Current Diagnoses Pain in right hip (07/14/22) Pain in left hip (07/14/22) Pain in leg, unspecified (07/14/22) Physical Therapy Treatment Note PT-OP-A Visit Information Start: 06/21/22 17:18 Freq: Status: Active Protocol: Document 07/14/22 14:30 SAK (Rec: 07/14/22 15:17 SAK [id number]) Out-Patient Physical Therapy Visit Information Visit Information Visit Type Treatment Note Visit Start Time 14:32 Visit Stop Time 15:15 Total Visit Minutes 45 Visit Number 7 Evaluation Information Evaluation Date 06/22/22 PT-OP-B Current Condition Start: 06/21/22 17:18 Freq: Status: Active Protocol: Document 07/14/22 14:30 SAK (Rec: 07/14/22 15:17 SAK [id number]) Current Condition History of Current Condition Onset Date 04/01/23 Current Complaints weakness, back pain History of Current Condition Lumbar lami L3,4,5 04/01/23 at [facility] with Dr. Rose . Saw Dr. Rose was given written PT referral for aquatic PT, but no aquatic PT available with this clinic at this time. Saw PT in surgery right after surgery with recommendation of walking 5 min 5x per day, initially using walker. Now not using an assistive device but admits to not walking very well. Has gone to pool independently a few times. Pain has decreased in a global sense, still taking some Gabapentin and Tylenol. Pain much more localized, she is more mobile than prior to surgery. Occasional ice or heat. Left foot still with some radicular symptoms but improving. Future Testing and Treatments Planned return to doctor after PT Treatment Goals Patient/Caregiver Goals improve walking quality and distance return to travelling including standing and walking in a museum for about an hour balance PT-OP-C Subjective Start: 06/21/22 17:18 Freq: Status: Active Protocol: Document 07/14/22 14:30 SAK (Rec: 07/14/22 15:17 SAK [id number]) OP-PT Subjective Patient Comments Patient Comments Walked from house today around 1/2 mile, fatigued, warmed up . Not sure how good her walking was. Denied any increase in pain with walking. PT-OP-F Manual Assessment Start: 06/21/22 17:18 Freq: Status: Active Protocol: Document 06/22/22 13:02 [facility] (Rec: 06/27/22 12:18 [facility] [id number]) Manual Assessments Soft Tissue Assessment Soft Tissue Mobility Assessment decreased scar mobility, tightness palpable bilateral luumbar paraspinals PT-OP-G Mobility & Gait Start: 06/21/22 17:18 Freq: Status: Active Protocol: Document 06/22/22 13:02 [facility] (Rec: 06/22/22 13:52 [facility] [id number]) OP Mobility Evaluation Bed Mobility Rolling painful Supine to and from Sit painful via logroll. OP Gait Assessment Gait Gait Assistance Required: Independent Assistive Devices Assistive Device None Gait Deviations General Gait Pattern Lateral Trunk Lean,Wide Based Gait PT-OP-J Posture/Palpation/Skin Start: 06/21/22 17:18 Freq: Status: Active Protocol: Document 06/22/22 13:02 [facility] (Rec: 06/22/22 13:52 [facility] [id number]) Posture Evaluation Position Standing Head/C-Spine Posture Forward Head T-Spine Posture Increased Kyphosis L-Spine Posture Increased Lordosis Hip Posture (L) Externally Rotated,(R) Externally Rotated Palpation Assessment Location piriformis Palpation Findings Soft Tissue Tightness lumbar paraspinals Palpation Findings Soft Tissue Tightness PT-OP-M Strength Start: 06/21/22 17:18 Freq: Status: Active Protocol: Document 06/22/22 13:02 [facility] (Rec: 06/27/22 12:17 [facility] [id number]) Trunk Strength Trunk Manual Muscle Testing Flexion 3+ Fair+ Extension 3+ Fair+ Core Stabilization poor Hip Strength Hip Manual Muscle Testing enrico Flexion (L2) 3+ Fair+ Extension (S1) 3- Fair- Abduction 3+ Fair+ External Rotation 3+ Fair+ Internal Rotation 4- Good- Knee Strength Knee Manual Muscle Testing enrico Flexion (S2) 4 Good Extension (L3) 4 Good Ankle/Foot Strength Ankle and Foot Manual Muscle Testing enrico Dorsiflexion (L4) 4 Good Plantarflexion (S1) 4 Good PT-OP-Q Treatments Start: 06/21/22 17:18 Freq: Status: Active Protocol: Document 07/14/22 14:30 [facility] (Rec: 07/14/22 15:17 [facility] [id number]) Gym Equipment Sport Cord 1 Exercise Details forward Cord/Resistance green Reps/Duration 5x Comments mirror for visual feedback Therapeutic Exercises Sitting Exercises Dynadisc Sitting Exercise Name bal NBOS, head turns, eyes closed, lean backs, LAQ, second disc under feet Reps/Minutes 10 min Comments cues for core activation piriformis stretch Reps/Minutes 2x30 HS stretch Reps/Minutes 2x30 Manual Therapy Treatment Soft Tissue Mobilization enrico lumbar paraspinals, surgical scar Body Location enrico Mobilization Type Instrument Assisted,Myofascial Release,Strumming Intensity/Depth Moderate Body Position Sidelying Self-Care/Home Management Treatment Education Other Education Recommendations for SLS, hip abduction, aquatic exercise program review PT-OP-T Assessment and Plan Start: 06/21/22 17:18 Freq: Status: Active Protocol: Document 07/14/22 14:30 SAK (Rec: 07/14/22 15:17 SAK [id number]) Physical Therapy Assessment Impairments Impairments Functional Activities, Functional Mobility,Gait, Integument,Pain,Posture,ROM, Soft Tissue Mobility,Strength Goals Four Impairment functional activity tolerance Impairment painful bed mobility. Short Term Goal (STG) Patient to report 50% reduction in pain experienced during bed mobility STG Duration 08/05/22 Alf Goal (LTG) Patient to be able to move in bed and from sit >< supine without an increase in pain LTG Duration 09/22/22 Three Impairment poor scar mobility Fitness Studies Teacher Goal (LTG) Improve scar mobility from spinal surgery to WNL for improved soft tissue function LTG Duration 09/22/22 Two Impairment gait dysfunction Impairment excess lateral sway, hip ER, Trendelenberg Short Term Goal (STG) Patient to demonstrate gait with 50% reduction in gait dysfunction for improved efficiency and decreased pain STG Duration 08/05/22 Fitness Studies Teacher Goal (LTG) Patient will be able to walk community distances with LRD with minimal gait dysfunction to allow her to resume prior level of activity and return to travel LTG Duration 09/22/22 One Impairment weakness and poor core stab Short Term Goal (STG) Patient to be independent in HEP to support therapy activities for strengthening and core stab STG Duration 08/05/22 Fitness Studies Teacher Goal (LTG) Patient to demonstrate improved MMT of hips and core to at least 4+/5 for improved function in the home and community LTG Duration 09/22/22 Progress Towards Goals Progress Towards Goals Progressing Toward Goals Assessment Summary Assessment Patient walked 1/2 mi denied inc pain, forgot cane. Trendelenberg persists. Added Dynadisc ex seated for inc core activation Physical Therapy Plan Frequency and Duration Frequency of Treatment 2x/Week Duration of treatment (weeks) 12 Plan of Care Start Date 06/22/22 Plan of Care End Date 09/22/22 Therapeutic Interventions Therapeutic Interventions Gait Training,Home Exercise Program,Manual Therapy, Neuromuscular Re-education, Patient/Caregiver Education, Self-Care/Home Management,Soft Tissue Mobilization,Taping, Therapeutic Activities, Therapeutic Exercises Modalities Cold Pack/Ice Massage,Electric Stimulation,Hot Packs, Infrared Therapy,Ultrasound Next Visit Focus/Plan Next Note Type Treatment Note Next Visit Plan Continue strengthening, gait training, core stab. Modalities and manual therapy PRN
--- NOTE | 2022-08-08 16:37 | PT.OTN ---
Current Diagnoses Pain in right hip (08/08/22) Pain in left hip (08/08/22) Pain in leg, unspecified (08/08/22) Physical Therapy Treatment Note PT-OP-A Visit Information Start: 06/21/22 17:18 Freq: Status: Active Protocol: Document 08/08/22 14:32 SAK (Rec: 08/08/22 15:16 SAK [id number]) Out-Patient Physical Therapy Visit Information Visit Information Visit Type Treatment Note Visit Start Time 14:32 Visit Stop Time 15:15 Total Visit Minutes 45 Visit Number 8 Evaluation Information Evaluation Date 06/22/22 PT-OP-B Current Condition Start: 06/21/22 17:18 Freq: Status: Active Protocol: Document 08/08/22 14:32 SAK (Rec: 08/08/22 15:16 SAK [id number]) Current Condition History of Current Condition Onset Date 04/01/23 Current Complaints weakness, back pain History of Current Condition Lumbar lami L3,4,5 04/01/23 at [facility] with Dr. Rose . Saw Dr. Rose was given written PT referral for aquatic PT, but no aquatic PT available with this clinic at this time. Saw PT in surgery right after surgery with recommendation of walking 5 min 5x per day, initially using walker. Now not using an assistive device but admits to not walking very well. Has gone to pool independently a few times. Pain has decreased in a global sense, still taking some Gabapentin and Tylenol. Pain much more localized, she is more mobile than prior to surgery. Occasional ice or heat. Left foot still with some radicular symptoms but improving. Future Testing and Treatments Planned return to doctor after PT Treatment Goals Patient/Caregiver Goals improve walking quality and distance return to travelling including standing and walking in a museum for about an hour balance PT-OP-C Subjective Start: 06/21/22 17:18 Freq: Status: Active Protocol: Document 08/08/22 14:32 SAK (Rec: 08/08/22 15:16 SAK [id number]) OP-PT Subjective Patient Comments Patient Comments Discomfort anterior left hip comes and goes. Went to pool 4x last week, feels better afterwards. Wants to work on going up and down stairs. PT-OP-F Manual Assessment Start: 06/21/22 17:18 Freq: Status: Active Protocol: Document 06/22/22 13:02 [facility] (Rec: 06/27/22 12:18 [facility] [id number]) Manual Assessments Soft Tissue Assessment Soft Tissue Mobility Assessment decreased scar mobility, tightness palpable bilateral luumbar paraspinals PT-OP-G Mobility & Gait Start: 06/21/22 17:18 Freq: Status: Active Protocol: Document 06/22/22 13:02 [facility] (Rec: 06/22/22 13:52 [facility] [id number]) OP Mobility Evaluation Bed Mobility Rolling painful Supine to and from Sit painful via logroll. OP Gait Assessment Gait Gait Assistance Required: Independent Assistive Devices Assistive Device None Gait Deviations General Gait Pattern Lateral Trunk Lean,Wide Based Gait PT-OP-J Posture/Palpation/Skin Start: 06/21/22 17:18 Freq: Status: Active Protocol: Document 06/22/22 13:02 [facility] (Rec: 06/22/22 13:52 [facility] [id number]) Posture Evaluation Position Standing Head/C-Spine Posture Forward Head T-Spine Posture Increased Kyphosis L-Spine Posture Increased Lordosis Hip Posture (L) Externally Rotated,(R) Externally Rotated Palpation Assessment Location piriformis Palpation Findings Soft Tissue Tightness lumbar paraspinals Palpation Findings Soft Tissue Tightness PT-OP-M Strength Start: 06/21/22 17:18 Freq: Status: Active Protocol: Document 06/22/22 13:02 [facility] (Rec: 06/27/22 12:17 [facility] [id number]) Trunk Strength Trunk Manual Muscle Testing Flexion 3+ Fair+ Extension 3+ Fair+ Core Stabilization poor Hip Strength Hip Manual Muscle Testing enrico Flexion (L2) 3+ Fair+ Extension (S1) 3- Fair- Abduction 3+ Fair+ External Rotation 3+ Fair+ Internal Rotation 4- Good- Knee Strength Knee Manual Muscle Testing enrico Flexion (S2) 4 Good Extension (L3) 4 Good Ankle/Foot Strength Ankle and Foot Manual Muscle Testing enrico Dorsiflexion (L4) 4 Good Plantarflexion (S1) 4 Good PT-OP-Q Treatments Start: 06/21/22 17:18 Freq: Status: Active Protocol: Document 08/08/22 14:32 [facility] (Rec: 08/08/22 15:16 [facility] [id number]) Gym Equipment Shuttle Balance chains red Details bal and wt shift, fwd/bck, side Therapeutic Exercises Sitting Exercises seated isometric core Sitting Exercise Name heel lift, knee push Standing Exercises hip flex stretch Reps/Minutes 2x 30 Gait Training Gait Activity stairs Description ascend/descend Device Used cane, railing Level of Assistance CGA Surface 4 stairs Distance/Duration 15 stairs x 2 Treatment Focus safety, gluteal activation level Device Used cane x 1 Level of Assistance VC Surface firm Treatment Focus level hips, dec lateral sway, safety Comments mirror for visual feedback Neuro Re-Education Treatment Balance Activities SLS Equipment mirror, enrico UE support Self-Care/Home Management Treatment Education Other Education anatomy of iliopsoas, possible contribution to left sided pain, method for stretching PT-OP-T Assessment and Plan Start: 06/21/22 17:18 Freq: Status: Active Protocol: Document 08/08/22 14:32 SAK (Rec: 08/08/22 15:16 SAK [id number]) Physical Therapy Assessment Impairments Impairments Functional Activities, Functional Mobility,Gait, Integument,Pain,Posture,ROM, Soft Tissue Mobility,Strength Goals Four Impairment functional activity tolerance Impairment painful bed mobility. Short Term Goal (STG) Patient to report 50% reduction in pain experienced during bed mobility 08/08/22: goal met STG Duration goal met Revenue Research Analyst Goal (LTG) Patient to be able to move in bed and from sit >< supine without an increase in pain 08/08/22: goal met LTG Duration goal met Three Impairment poor scar mobility Penitentiary Goal (LTG) Improve scar mobility from spinal surgery to WNL for improved soft tissue function LTG Duration 09/22/22 Two Impairment gait dysfunction Impairment excess lateral sway, hip ER, Trendelenberg Short Term Goal (STG) Patient to demonstrate gait with 50% reduction in gait dysfunction for improved efficiency and decreased pain 08/08/22: goal met STG Duration goal met Revenue Research Analyst Goal (LTG) Patient will be able to walk community distances with LRD with minimal gait dysfunction to allow her to resume prior level of activity and return to travel LTG Duration 09/22/22 One Impairment weakness and poor core stab Short Term Goal (STG) Patient to be independent in HEP to support therapy activities for strengthening and core stab 08/08/22: goal met STG Duration goal met Revenue Research Analyst Goal (LTG) Patient to demonstrate improved MMT of hips and core to at least 4+/5 for improved function in the home and community LTG Duration 09/22/22 Assessment Summary Assessment Pt demonstrates improving understanding of gait compensatory patterns; does better with inc speed, more difficulty with slowed speed. Patient will be going on a cruise soon. Anticipate 1 further PT visit, then discharge to independent HEP and self-care. Physical Therapy Plan Frequency and Duration Frequency of Treatment 2x/Week Duration of treatment (weeks) 12 Plan of Care Start Date 06/22/22 Plan of Care End Date 09/22/22 Therapeutic Interventions Therapeutic Interventions Gait Training,Home Exercise Program,Manual Therapy, Neuromuscular Re-education, Patient/Caregiver Education, Self-Care/Home Management,Soft Tissue Mobilization,Taping, Therapeutic Activities, Therapeutic Exercises Modalities Cold Pack/Ice Massage,Electric Stimulation,Hot Packs, Infrared Therapy,Ultrasound Next Visit Focus/Plan Next Note Type Treatment Note Next Visit Plan Re-evaluation, review HEP and update handouts as needed. Anticipate discharge after next visit.
--- NOTE | 2022-08-10 16:17 | PT.OTN ---
Current Diagnoses Pain in right hip (08/10/22) Pain in left hip (08/10/22) Pain in leg, unspecified (08/10/22) Physical Therapy Treatment Note PT-OP-A Visit Information Start: 06/21/22 17:18 Freq: Status: Active Protocol: Document 08/10/22 13:50 [facility]AK (Rec: 08/10/22 14:34 [facility] [id number]) Out-Patient Physical Therapy Visit Information Visit Information Visit Type Treatment Note Visit Start Time 13:52 Visit Stop Time 14:32 Total Visit Minutes 40 Visit Number 9 Evaluation Information Evaluation Date 06/22/22 PT-OP-B Current Condition Start: 06/21/22 17:18 Freq: Status: Active Protocol: Document 08/10/22 13:50 SAK (Rec: 08/10/22 14:34 [facility] [id number]) Current Condition History of Current Condition Onset Date 04/01/23 Current Complaints weakness, back pain History of Current Condition Lumbar lami L3,4,5 04/01/23 at [facility] with Dr. Rose . Saw Dr. Rose was given written PT referral for aquatic PT, but no aquatic PT available with this clinic at this time. Saw PT in surgery right after surgery with recommendation of walking 5 min 5x per day, initially using walker. Now not using an assistive device but admits to not walking very well. Has gone to pool independently a few times. Pain has decreased in a global sense, still taking some Gabapentin and Tylenol. Pain much more localized, she is more mobile than prior to surgery. Occasional ice or heat. Left foot still with some radicular symptoms but improving. Future Testing and Treatments Planned return to doctor after PT Treatment Goals Patient/Caregiver Goals improve walking quality and distance return to travelling including standing and walking in a museum for about an hour balance PT-OP-C Subjective Start: 06/21/22 17:18 Freq: Status: Active Protocol: Document 08/08/22 14:32 SAK (Rec: 08/08/22 15:16 [facility]AK [id number]) OP-PT Subjective Patient Comments Patient Comments Discomfort anterior left hip comes and goes. Went to pool 4x last week, feels better afterwards. Wants to work on going up and down stairs. PT-OP-F Manual Assessment Start: 06/21/22 17:18 Freq: Status: Active Protocol: Document 06/22/22 13:02 [facility] (Rec: 06/27/22 12:18 [facility] [id number]) Manual Assessments Soft Tissue Assessment Soft Tissue Mobility Assessment decreased scar mobility, tightness palpable bilateral luumbar paraspinals PT-OP-G Mobility & Gait Start: 06/21/22 17:18 Freq: Status: Active Protocol: Document 06/22/22 13:02 [facility] (Rec: 06/22/22 13:52 [facility] [id number]) OP Mobility Evaluation Bed Mobility Rolling painful Supine to and from Sit painful via logroll. OP Gait Assessment Gait Gait Assistance Required: Independent Assistive Devices Assistive Device None Gait Deviations General Gait Pattern Lateral Trunk Lean,Wide Based Gait PT-OP-J Posture/Palpation/Skin Start: 06/21/22 17:18 Freq: Status: Active Protocol: Document 06/22/22 13:02 [facility] (Rec: 06/22/22 13:52 [facility] [id number]) Posture Evaluation Position Standing Head/C-Spine Posture Forward Head T-Spine Posture Increased Kyphosis L-Spine Posture Increased Lordosis Hip Posture (L) Externally Rotated,(R) Externally Rotated Palpation Assessment Location piriformis Palpation Findings Soft Tissue Tightness lumbar paraspinals Palpation Findings Soft Tissue Tightness PT-OP-M Strength Start: 06/21/22 17:18 Freq: Status: Active Protocol: Document 06/22/22 13:02 [facility] (Rec: 06/27/22 12:17 [facility] [id number]) Trunk Strength Trunk Manual Muscle Testing Flexion 3+ Fair+ Extension 3+ Fair+ Core Stabilization poor Hip Strength Hip Manual Muscle Testing enrico Flexion (L2) 3+ Fair+ Extension (S1) 3- Fair- Abduction 3+ Fair+ External Rotation 3+ Fair+ Internal Rotation 4- Good- Knee Strength Knee Manual Muscle Testing enrico Flexion (S2) 4 Good Extension (L3) 4 Good Ankle/Foot Strength Ankle and Foot Manual Muscle Testing enrico Dorsiflexion (L4) 4 Good Plantarflexion (S1) 4 Good PT-OP-Q Treatments Start: 06/21/22 17:18 Freq: Status: Active Protocol: Document 08/10/22 13:50 [facility] (Rec: 08/10/22 14:34 [facility] [id number]) Therapeutic Exercises Sitting Exercises seated isometric core Sitting Exercise Name heel lift, knee push Standing Exercises hip flex stretch Reps/Minutes 2x 30 Manual Therapy Treatment Soft Tissue Mobilization enrico lumbar paraspinals, surgical scar Body Location enrico Mobilization Type Instrument Assisted,Myofascial Release,Strumming Intensity/Depth Moderate Body Position Sidelying Self-Care/Home Management Treatment Education Other Education reviewed iliopsoas stretch, IT band self massage PT-OP-T Assessment and Plan Start: 06/21/22 17:18 Freq: Status: Active Protocol: Document 08/10/22 13:50 [facility]AK (Rec: 08/10/22 14:34 [facility] [id number]) Physical Therapy Assessment Impairments Impairments Functional Activities, Functional Mobility,Gait, Integument,Pain,Posture,ROM, Soft Tissue Mobility,Strength Goals Four Impairment functional activity tolerance Impairment painful bed mobility. Short Term Goal (STG) Patient to report 50% reduction in pain experienced during bed mobility 08/08/22: goal met STG Duration goal met Correctional Manager Goal (LTG) Patient to be able to move in bed and from sit >< supine without an increase in pain 08/08/22: goal met LTG Duration goal met Three Impairment poor scar mobility Jail Goal (LTG) Improve scar mobility from spinal surgery to WNL for improved soft tissue function 08/10/22: goal met LTG Duration 09/22/22 Two Impairment gait dysfunction Impairment excess lateral sway, hip ER, Trendelenberg Short Term Goal (STG) Patient to demonstrate gait with 50% reduction in gait dysfunction for improved efficiency and decreased pain 08/08/22: goal met STG Duration goal met Jail Goal (LTG) Patient will be able to walk community distances with LRD with minimal gait dysfunction to allow her to resume prior level of activity and return to travel 08/10/22: goal progress, patient glut med weakness impacts gait quality with Trendelenberg gait but patient gait improves with use of cane and inc speed. Compliant to HEP for glut med strengthening LTG Duration 09/22/22 One Impairment weakness and poor core stab Short Term Goal (STG) Patient to be independent in HEP to support therapy activities for strengthening and core stab 08/08/22: goal met STG Duration goal met Correctional Manager Goal (LTG) Patient to demonstrate improved MMT of hips and core to at least 4+/5 for improved function in the home and community 08/10/22: goal met except hip abd 3-/5 enrico LTG Duration 09/22/22 Assessment Summary Assessment Patient demonstrated improved understanding of her HEP after further review and clarification. She is independent with HEP, is going to the pool 2-3 days per week . At this time is ready for discharge to independent HEP and self care. May benefit from returning to PT in 2-3mo for follow up, assess progress , modify and/or progress HEP as indicated, and determine need for additional PT. Patient agreeable to discharge from PT today. Physical Therapy Plan Discharge Physical Therapy Discharge Comments as above
== END 2022-11-10 16:31 | disposition home or self-care (01) ==
LOC: PHYS 13:45
PROVIDERS: Family Provider Internal Medicine; PCP Internal Medicine; Referring Provider Internal Medicine; Visit Provider Internal Medicine
DX: M25.551 Pain in right hip (principal); M25.552 Pain in left hip; M79.606 Pain in leg, unspecified
CPT/HCPCS: 97110; 97116; 97140; 97161; 97530; 97535

== ENCOUNTER → 2023-02-18 12:15 | Outpatient (CLI) | payer MEDICARE, SELFPAY ==
--- NOTE | 2023-02-18 12:16 | DI.RAD.S_ITS ---
PROCEDURE: XR KNEE LT 3V INDICATIONS: Knee Pain TECHNIQUE: 3 views of the knee were acquired. COMPARISON: [facility], CR, XR KNEE LT 3V, 10/02/2018, 13:08. FINDINGS: Bones: No fractures or dislocations. There is mild femorotibial compartment narrowing and small tricompartmental osteophytes. No suspicious bony lesions. Soft tissues: No joint effusion. No suspicious soft tissue calcifications. IMPRESSION: Osteoarthritis. No acute radiographic findings. Dictated by: Rocío Graham M.D. on 02/19/2023 at 12:00 Approved by: Rocío Graham M.D. on 02/19/2023 at 12:00
--- NOTE | 2023-02-18 12:16 | DI.RAD.S_ITS ---
PROCEDURE: XR HIP W PEL IF DONE KIARA MIN 4V INDICATIONS: Hip Pain TECHNIQUE: AP pelvis with lateral view(s) of the right hip(s). COMPARISON: [facility], , XR HIP W PEL IF DONE KIARA 3TO4V, 11/15/2021, 16:00. FINDINGS: Bones: No fractures or dislocations. There is mild right hip joint space narrowing and trace collar osteophytes. Pelvic ring appears intact. No suspicious bony lesions. Soft tissues: The visualized bowel gas pattern is normal. No suspicious soft tissue calcifications. IMPRESSION: Mild degenerative change. No acute radiographic findings. Dictated by: Rocío Graham M.D. on 02/19/2023 at 11:59 Approved by: Rocío Graham M.D. on 02/19/2023 at 12:00
--- NOTE | 2023-02-18 12:16 | DI.RAD.S_ITS ---
PROCEDURE: XR KNEE RT 3V INDICATIONS: Knee Pain TECHNIQUE: 3 views of the knee were acquired. COMPARISON: [facility], CR, XR KNEE LT 3V, 10/02/2018, 13:08. FINDINGS: Bones: No fractures or dislocations. There is mild femorotibial joint space narrowing and severe patellofemoral joint space narrowing. There are tricompartmental osteophytes. No suspicious bony lesions. Soft tissues: No joint effusion. No suspicious soft tissue calcifications. IMPRESSION: Mild to moderate osteoarthritis. No acute radiographic findings. Dictated by: Rocío Graham M.D. on 02/19/2023 at 12:01 Approved by: Rocío Graham M.D. on 02/19/2023 at 12:01
== END ==
PROVIDERS: Family Provider Internal Medicine; PCP Student in an Organized Health Care Education/Training Program; Referring Provider Student in an Organized Health Care Education/Training Program; Visit Provider Student in an Organized Health Care Education/Training Program
DX: M17.0 Bilateral primary osteoarthritis of knee (principal); M25.552 Pain in left hip; M25.551 Pain in right hip
CPT/HCPCS: 73522; 73562

== ENCOUNTER → 2023-05-02 16:16 | Outpatient (CLI) | payer MEDICARE, SELFPAY ==
[2023-05-02 17:13] LABS: Add Manual Diff / Slide Review NO; Basophils Absolute Auto 100 /uL (0-100); Basophils Percent Auto 0.8 % (0-2); Eosinophils Absolute Auto 400 /uL (0-450); Eosinophils Percent Auto 5.3 % (2-4); Hematocrit 37.9 % (36-46); Lymphocytes Absolute Auto 2700 /uL (1100-4500); Lymphocytes Percent Auto 33.2 % (25-40); Mean Corpuscular HGB Conc 34.2 % (30-36); Mean Corpuscular Hemoglobin 32.8 PG (26-34); Mean Corpuscular Volume 95.9 fL (80-100); Monocytes Absolute Auto 800 /uL (0-900); Monocytes Percent Auto 9.5 % (3-14); Neutrophils Absolute Auto 4200 /uL (1500-7000); Neutrophils Percent Auto 51.2 % (50-75); Platelet Count 208 X10^3/uL (150-400); Red Blood Cell Count 3.96 X10^6/uL (4.0-5.2); Red Cell Distribution Width 13.1 % (11.6-14.8); White Blood Cell Count 8.3 X10^3/uL (4.5-11.0)
[2023-05-02 18:07] LABS: TSH w/ Reflex to FT4 1.37 uIU/mL (0.47-4.68)
== END ==
LOC: LAB 16:17
PROVIDERS: Family Provider Internal Medicine; PCP Student in an Organized Health Care Education/Training Program; Referring Provider Student in an Organized Health Care Education/Training Program; Visit Provider Student in an Organized Health Care Education/Training Program
DX: E03.9 Hypothyroidism, unspecified (principal); R53.83 Other fatigue
CPT/HCPCS: 36415; 84443; 85025

== ENCOUNTER → 2023-06-02 17:05 | Outpatient (CLI) | payer MEDICARE, SELFPAY ==
--- NOTE | 2023-06-02 17:07 | DI.MG.S_ITS ---
BILATERAL DIGITAL SCREENING MAMMOGRAM 3D/2D WITH CAD: 06/02/2023 CLINICAL: Routine screening. Comparison is made to exams dated: 11/26/2021 mammogram, 11/29/2019 mammogram, and 05/19/2017 mammogram - [facility]. Both breasts are almost entirely fatty (category a/<25% glandular tissue). Current study was also evaluated with a Computer Aided Detection (CAD) system. No significant masses, calcifications, or other findings are seen in either breast. There has been no significant interval change. IMPRESSION: NEGATIVE There is no mammographic evidence of malignancy. A 1 year screening mammogram is recommended. Based on the Tyrer Cuzick model (a risk assessment model) the patient's lifetime risk is 1.9% and her 10 year risk is 1.9%. According to the ACR, ACS, and NCCN guidelines, an annual breast MRI exam along with mammogram is recommended if the patient's lifetime risk is 20% or greater. This exam was interpreted at Station ID: [id number]. NOTE: For mammograms, a report in lay terms will be sent to the patient. Approximately 15% of breast malignancies will not be visualized mammographically. In the management of a palpable breast mass, a negative mammogram must not discourage biopsy of a clinically suspicious lesion. Electronically Signed By: Liz shields/tiffanie:06/05/2023 16:36:14 letter sent: Normal Exam ACR BI-RADS Category 1: Negative [id number]
== END ==
PROVIDERS: Family Provider Internal Medicine; PCP Student in an Organized Health Care Education/Training Program; Referring Provider Student in an Organized Health Care Education/Training Program; Visit Provider Student in an Organized Health Care Education/Training Program
DX: Z12.31 Encounter for screening mammogram for malignant neoplasm of breast (principal)
CPT/HCPCS: 77063; 77067

== ENCOUNTER 2023-08-17 15:15 | Outpatient (RCR) | payer MEDICARE, SELFPAY ==
--- NOTE | 2022-12-22 10:54 | PT.OIE ---
Current Diagnoses Pain in left hip (12/22/22) Radiculopathy, lumbar region (12/22/22) Difficulty in walking, not elsewhere classified (12/22/22) Weakness (12/22/22) Visit Care Team Role Provider Type DAMION Guadalupe Attending Provider Advanced Lift Mechanic Family Provider Primary Care Provider Referring Provider Specialty: Family Practice Address: [address] [place] [address], [facility] Email: [email or web address] Physical Therapy Initial Evaluation PT-OP-A Visit Information Start: 12/21/22 16:18 Freq: Status: Active Protocol: Document 12/22/22 09:33 [facility]AK (Rec: 12/22/22 10:27 [facility] [id number]) Out-Patient Physical Therapy Visit Information Visit Information Visit Type Initial Evaluation Visit Start Time 09:33 Visit Stop Time 09:48 Total Visit Minutes 45 Visit Number 1 Evaluation Information Evaluation Date 12/22/22 PT-OP-B Current Condition Start: 12/21/22 16:18 Freq: Status: Active Protocol: Document 12/22/22 09:33 [facility]AK (Rec: 12/22/22 10:27 [facility] [id number]) Current Condition History of Current Condition Onset Date 04/01/23 Current Complaints left hip pain, lumbar radiculopathy History of Current Condition s/p lumbar laminectomy L3-L5, prior PT with some improvement, discharged to [facility] and instructions to resume aquatic exercise. Has been doing both but states feels she needs further PT to continue to progress due to persistent pain, difficulty walking. Reports using pillows for support as PT previously recommended. States pain with all mobility skills, occasionally wakes up due to pain. Does exercises in am in bed, SLS at bathtoom counter, HC stretch, iliopsoas stretch standing with sidebending Prior Treatments and Tests Prior PT, doing aquatic exercise. PT-OP-C Subjective Start: 12/21/22 16:18 Freq: Status: Active Protocol: Document 12/22/22 09:33 SAK (Rec: 12/22/22 10:52 [facility] [id number]) Patient Questionnaires Lower Extremity Functional Scale LEFS Score 54 Lymphedema Life Impact Score Lymphedema Impairment 100% Impaired (Score 90) Oswestry Low Back Index Oswestry Score 36 Oswestry Impairment 80 to 99% Impaired (Score 80- 99) OP-PT Pain Assessment Pain Assessment Grid Paper Pain Assessment Grid Completed Yes Location enrico lumbar spine, buttock, left lateral leg and knee Intensity 4 Description Aching,Pressure,Pulling,Tender ,Tightness Frequency Frequent Pain Aggravating Factors ADL's PT-OP-G Mobility & Gait Start: 12/21/22 16:18 Freq: Status: Active Protocol: Document 12/22/22 09:33 [facility] (Rec: 12/22/22 10:52 [facility] [id number]) OP Gait Assessment Gait Gait Assistance Required: Independent Assistive Devices Assistive Device None,Straight Cane Orthotic/Prosthetic Devices or Brace: No Gait Deviations General Gait Pattern Ataxic,Lateral Trunk Lean, Narrow Based Gait Factors Limiting Gait Function Factors Limiting Gait Function Decreased Strength,Pain Comments Gait Comments Trendelenberg right Stair Climbing Evaluation Evaluation Level of Assist On Stairs Independent Devices Stair Climbing Assistive Devices Left Railing,Right Railing Technique/Endurance Stair Climbing Direction Ascend and Descend Stair Climbing Technique Step Over Step PT-OP-H Neuro Start: 12/21/22 16:18 Freq: Status: Active Protocol: Document 12/22/22 09:33 [facility] (Rec: 12/22/22 10:52 [facility] [id number]) Sensation Evaluation Gross Sensation Gross Sensation WNL PT-OP-J Posture/Palpation/Skin Start: 12/21/22 16:18 Freq: Status: Active Protocol: Document 12/22/22 09:33 [facility] (Rec: 12/22/22 10:52 [facility] [id number]) Posture Evaluation Position Standing Head/C-Spine Posture Forward Head T-Spine Posture Increased Kyphosis L-Spine Posture Increased Lordosis Hip Posture (L) Externally Rotated,(R) Externally Rotated PT-OP-K Range of Motion Start: 12/21/22 16:18 Freq: Status: Active Protocol: Document 12/22/22 09:33 [facility] (Rec: 12/22/22 10:52 [facility] [id number]) Lumbar Spine Range of Motion Lumbar Spine Active Comments WFL but with inc pain end ranges. PT-OP-M Strength Start: 12/21/22 16:18 Freq: Status: Active Protocol: Document 12/22/22 09:33 [facility] (Rec: 12/22/22 10:52 [facility] [id number]) Hip Strength Hip Manual Muscle Testing Right Flexion (L2) 4- Good- Extension (S1) 3- Fair- Abduction 3- Fair- Adduction 3+ Fair+ External Rotation 3+ Fair+ Internal Rotation 4- Good- Left Flexion (L2) 4- Good- Extension (S1) 3 Fair Abduction 3+ Fair+ Adduction 3+ Fair+ External Rotation 3+ Fair+ Knee Strength Knee Manual Muscle Testing enrico Flexion (S2) 4+ Good+ Extension (L3) 4+ Good+ Ankle/Foot Strength Ankle and Foot Manual Muscle Testing Right Dorsiflexion (L4) 4 Good Plantarflexion (S1) 4 Good Left Dorsiflexion (L4) 4+ Good+ Plantarflexion (S1) 4+ Good+ PT-OP-Q Treatments Start: 12/21/22 16:18 Freq: Status: Active Protocol: Document 12/22/22 09:33 [facility] (Rec: 12/22/22 10:27 [facility] [id number]) Self-Care/Home Management Treatment Education Patient Education Home Exercise Program,Joint Protection,Pain Management PT-OP-T Assessment and Plan Start: 12/21/22 16:18 Freq: Status: Active Protocol: Document 12/22/22 09:33 [facility] (Rec: 12/22/22 10:27 [facility] [id number]) Physical Therapy Assessment Rehab Potential Rehabilitation Potential Good Evaluation Complexity Number of Personal Factors/Comorbidities 1-2 Number of Body Systems Impaired 3 Clinical Presentation at Evaluation Evolving Impairments Impairments Activity Tolerance,Gait,Pain, Strength Other Concerns Barriers to Rehabilitation chronicity Goals Three Impairment pain l/s and LE Impairment as high as 4/10 Pulmonologist/Intensivist Goal (LTG) Improve pain by at least 50% to improve patient function and quality of life LTG Duration 02/21/23 One Impairment activity tolerance Impairment Oswestry Disability Index score 38% Lower extremity functional score 54% Pulmonologist/Intensivist Goal (LTG) Improve NURIS to no greater than 25% as measure of improved activity tolerance. Improve LEFS to at least 70% LTG Duration 02/21/23 Four Impairment weakness core and hips Short Term Goal (STG) Patient will be instructed in individualized progressive HEP for purposes of strengtheing and stabilization STG Duration 02/21/23 Pulmonologist/Intensivist Goal (LTG) Patient will be independent and compliant with HEP and demonstrate improved hip and core muscle strength to at least 4+/5, and functionally will be able to stand on 1 leg for 10 sec without hip dropping LTG Duration 02/21/23 Two Impairment gait dysfunction Impairment excess lateral sway, hip ER, Trendelenberg Usp Goal (LTG) Patient will be able to walk with minimal to no lateral sway or Trendelenberg for improved functionnd decreased pain with walking in the home and community LTG Duration 02/21/23 Assessment Summary Assessment Patient presents to PT with function-limiting pain lumbar spine with radicular symptoms, and left hip. Lumbar laminectomy 04/01/23 followed by PT but has some persistent pain and dysfunction. Feel patient weakness and highly altered gait mechanics highly contributory to her pain with significant Trendelenberg gait right, core and glut med and glut max weakness. Use of video gait analysis helpful for patient as she has poor proprioceptive awareness. Given functional wt shift exercises focused on wt shift and wt acceptance in stance phase of gait right LE. Will benefit from PT for further strengthening, functional retraining, gait training. Modalities and manual therapy PRN pain Physical Therapy Plan Frequency and Duration Frequency of Treatment 2x/Week Duration of treatment (weeks) 8 Plan of Care Start Date 12/22/22 Plan of Care End Date 02/21/23 Therapeutic Interventions Therapeutic Interventions Balance Training,Gait Training ,Home Exercise Program, Neuromuscular Re-education, Orthotic/Prosthetic Management ,Patient/Caregiver Education, Self-Care/Home Management,Soft Tissue Mobilization,Taping, Therapeutic Activities, Therapeutic Exercises Modalities Cold Pack/Ice Massage,Electric Stimulation,Hot Packs, Infrared Therapy Next Visit Focus/Plan Next Note Type Treatment Note Next Visit Plan Review gait mechanics, further use of video of patient gait and mirror for patient education and visual feedback. Wt shifts, supported SLS with visual feedback,glut med strengthening,core strengthening
--- NOTE | 2022-12-22 10:55 | PT.OPPOC ---
Physical, Occupational & Speech Therapy At [facility] Current Diagnoses Pain in left hip (12/22/22) Radiculopathy, lumbar region (12/22/22) Difficulty in walking, not elsewhere classified (12/22/22) Weakness (12/22/22) Visit Care Team Role Provider Type DAMION Guadalupe Attending Provider Advanced Dial Printer Family Provider Primary Care Provider Referring Provider Specialty: Family Practice Address: [address] [place] [address], [facility] Email: [email or web address] Plan Of Care PT-OP-T Assessment and Plan Start: 12/21/22 16:18 Freq: Status: Active Protocol: Document 12/22/22 09:33 [facility] (Rec: 12/22/22 10:27 SAK [id number]) Physical Therapy Assessment Rehab Potential Rehabilitation Potential Good Evaluation Complexity Number of Personal Factors/Comorbidities 1-2 Number of Body Systems Impaired 3 Clinical Presentation at Evaluation Evolving Impairments Impairments Activity Tolerance,Gait,Pain, Strength Other Concerns Barriers to Rehabilitation chronicity Goals Three Impairment pain l/s and LE Impairment as high as 4/10 Veterans Service Representative Goal (LTG) Improve pain by at least 50% to improve patient function and quality of life LTG Duration 02/21/23 One Impairment activity tolerance Impairment Oswestry Disability Index score 38% Lower extremity functional score 54% Veterans Service Representative Goal (LTG) Improve NURIS to no greater than 25% as measure of improved activity tolerance. Improve LEFS to at least 70% LTG Duration 02/21/23 Four Impairment weakness core and hips Short Term Goal (STG) Patient will be instructed in individualized progressive HEP for purposes of strengtheing and stabilization STG Duration 02/21/23 Penitentiary Goal (LTG) Patient will be independent and compliant with HEP and demonstrate improved hip and core muscle strength to at least 4+/5, and functionally will be able to stand on 1 leg for 10 sec without hip dropping LTG Duration 02/21/23 Two Impairment gait dysfunction Impairment excess lateral sway, hip ER, Trendelenberg Penitentiary Goal (LTG) Patient will be able to walk with minimal to no lateral sway or Trendelenberg for improved functionnd decreased pain with walking in the home and community LTG Duration 02/21/23 Assessment Summary Assessment Patient presents to PT with function-limiting pain lumbar spine with radicular symptoms, and left hip. Lumbar laminectomy 04/01/23 followed by PT but has some persistent pain and dysfunction. Feel patient weakness and highly altered gait mechanics highly contributory to her pain with significant Trendelenberg gait right, core and glut med and glut max weakness. Use of video gait analysis helpful for patient as she has poor proprioceptive awareness. Given functional wt shift exercises focused on wt shift and wt acceptance in stance phase of gait right LE. Will benefit from PT for further strengthening, functional retraining, gait training. Modalities and manual therapy PRN pain Physical Therapy Plan Frequency and Duration Frequency of Treatment 2x/Week Duration of treatment (weeks) 8 Plan of Care Start Date 12/22/22 Plan of Care End Date 02/21/23 Therapeutic Interventions Therapeutic Interventions Balance Training,Gait Training ,Home Exercise Program, Neuromuscular Re-education, Orthotic/Prosthetic Management ,Patient/Caregiver Education, Self-Care/Home Management,Soft Tissue Mobilization,Taping, Therapeutic Activities, Therapeutic Exercises Modalities Cold Pack/Ice Massage,Electric Stimulation,Hot Packs, Infrared Therapy Next Visit Focus/Plan Next Note Type Treatment Note Next Visit Plan Review gait mechanics, further use of video of patient gait and mirror for patient education and visual feedback. Wt shifts, supported SLS with visual feedback,glut med strengthening,core strengthening Plan of Care Dates Plan of Care Start Date 12/22/22 Plan of Care End Date 02/21/23 Electronically Signed by: Fadumo Morse, PT 12/22/22 7132 If you are in agreement with this Plan of Care, please return a signed and dated copy. I have reviewed this Plan of Care and certify that the skilled therapy services above are required to meet the patient?s needs. Physician Signature Date Printed Name and Credentials Clinical Instructor Signature Printed Name and Credentials
--- NOTE | 2022-12-28 15:12 | PT.OTN ---
Current Diagnoses Pain in left hip (12/28/22) Radiculopathy, lumbar region (12/28/22) Difficulty in walking, not elsewhere classified (12/28/22) Weakness (12/28/22) Physical Therapy Treatment Note PT-OP-A Visit Information Start: 12/21/22 16:18 Freq: Status: Active Protocol: Document 12/28/22 14:02 SAK (Rec: 12/28/22 15:12 [facility] [id number]) Out-Patient Physical Therapy Visit Information Visit Information Visit Type Treatment Note Visit Start Time 14:02 Visit Number 2 Evaluation Information Evaluation Date 12/22/22 PT-OP-B Current Condition Start: 12/21/22 16:18 Freq: Status: Active Protocol: Document 12/28/22 14:02 SAK (Rec: 12/28/22 15:12 [facility] [id number]) Current Condition History of Current Condition Onset Date 04/01/23 Current Complaints left hip pain, lumbar radiculopathy History of Current Condition s/p lumbar laminectomy L3-L5, prior PT with some improvement, discharged to [facility] and instructions to resume aquatic exercise. Has been doing both but states feels she needs further PT to continue to progress due to persistent pain, difficulty walking. Reports using pillows for support as PT previously recommended. States pain with all mobility skills, occasionally wakes up due to pain. Does exercises in am in bed, SLS at bathtoom counter, HC stretch, iliopsoas stretch standing with sidebending Prior Treatments and Tests Prior PT, doing aquatic exercise. PT-OP-C Subjective Start: 12/21/22 16:18 Freq: Status: Active Protocol: Document 12/28/22 14:02 SAK (Rec: 12/28/22 15:12 [facility] [id number]) OP-PT Subjective Patient Comments Patient Comments Got RSV shot Monday afternoon; had an assortment of weird things, didn't get as much done as I wanted to. Poor sleep due to mental stress last night. Had some right knee pain, left lateral thigh pain, rear end pain. PT-OP-G Mobility & Gait Start: 12/21/22 16:18 Freq: Status: Active Protocol: Document 12/22/22 09:33 SAK (Rec: 12/22/22 10:52 [facility] [id number]) OP Gait Assessment Gait Gait Assistance Required: Independent Assistive Devices Assistive Device None,Straight Cane Orthotic/Prosthetic Devices or Brace: No Gait Deviations General Gait Pattern Ataxic,Lateral Trunk Lean, Narrow Based Gait Factors Limiting Gait Function Factors Limiting Gait Function Decreased Strength,Pain Comments Gait Comments Trendelenberg right Stair Climbing Evaluation Evaluation Level of Assist On Stairs Independent Devices Stair Climbing Assistive Devices Left Railing,Right Railing Technique/Endurance Stair Climbing Direction Ascend and Descend Stair Climbing Technique Step Over Step PT-OP-H Neuro Start: 12/21/22 16:18 Freq: Status: Active Protocol: Document 12/22/22 09:33 [facility] (Rec: 12/22/22 10:52 [facility] [id number]) Sensation Evaluation Gross Sensation Gross Sensation WNL PT-OP-J Posture/Palpation/Skin Start: 12/21/22 16:18 Freq: Status: Active Protocol: Document 12/22/22 09:33 [facility] (Rec: 12/22/22 10:52 [facility] [id number]) Posture Evaluation Position Standing Head/C-Spine Posture Forward Head T-Spine Posture Increased Kyphosis L-Spine Posture Increased Lordosis Hip Posture (L) Externally Rotated,(R) Externally Rotated PT-OP-K Range of Motion Start: 12/21/22 16:18 Freq: Status: Active Protocol: Document 12/22/22 09:33 [facility] (Rec: 12/22/22 10:52 [facility] [id number]) Lumbar Spine Range of Motion Lumbar Spine Active Comments WFL but with inc pain end ranges. PT-OP-M Strength Start: 12/21/22 16:18 Freq: Status: Active Protocol: Document 12/22/22 09:33 [facility] (Rec: 12/22/22 10:52 [facility] [id number]) Hip Strength Hip Manual Muscle Testing Right Flexion (L2) 4- Good- Extension (S1) 3- Fair- Abduction 3- Fair- Adduction 3+ Fair+ External Rotation 3+ Fair+ Internal Rotation 4- Good- Left Flexion (L2) 4- Good- Extension (S1) 3 Fair Abduction 3+ Fair+ Adduction 3+ Fair+ External Rotation 3+ Fair+ Knee Strength Knee Manual Muscle Testing enrico Flexion (S2) 4+ Good+ Extension (L3) 4+ Good+ Ankle/Foot Strength Ankle and Foot Manual Muscle Testing Right Dorsiflexion (L4) 4 Good Plantarflexion (S1) 4 Good Left Dorsiflexion (L4) 4+ Good+ Plantarflexion (S1) 4+ Good+ PT-OP-Q Treatments Start: 12/21/22 16:18 Freq: Status: Active Protocol: Document 12/28/22 14:02 [facility] (Rec: 12/28/22 15:12 [facility] [id number]) Therapeutic Exercises Supine Exercises SLR Reps/Minutes 10x enrico Comments cues for straight knee, core stab SKTC Reps/Minutes 2x30 Comments cues for for opp knee straight single leg bridge Reps/Minutes 10x Comments focus on push through weight bearing leg bridge Supine Exercise Name segmental Reps/Minutes 10x Comments cues for painfree Sidelying Exercises reverse clam Comments cues for pain-free movement clam Reps/Minutes 5x Comments cues for no posterior movement at hip/trunk hip abduction Comments cues to maintain neutral alignment, very weak, unable to perform neutral Standing Exercises SLS Reps/Minutes 3x5 Comments mod UE support for neutral lateral alignment weight shifts Standing Exercise Name fwd/bck in stride Side bilateral Resistance manual x 10 reps ea LE in front Equipment Used mirror for visual feedback Reps/Minutes 15 min Comments cues for neutral spine and hips, min UE support Gait Training Gait Activity level Device Used cane left Treatment Focus dec lateral shift Comments mirror for visual feedback. Neuro Re-Education Treatment Movement Re-Education Movement Re-education Activities gait mechanics using mirror for visual feedback Self-Care/Home Management Treatment Education Patient Education Home Exercise Program,Pain Management PT-OP-T Assessment and Plan Start: 12/21/22 16:18 Freq: Status: Active Protocol: Document 12/28/22 14:02 [facility] (Rec: 12/28/22 15:12 [facility] [id number]) Physical Therapy Assessment Impairments Impairments Activity Tolerance,Gait,Pain, Strength Goals Three Impairment pain l/s and LE Impairment as high as 4/10 Assisted Goal (LTG) Improve pain by at least 50% to improve patient function and quality of life LTG Duration 02/21/23 One Impairment activity tolerance Impairment Oswestry Disability Index score 38% Lower extremity functional score 54% Assisted Goal (LTG) Improve NURIS to no greater than 25% as measure of improved activity tolerance. Improve LEFS to at least 70% LTG Duration 02/21/23 Four Impairment weakness core and hips Impairment painful bed mobility. Short Term Goal (STG) Patient will be instructed in individualized progressive HEP for purposes of strengtheing and stabilization STG Duration 02/21/23 [employer] Goal (LTG) Patient will be independent and compliant with HEP and demonstrate improved hip and core muscle strength to at least 4+/5, and functionally will be able to stand on 1 leg for 10 sec without hip dropping LTG Duration 02/21/23 Two Impairment gait dysfunction Impairment excess lateral sway, hip ER, Trendelenberg Assisted Goal (LTG) Patient will be able to walk with minimal to no lateral sway or Trendelenberg for improved functionnd decreased pain with walking in the home and community LTG Duration 02/21/23 Assessment Summary Assessment patient demonstrates poor body awareness, difficulty seeing and feeling asymmetrical and Trendelenberg gait. Largely due to gluteal weakness has difficulty with single leg stand, balance. WEakest on right but doesn't feel as safe using cane in left hand as recommended, urged to use trekking poles or canes in bilateral hands. Will need further modifications to allow her to successfully perform HEP without compensations. Physical Therapy Plan Frequency and Duration Frequency of Treatment 2x/Week Duration of treatment (weeks) 8 Plan of Care Start Date 12/22/22 Plan of Care End Date 02/21/23 Therapeutic Interventions Therapeutic Interventions Balance Training,Gait Training ,Home Exercise Program, Neuromuscular Re-education, Orthotic/Prosthetic Management ,Patient/Caregiver Education, Self-Care/Home Management,Soft Tissue Mobilization,Taping, Therapeutic Activities, Therapeutic Exercises Modalities Cold Pack/Ice Massage,Electric Stimulation,Hot Packs, Infrared Therapy Next Visit Focus/Plan Next Note Type Treatment Note Next Visit Plan Evaluate response to today's treatment, continue functional hip and core strengthening, options for gluteus med and max strengthening. Shuttle balance. Modfy HEP for best success with hip ext, IR,ER, and abduction strengthening both open and closed chain.
--- NOTE | 2023-01-02 14:52 | PT.OTN ---
Current Diagnoses Pain in left hip (01/02/23) Radiculopathy, lumbar region (01/02/23) Difficulty in walking, not elsewhere classified (01/02/23) Weakness (01/02/23) Physical Therapy Treatment Note PT-OP-A Visit Information Start: 12/21/22 16:18 Freq: Status: Active Protocol: Document 01/02/23 12:33 SAK (Rec: 01/02/23 13:16 [facility] [id number]) Out-Patient Physical Therapy Visit Information Visit Information Visit Type Treatment Note Visit Start Time 12:33 Visit Stop Time 13:15 Total Visit Minutes 42 Visit Number 3 PT-OP-B Current Condition Start: 12/21/22 16:18 Freq: Status: Active Protocol: Document 01/02/23 12:33 SAK (Rec: 01/02/23 13:16 [facility] [id number]) Current Condition History of Current Condition Onset Date 04/01/23 Current Complaints left hip pain, lumbar radiculopathy History of Current Condition s/p lumbar laminectomy L3-L5, prior PT with some improvement, discharged to [facility] and instructions to resume aquatic exercise. Has been doing both but states feels she needs further PT to continue to progress due to persistent pain, difficulty walking. Reports using pillows for support as PT previously recommended. States pain with all mobility skills, occasionally wakes up due to pain. Does exercises in am in bed, SLS at bathtoom counter, HC stretch, iliopsoas stretch standing with sidebending Prior Treatments and Tests Prior PT, doing aquatic exercise. PT-OP-C Subjective Start: 12/21/22 16:18 Freq: Status: Active Protocol: Document 01/02/23 12:33 SAK (Rec: 01/02/23 13:16 [facility] [id number]) OP-PT Subjective Patient Comments Patient Comments No new c/o, has some questions about the positioning of her body PT-OP-G Mobility & Gait Start: 12/21/22 16:18 Freq: Status: Active Protocol: Document 12/22/22 09:33 SAK (Rec: 12/22/22 10:52 [facility] [id number]) OP Gait Assessment Gait Gait Assistance Required: Independent Assistive Devices Assistive Device None,Straight Cane Orthotic/Prosthetic Devices or Brace: No Gait Deviations General Gait Pattern Ataxic,Lateral Trunk Lean, Narrow Based Gait Factors Limiting Gait Function Factors Limiting Gait Function Decreased Strength,Pain Comments Gait Comments Trendelenberg right Stair Climbing Evaluation Evaluation Level of Assist On Stairs Independent Devices Stair Climbing Assistive Devices Left Railing,Right Railing Technique/Endurance Stair Climbing Direction Ascend and Descend Stair Climbing Technique Step Over Step PT-OP-H Neuro Start: 12/21/22 16:18 Freq: Status: Active Protocol: Document 12/22/22 09:33 [facility] (Rec: 12/22/22 10:52 [facility] [id number]) Sensation Evaluation Gross Sensation Gross Sensation WNL PT-OP-J Posture/Palpation/Skin Start: 12/21/22 16:18 Freq: Status: Active Protocol: Document 12/22/22 09:33 [facility] (Rec: 12/22/22 10:52 [facility] [id number]) Posture Evaluation Position Standing Head/C-Spine Posture Forward Head T-Spine Posture Increased Kyphosis L-Spine Posture Increased Lordosis Hip Posture (L) Externally Rotated,(R) Externally Rotated PT-OP-K Range of Motion Start: 12/21/22 16:18 Freq: Status: Active Protocol: Document 12/22/22 09:33 [facility] (Rec: 12/22/22 10:52 [facility] [id number]) Lumbar Spine Range of Motion Lumbar Spine Active Comments WFL but with inc pain end ranges. PT-OP-M Strength Start: 12/21/22 16:18 Freq: Status: Active Protocol: Document 12/22/22 09:33 [facility] (Rec: 12/22/22 10:52 [facility] [id number]) Hip Strength Hip Manual Muscle Testing Right Flexion (L2) 4- Good- Extension (S1) 3- Fair- Abduction 3- Fair- Adduction 3+ Fair+ External Rotation 3+ Fair+ Internal Rotation 4- Good- Left Flexion (L2) 4- Good- Extension (S1) 3 Fair Abduction 3+ Fair+ Adduction 3+ Fair+ External Rotation 3+ Fair+ Knee Strength Knee Manual Muscle Testing enrico Flexion (S2) 4+ Good+ Extension (L3) 4+ Good+ Ankle/Foot Strength Ankle and Foot Manual Muscle Testing Right Dorsiflexion (L4) 4 Good Plantarflexion (S1) 4 Good Left Dorsiflexion (L4) 4+ Good+ Plantarflexion (S1) 4+ Good+ PT-OP-Q Treatments Start: 12/21/22 16:18 Freq: Status: Active Protocol: Document 01/02/23 12:33 [facility] (Rec: 01/02/23 13:16 [facility] [id number]) Therapeutic Exercises Sidelying Exercises reverse clam Comments cues for pain-free movement clam Reps/Minutes 5x Comments cues for no posterior movement at hip/trunk hip abduction Reps/Minutes 10x Comments cues to maintain neutral alignment, very weak, unable to perform neutral Standing Exercises calf stretch Equipment Used wall Reps/Minutes 2x30 Comments cues for straight foot, upright posture with glut set for hip flex stretch Gait Training Gait Activity [place] Aeroing INgrooves Level of Assistance SBA, VC Surface firm Distance/Duration 100 ft Treatment Focus safety, sequencing pre-gait wt shifts Distance/Duration 6 min Treatment Focus symmetry, hips lavel Self-Care/Home Management Treatment Education Patient Education Body Mechanics,Home Exercise Program,Pain Management, Posture,Safety Other Education bed positioning Extensive patient education regarding correct HEP performance, neutral posture and body mechanics for usual activities, patient taking notes. PT-OP-T Assessment and Plan Start: 12/21/22 16:18 Freq: Status: Active Protocol: Document 01/02/23 12:33 [facility] (Rec: 01/02/23 13:16 [facility] [id number]) Physical Therapy Assessment Impairments Impairments Activity Tolerance,Gait,Pain, Strength Goals Three Impairment pain l/s and LE Impairment as high as 4/10 Snf Goal (LTG) Improve pain by at least 50% to improve patient function and quality of life LTG Duration 02/21/23 One Impairment activity tolerance Impairment Oswestry Disability Index score 38% Lower extremity functional score 54% [employer] Goal (LTG) Improve NURIS to no greater than 25% as measure of improved activity tolerance. Improve LEFS to at least 70% LTG Duration 02/21/23 Four Impairment weakness core and hips Impairment painful bed mobility. Short Term Goal (STG) Patient will be instructed in individualized progressive HEP for purposes of strengtheing and stabilization STG Duration 02/21/23 Snf Goal (LTG) Patient will be independent and compliant with HEP and demonstrate improved hip and core muscle strength to at least 4+/5, and functionally will be able to stand on 1 leg for 10 sec without hip dropping LTG Duration 02/21/23 Two Impairment gait dysfunction Impairment excess lateral sway, hip ER, Trendelenberg Snf Goal (LTG) Patient will be able to walk with minimal to no lateral sway or Trendelenberg for improved functionnd decreased pain with walking in the home and community LTG Duration 02/21/23 Assessment Summary Assessment Discuss neutral spine and core stablization with typical activities. Needs moderate cues for all, pt taking notes as reminders. Appeared to demonstrate good understanding , likely will need further review. Trendelenberg gait persists without use of trekking poles. Physical Therapy Plan Frequency and Duration Frequency of Treatment 2x/Week Duration of treatment (weeks) 8 Plan of Care Start Date 12/22/22 Plan of Care End Date 02/21/23 Therapeutic Interventions Therapeutic Interventions Balance Training,Gait Training ,Home Exercise Program, Neuromuscular Re-education, Orthotic/Prosthetic Management ,Patient/Caregiver Education, Self-Care/Home Management,Soft Tissue Mobilization,Taping, Therapeutic Activities, Therapeutic Exercises Modalities Cold Pack/Ice Massage,Electric Stimulation,Hot Packs, Infrared Therapy Next Visit Focus/Plan Next Note Type Treatment Note Next Visit Plan Evaluate response to today's treatment, continue functional hip and core strengthening, options for gluteus med and max strengthening. Shuttle balance. Modfy HEP for best success with hip ext, IR,ER, and abduction strengthening both open and closed chain.
--- NOTE | 2023-01-12 16:20 | PT.OTN ---
Current Diagnoses Pain in left hip (01/12/23) Radiculopathy, lumbar region (01/12/23) Difficulty in walking, not elsewhere classified (01/12/23) Weakness (01/12/23) Physical Therapy Treatment Note PT-OP-A Visit Information Start: 12/21/22 16:18 Freq: Status: Active Protocol: Document 01/12/23 14:58 SAK (Rec: 01/12/23 15:43 SAK [id number]) Out-Patient Physical Therapy Visit Information Visit Information Visit Type Treatment Note Visit Start Time 14:58 Visit Stop Time 15:43 Total Visit Minutes 42 Visit Number 4 Evaluation Information Evaluation Date 12/22/22 PT-OP-B Current Condition Start: 12/21/22 16:18 Freq: Status: Active Protocol: Document 01/12/23 14:58 SAK (Rec: 01/12/23 15:43 SAK [id number]) Current Condition History of Current Condition Onset Date 04/01/23 Current Complaints left hip pain, lumbar radiculopathy History of Current Condition s/p lumbar laminectomy L3-L5, prior PT with some improvement, discharged to [facility] and instructions to resume aquatic exercise. Has been doing both but states feels she needs further PT to continue to progress due to persistent pain, difficulty walking. Reports using pillows for support as PT previously recommended. States pain with all mobility skills, occasionally wakes up due to pain. Does exercises in am in bed, SLS at bathtoom counter, HC stretch, iliopsoas stretch standing with sidebending Prior Treatments and Tests Prior PT, doing aquatic exercise. PT-OP-C Subjective Start: 12/21/22 16:18 Freq: Status: Active Protocol: Document 01/12/23 14:58 SAK (Rec: 01/12/23 15:43 SAK [id number]) OP-PT Subjective Patient Comments Patient Comments REports did class for use of trekking poles, found useful. Woke up this am with upper back pain, went away gradually . Taking 8 hr Tylenol 3 times per day. Having more pain in her hands. New doctor first visit 02/07/23. Patient will be traveling for a couple weeks. PT-OP-G Mobility & Gait Start: 12/21/22 16:18 Freq: Status: Active Protocol: Document 12/22/22 09:33 SAK (Rec: 12/22/22 10:52 [facility] [id number]) OP Gait Assessment Gait Gait Assistance Required: Independent Assistive Devices Assistive Device None,Straight Cane Orthotic/Prosthetic Devices or Brace: No Gait Deviations General Gait Pattern Ataxic,Lateral Trunk Lean, Narrow Based Gait Factors Limiting Gait Function Factors Limiting Gait Function Decreased Strength,Pain Comments Gait Comments Trendelenberg right Stair Climbing Evaluation Evaluation Level of Assist On Stairs Independent Devices Stair Climbing Assistive Devices Left Railing,Right Railing Technique/Endurance Stair Climbing Direction Ascend and Descend Stair Climbing Technique Step Over Step PT-OP-H Neuro Start: 12/21/22 16:18 Freq: Status: Active Protocol: Document 12/22/22 09:33 [facility] (Rec: 12/22/22 10:52 [facility] [id number]) Sensation Evaluation Gross Sensation Gross Sensation WNL PT-OP-J Posture/Palpation/Skin Start: 12/21/22 16:18 Freq: Status: Active Protocol: Document 12/22/22 09:33 [facility] (Rec: 12/22/22 10:52 [facility] [id number]) Posture Evaluation Position Standing Head/C-Spine Posture Forward Head T-Spine Posture Increased Kyphosis L-Spine Posture Increased Lordosis Hip Posture (L) Externally Rotated,(R) Externally Rotated PT-OP-K Range of Motion Start: 12/21/22 16:18 Freq: Status: Active Protocol: Document 12/22/22 09:33 [facility] (Rec: 12/22/22 10:52 [facility] [id number]) Lumbar Spine Range of Motion Lumbar Spine Active Comments WFL but with inc pain end ranges. PT-OP-M Strength Start: 12/21/22 16:18 Freq: Status: Active Protocol: Document 12/22/22 09:33 [facility] (Rec: 12/22/22 10:52 [facility] [id number]) Hip Strength Hip Manual Muscle Testing Right Flexion (L2) 4- Good- Extension (S1) 3- Fair- Abduction 3- Fair- Adduction 3+ Fair+ External Rotation 3+ Fair+ Internal Rotation 4- Good- Left Flexion (L2) 4- Good- Extension (S1) 3 Fair Abduction 3+ Fair+ Adduction 3+ Fair+ External Rotation 3+ Fair+ Knee Strength Knee Manual Muscle Testing enrico Flexion (S2) 4+ Good+ Extension (L3) 4+ Good+ Ankle/Foot Strength Ankle and Foot Manual Muscle Testing Right Dorsiflexion (L4) 4 Good Plantarflexion (S1) 4 Good Left Dorsiflexion (L4) 4+ Good+ Plantarflexion (S1) 4+ Good+ PT-OP-Q Treatments Start: 12/21/22 16:18 Freq: Status: Active Protocol: Document 01/12/23 14:58 [facility] (Rec: 01/12/23 15:43 [facility] [id number]) Therapeutic Exercises Sitting Exercises sit to stand Reps/Minutes 5x2 Comments cues for set-up, core and gluteal engagement, alignment shoulder rolls Reps/Minutes 5x2 figure-4 Reps/Minutes 2x30 hip abd Reps/Minutes 10x5 ball squeeze Reps/Minutes 10x5 Hamstring stretch Reps/Minutes 2x30 Standing Exercises kitchen counter stretch Reps/Minutes 2x30 Gait Training Gait Activity [employer] [place] Level of Assistance SBA, VC Surface firm Distance/Duration 100 ft Treatment Focus safety, sequencing Manual Therapy Treatment Soft Tissue Mobilization lumbar paraspinals Mobilization Type Myofascial Release,Strumming Intensity/Depth mod Body Position Sidelying Self-Care/Home Management Treatment Education Other Education instructed in seated HEP for travel as patient taking off on 2 week vacation then has 2 other vacations within the next couple months. Issued written handout PT-OP-T Assessment and Plan Start: 12/21/22 16:18 Freq: Status: Active Protocol: Document 01/12/23 14:58 [facility] (Rec: 01/12/23 15:43 [facility] [id number]) Physical Therapy Assessment Impairments Impairments Activity Tolerance,Gait,Pain, Strength Goals Three Impairment pain l/s and LE Impairment as high as 4/10 Steward/Stewardess Chief C[employer] Vessel Goal (LTG) Improve pain by at least 50% to improve patient function and quality of life LTG Duration 02/21/23 One Impairment activity tolerance Impairment Oswestry Disability Index score 38% Lower extremity functional score 54% Steward/Stewardess Chief Cargo Vessel Goal (LTG) Improve NURIS to no greater than 25% as measure of improved activity tolerance. Improve LEFS to at least 70% LTG Duration 02/21/23 Four Impairment weakness core and hips Impairment painful bed mobility. Short Term Goal (STG) Patient will be instructed in individualized progressive HEP for purposes of strengtheing and stabilization STG Duration 02/21/23 [facility] Goal (LTG) Patient will be independent and compliant with HEP and demonstrate improved hip and core muscle strength to at least 4+/5, and functionally will be able to stand on 1 leg for 10 sec without hip dropping LTG Duration 02/21/23 Two Impairment gait dysfunction Impairment excess lateral sway, hip ER, Trendelenberg [facility] Goal (LTG) Patient will be able to walk with minimal to no lateral sway or Trendelenberg for improved functionnd decreased pain with walking in the home and community LTG Duration 02/21/23 Assessment Summary Assessment Patient traveling several times next few months, interested in what she can do while traveling to decrease soreness, exacerbation of pain . Issued written HEP, demonstrated good understanding. Physical Therapy Plan Frequency and Duration Frequency of Treatment 2x/Week Duration of treatment (weeks) 8 Plan of Care Start Date 12/22/22 Plan of Care End Date 02/21/23 Therapeutic Interventions Therapeutic Interventions Balance Training,Gait Training ,Home Exercise Program, Neuromuscular Re-education, Orthotic/Prosthetic Management ,Patient/Caregiver Education, Self-Care/Home Management,Soft Tissue Mobilization,Taping, Therapeutic Activities, Therapeutic Exercises Modalities Cold Pack/Ice Massage,Electric Stimulation,Hot Packs, Infrared Therapy
--- NOTE | 2023-01-25 16:15 | PT.OTN ---
Current Diagnoses Pain in left hip (01/25/23) Radiculopathy, lumbar region (01/25/23) Difficulty in walking, not elsewhere classified (01/25/23) Weakness (01/25/23) Physical Therapy Treatment Note PT-OP-A Visit Information Start: 12/21/22 16:18 Freq: Status: Active Protocol: Document 01/25/23 14:04 SAK (Rec: 01/25/23 14:52 [facility] [id number]) Out-Patient Physical Therapy Visit Information Visit Information Visit Type Treatment Note Visit Start Time 14:05 Visit Stop Time 14:45 Total Visit Minutes 40 Visit Number 5 Evaluation Information Evaluation Date 12/22/22 PT-OP-B Current Condition Start: 12/21/22 16:18 Freq: Status: Active Protocol: Document 01/25/23 14:04 SAK (Rec: 01/25/23 14:52 [facility] [id number]) Current Condition History of Current Condition Onset Date 04/01/23 Current Complaints left hip pain, lumbar radiculopathy History of Current Condition s/p lumbar laminectomy L3-L5, prior PT with some improvement, discharged to [facility] and instructions to resume aquatic exercise. Has been doing both but states feels she needs further PT to continue to progress due to persistent pain, difficulty walking. Reports using pillows for support as PT previously recommended. States pain with all mobility skills, occasionally wakes up due to pain. Does exercises in am in bed, SLS at bathtoom counter, HC stretch, iliopsoas stretch standing with sidebending Prior Treatments and Tests Prior PT, doing aquatic exercise. PT-OP-C Subjective Start: 12/21/22 16:18 Freq: Status: Active Protocol: Document 01/25/23 14:04 SAK (Rec: 01/25/23 14:52 [facility] [id number]) OP-PT Subjective Patient Comments Patient Comments Just back from cruise ship, first 4 days of trip used trekking poles, then used cane , did ok. Went to pool 1x and had 1 massage.Sore from travel day yesterday. Using pillows for bed positioning as instructed. PT-OP-G Mobility & Gait Start: 12/21/22 16:18 Freq: Status: Active Protocol: Document 12/22/22 09:33 SAK (Rec: 12/22/22 10:52 [facility] [id number]) OP Gait Assessment Gait Gait Assistance Required: Independent Assistive Devices Assistive Device None,Straight Cane Orthotic/Prosthetic Devices or Brace: No Gait Deviations General Gait Pattern Ataxic,Lateral Trunk Lean, Narrow Based Gait Factors Limiting Gait Function Factors Limiting Gait Function Decreased Strength,Pain Comments Gait Comments Trendelenberg right Stair Climbing Evaluation Evaluation Level of Assist On Stairs Independent Devices Stair Climbing Assistive Devices Left Railing,Right Railing Technique/Endurance Stair Climbing Direction Ascend and Descend Stair Climbing Technique Step Over Step PT-OP-H Neuro Start: 12/21/22 16:18 Freq: Status: Active Protocol: Document 12/22/22 09:33 [facility] (Rec: 12/22/22 10:52 [facility] [id number]) Sensation Evaluation Gross Sensation Gross Sensation WNL PT-OP-J Posture/Palpation/Skin Start: 12/21/22 16:18 Freq: Status: Active Protocol: Document 12/22/22 09:33 [facility] (Rec: 12/22/22 10:52 [facility] [id number]) Posture Evaluation Position Standing Head/C-Spine Posture Forward Head T-Spine Posture Increased Kyphosis L-Spine Posture Increased Lordosis Hip Posture (L) Externally Rotated,(R) Externally Rotated PT-OP-K Range of Motion Start: 12/21/22 16:18 Freq: Status: Active Protocol: Document 12/22/22 09:33 [facility] (Rec: 12/22/22 10:52 [facility] [id number]) Lumbar Spine Range of Motion Lumbar Spine Active Comments WFL but with inc pain end ranges. PT-OP-M Strength Start: 12/21/22 16:18 Freq: Status: Active Protocol: Document 12/22/22 09:33 [facility] (Rec: 12/22/22 10:52 [facility] [id number]) Hip Strength Hip Manual Muscle Testing Right Flexion (L2) 4- Good- Extension (S1) 3- Fair- Abduction 3- Fair- Adduction 3+ Fair+ External Rotation 3+ Fair+ Internal Rotation 4- Good- Left Flexion (L2) 4- Good- Extension (S1) 3 Fair Abduction 3+ Fair+ Adduction 3+ Fair+ External Rotation 3+ Fair+ Knee Strength Knee Manual Muscle Testing enrico Flexion (S2) 4+ Good+ Extension (L3) 4+ Good+ Ankle/Foot Strength Ankle and Foot Manual Muscle Testing Right Dorsiflexion (L4) 4 Good Plantarflexion (S1) 4 Good Left Dorsiflexion (L4) 4+ Good+ Plantarflexion (S1) 4+ Good+ PT-OP-Q Treatments Start: 12/21/22 16:18 Freq: Status: Active Protocol: Document 01/25/23 14:04 [facility] (Rec: 01/25/23 14:52 [facility] [id number]) Therapeutic Exercises Sitting Exercises LAQ Reps/Minutes 5x Comments cues for upright spine Standing Exercises resisted sidestep Equipment Used yellow TB Reps/Minutes 6 ft enrico hip ab Reps/Minutes 10x right, 3x left (painful left hip today) heel/toe raise Reps/Minutes 10x QL stretch Standing Exercise Name iliopsoas Reps/Minutes 2x30 Comments cues for stretch up kitchen counter stretch Reps/Minutes 2x30 calf stretch Equipment Used wall Reps/Minutes 2x30 Comments cues for straight foot, upright posture with glut set for hip flex stretch weight shifts Standing Exercise Name fwd/bck in stride Side bilateral Resistance manual x 10 reps ea LE in front Equipment Used mirror for visual feedback Reps/Minutes 15 min Comments cues for neutral spine and hips, min UE support PT-OP-T Assessment and Plan Start: 12/21/22 16:18 Freq: Status: Active Protocol: Document 01/25/23 14:04 [facility] (Rec: 01/25/23 14:52 [facility] [id number]) Physical Therapy Assessment Impairments Impairments Activity Tolerance,Gait,Pain, Strength Goals Three Impairment pain l/s and LE Impairment as high as 4/10 Solar [employer]ovolta[employer] Goal (LTG) Improve pain by at least 50% to improve patient function and quality of life LTG Duration 02/21/23 One Impairment activity tolerance Impairment Oswestry Disability Index score 38% Lower extremity functional score 54% [facility] Goal (LTG) Improve NURIS to no greater than 25% as measure of improved activity tolerance. Improve LEFS to at least 70% LTG Duration 02/21/23 Four Impairment weakness core and hips Impairment painful bed mobility. Short Term Goal (STG) Patient will be instructed in individualized progressive HEP for purposes of strengtheing and stabilization STG Duration 02/21/23 [employer] Goal (LTG) Patient will be independent and compliant with HEP and demonstrate improved hip and core muscle strength to at least 4+/5, and functionally will be able to stand on 1 leg for 10 sec without hip dropping LTG Duration 02/21/23 Two Impairment gait dysfunction Impairment excess lateral sway, hip ER, Trendelenberg [employer] Goal (LTG) Patient will be able to walk with minimal to no lateral sway or Trendelenberg for improved functionnd decreased pain with walking in the home and community LTG Duration 02/21/23 Assessment Summary Assessment Use of mirror for weight-shift as pre-gait activity helpful to patient as has difficulty feeling alignment. Patient sore and fatigued from travel, able to participate but inc rest breaks required. Physical Therapy Plan Frequency and Duration Frequency of Treatment 2x/Week Duration of treatment (weeks) 8 Plan of Care Start Date 12/22/22 Plan of Care End Date 02/21/23 Therapeutic Interventions Therapeutic Interventions Balance Training,Gait Training ,Home Exercise Program, Neuromuscular Re-education, Orthotic/Prosthetic Management ,Patient/Caregiver Education, Self-Care/Home Management,Soft Tissue Mobilization,Taping, Therapeutic Activities, Therapeutic Exercises Modalities Cold Pack/Ice Massage,Electric Stimulation,Hot Packs, Infrared Therapy Next Visit Focus/Plan Next Note Type Treatment Note Next Visit Plan Evaluate response to today's treatment, continue functional hip and core strengthening, options for gluteus med and max strengthening. Shuttle balance. Modfy HEP for best success with hip ext, IR,ER, and abduction strengthening both open and closed chain.
--- NOTE | 2023-02-07 16:00 | PT.OTN ---
Current Diagnoses Pain in left hip (02/07/23) Radiculopathy, lumbar region (02/07/23) Difficulty in walking, not elsewhere classified (02/07/23) Weakness (02/07/23) Physical Therapy Treatment Note PT-OP-A Visit Information Start: 12/21/22 16:18 Freq: Status: Active Protocol: Document 02/07/23 14:04 SAK (Rec: 02/07/23 14:49 [facility] [id number]) Out-Patient Physical Therapy Visit Information Visit Information Visit Type Treatment Note Visit Start Time 14:05 Visit Stop Time 14:45 Total Visit Minutes 40 Visit Number 6 Evaluation Information Evaluation Date 12/22/22 PT-OP-B Current Condition Start: 12/21/22 16:18 Freq: Status: Active Protocol: Document 02/07/23 14:04 SAK (Rec: 02/07/23 14:49 [facility] [id number]) Current Condition History of Current Condition Onset Date 04/01/23 Current Complaints left hip pain, lumbar radiculopathy History of Current Condition s/p lumbar laminectomy L3-L5, prior PT with some improvement, discharged to [facility] and instructions to resume aquatic exercise. Has been doing both but states feels she needs further PT to continue to progress due to persistent pain, difficulty walking. Reports using pillows for support as PT previously recommended. States pain with all mobility skills, occasionally wakes up due to pain. Does exercises in am in bed, SLS at bathtoom counter, HC stretch, iliopsoas stretch standing with sidebending Prior Treatments and Tests Prior PT, doing aquatic exercise. PT-OP-C Subjective Start: 12/21/22 16:18 Freq: Status: Active Protocol: Document 02/07/23 14:04 SAK (Rec: 02/07/23 14:49 [facility] [id number]) OP-PT Subjective Patient Comments Patient Comments Wondering about a bag for trekking poles. New physician Trish Gabriel; saw her this am, going to get back on Meloxicam for arthritis pain. Going to have x-rays on knees and hips and appointment with orthopedic physician. Patient will be traveling a lot the next couple months with min PT. Needs review on exercises for improving gait, not sure if doing correctly. Doing aquatic exercises 3x/wk. PT-OP-G Mobility & Gait Start: 12/21/22 16:18 Freq: Status: Active Protocol: Document 12/22/22 09:33 [facility] (Rec: 12/22/22 10:52 [facility] [id number]) OP Gait Assessment Gait Gait Assistance Required: Independent Assistive Devices Assistive Device None,Straight Cane Orthotic/Prosthetic Devices or Brace: No Gait Deviations General Gait Pattern Ataxic,Lateral Trunk Lean, Narrow Based Gait Factors Limiting Gait Function Factors Limiting Gait Function Decreased Strength,Pain Comments Gait Comments Trendelenberg right Stair Climbing Evaluation Evaluation Level of Assist On Stairs Independent Devices Stair Climbing Assistive Devices Left Railing,Right Railing Technique/Endurance Stair Climbing Direction Ascend and Descend Stair Climbing Technique Step Over Step PT-OP-H Neuro Start: 12/21/22 16:18 Freq: Status: Active Protocol: Document 12/22/22 09:33 [facility] (Rec: 12/22/22 10:52 [facility] [id number]) Sensation Evaluation Gross Sensation Gross Sensation WNL PT-OP-J Posture/Palpation/Skin Start: 12/21/22 16:18 Freq: Status: Active Protocol: Document 12/22/22 09:33 [facility] (Rec: 12/22/22 10:52 [facility] [id number]) Posture Evaluation Position Standing Head/C-Spine Posture Forward Head T-Spine Posture Increased Kyphosis L-Spine Posture Increased Lordosis Hip Posture (L) Externally Rotated,(R) Externally Rotated PT-OP-K Range of Motion Start: 12/21/22 16:18 Freq: Status: Active Protocol: Document 12/22/22 09:33 [facility] (Rec: 12/22/22 10:52 [facility] [id number]) Lumbar Spine Range of Motion Lumbar Spine Active Comments WFL but with inc pain end ranges. PT-OP-M Strength Start: 12/21/22 16:18 Freq: Status: Active Protocol: Document 12/22/22 09:33 [facility] (Rec: 12/22/22 10:52 [facility] [id number]) Hip Strength Hip Manual Muscle Testing Right Flexion (L2) 4- Good- Extension (S1) 3- Fair- Abduction 3- Fair- Adduction 3+ Fair+ External Rotation 3+ Fair+ Internal Rotation 4- Good- Left Flexion (L2) 4- Good- Extension (S1) 3 Fair Abduction 3+ Fair+ Adduction 3+ Fair+ External Rotation 3+ Fair+ Knee Strength Knee Manual Muscle Testing enrico Flexion (S2) 4+ Good+ Extension (L3) 4+ Good+ Ankle/Foot Strength Ankle and Foot Manual Muscle Testing Right Dorsiflexion (L4) 4 Good Plantarflexion (S1) 4 Good Left Dorsiflexion (L4) 4+ Good+ Plantarflexion (S1) 4+ Good+ PT-OP-Q Treatments Start: 12/21/22 16:18 Freq: Status: Active Protocol: Document 02/07/23 14:04 [facility] (Rec: 02/07/23 14:49 [facility] [id number]) Gym Equipment Shuttle Recovery Bilateral Squats Reps/Time next session Unilateral Squats Reps/Time next session Therapeutic Exercises Standing Exercises weight shifts Standing Exercise Name fwd/bck in stride Side bilateral Resistance manual x 10 reps ea LE in front Equipment Used mirror for visual feedback Reps/Minutes 15 min Comments cues for neutral spine and hips, min UE support Gait Training Gait Activity pre-gait wt shifts Distance/Duration 6 min Treatment Focus symmetry, hips level Comments use of mirror cues for gluteal activation decrease step length for improved stability. level Device Used cane left Treatment Focus dec lateral shift, gluteal activation Comments mirror for visual feedback. Self-Care/Home Management Treatment Education Patient Education Home Exercise Program,Safety Other Education neutral positioning in sitting ; use of mirror for visual feedback options for bag to carry trekking poles HEP review Aquatic exercise verbal review PT-OP-T Assessment and Plan Start: 12/21/22 16:18 Freq: Status: Active Protocol: Document 02/07/23 14:04 [facility] (Rec: 02/07/23 14:49 [facility] [id number]) Physical Therapy Assessment Goals Three Impairment pain l/s and LE Impairment as high as 4/10 Intermediate Goal (LTG) Improve pain by at least 50% to improve patient function and quality of life LTG Duration 02/21/23 One Impairment activity tolerance Impairment Oswestry Disability Index score 38% Lower extremity functional score 54% Intermediate Goal (LTG) Improve NURIS to no greater than 25% as measure of improved activity tolerance. Improve LEFS to at least 70% LTG Duration 02/21/23 Four Impairment weakness core and hips Impairment painful bed mobility. Short Term Goal (STG) Patient will be instructed in individualized progressive HEP for purposes of strengtheing and stabilization STG Duration 02/21/23 Inter[facility] Goal (LTG) Patient will be independent and compliant with HEP and demonstrate improved hip and core muscle strength to at least 4+/5, and functionally will be able to stand on 1 leg for 10 sec without hip dropping LTG Duration 02/21/23 Two Impairment gait dysfunction Impairment excess lateral sway, hip ER, Trendelenberg Intermediate Goal (LTG) Patient will be able to walk with minimal to no lateral sway or Trendelenberg for improved functionnd decreased pain with walking in the home and community LTG Duration 02/21/23 Assessment Summary Assessment Patient has poor body awareness requiring moderate to constant cues for correct exercise performance, becomes easily confused. Difficulty activating gluteals for stability in stance. Encouraged continued use of cane for safety and stability, cont HEP. REcommend inc speed with aquatic exercises for increased resistance. Physical Therapy Plan Frequency and Duration Frequency of Treatment 2x/Week Duration of treatment (weeks) 8 Plan of Care Start Date 12/22/22 Plan of Care End Date 02/21/23 Therapeutic Interventions Therapeutic Interventions Balance Training,Gait Training ,Home Exercise Program, Neuromuscular Re-education, Orthotic/Prosthetic Management ,Patient/Caregiver Education, Self-Care/Home Management,Soft Tissue Mobilization,Taping, Therapeutic Activities, Therapeutic Exercises Modalities Cold Pack/Ice Massage,Electric Stimulation,Hot Packs, Infrared Therapy Next Visit Focus/Plan Next Note Type Treatment Note Next Visit Plan Patient instruction for weight training to be done in fitness center for hip strengthening.
--- NOTE | 2023-02-08 09:15 | PT.OTN ---
Current Diagnoses Pain in left hip (02/07/23) Radiculopathy, lumbar region (02/07/23) Difficulty in walking, not elsewhere classified (02/07/23) Weakness (02/07/23) Physical Therapy Treatment Note PT-OP-A Visit Information Start: 12/21/22 16:18 Freq: Status: Active Protocol: Document 02/07/23 14:04 SAK (Rec: 02/07/23 14:49 [facility] [id number]) Out-Patient Physical Therapy Visit Information Visit Information Visit Type Treatment Note Visit Start Time 14:05 Visit Stop Time 14:45 Total Visit Minutes 40 Visit Number 6 Evaluation Information Evaluation Date 12/22/22 PT-OP-B Current Condition Start: 12/21/22 16:18 Freq: Status: Active Protocol: Document 02/07/23 14:04 SAK (Rec: 02/07/23 14:49 [facility] [id number]) Current Condition History of Current Condition Onset Date 04/01/23 Current Complaints left hip pain, lumbar radiculopathy History of Current Condition s/p lumbar laminectomy L3-L5, prior PT with some improvement, discharged to [facility] and instructions to resume aquatic exercise. Has been doing both but states feels she needs further PT to continue to progress due to persistent pain, difficulty walking. Reports using pillows for support as PT previously recommended. States pain with all mobility skills, occasionally wakes up due to pain. Does exercises in am in bed, SLS at bathtoom counter, HC stretch, iliopsoas stretch standing with sidebending Prior Treatments and Tests Prior PT, doing aquatic exercise. PT-OP-C Subjective Start: 12/21/22 16:18 Freq: Status: Active Protocol: Document 02/07/23 14:04 SAK (Rec: 02/07/23 14:49 [facility] [id number]) OP-PT Subjective Patient Comments Patient Comments Wondering about a bag for trekking poles. New physician Trish Gabriel; saw her this am, going to get back on Meloxicam for arthritis pain. Going to have x-rays on knees and hips and appointment with orthopedic physician. Patient will be traveling a lot the next couple months with min PT. Needs review on exercises for improving gait, not sure if doing correctly. Doing aquatic exercises 3x/wk. PT-OP-G Mobility & Gait Start: 12/21/22 16:18 Freq: Status: Active Protocol: Document 12/22/22 09:33 [facility] (Rec: 12/22/22 10:52 [facility] [id number]) OP Gait Assessment Gait Gait Assistance Required: Independent Assistive Devices Assistive Device None,Straight Cane Orthotic/Prosthetic Devices or Brace: No Gait Deviations General Gait Pattern Ataxic,Lateral Trunk Lean, Narrow Based Gait Factors Limiting Gait Function Factors Limiting Gait Function Decreased Strength,Pain Comments Gait Comments Trendelenberg right Stair Climbing Evaluation Evaluation Level of Assist On Stairs Independent Devices Stair Climbing Assistive Devices Left Railing,Right Railing Technique/Endurance Stair Climbing Direction Ascend and Descend Stair Climbing Technique Step Over Step PT-OP-H Neuro Start: 12/21/22 16:18 Freq: Status: Active Protocol: Document 12/22/22 09:33 [facility] (Rec: 12/22/22 10:52 [facility] [id number]) Sensation Evaluation Gross Sensation Gross Sensation WNL PT-OP-J Posture/Palpation/Skin Start: 12/21/22 16:18 Freq: Status: Active Protocol: Document 12/22/22 09:33 [facility] (Rec: 12/22/22 10:52 [facility] [id number]) Posture Evaluation Position Standing Head/C-Spine Posture Forward Head T-Spine Posture Increased Kyphosis L-Spine Posture Increased Lordosis Hip Posture (L) Externally Rotated,(R) Externally Rotated PT-OP-K Range of Motion Start: 12/21/22 16:18 Freq: Status: Active Protocol: Document 12/22/22 09:33 [facility] (Rec: 12/22/22 10:52 [facility] [id number]) Lumbar Spine Range of Motion Lumbar Spine Active Comments WFL but with inc pain end ranges. PT-OP-M Strength Start: 12/21/22 16:18 Freq: Status: Active Protocol: Document 12/22/22 09:33 [facility] (Rec: 12/22/22 10:52 [facility] [id number]) Hip Strength Hip Manual Muscle Testing Right Flexion (L2) 4- Good- Extension (S1) 3- Fair- Abduction 3- Fair- Adduction 3+ Fair+ External Rotation 3+ Fair+ Internal Rotation 4- Good- Left Flexion (L2) 4- Good- Extension (S1) 3 Fair Abduction 3+ Fair+ Adduction 3+ Fair+ External Rotation 3+ Fair+ Knee Strength Knee Manual Muscle Testing enrico Flexion (S2) 4+ Good+ Extension (L3) 4+ Good+ Ankle/Foot Strength Ankle and Foot Manual Muscle Testing Right Dorsiflexion (L4) 4 Good Plantarflexion (S1) 4 Good Left Dorsiflexion (L4) 4+ Good+ Plantarflexion (S1) 4+ Good+ PT-OP-Q Treatments Start: 12/21/22 16:18 Freq: Status: Active Protocol: Document 02/07/23 14:04 [facility] (Rec: 02/07/23 14:49 [facility] [id number]) Gym Equipment Shuttle Recovery Bilateral Squats Reps/Time next session Unilateral Squats Reps/Time next session Therapeutic Exercises Standing Exercises weight shifts Standing Exercise Name fwd/bck in stride Side bilateral Resistance manual x 10 reps ea LE in front Equipment Used mirror for visual feedback Reps/Minutes 15 min Comments cues for neutral spine and hips, min UE support Gait Training Gait Activity pre-gait wt shifts Distance/Duration 6 min Treatment Focus symmetry, hips level Comments use of mirror cues for gluteal activation decrease step length for improved stability. level Device Used cane left Treatment Focus dec lateral shift, gluteal activation Comments mirror for visual feedback. Self-Care/Home Management Treatment Education Patient Education Home Exercise Program,Safety Other Education neutral positioning in sitting ; use of mirror for visual feedback options for bag to carry trekking poles HEP review Aquatic exercise verbal review PT-OP-T Assessment and Plan Start: 12/21/22 16:18 Freq: Status: Active Protocol: Document 02/07/23 14:04 [facility] (Rec: 02/07/23 14:49 [facility] [id number]) Physical Therapy Assessment Goals Three Impairment pain l/s and LE Impairment as high as 4/10 Senior Care Goal (LTG) Improve pain by at least 50% to improve patient function and quality of life LTG Duration 02/21/23 One Impairment activity tolerance Impairment Oswestry Disability Index score 38% Lower extremity functional score 54% Senior Care Goal (LTG) Improve NURIS to no greater than 25% as measure of improved activity tolerance. Improve LEFS to at least 70% LTG Duration 02/21/23 Four Impairment weakness core and hips Impairment painful bed mobility. Short Term Goal (STG) Patient will be instructed in individualized progressive HEP for purposes of strengtheing and stabilization STG Duration 02/21/23 Senior Care Goal (LTG) Patient will be independent and compliant with HEP and demonstrate improved hip and core muscle strength to at least 4+/5, and functionally will be able to stand on 1 leg for 10 sec without hip dropping LTG Duration 02/21/23 Two Impairment gait dysfunction Impairment excess lateral sway, hip ER, Trendelenberg Senior Care Goal (LTG) Patient will be able to walk with minimal to no lateral sway or Trendelenberg for improved functionnd decreased pain with walking in the home and community LTG Duration 02/21/23 Assessment Summary Assessment Patient has poor body awareness requiring moderate to constant cues for correct exercise performance, becomes easily confused. Difficulty activating gluteals for stability in stance. Encouraged continued use of cane for safety and stability, cont HEP. REcommend inc speed with aquatic exercises for increased resistance. Physical Therapy Plan Frequency and Duration Frequency of Treatment 2x/Week Duration of treatment (weeks) 8 Plan of Care Start Date 12/22/22 Plan of Care End Date 02/21/23 Therapeutic Interventions Therapeutic Interventions Balance Training,Gait Training ,Home Exercise Program, Neuromuscular Re-education, Orthotic/Prosthetic Management ,Patient/Caregiver Education, Self-Care/Home Management,Soft Tissue Mobilization,Taping, Therapeutic Activities, Therapeutic Exercises Modalities Cold Pack/Ice Massage,Electric Stimulation,Hot Packs, Infrared Therapy Next Visit Focus/Plan Next Note Type Treatment Note Next Visit Plan Patient instruction for weight training to be done in fitness center for hip strengthening.
--- NOTE | 2023-02-09 12:00 | PT-OP ANOTE ---
patient cancelled PT due to being sick
--- NOTE | 2023-02-14 16:57 | PT.OTN ---
Current Diagnoses Pain in left hip (02/14/23) Radiculopathy, lumbar region (02/14/23) Difficulty in walking, not elsewhere classified (02/14/23) Weakness (02/14/23) Physical Therapy Treatment Note PT-OP-A Visit Information Start: 12/21/22 16:18 Freq: Status: Active Protocol: Document 02/14/23 14:02 SAK (Rec: 02/14/23 15:03 [facility]AK [id number]) Out-Patient Physical Therapy Visit Information Visit Information Visit Type Treatment Note Visit Start Time 14:02 Visit Stop Time 14:45 Total Visit Minutes 43 Visit Number 7 Evaluation Information Evaluation Date 12/22/22 PT-OP-B Current Condition Start: 12/21/22 16:18 Freq: Status: Active Protocol: Document 02/14/23 14:02 SAK (Rec: 02/14/23 15:03 [facility]AK [id number]) Current Condition History of Current Condition Onset Date 04/01/23 Current Complaints left hip pain, lumbar radiculopathy History of Current Condition s/p lumbar laminectomy L3-L5, prior PT with some improvement, discharged to [facility] and instructions to resume aquatic exercise. Has been doing both but states feels she needs further PT to continue to progress due to persistent pain, difficulty walking. Reports using pillows for support as PT previously recommended. States pain with all mobility skills, occasionally wakes up due to pain. Does exercises in am in bed, SLS at bathtoom counter, HC stretch, iliopsoas stretch standing with sidebending Prior Treatments and Tests Prior PT, doing aquatic exercise. PT-OP-C Subjective Start: 12/21/22 16:18 Freq: Status: Active Protocol: Document 02/14/23 14:02 SAK (Rec: 02/14/23 15:03 [facility]AK [id number]) OP-PT Subjective Patient Comments Patient Comments getting ready for vacation soon. Walked 1000 steps in [place], fatigued, had to take nap. Just started taking Meloxicam yesterday. Reports paying better attention to using cane consistently, positioning herself in more neutral position. PT-OP-G Mobility & Gait Start: 12/21/22 16:18 Freq: Status: Active Protocol: Document 12/22/22 09:33 SAK (Rec: 12/22/22 10:52 [facility]AK [id number]) OP Gait Assessment Gait Gait Assistance Required: Independent Assistive Devices Assistive Device None,Straight Cane Orthotic/Prosthetic Devices or Brace: No Gait Deviations General Gait Pattern Ataxic,Lateral Trunk Lean, Narrow Based Gait Factors Limiting Gait Function Factors Limiting Gait Function Decreased Strength,Pain Comments Gait Comments Trendelenberg right Stair Climbing Evaluation Evaluation Level of Assist On Stairs Independent Devices Stair Climbing Assistive Devices Left Railing,Right Railing Technique/Endurance Stair Climbing Direction Ascend and Descend Stair Climbing Technique Step Over Step PT-OP-H Neuro Start: 12/21/22 16:18 Freq: Status: Active Protocol: Document 12/22/22 09:33 [facility] (Rec: 12/22/22 10:52 [facility] [id number]) Sensation Evaluation Gross Sensation Gross Sensation WNL PT-OP-J Posture/Palpation/Skin Start: 12/21/22 16:18 Freq: Status: Active Protocol: Document 12/22/22 09:33 [facility] (Rec: 12/22/22 10:52 [facility] [id number]) Posture Evaluation Position Standing Head/C-Spine Posture Forward Head T-Spine Posture Increased Kyphosis L-Spine Posture Increased Lordosis Hip Posture (L) Externally Rotated,(R) Externally Rotated PT-OP-K Range of Motion Start: 12/21/22 16:18 Freq: Status: Active Protocol: Document 12/22/22 09:33 [facility] (Rec: 12/22/22 10:52 [facility] [id number]) Lumbar Spine Range of Motion Lumbar Spine Active Comments WFL but with inc pain end ranges. PT-OP-M Strength Start: 12/21/22 16:18 Freq: Status: Active Protocol: Document 12/22/22 09:33 [facility] (Rec: 12/22/22 10:52 [facility] [id number]) Hip Strength Hip Manual Muscle Testing Right Flexion (L2) 4- Good- Extension (S1) 3- Fair- Abduction 3- Fair- Adduction 3+ Fair+ External Rotation 3+ Fair+ Internal Rotation 4- Good- Left Flexion (L2) 4- Good- Extension (S1) 3 Fair Abduction 3+ Fair+ Adduction 3+ Fair+ External Rotation 3+ Fair+ Knee Strength Knee Manual Muscle Testing enrico Flexion (S2) 4+ Good+ Extension (L3) 4+ Good+ Ankle/Foot Strength Ankle and Foot Manual Muscle Testing Right Dorsiflexion (L4) 4 Good Plantarflexion (S1) 4 Good Left Dorsiflexion (L4) 4+ Good+ Plantarflexion (S1) 4+ Good+ PT-OP-Q Treatments Start: 12/21/22 16:18 Freq: Status: Active Protocol: Document 02/14/23 14:02 [facility] (Rec: 02/14/23 15:03 [facility] [id number]) Cardio Equipment Recumbent Stepper (Sci-Fit) Duration (Minutes) 8 Resistance 1.8 Seat Position 11 Gym Equipment Cable Column (Body Solid) hamstring curl Reps/Time next session abd Resistance 20 Reps/Time 10x2 hip add Resistance 25 Reps/Time 10x2 Shuttle Recovery Bilateral Squats Resistance 50 Shuttle Recovery Platform Stable Reps/Time 10x2 Unilateral Squats Details stronger right Resistance 12 Shuttle Recovery Platform Stable Reps/Time 10x Therapeutic Exercises Sidelying Exercises hip abduction Equipment Used wall, mod assist Reps/Minutes 10x Comments cues to maintain neutral alignment, very weak, unable to perform neutral Standing Exercises weight shifts Standing Exercise Name fwd/bck in stride Side bilateral Resistance manual x 10 reps ea LE in front Equipment Used mirror for visual feedback Reps/Minutes 15 min Comments cues for neutral spine and hips, min UE support Gait Training Gait Activity pre-gait wt shifts Distance/Duration 6 min Treatment Focus symmetry, hips level Comments use of mirror cues for gluteal activation decrease step length for improved stability. level Device Used cane left Treatment Focus dec lateral shift, gluteal activation Comments mirror for visual feedback. PT-OP-T Assessment and Plan Start: 12/21/22 16:18 Freq: Status: Active Protocol: Document 02/14/23 14:02 [facility] (Rec: 02/14/23 15:03 [facility] [id number]) Physical Therapy Assessment Goals Three Impairment pain l/s and LE Impairment as high as 4/10 Payroll Benefits Administrator Goal (LTG) Improve pain by at least 50% to improve patient function and quality of life LTG Duration 02/21/23 One Impairment activity tolerance Impairment Oswestry Disability Index score 38% Lower extremity functional score 54% Payroll Benefits Administrator Goal (LTG) Improve NURIS to no greater than 25% as measure of improved activity tolerance. Improve LEFS to at least 70% LTG Duration 02/21/23 Four Impairment weakness core and hips Impairment painful bed mobility. Short Term Goal (STG) Patient will be instructed in individualized progressive HEP for purposes of strengtheing and stabilization STG Duration 02/21/23 Payroll Benefits Administrator Goal (LTG) Patient will be independent and compliant with HEP and demonstrate improved hip and core muscle strength to at least 4+/5, and functionally will be able to stand on 1 leg for 10 sec without hip dropping LTG Duration 02/21/23 Two Impairment gait dysfunction Impairment excess lateral sway, hip ER, Trendelenberg Payroll Benefits Administrator Goal (LTG) Patient will be able to walk with minimal to no lateral sway or Trendelenberg for improved functionnd decreased pain with walking in the home and community LTG Duration 02/21/23 Assessment Summary Assessment Better tolerance for supine hip abduction with plastic bag under for hip abduction strengthening; unable to perform anti-gravity. Fatigues quickly. Improved postural awareness with gait today. Good tolerance for shuttle leg press and hip ab/ ad in Body Solid. Physical Therapy Plan Frequency and Duration Frequency of Treatment 2x/Week Duration of treatment (weeks) 8 Plan of Care Start Date 12/22/22 Plan of Care End Date 02/21/23 Therapeutic Interventions Therapeutic Interventions Balance Training,Gait Training ,Home Exercise Program, Neuromuscular Re-education, Orthotic/Prosthetic Management ,Patient/Caregiver Education, Self-Care/Home Management,Soft Tissue Mobilization,Taping, Therapeutic Activities, Therapeutic Exercises Modalities Cold Pack/Ice Massage,Electric Stimulation,Hot Packs, Infrared Therapy Next Visit Focus/Plan Next Note Type Treatment Note Next Visit Plan Instruct in therapy ballPatient instruction for weight training to be done in fitness center for hip strengthening.
--- NOTE | 2023-02-16 14:53 | PT.OTN ---
Current Diagnoses Pain in left hip (02/16/23) Radiculopathy, lumbar region (02/16/23) Difficulty in walking, not elsewhere classified (02/16/23) Weakness (02/16/23) Physical Therapy Treatment Note PT-OP-A Visit Information Start: 12/21/22 16:18 Freq: Status: Active Protocol: Document 02/16/23 14:02 SAK (Rec: 02/16/23 14:53 [facility] [id number]) Out-Patient Physical Therapy Visit Information Visit Information Visit Type Treatment Note Visit Start Time 14:02 Visit Stop Time 14:45 Total Visit Minutes 43 Visit Number 8 Evaluation Information Evaluation Date 12/22/22 PT-OP-B Current Condition Start: 12/21/22 16:18 Freq: Status: Active Protocol: Document 02/16/23 14:02 SAK (Rec: 02/16/23 14:53 [facility] [id number]) Current Condition History of Current Condition Onset Date 04/01/23 Current Complaints left hip pain, lumbar radiculopathy History of Current Condition s/p lumbar laminectomy L3-L5, prior PT with some improvement, discharged to [facility] and instructions to resume aquatic exercise. Has been doing both but states feels she needs further PT to continue to progress due to persistent pain, difficulty walking. Reports using pillows for support as PT previously recommended. States pain with all mobility skills, occasionally wakes up due to pain. Does exercises in am in bed, SLS at bathtoom counter, HC stretch, iliopsoas stretch standing with sidebending Prior Treatments and Tests Prior PT, doing aquatic exercise. PT-OP-C Subjective Start: 12/21/22 16:18 Freq: Status: Active Protocol: Document 02/16/23 14:02 SAK (Rec: 02/16/23 14:53 [facility] [id number]) OP-PT Subjective Patient Comments Patient Comments Slept the best she has in a long time 02/14/23, not sure why. Pollock good yesterday. Didn't sleep well last night. Taking Meloxicam. Has appointment with orthopedist early March. PT-OP-G Mobility & Gait Start: 12/21/22 16:18 Freq: Status: Active Protocol: Document 12/22/22 09:33 SAK (Rec: 12/22/22 10:52 SAK [id number]) OP Gait Assessment Gait Gait Assistance Required: Independent Assistive Devices Assistive Device None,Straight Cane Orthotic/Prosthetic Devices or Brace: No Gait Deviations General Gait Pattern Ataxic,Lateral Trunk Lean, Narrow Based Gait Factors Limiting Gait Function Factors Limiting Gait Function Decreased Strength,Pain Comments Gait Comments Trendelenberg right Stair Climbing Evaluation Evaluation Level of Assist On Stairs Independent Devices Stair Climbing Assistive Devices Left Railing,Right Railing Technique/Endurance Stair Climbing Direction Ascend and Descend Stair Climbing Technique Step Over Step PT-OP-H Neuro Start: 12/21/22 16:18 Freq: Status: Active Protocol: Document 12/22/22 09:33 [facility] (Rec: 12/22/22 10:52 [facility] [id number]) Sensation Evaluation Gross Sensation Gross Sensation WNL PT-OP-J Posture/Palpation/Skin Start: 12/21/22 16:18 Freq: Status: Active Protocol: Document 12/22/22 09:33 [facility] (Rec: 12/22/22 10:52 [facility] [id number]) Posture Evaluation Position Standing Head/C-Spine Posture Forward Head T-Spine Posture Increased Kyphosis L-Spine Posture Increased Lordosis Hip Posture (L) Externally Rotated,(R) Externally Rotated PT-OP-K Range of Motion Start: 12/21/22 16:18 Freq: Status: Active Protocol: Document 12/22/22 09:33 [facility] (Rec: 12/22/22 10:52 [facility] [id number]) Lumbar Spine Range of Motion Lumbar Spine Active Comments WFL but with inc pain end ranges. PT-OP-M Strength Start: 12/21/22 16:18 Freq: Status: Active Protocol: Document 12/22/22 09:33 [facility] (Rec: 12/22/22 10:52 [facility] [id number]) Hip Strength Hip Manual Muscle Testing Right Flexion (L2) 4- Good- Extension (S1) 3- Fair- Abduction 3- Fair- Adduction 3+ Fair+ External Rotation 3+ Fair+ Internal Rotation 4- Good- Left Flexion (L2) 4- Good- Extension (S1) 3 Fair Abduction 3+ Fair+ Adduction 3+ Fair+ External Rotation 3+ Fair+ Knee Strength Knee Manual Muscle Testing enrico Flexion (S2) 4+ Good+ Extension (L3) 4+ Good+ Ankle/Foot Strength Ankle and Foot Manual Muscle Testing Right Dorsiflexion (L4) 4 Good Plantarflexion (S1) 4 Good Left Dorsiflexion (L4) 4+ Good+ Plantarflexion (S1) 4+ Good+ PT-OP-Q Treatments Start: 12/21/22 16:18 Freq: Status: Active Protocol: Document 02/16/23 14:02 [facility] (Rec: 02/16/23 14:53 [facility] [id number]) Cardio Equipment Recumbent Stepper (Sci-Fit) Duration (Minutes) 8 Resistance 1.8 Seat Position 11 Gym Equipment Cable Column (Body Solid) hamstring curl Resistance 30 Reps/Time 10x2 abd Resistance 20 Reps/Time 10x2 hip add Resistance 25 Reps/Time 10x2 Shuttle Recovery Bilateral Squats Resistance 50 Shuttle Recovery Platform Stable Reps/Time 10x2 Unilateral Squats Details stronger right Resistance 25 Shuttle Recovery Platform Stable Reps/Time 10x Therapeutic Exercises Supine Exercises hip abduction Equipment Used slider sheet Reps/Minutes 10x Comments cues for knee and foot pointing up Standing Exercises weight shifts Standing Exercise Name fwd/bck in stride Side bilateral Resistance manual x 10 reps ea LE in front Equipment Used mirror for visual feedback Reps/Minutes 15 min Comments cues for neutral spine and hips, min UE support Gait Training Gait Activity pre-gait wt shifts Distance/Duration 6 min Treatment Focus symmetry, hips level Comments use of mirror cues for gluteal activation decrease step length for improved stability. level Device Used cane left Treatment Focus dec lateral shift, gluteal activation Comments mirror for visual feedback. PT-OP-T Assessment and Plan Start: 12/21/22 16:18 Freq: Status: Active Protocol: Document 02/16/23 14:02 [facility] (Rec: 02/16/23 14:53 [facility] [id number]) Physical Therapy Assessment Goals Three Impairment pain l/s and LE Impairment as high as 4/10 Usp Goal (LTG) Improve pain by at least 50% to improve patient function and quality of life LTG Duration 02/21/23 One Impairment activity tolerance Impairment Oswestry Disability Index score 38% Lower extremity functional score 54% Usp Goal (LTG) Improve NURIS to no greater than 25% as measure of improved activity tolerance. Improve LEFS to at least 70% LTG Duration 02/21/23 Four Impairment weakness core and hips Impairment painful bed mobility. Short Term Goal (STG) Patient will be instructed in individualized progressive HEP for purposes of strengtheing and stabilization STG Duration 02/21/23 Site Administrator Goal (LTG) Patient will be independent and compliant with HEP and demonstrate improved hip and core muscle strength to at least 4+/5, and functionally will be able to stand on 1 leg for 10 sec without hip dropping LTG Duration 02/21/23 Two Impairment gait dysfunction Impairment excess lateral sway, hip ER, Trendelenberg Usp Goal (LTG) Patient will be able to walk with minimal to no lateral sway or Trendelenberg for improved functionnd decreased pain with walking in the home and community LTG Duration 02/21/23 Assessment Summary Assessment Patient highly fatigued today due to poor sleep, difficulty focusing on muscle activation with weight shifting. Good tolerance for weight machines with improving understanding, though needs mod cues. Physical Therapy Plan Frequency and Duration Frequency of Treatment 2x/Week Duration of treatment (weeks) 8 Plan of Care Start Date 12/22/22 Plan of Care End Date 02/21/23 Therapeutic Interventions Therapeutic Interventions Balance Training,Gait Training ,Home Exercise Program, Neuromuscular Re-education, Orthotic/Prosthetic Management ,Patient/Caregiver Education, Self-Care/Home Management,Soft Tissue Mobilization,Taping, Therapeutic Activities, Therapeutic Exercises Modalities Cold Pack/Ice Massage,Electric Stimulation,Hot Packs, Infrared Therapy Next Visit Focus/Plan Next Note Type Treatment Note Next Visit Plan Therapy ball exercises supine. Continue progression of weight machines for LE and core strengthening.
--- NOTE | 2023-02-21 16:45 | PT.OTRE ---
Current Diagnoses Pain in left hip (02/21/23) Radiculopathy, lumbar region (02/21/23) Difficulty in walking, not elsewhere classified (02/21/23) Weakness (02/21/23) Visit Care Team Role Provider Type DAMION Guadalupe Attending Provider Advanced Medical Office Clerk Family Provider Primary Care Provider Referring Provider Specialty: Family Practice Address: [address] [place] [address], [place], [place], [facility] Email: [email or web address] Physical Therapy Re-Evaluation PT-OP-A Visit Information Start: 12/21/22 16:18 Freq: Status: Active Protocol: Document 02/21/23 14:03 SAK (Rec: 02/21/23 15:01 [facility] [id number]) Out-Patient Physical Therapy Visit Information Visit Information Visit Type Treatment Note Visit Start Time 14:02 Visit Stop Time 14:45 Total Visit Minutes 43 Visit Number 9 Evaluation Information Evaluation Date 12/22/22 PT-OP-B Current Condition Start: 12/21/22 16:18 Freq: Status: Active Protocol: Document 02/21/23 14:03 SAK (Rec: 02/21/23 15:01 SAK [id number]) Current Condition History of Current Condition Onset Date 04/01/23 Current Complaints left hip pain, lumbar radiculopathy History of Current Condition s/p lumbar laminectomy L3-L5, prior PT with some improvement, discharged to [facility] and instructions to resume aquatic exercise. Has been doing both but states feels she needs further PT to continue to progress due to persistent pain, difficulty walking. Reports using pillows for support as PT previously recommended. States pain with all mobility skills, occasionally wakes up due to pain. Does exercises in am in bed, SLS at bathtoom counter, HC stretch, iliopsoas stretch standing with sidebending Prior Treatments and Tests Prior PT, doing aquatic exercise. PT-OP-C Subjective Start: 12/21/22 16:18 Freq: Status: Active Protocol: Document 02/21/23 14:03 SAK (Rec: 02/21/23 15:01 SAK [id number]) OP-PT Subjective Patient Comments Patient Comments Got x-rays of knees and hips on Monday, appointment with orthopedist early March ( Ching Pacheco) PT-OP-G Mobility & Gait Start: 12/21/22 16:18 Freq: Status: Active Protocol: Document 12/22/22 09:33 [facility] (Rec: 12/22/22 10:52 [facility] [id number]) OP Gait Assessment Gait Gait Assistance Required: Independent Assistive Devices Assistive Device None,Straight Cane Orthotic/Prosthetic Devices or Brace: No Gait Deviations General Gait Pattern Ataxic,Lateral Trunk Lean, Narrow Based Gait Factors Limiting Gait Function Factors Limiting Gait Function Decreased Strength,Pain Comments Gait Comments Trendelenberg right Stair Climbing Evaluation Evaluation Level of Assist On Stairs Independent Devices Stair Climbing Assistive Devices Left Railing,Right Railing Technique/Endurance Stair Climbing Direction Ascend and Descend Stair Climbing Technique Step Over Step PT-OP-H Neuro Start: 12/21/22 16:18 Freq: Status: Active Protocol: Document 12/22/22 09:33 [facility] (Rec: 12/22/22 10:52 [facility] [id number]) Sensation Evaluation Gross Sensation Gross Sensation WNL PT-OP-J Posture/Palpation/Skin Start: 12/21/22 16:18 Freq: Status: Active Protocol: Document 12/22/22 09:33 [facility] (Rec: 12/22/22 10:52 [facility] [id number]) Posture Evaluation Position Standing Head/C-Spine Posture Forward Head T-Spine Posture Increased Kyphosis L-Spine Posture Increased Lordosis Hip Posture (L) Externally Rotated,(R) Externally Rotated PT-OP-K Range of Motion Start: 12/21/22 16:18 Freq: Status: Active Protocol: Document 12/22/22 09:33 [facility] (Rec: 12/22/22 10:52 [facility] [id number]) Lumbar Spine Range of Motion Lumbar Spine Active Comments WFL but with inc pain end ranges. PT-OP-M Strength Start: 12/21/22 16:18 Freq: Status: Active Protocol: Document 12/22/22 09:33 [facility] (Rec: 12/22/22 10:52 [facility] [id number]) Hip Strength Hip Manual Muscle Testing Right Flexion (L2) 4- Good- Extension (S1) 3- Fair- Abduction 3- Fair- Adduction 3+ Fair+ External Rotation 3+ Fair+ Internal Rotation 4- Good- Left Flexion (L2) 4- Good- Extension (S1) 3 Fair Abduction 3+ Fair+ Adduction 3+ Fair+ External Rotation 3+ Fair+ Knee Strength Knee Manual Muscle Testing enrico Flexion (S2) 4+ Good+ Extension (L3) 4+ Good+ Ankle/Foot Strength Ankle and Foot Manual Muscle Testing Right Dorsiflexion (L4) 4 Good Plantarflexion (S1) 4 Good Left Dorsiflexion (L4) 4+ Good+ Plantarflexion (S1) 4+ Good+ PT-OP-Q Treatments Start: 12/21/22 16:18 Freq: Status: Active Protocol: Document 02/21/23 14:03 [facility] (Rec: 02/21/23 15:01 [facility] [id number]) Cardio Equipment Recumbent Stepper (Sci-Fit) Duration (Minutes) 10 Resistance 1.8 Seat Position 11 Other 1.0 mile Gym Equipment Shuttle Recovery Bilateral Squats Resistance 50 Shuttle Recovery Platform Stable Reps/Time 10x2 Unilateral Squats Details stronger right Resistance 25 Shuttle Recovery Platform Stable Reps/Time 10x Therapeutic Exercises Standing Exercises weight shifts Standing Exercise Name fwd/bck in stride Side bilateral Resistance manual x 10 reps ea LE in front Equipment Used mirror for visual feedback Reps/Minutes 15 min Comments cues for neutral spine and hips, min UE support Self-Care/Home Management Treatment Education Patient Education Pain Management,Posture Other Education Patient brought lumbar support for patient evaluation, discussed options and benefits for her travel. PT-OP-T Assessment and Plan Start: 12/21/22 16:18 Freq: Status: Active Protocol: Document 02/21/23 14:03 [facility] (Rec: 02/21/23 15:01 [facility] [id number]) Physical Therapy Assessment Goals Three Impairment pain l/s and LE Impairment as high as 4/10 Custodial Goal (LTG) Improve pain by at least 50% to improve patient function and quality of life 02/21/23: goal progress, 20% dec LTG Duration 04/23/23 One Impairment activity tolerance Impairment Oswestry Disability Index score 38% Lower extremity functional score 54% Double Spindle Shaper Operator Goal (LTG) Improve NURIS to no greater than 25% as measure of improved activity tolerance. Improve LEFS to at least 70% 02/21/23: goal progress: NURIS 33 %, LEFS 53% LTG Duration 04/23/23 Four Impairment weakness core and hips Impairment painful bed mobility. Short Term Goal (STG) Patient will be instructed in individualized progressive HEP for purposes of strengtheing and stabilization 04/23/22: goal met STG Duration goal met Double Spindle Shaper Operator Goal (LTG) Patient will be independent and compliant with HEP and demonstrate improved hip and core muscle strength to at least 4+/5, and functionally will be able to stand on 1 leg for 10 sec without hip dropping\ 02/21/23: patient independent and compliant with HEP but has not met strength or function goal. LTG Duration 04/23/23 Two Impairment gait dysfunction Impairment excess lateral sway, hip ER, Trendelenberg Double Spindle Shaper Operator Goal (LTG) Patient will be able to walk with minimal to no lateral sway or Trendelenberg for improved function and decreased pain with walking in the home and community 02/21/23: Patient able to walk with min Trendelenberg if uses walker, inc with trekking poles, and worse with SPC. Patient wants to be able to primarily walk with SPC. Goal not achieved. LTG Duration 02/21/23 Assessment Summary Assessment Patient is making progress toward goals, is compliant to HEP, and is highly motivated. She will be leaving on 21 day cruise and plans to do HEP while gone. I recommend she continue PT after she returns home. Complicating her recovery is poor body awareness and ability to activate correct musculature, requires moderate cues. I feel she has the potential for further improvement. Physical Therapy Plan Frequency and Duration Frequency of Treatment 2x/Week Duration of treatment (weeks) 8 Plan of Care Start Date 02/21/23 Plan of Care End Date 04/23/23 Therapeutic Interventions Therapeutic Interventions Balance Training,Gait Training ,Home Exercise Program, Neuromuscular Re-education, Orthotic/Prosthetic Management ,Patient/Caregiver Education, Self-Care/Home Management,Soft Tissue Mobilization,Taping, Therapeutic Activities, Therapeutic Exercises Modalities Cold Pack/Ice Massage,Electric Stimulation,Hot Packs, Infrared Therapy Next Visit Focus/Plan Next Note Type Treatment Note Next Visit Plan Patient to be on vacation x 3 weeks, will return for PT after she gets home. Continue therapeutic exercises, balance, and gait training for improved function and safety in the home and commmunity.
--- NOTE | 2023-02-21 16:45 | PT.OPPOC ---
Physical, Occupational & Speech Therapy At [facility] Current Diagnoses Pain in left hip (02/21/23) Radiculopathy, lumbar region (02/21/23) Difficulty in walking, not elsewhere classified (02/21/23) Weakness (02/21/23) Visit Care Team Role Provider Type DAMION Guadalupe Attending Provider Advanced Fiberglass Grinder Family Provider Primary Care Provider Referring Provider Specialty: Family Practice Address: [address] [place] [address], [id number] Email: [email or web address] Plan Of Care PT-OP-T Assessment and Plan Start: 12/21/22 16:18 Freq: Status: Active Protocol: Document 02/21/23 14:03 JAMES (Rec: 02/21/23 15:01 SAK [id number]) Physical Therapy Assessment Goals Three Impairment pain l/s and LE Impairment as high as 4/10 Mcc Goal (LTG) Improve pain by at least 50% to improve patient function and quality of life 02/21/23: goal progress, 20% dec LTG Duration 04/23/23 One Impairment activity tolerance Impairment Oswestry Disability Index score 38% Lower extremity functional score 54% Mcc Goal (LTG) Improve NURIS to no greater than 25% as measure of improved activity tolerance. Improve LEFS to at least 70% 02/21/23: goal progress: NURIS 33 %, LEFS 53% LTG Duration 04/23/23 Four Impairment weakness core and hips Impairment painful bed mobility. Short Term Goal (STG) Patient will be instructed in individualized progressive HEP for purposes of strengtheing and stabilization 04/23/22: goal met STG Duration goal met Welfare Aide Goal (LTG) Patient will be independent and compliant with HEP and demonstrate improved hip and core muscle strength to at least 4+/5, and functionally will be able to stand on 1 leg for 10 sec without hip dropping\ 02/21/23: patient independent and compliant with HEP but has not met strength or function goal. LTG Duration 04/23/23 Two Impairment gait dysfunction Impairment excess lateral sway, hip ER, Trendelenberg Welfare Aide Goal (LTG) Patient will be able to walk with minimal to no lateral sway or Trendelenberg for improved function and decreased pain with walking in the home and community 02/21/23: Patient able to walk with min Trendelenberg if uses walker, inc with trekking poles, and worse with SPC. Patient wants to be able to primarily walk with SPC. Goal not achieved. LTG Duration 02/21/23 Assessment Summary Assessment Patient is making progress toward goals, is compliant to HEP, and is highly motivated. She will be leaving on 21 day cruise and plans to do HEP while gone. I recommend she continue PT after she returns home. Complicating her recovery is poor body awareness and ability to activate correct musculature, requires moderate cues. I feel she has the potential for further improvement. Physical Therapy Plan Frequency and Duration Frequency of Treatment 2x/Week Duration of treatment (weeks) 8 Plan of Care Start Date 02/21/23 Plan of Care End Date 04/23/23 Therapeutic Interventions Therapeutic Interventions Balance Training,Gait Training ,Home Exercise Program, Neuromuscular Re-education, Orthotic/Prosthetic Management ,Patient/Caregiver Education, Self-Care/Home Management,Soft Tissue Mobilization,Taping, Therapeutic Activities, Therapeutic Exercises Modalities Cold Pack/Ice Massage,Electric Stimulation,Hot Packs, Infrared Therapy Next Visit Focus/Plan Next Note Type Treatment Note Next Visit Plan Patient to be on vacation x 3 weeks, will return for PT after she gets home. Continue therapeutic exercises, balance, and gait training for improved function and safety in the home and commmunity. Plan of Care Dates Plan of Care Start Date 02/21/23 Plan of Care End Date 04/23/23 Electronically Signed by: Fadumo Morse, PT 02/21/23 8003 If you are in agreement with this Plan of Care, please return a signed and dated copy. I have reviewed this Plan of Care and certify that the skilled therapy services above are required to meet the patient?s needs. Physician Signature Date Printed Name and Credentials Clinical Instructor Signature Printed Name and Credentials
--- NOTE | 2023-03-23 15:06 | PT.OTN ---
Current Diagnoses Pain in left hip (03/23/23) Radiculopathy, lumbar region (03/23/23) Difficulty in walking, not elsewhere classified (03/23/23) Weakness (03/23/23) Physical Therapy Treatment Note PT-OP-A Visit Information Start: 12/21/22 16:18 Freq: Status: Active Protocol: Document 03/23/23 12:07 [facility] (Rec: 03/23/23 12:51 [facility] [id number]) Out-Patient Physical Therapy Visit Information Visit Information Visit Type Treatment Note Visit Start Time 12:08 Visit Stop Time 12:50 Total Visit Minutes 42 Visit Number 10 Evaluation Information Evaluation Date 12/22/22 PT-OP-B Current Condition Start: 12/21/22 16:18 Freq: Status: Active Protocol: Document 03/23/23 12:07 [facility] (Rec: 03/23/23 12:51 [facility] [id number]) Current Condition History of Current Condition Onset Date 04/01/23 Current Complaints left hip pain, lumbar radiculopathy History of Current Condition s/p lumbar laminectomy L3-L5, prior PT with some improvement, discharged to [facility] and instructions to resume aquatic exercise. Has been doing both but states feels she needs further PT to continue to progress due to persistent pain, difficulty walking. Reports using pillows for support as PT previously recommended. States pain with all mobility skills, occasionally wakes up due to pain. Does exercises in am in bed, SLS at bathtoom counter, HC stretch, iliopsoas stretch standing with sidebending Prior Treatments and Tests Prior PT, doing aquatic exercise. PT-OP-C Subjective Start: 12/21/22 16:18 Freq: Status: Active Protocol: Document 03/23/23 12:07 [facility] (Rec: 03/23/23 12:51 [facility] [id number]) OP-PT Subjective Patient Comments Patient Comments Leaving on cruise tomorrow, got back fom another cruise last week. Saw Ching Pacheco yesterday, no arthritis in hips, mild arthritis under kneecaps. She prescribed medication due to fall on cruise ; fell forward onto [place] and hands. Reports soft carpet, not sure what caused fall except shoes with smoother tread, maybe kicked cane. Fatigued today. Wants to work on stairss, reports feeling stronger getting up stairs out of pool. PT-OP-G Mobility & Gait Start: 12/21/22 16:18 Freq: Status: Active Protocol: Document 12/22/22 09:33 [facility] (Rec: 12/22/22 10:52 [facility] [id number]) OP Gait Assessment Gait Gait Assistance Required: Independent Assistive Devices Assistive Device None,Straight Cane Orthotic/Prosthetic Devices or Brace: No Gait Deviations General Gait Pattern Ataxic,Lateral Trunk Lean, Narrow Based Gait Factors Limiting Gait Function Factors Limiting Gait Function Decreased Strength,Pain Comments Gait Comments Trendelenberg right Stair Climbing Evaluation Evaluation Level of Assist On Stairs Independent Devices Stair Climbing Assistive Devices Left Railing,Right Railing Technique/Endurance Stair Climbing Direction Ascend and Descend Stair Climbing Technique Step Over Step PT-OP-H Neuro Start: 12/21/22 16:18 Freq: Status: Active Protocol: Document 12/22/22 09:33 [facility] (Rec: 12/22/22 10:52 [facility] [id number]) Sensation Evaluation Gross Sensation Gross Sensation WNL PT-OP-J Posture/Palpation/Skin Start: 12/21/22 16:18 Freq: Status: Active Protocol: Document 12/22/22 09:33 [facility] (Rec: 12/22/22 10:52 [facility] [id number]) Posture Evaluation Position Standing Head/C-Spine Posture Forward Head T-Spine Posture Increased Kyphosis L-Spine Posture Increased Lordosis Hip Posture (L) Externally Rotated,(R) Externally Rotated PT-OP-K Range of Motion Start: 12/21/22 16:18 Freq: Status: Active Protocol: Document 12/22/22 09:33 [facility] (Rec: 12/22/22 10:52 [facility] [id number]) Lumbar Spine Range of Motion Lumbar Spine Active Comments WFL but with inc pain end ranges. PT-OP-M Strength Start: 12/21/22 16:18 Freq: Status: Active Protocol: Document 12/22/22 09:33 [facility] (Rec: 12/22/22 10:52 [facility] [id number]) Hip Strength Hip Manual Muscle Testing Right Flexion (L2) 4- Good- Extension (S1) 3- Fair- Abduction 3- Fair- Adduction 3+ Fair+ External Rotation 3+ Fair+ Internal Rotation 4- Good- Left Flexion (L2) 4- Good- Extension (S1) 3 Fair Abduction 3+ Fair+ Adduction 3+ Fair+ External Rotation 3+ Fair+ Knee Strength Knee Manual Muscle Testing enrico Flexion (S2) 4+ Good+ Extension (L3) 4+ Good+ Ankle/Foot Strength Ankle and Foot Manual Muscle Testing Right Dorsiflexion (L4) 4 Good Plantarflexion (S1) 4 Good Left Dorsiflexion (L4) 4+ Good+ Plantarflexion (S1) 4+ Good+ PT-OP-Q Treatments Start: 12/21/22 16:18 Freq: Status: Active Protocol: Document 03/23/23 12:07 [facility] (Rec: 03/23/23 12:51 [facility] [id number]) Cardio Equipment Recumbent Stepper (Sci-Fit) Duration (Minutes) 10 Resistance 1.8 Seat Position 10 Other 1.0 mile Gait Training Gait Activity stairs Surface 4 and 6 Treatment Focus gluteal activation pre-gait wt shifts Distance/Duration 6 min Treatment Focus symmetry, hips level Comments use of mirror cues for gluteal activation decrease step length for improved stability. level Device Used cane left Treatment Focus dec lateral shift, gluteal activation Comments mirror for visual feedback. Self-Care/Home Management Treatment Education Patient Education Pain Management,Posture Other Education use of mirror for postural correction PT-OP-T Assessment and Plan Start: 12/21/22 16:18 Freq: Status: Active Protocol: Document 03/23/23 12:07 [facility] (Rec: 03/23/23 12:51 [facility] [id number]) Physical Therapy Assessment Goals Three Impairment pain l/s and LE Impairment as high as 4/10 Assisted Goal (LTG) Improve pain by at least 50% to improve patient function and quality of life 02/21/23: goal progress, 20% dec 03/23/23: min pain LTG Duration 04/23/23 One Impairment activity tolerance Impairment Oswestry Disability Index score 38% Lower extremity functional score 54% Test Engineer Nuclear Equipment Goal (LTG) Improve NURIS to no greater than 25% as measure of improved activity tolerance. Improve LEFS to at least 70% 02/21/23: goal progress: NURIS 33 %, LEFS 53% 03/23/23: LTG Duration 04/23/23 Four Impairment weakness core and hips Impairment painful bed mobility. Short Term Goal (STG) Patient will be instructed in individualized progressive HEP for purposes of strengtheing and stabilization 04/23/22: goal met STG Duration goal met Assisted Goal (LTG) Patient will be independent and compliant with HEP and demonstrate improved hip and core muscle strength to at least 4+/5, and functionally will be able to stand on 1 leg for 10 sec without hip dropping\ 02/21/23: patient independent and compliant with HEP but has not met strength or function goal. LTG Duration 04/23/23 Two Impairment gait dysfunction Impairment excess lateral sway, hip ER, Trendelenberg Assisted Goal (LTG) Patient will be able to walk with minimal to no lateral sway or Trendelenberg for improved function and decreased pain with walking in the home and community 02/21/23: Patient able to walk with min Trendelenberg if uses walker, inc with trekking poles, and worse with SPC. Patient wants to be able to primarily walk with SPC. Goal not achieved. LTG Duration 04/23/23 Assessment Summary Assessment Patient urged to use trekking poles enrico for safety on cruise. Worked on stair climbing, requires enrico UE support. More shifted through trunks and hips today with difficulty self-identifying and correcting even with visual feedback. Physical Therapy Plan Frequency and Duration Frequency of Treatment 2x/Week Duration of treatment (weeks) 8 Plan of Care Start Date 02/21/23 Plan of Care End Date 04/23/23 Therapeutic Interventions Therapeutic Interventions Balance Training,Gait Training ,Home Exercise Program, Neuromuscular Re-education, Orthotic/Prosthetic Management ,Patient/Caregiver Education, Self-Care/Home Management,Soft Tissue Mobilization,Taping, Therapeutic Activities, Therapeutic Exercises Modalities Cold Pack/Ice Massage,Electric Stimulation,Hot Packs, Infrared Therapy Next Visit Focus/Plan Next Note Type Treatment Note Next Visit Plan Patient to be on vacation again x 3 weeks, will return for PT. Continue strengtheing , gait training, neuro re-ed at that time.
--- NOTE | 2023-04-20 16:43 | PT-OP ANOTE ---
cancelled due to ill
--- NOTE | 2023-04-25 12:07 | PT.OTN ---
Current Diagnoses Pain in left hip (04/25/23) Radiculopathy, lumbar region (04/25/23) Difficulty in walking, not elsewhere classified (04/25/23) Weakness (04/25/23) Physical Therapy Treatment Note PT-OP-A Visit Information Start: 12/21/22 16:18 Freq: Status: Active Protocol: Document 04/25/23 13:03 [facility] (Rec: 04/25/23 13:49 [facility] [id number]) Out-Patient Physical Therapy Visit Information Visit Information Visit Type Re-Evaluation Visit Start Time 13:03 Visit Stop Time 13:44 Total Visit Minutes 41 Visit Number 11 PT-OP-B Current Condition Start: 12/21/22 16:18 Freq: Status: Active Protocol: Document 04/25/23 13:03 [facility] (Rec: 04/25/23 13:49 [facility] [id number]) Current Condition History of Current Condition Onset Date 04/01/23 Current Complaints left hip pain, lumbar radiculopathy History of Current Condition s/p lumbar laminectomy L3-L5, prior PT with some improvement, discharged to indep HEP and instructions to resume aquatic exercise. Has been doing both but states feels she needs further PT to continue to progress due to persistent pain, difficulty walking. Reports using pillows for support as PT previously recommended. States pain with all mobility skills, occasionally wakes up due to pain. Does exercises in am in bed, SLS at bathtoom counter, HC stretch, iliopsoas stretch standing with sidebending Prior Treatments and Tests Prior PT, doing aquatic exercise. PT-OP-C Subjective Start: 12/21/22 16:18 Freq: Status: Active Protocol: Document 04/25/23 13:03 [facility] (Rec: 04/25/23 13:49 [facility] [id number]) OP-PT Subjective Patient Comments Patient Comments REports feeling she is doing better overall. States left side leg more painful than right. Most painful anterior left hip.groin, buttocks, enrico. Has been doing HEP. Was on another cruise. Tolerating riding in car, bus, plane more easily. No recent falls. Saw Dr. Pacheco; hips don't have OA but left knee does. Will be seeing new physician Dr. Paris this Monday. PT-OP-G Mobility & Gait Start: 12/21/22 16:18 Freq: Status: Active Protocol: Document 12/22/22 09:33 [facility] (Rec: 12/22/22 10:52 [facility] [id number]) OP Gait Assessment Gait Gait Assistance Required: Independent Assistive Devices Assistive Device None,Straight Cane Orthotic/Prosthetic Devices or Brace: No Gait Deviations General Gait Pattern Ataxic,Lateral Trunk Lean, Narrow Based Gait Factors Limiting Gait Function Factors Limiting Gait Function Decreased Strength,Pain Comments Gait Comments Trendelenberg right Stair Climbing Evaluation Evaluation Level of Assist On Stairs Independent Devices Stair Climbing Assistive Devices Left Railing,Right Railing Technique/Endurance Stair Climbing Direction Ascend and Descend Stair Climbing Technique Step Over Step PT-OP-H Neuro Start: 12/21/22 16:18 Freq: Status: Active Protocol: Document 12/22/22 09:33 [facility] (Rec: 12/22/22 10:52 [facility] [id number]) Sensation Evaluation Gross Sensation Gross Sensation WNL PT-OP-J Posture/Palpation/Skin Start: 12/21/22 16:18 Freq: Status: Active Protocol: Document 12/22/22 09:33 [facility] (Rec: 12/22/22 10:52 [facility] [id number]) Posture Evaluation Position Standing Head/C-Spine Posture Forward Head T-Spine Posture Increased Kyphosis L-Spine Posture Increased Lordosis Hip Posture (L) Externally Rotated,(R) Externally Rotated PT-OP-K Range of Motion Start: 12/21/22 16:18 Freq: Status: Active Protocol: Document 12/22/22 09:33 [facility] (Rec: 12/22/22 10:52 [facility] [id number]) Lumbar Spine Range of Motion Lumbar Spine Active Comments WFL but with inc pain end ranges. PT-OP-M Strength Start: 12/21/22 16:18 Freq: Status: Active Protocol: Document 12/22/22 09:33 [facility] (Rec: 12/22/22 10:52 [facility] [id number]) Hip Strength Hip Manual Muscle Testing Right Flexion (L2) 4- Good- Extension (S1) 3- Fair- Abduction 3- Fair- Adduction 3+ Fair+ External Rotation 3+ Fair+ Internal Rotation 4- Good- Left Flexion (L2) 4- Good- Extension (S1) 3 Fair Abduction 3+ Fair+ Adduction 3+ Fair+ External Rotation 3+ Fair+ Knee Strength Knee Manual Muscle Testing enrico Flexion (S2) 4+ Good+ Extension (L3) 4+ Good+ Ankle/Foot Strength Ankle and Foot Manual Muscle Testing Right Dorsiflexion (L4) 4 Good Plantarflexion (S1) 4 Good Left Dorsiflexion (L4) 4+ Good+ Plantarflexion (S1) 4+ Good+ PT-OP-Q Treatments Start: 12/21/22 16:18 Freq: Status: Active Protocol: Document 04/25/23 13:03 [facility] (Rec: 04/25/23 13:49 [facility] [id number]) Cardio Equipment Treadmill Duration (Minutes) 3 Speed 0.5-1.2 Incline 0 Other cues for heelstrike, gluteal activation, upright posture. Gait Training Gait Activity level Device Used none Treatment Focus cues for dec lateral shift, gluteal activation, heel strike and push off Comments mirror for visual feedback. Manual Therapy Treatment Other Other Manual Treatments ROM and strength measurements enrico LE's, trunk Self-Care/Home Management Treatment Education Patient Education Body Mechanics,Fall Risk,Home Exercise Program,Pain Management,Posture Other Education gait mechanics consider request EMG due to persistent weakness hips PT-OP-T Assessment and Plan Start: 12/21/22 16:18 Freq: Status: Active Protocol: Document 04/25/23 13:03 [facility] (Rec: 04/25/23 13:49 [facility] [id number]) Physical Therapy Assessment Goals Three Impairment pain l/s and LE Impairment as high as 4/10 Mechanical Handyman Goal (LTG) Improve pain by at least 50% to improve patient function and quality of life 02/21/23: goal progress, 20% dec 03/23/23: min pain 04/25/23: 3/10 left hip, knee and enrico buttocks, lateral thighs LTG Duration 05/26/23 One Impairment activity tolerance Impairment Oswestry Disability Index score 38% Lower extremity functional score 54% Correction Goal (LTG) Improve NURIS to no greater than 25% as measure of improved activity tolerance. Improve LEFS to at least 70% 02/21/23: goal progress: NURIS 33 %, LEFS 53% 03/23/23: not done 04/25/22 improved to 65% Oswestry improved to 32% LTG Duration 05/26/23 Four Impairment weakness core and hips Impairment painful bed mobility. Short Term Goal (STG) Patient will be instructed in individualized progressive HEP for purposes of strengtheing and stabilization 04/23/22: goal met STG Duration goal met Mechanical Handyman Goal (LTG) Patient will be independent and compliant with HEP and demonstrate improved hip and core muscle strength to at least 4+/5, and functionally will be able to stand on 1 leg for 10 sec without hip dropping\ 02/21/23: patient independent and compliant with HEP but has not met strength or function goal. 04/25/23 some goal progress, weakest in hips left greater than right worst in abduction with no change LTG Duration 05/26/23 Two Impairment gait dysfunction Impairment excess lateral sway, hip ER, Trendelenberg Mechanical Handyman Goal (LTG) Patient will be able to walk with minimal to no lateral sway or Trendelenberg for improved function and decreased pain with walking in the home and community 02/21/23: Patient able to walk with min Trendelenberg if uses walker, inc with trekking poles, and worse with SPC. Patient wants to be able to primarily walk with SPC. Goal not achieved. 04/25/23: still has to help her on curbs, feels need for cane with gait. Not able to fully self-correct, dec body awareness and weakness hip abduction causes persistent Trendelenberg. Recommend patient consider talking with physician about possible EMG. LTG Duration 05/26/23 Assessment Summary Assessment Improving activity tolerance. IMproved Oswestry and LEFS scores. Trendelenberg gait with excess lateral sway persists. Encouraged patient to consider discussing possibility of EMG due to persistent hip weakness. Feel she would benefit from further PT to help her continue to improve and meet the above PT goals. Discussed POC and patient was in agreement. Physical Therapy Plan Frequency and Duration Frequency of Treatment 2x/Week Duration of treatment (weeks) 4 Plan of Care Start Date 04/25/23 Plan of Care End Date 05/26/23 Therapeutic Interventions Therapeutic Interventions Balance Training,Gait Training ,Home Exercise Program, Neuromuscular Re-education, Orthotic/Prosthetic Management ,Patient/Caregiver Education, Self-Care/Home Management,Soft Tissue Mobilization,Taping, Therapeutic Activities, Therapeutic Exercises Modalities Cold Pack/Ice Massage,Electric Stimulation,Hot Packs, Infrared Therapy Next Visit Focus/Plan Next Note Type Treatment Note Next Visit Plan Continue strengthening LE's and core, gait training, neuro re-ed. Modalities and manual therapy for pain management PRN.
--- NOTE | 2023-04-25 12:07 | PT.OPPOC ---
Physical, Occupational & Speech Therapy At [facility] Current Diagnoses Pain in left hip (04/25/23) Radiculopathy, lumbar region (04/25/23) Difficulty in walking, not elsewhere classified (04/25/23) Weakness (04/25/23) Visit Care Team Role Provider Type Elvia Gordillo MD Primary Care Provider Physician Specialty: Family Practice Obstetrics Address: [address] [place] [address], [id number] Email: [email or web address] DAMION Guadalupe Attending Provider [facility] Staff Pharmacist Family Provider Referring Provider Specialty: Family Practice Address: [address] [place] [address], [facility] [place], [address] Email: [email or web address] Plan Of Care PT-OP-T Assessment and Plan Start: 12/21/22 16:18 Freq: Status: Active Protocol: Document 04/25/23 13:03 [facility] (Rec: 04/25/23 13:49 [facility] [id number]) Physical Therapy Assessment Goals Three Impairment pain l/s and LE Impairment as high as 4/10 Shipping Services Sales Representative Goal (LTG) Improve pain by at least 50% to improve patient function and quality of life 02/21/23: goal progress, 20% dec 03/23/23: min pain 04/25/23: 3/10 left hip, knee and enrico buttocks, lateral thighs LTG Duration 05/26/23 One Impairment activity tolerance Impairment Oswestry Disability Index score 38% Lower extremity functional score 54% Fpc Goal (LTG) Improve NURIS to no greater than 25% as measure of improved activity tolerance. Improve LEFS to at least 70% 02/21/23: goal progress: NURIS 33 %, LEFS 53% 03/23/23: not done 04/25/22 improved to 65% Oswestry improved to 32% LTG Duration 05/26/23 Four Impairment weakness core and hips Impairment painful bed mobility. Short Term Goal (STG) Patient will be instructed in individualized progressive HEP for purposes of strengtheing and stabilization 04/23/22: goal met STG Duration goal met Shipping Services Sales Representative Goal (LTG) Patient will be independent and compliant with HEP and demonstrate improved hip and core muscle strength to at least 4+/5, and functionally will be able to stand on 1 leg for 10 sec without hip dropping\ 02/21/23: patient independent and compliant with HEP but has not met strength or function goal. 04/25/23 some goal progress, weakest in hips left greater than right worst in abduction with no change LTG Duration 05/26/23 Two Impairment gait dysfunction Impairment excess lateral sway, hip ER, Trendelenberg Shipping Services Sales Representative Goal (LTG) Patient will be able to walk with minimal to no lateral sway or Trendelenberg for improved function and decreased pain with walking in the home and community 02/21/23: Patient able to walk with min Trendelenberg if uses walker, inc with trekking poles, and worse with SPC. Patient wants to be able to primarily walk with SPC. Goal not achieved. 04/25/23: still has to help her on curbs, feels need for cane with gait. Not able to fully self-correct, dec body awareness and weakness hip abduction causes persistent Trendelenberg. Recommend patient consider talking with physician about possible EMG. LTG Duration 05/26/23 Assessment Summary Assessment Improving activity tolerance. IMproved Oswestry and LEFS scores. Trendelenberg gait with excess lateral sway persists. Encouraged patient to consider discussing possibility of EMG due to persistent hip weakness. Feel she would benefit from further PT to help her continue to improve and meet the above PT goals. Discussed POC and patient was in agreement. Physical Therapy Plan Frequency and Duration Frequency of Treatment 2x/Week Duration of treatment (weeks) 4 Plan of Care Start Date 04/25/23 Plan of Care End Date 05/26/23 Therapeutic Interventions Therapeutic Interventions Balance Training,Gait Training ,Home Exercise Program, Neuromuscular Re-education, Orthotic/Prosthetic Management ,Patient/Caregiver Education, Self-Care/Home Management,Soft Tissue Mobilization,Taping, Therapeutic Activities, Therapeutic Exercises Modalities Cold Pack/Ice Massage,Electric Stimulation,Hot Packs, Infrared Therapy Next Visit Focus/Plan Next Note Type Treatment Note Next Visit Plan Continue strengthening LE's and core, gait training, neuro re-ed. Modalities and manual therapy for pain management PRN. Plan of Care Dates Plan of Care Start Date 04/25/23 Plan of Care End Date 05/26/23 Electronically Signed by: Fadumo Morse, PT 04/26/23 1264 If you are in agreement with this Plan of Care, please return a signed and dated copy. I have reviewed this Plan of Care and certify that the skilled therapy services above are required to meet the patient?s needs. Physician Signature Date Printed Name and Credentials Clinical Instructor Signature Printed Name and Credentials
--- NOTE | 2023-04-25 16:00 | PT.OTRE ---
Current Diagnoses Pain in left hip (04/25/23) Radiculopathy, lumbar region (04/25/23) Difficulty in walking, not elsewhere classified (04/25/23) Weakness (04/25/23) Visit Care Team Role Provider Type Elvia Gordillo MD Primary Care Provider Physician Specialty: Family Practice Obstetrics Address: [address] [place] [address], [id number] Email: [email or web address] DAMION Guadalupe Attending Provider Advanced Operational [employer] Analyst Family Provider Referring Provider Specialty: Family Practice Address: [address] [place] [address], [place], [address] Email: [email or web address] Physical Therapy Re-Evaluation PT-OP-A Visit Information Start: 12/21/22 16:18 Freq: Status: Active Protocol: Document 04/25/23 13:03 [facility] (Rec: 04/25/23 13:49 [facility] [id number]) Out-Patient Physical Therapy Visit Information Visit Information Visit Type Re-Evaluation Visit Start Time 13:03 Visit Stop Time 13:44 Total Visit Minutes 41 Visit Number 11 PT-OP-B Current Condition Start: 12/21/22 16:18 Freq: Status: Active Protocol: Document 04/25/23 13:03 [facility] (Rec: 04/25/23 13:49 [facility] [id number]) Current Condition History of Current Condition Onset Date 04/01/23 Current Complaints left hip pain, lumbar radiculopathy History of Current Condition s/p lumbar laminectomy L3-L5, prior PT with some improvement, [place] [facility] [place] exercise. Has been doing both but states feels she needs further PT to continue to progress due to persistent pain, difficulty walking. Reports using pillows for support as PT previously recommended. States pain with all mobility skills, occasionally wakes up due to pain. Does exercises in am in bed, SLS at bathtoom counter, HC stretch, iliopsoas stretch standing with sidebending Prior Treatments and Tests Prior PT, doing aquatic exercise. PT-OP-C Subjective Start: 12/21/22 16:18 Freq: Status: Active Protocol: Document 04/25/23 13:03 [facility] (Rec: 04/25/23 13:49 [facility] [id number]) OP-PT Subjective Patient Comments Patient Comments REports feeling she is doing better overall. States left side leg more painful than right. Most painful anterior left hip.groin, buttocks, enrico. Has been doing HEP. Was on another cruise. Tolerating riding in car, bus, plane more easily. No recent falls. Saw Dr. Pacheco; hips don't have OA but left knee does. Will be seeing new physician Dr. Paris this Monday. PT-OP-G Mobility & Gait Start: 12/21/22 16:18 Freq: Status: Active Protocol: Document 12/22/22 09:33 [facility] (Rec: 12/22/22 10:52 [facility] [id number]) OP Gait Assessment Gait Gait Assistance Required: Independent Assistive Devices Assistive Device None,Straight Cane Orthotic/Prosthetic Devices or Brace: No Gait Deviations General Gait Pattern Ataxic,Lateral Trunk Lean, Narrow Based Gait Factors Limiting Gait Function Factors Limiting Gait Function Decreased Strength,Pain Comments Gait Comments Trendelenberg right Stair Climbing Evaluation Evaluation Level of Assist On Stairs Independent Devices Stair Climbing Assistive Devices Left Railing,Right Railing Technique/Endurance Stair Climbing Direction Ascend and Descend Stair Climbing Technique Step Over Step PT-OP-H Neuro Start: 12/21/22 16:18 Freq: Status: Active Protocol: Document 12/22/22 09:33 [facility] (Rec: 12/22/22 10:52 [facility] [id number]) Sensation Evaluation Gross Sensation Gross Sensation WNL PT-OP-J Posture/Palpation/Skin Start: 12/21/22 16:18 Freq: Status: Active Protocol: Document 12/22/22 09:33 [facility] (Rec: 12/22/22 10:52 [facility] [id number]) Posture Evaluation Position Standing Head/C-Spine Posture Forward Head T-Spine Posture Increased Kyphosis L-Spine Posture Increased Lordosis Hip Posture (L) Externally Rotated,(R) Externally Rotated PT-OP-K Range of Motion Start: 12/21/22 16:18 Freq: Status: Active Protocol: Document 12/22/22 09:33 [facility] (Rec: 12/22/22 10:52 [facility] [id number]) Lumbar Spine Range of Motion Lumbar Spine Active Comments WFL but with inc pain end ranges. PT-OP-M Strength Start: 12/21/22 16:18 Freq: Status: Active Protocol: Document 12/22/22 09:33 [facility] (Rec: 12/22/22 10:52 [facility] [id number]) Hip Strength Hip Manual Muscle Testing Right Flexion (L2) 4- Good- Extension (S1) 3- Fair- Abduction 3- Fair- Adduction 3+ Fair+ External Rotation 3+ Fair+ Internal Rotation 4- Good- Left Flexion (L2) 4- Good- Extension (S1) 3 Fair Abduction 3+ Fair+ Adduction 3+ Fair+ External Rotation 3+ Fair+ Knee Strength Knee Manual Muscle Testing enrico Flexion (S2) 4+ Good+ Extension (L3) 4+ Good+ Ankle/Foot Strength Ankle and Foot Manual Muscle Testing Right Dorsiflexion (L4) 4 Good Plantarflexion (S1) 4 Good Left Dorsiflexion (L4) 4+ Good+ Plantarflexion (S1) 4+ Good+ PT-OP-Q Treatments Start: 12/21/22 16:18 Freq: Status: Active Protocol: Document 04/25/23 13:03 [facility] (Rec: 04/25/23 13:49 [facility] [id number]) Cardio Equipment Treadmill Duration (Minutes) 3 Speed 0.5-1.2 Incline 0 Other cues for heelstrike, gluteal activation, upright posture. Gait Training Gait Activity level Device Used none Treatment Focus cues for dec lateral shift, gluteal activation, heel strike and push off Comments mirror for visual feedback. Manual Therapy Treatment Other Other Manual Treatments ROM and strength measurements enrico LE's, trunk Self-Care/Home Management Treatment Education Patient Education Body Mechanics,Fall Risk,Home Exercise Program,Pain Management,Posture Other Education gait mechanics consider request EMG due to persistent weakness hips PT-OP-T Assessment and Plan Start: 12/21/22 16:18 Freq: Status: Active Protocol: Document 04/25/23 13:03 [facility] (Rec: 04/25/23 13:49 [facility] [id number]) Physical Therapy Assessment Goals Three Impairment pain l/s and LE Impairment as high as 4/10 Sharepoint Trainer Goal (LTG) Improve pain by at least 50% to improve patient function and quality of life 02/21/23: goal progress, 20% dec 03/23/23: min pain 04/25/23: 3/10 left hip, knee and enrico buttocks, lateral thighs LTG Duration 05/26/23 One Impairment activity tolerance Impairment Oswestry Disability Index score 38% Lower extremity functional score 54% Senior Care Goal (LTG) Improve NURIS to no greater than 25% as measure of improved activity tolerance. Improve LEFS to at least 70% 02/21/23: goal progress: NURIS 33 %, LEFS 53% 03/23/23: not done 04/25/22 improved to 65% Oswestry improved to 32% LTG Duration 05/26/23 Four Impairment weakness core and hips Impairment painful bed mobility. Short Term Goal (STG) Patient will be instructed in individualized progressive HEP for purposes of strengtheing and stabilization 04/23/22: goal met STG Duration goal met Senior Care Goal (LTG) Patient will be independent and compliant with HEP and demonstrate improved hip and core muscle strength to at least 4+/5, and functionally will be able to stand on 1 leg for 10 sec without hip dropping\ 02/21/23: patient independent and compliant with HEP but has not met strength or function goal. 04/25/23 some goal progress, weakest in hips left greater than right worst in abduction with no change LTG Duration 05/26/23 Two Impairment gait dysfunction Impairment excess lateral sway, hip ER, Trendelenberg Sharepoint Trainer Goal (LTG) Patient will be able to walk with minimal to no lateral sway or Trendelenberg for improved function and decreased pain with walking in the home and community 02/21/23: Patient able to walk with min Trendelenberg if uses walker, inc with trekking poles, and worse with SPC. Patient wants to be able to primarily walk with SPC. Goal not achieved. 04/25/23: still has to help her on curbs, feels need for cane with gait. Not able to fully self-correct, dec body awareness and weakness hip abduction causes persistent Trendelenberg. Recommend patient consider talking with physician about possible EMG. LTG Duration 05/26/23 Assessment Summary Assessment Improving activity tolerance. IMproved Oswestry and LEFS scores. Trendelenberg gait with excess lateral sway persists. Encouraged patient to consider discussing possibility of EMG due to persistent hip weakness. Feel she would benefit from further PT to help her continue to improve and meet the above PT goals. Discussed POC and patient was in agreement. Physical Therapy Plan Frequency and Duration Frequency of Treatment 2x/Week Duration of treatment (weeks) 4 Plan of Care Start Date 04/25/23 Plan of Care End Date 05/26/23 Therapeutic Interventions Therapeutic Interventions Balance Training,Gait Training ,Home Exercise Program, Neuromuscular Re-education, Orthotic/Prosthetic Management ,Patient/Caregiver Education, Self-Care/Home Management,Soft Tissue Mobilization,Taping, Therapeutic Activities, Therapeutic Exercises Modalities Cold Pack/Ice Massage,Electric Stimulation,Hot Packs, Infrared Therapy Next Visit Focus/Plan Next Note Type Treatment Note Next Visit Plan Continue strengthening LE's and core, gait training, neuro re-ed. Modalities and manual therapy for pain management PRN.
--- NOTE | 2023-04-27 16:16 | PT.OTN ---
Current Diagnoses Pain in left hip (04/27/23) Radiculopathy, lumbar region (04/27/23) Difficulty in walking, not elsewhere classified (04/27/23) Weakness (04/27/23) Physical Therapy Treatment Note PT-OP-A Visit Information Start: 12/21/22 16:18 Freq: Status: Active Protocol: Document 04/27/23 15:16 [facility] (Rec: 04/27/23 16:16 [facility] [id number]) Out-Patient Physical Therapy Visit Information Visit Information Visit Type Treatment Note Visit Start Time 15:21 Visit Stop Time 16:02 Total Visit Minutes 41 Visit Number 12 PT-OP-B Current Condition Start: 12/21/22 16:18 Freq: Status: Active Protocol: Document 04/27/23 15:16 [facility] (Rec: 04/27/23 16:16 [facility] [id number]) Current Condition History of Current Condition Onset Date 04/01/23 Current Complaints left hip pain, lumbar radiculopathy History of Current Condition s/p lumbar laminectomy L3-L5, prior PT with some improvement, discharged to [facility] and instructions to resume aquatic exercise. Has been doing both but states feels she needs further PT to continue to progress due to persistent pain, difficulty walking. Reports using pillows for support as PT previously recommended. States pain with all mobility skills, occasionally wakes up due to pain. Does exercises in am in bed, SLS at bathtoom counter, HC stretch, iliopsoas stretch standing with sidebending Prior Treatments and Tests Prior PT, doing aquatic exercise. PT-OP-C Subjective Start: 12/21/22 16:18 Freq: Status: Active Protocol: Document 04/27/23 15:16 [facility] (Rec: 04/27/23 16:16 [facility] [id number]) OP-PT Subjective Patient Comments Patient Comments Reports soreness after last session. Did 3 min on [facility] and went to the pool yesterday. Sees her doctor. Patient has been busy all day today, fatigued. Tried not wearing a flotation belt in pool, stayed by pool edge all as recommended by PT. Reports had difficulty using controls on treadmill at fitness center, and notices difficulty going up stairs. PT-OP-G Mobility & Gait Start: 12/21/22 16:18 Freq: Status: Active Protocol: Document 12/22/22 09:33 [facility] (Rec: 12/22/22 10:52 [facility] [id number]) OP Gait Assessment Gait Gait Assistance Required: Independent Assistive Devices Assistive Device None,Straight Cane Orthotic/Prosthetic Devices or Brace: No Gait Deviations General Gait Pattern Ataxic,Lateral Trunk Lean, Narrow Based Gait Factors Limiting Gait Function Factors Limiting Gait Function Decreased Strength,Pain Comments Gait Comments Trendelenberg right Stair Climbing Evaluation Evaluation Level of Assist On Stairs Independent Devices Stair Climbing Assistive Devices Left Railing,Right Railing Technique/Endurance Stair Climbing Direction Ascend and Descend Stair Climbing Technique Step Over Step PT-OP-H Neuro Start: 12/21/22 16:18 Freq: Status: Active Protocol: Document 12/22/22 09:33 [facility] (Rec: 12/22/22 10:52 [facility] [id number]) Sensation Evaluation Gross Sensation Gross Sensation WNL PT-OP-J Posture/Palpation/Skin Start: 12/21/22 16:18 Freq: Status: Active Protocol: Document 12/22/22 09:33 [facility] (Rec: 12/22/22 10:52 [facility] [id number]) Posture Evaluation Position Standing Head/C-Spine Posture Forward Head T-Spine Posture Increased Kyphosis L-Spine Posture Increased Lordosis Hip Posture (L) Externally Rotated,(R) Externally Rotated PT-OP-K Range of Motion Start: 12/21/22 16:18 Freq: Status: Active Protocol: Document 12/22/22 09:33 [facility] (Rec: 12/22/22 10:52 [facility] [id number]) Lumbar Spine Range of Motion Lumbar Spine Active Comments WFL but with inc pain end ranges. PT-OP-M Strength Start: 12/21/22 16:18 Freq: Status: Active Protocol: Document 12/22/22 09:33 [facility] (Rec: 12/22/22 10:52 [facility] [id number]) Hip Strength Hip Manual Muscle Testing Right Flexion (L2) 4- Good- Extension (S1) 3- Fair- Abduction 3- Fair- Adduction 3+ Fair+ External Rotation 3+ Fair+ Internal Rotation 4- Good- Left Flexion (L2) 4- Good- Extension (S1) 3 Fair Abduction 3+ Fair+ Adduction 3+ Fair+ External Rotation 3+ Fair+ Knee Strength Knee Manual Muscle Testing enrico Flexion (S2) 4+ Good+ Extension (L3) 4+ Good+ Ankle/Foot Strength Ankle and Foot Manual Muscle Testing Right Dorsiflexion (L4) 4 Good Plantarflexion (S1) 4 Good Left Dorsiflexion (L4) 4+ Good+ Plantarflexion (S1) 4+ Good+ PT-OP-Q Treatments Start: 12/21/22 16:18 Freq: Status: Active Protocol: Document 04/27/23 15:16 [facility] (Rec: 04/27/23 16:16 [facility] [id number]) Cardio Equipment Recumbent Stepper (Sci-Fit) Duration (Minutes) 10 Resistance 1-1.5 Seat Position 10 Other 1.0 mile Treadmill Duration (Minutes) 4 Speed 1 Incline 0 Other cues for heelstrike, gluteal activation, upright posture. Therapeutic Exercises Supine Exercises bridge Supine Exercise Name segmental Reps/Minutes 10x Comments cues for painfree, slow and controlled. Sitting Exercises ankle pumps Reps/Minutes 10x Comments emphasis on df ROM and strength Standing Exercises step-ups Reps/Minutes 10x2 heel/toe raise Reps/Minutes 10x2 calf stretch Equipment Used ball Reps/Minutes 2x30 Comments cues for straight foot, upright posture with glut set for hip flex stretch Gait Training Gait Activity stairs Surface 4 and 6 Treatment Focus gluteal activation Manual Therapy Treatment Soft Tissue Mobilization IT band Body Location left Mobilization Type Instrument Assisted,Myofascial Release Intensity/Depth mod Body Position Hooklying Comments instructed in use of rolling pin for home use Self-Care/Home Management Treatment Education Patient Education Body Mechanics,Fall Risk,Home Exercise Program,Pain Management,Posture Other Education instructed in use of rolling pin for self-massage quads and IT band PT-OP-T Assessment and Plan Start: 12/21/22 16:18 Freq: Status: Active Protocol: Document 04/27/23 15:16 [facility] (Rec: 04/27/23 16:16 [facility] [id number]) Physical Therapy Assessment Goals Three Impairment pain l/s and LE Impairment as high as 4/10 Skin Drier Goal (LTG) Improve pain by at least 50% to improve patient function and quality of life 02/21/23: goal progress, 20% dec 03/23/23: min pain 04/25/23: 3/10 left hip, knee and enrico buttocks, lateral thighs LTG Duration 05/26/23 One Impairment activity tolerance Impairment Oswestry Disability Index score 38% Lower extremity functional score 54% Skin Drier Goal (LTG) Improve NURIS to no greater than 25% as measure of improved activity tolerance. Improve LEFS to at least 70% 02/21/23: goal progress: NURIS 33 %, LEFS 53% 03/23/23: not done 04/25/22 improved to 65% Oswestry improved to 32% LTG Duration 05/26/23 Four Impairment weakness core and hips Impairment painful bed mobility. Short Term Goal (STG) Patient will be instructed in individualized progressive HEP for purposes of strengtheing and stabilization 04/23/22: goal met STG Duration goal met [facility] Home Goal (LTG) Patient will be independent and compliant with HEP and demonstrate improved hip and core muscle strength to at least 4+/5, and functionally will be able to stand on 1 leg for 10 sec without hip dropping\ 02/21/23: patient independent and compliant with HEP but has not met strength or function goal. 04/25/23 some goal progress, weakest in hips left greater than right worst in abduction with no change LTG Duration 05/26/23 Two Impairment gait dysfunction Impairment excess lateral sway, hip ER, Trendelenberg [facility] Goal (LTG) Patient will be able to walk with minimal to no lateral sway or Trendelenberg for improved function and decreased pain with walking in the home and community 02/21/23: Patient able to walk with min Trendelenberg if uses walker, inc with trekking poles, and worse with SPC. Patient wants to be able to primarily walk with SPC. Goal not achieved. 04/25/23: still has to help her on curbs, feels need for cane with gait. Not able to fully self-correct, dec body awareness and weakness hip abduction causes persistent Trendelenberg. Recommend patient consider talking with physician about possible EMG. LTG Duration 05/26/23 Assessment Summary Assessment Patient fatigued today. Weaker ankle df left vs right. Unable to achieve heelstrike but lands foot flat instead. Difficulty achieving toe raise in stand but able in sitting.. Poor gluteal activation with gait level or stairs. Physical Therapy Plan Frequency and Duration Frequency of Treatment 2x/Week Duration of treatment (weeks) 4 Plan of Care Start Date 04/25/23 Plan of Care End Date 05/26/23 Therapeutic Interventions Therapeutic Interventions Balance Training,Gait Training ,Home Exercise Program, Neuromuscular Re-education, Orthotic/Prosthetic Management ,Patient/Caregiver Education, Self-Care/Home Management,Soft Tissue Mobilization,Taping, Therapeutic Activities, Therapeutic Exercises Modalities Cold Pack/Ice Massage,Electric Stimulation,Hot Packs, Infrared Therapy Next Visit Focus/Plan Next Note Type Treatment Note Next Visit Plan Continue strengthening LE's and core, gait training, neuro re-ed. Modalities and manual therapy for pain management PRN.
--- NOTE | 2023-05-02 16:07 | PT.OTN ---
Current Diagnoses Pain in left hip (05/02/23) Radiculopathy, lumbar region (05/02/23) Difficulty in walking, not elsewhere classified (05/02/23) Weakness (05/02/23) Physical Therapy Treatment Note PT-OP-A Visit Information Start: 12/21/22 16:18 Freq: Status: Active Protocol: Document 05/02/23 15:19 SAK (Rec: 05/02/23 16:07 SAK [id number]) Out-Patient Physical Therapy Visit Information Visit Information Visit Type Treatment Note Visit Start Time 15:20 Visit Stop Time 16:00 Total Visit Minutes 40 Visit Number 13 PT-OP-B Current Condition Start: 12/21/22 16:18 Freq: Status: Active Protocol: Document 05/02/23 15:19 SAK (Rec: 05/02/23 16:07 SAK [id number]) Current Condition History of Current Condition Onset Date 04/01/23 Current Complaints left hip pain, lumbar radiculopathy History of Current Condition s/p lumbar laminectomy L3-L5, prior PT with some improvement, discharged to [facility] and instructions to resume aquatic exercise. Has been doing both but states feels she needs further PT to continue to progress due to persistent pain, difficulty walking. Reports using pillows for support as PT previously recommended. States pain with all mobility skills, occasionally wakes up due to pain. Does exercises in am in bed, SLS at bathtoom counter, HC stretch, iliopsoas stretch standing with sidebending Prior Treatments and Tests Prior PT, doing aquatic exercise. PT-OP-C Subjective Start: 12/21/22 16:18 Freq: Status: Active Protocol: Document 05/02/23 15:19 SAK (Rec: 05/02/23 16:07 SAK [id number]) OP-PT Subjective Patient Comments Patient Comments Energy level has improved, has been a happier girl. Has had a nap today, not as fatigued. Used treadmill at fitness center after instruction by PT. Saw doctor Pa Tang on Monday, discussed report from Dr. Franki Pacheco, states her memory of discussion with Dr. Pacheco different than what Dr. Cutler read to her. PT-OP-G Mobility & Gait Start: 12/21/22 16:18 Freq: Status: Active Protocol: Document 12/22/22 09:33 SAK (Rec: 12/22/22 10:52 [facility] [id number]) OP Gait Assessment Gait Gait Assistance Required: Independent Assistive Devices Assistive Device None,Straight Cane Orthotic/Prosthetic Devices or Brace: No Gait Deviations General Gait Pattern Ataxic,Lateral Trunk Lean, Narrow Based Gait Factors Limiting Gait Function Factors Limiting Gait Function Decreased Strength,Pain Comments Gait Comments Trendelenberg right Stair Climbing Evaluation Evaluation Level of Assist On Stairs Independent Devices Stair Climbing Assistive Devices Left Railing,Right Railing Technique/Endurance Stair Climbing Direction Ascend and Descend Stair Climbing Technique Step Over Step PT-OP-H Neuro Start: 12/21/22 16:18 Freq: Status: Active Protocol: Document 12/22/22 09:33 [facility] (Rec: 12/22/22 10:52 [facility] [id number]) Sensation Evaluation Gross Sensation Gross Sensation WNL PT-OP-J Posture/Palpation/Skin Start: 12/21/22 16:18 Freq: Status: Active Protocol: Document 12/22/22 09:33 [facility] (Rec: 12/22/22 10:52 [facility] [id number]) Posture Evaluation Position Standing Head/C-Spine Posture Forward Head T-Spine Posture Increased Kyphosis L-Spine Posture Increased Lordosis Hip Posture (L) Externally Rotated,(R) Externally Rotated PT-OP-K Range of Motion Start: 12/21/22 16:18 Freq: Status: Active Protocol: Document 12/22/22 09:33 [facility] (Rec: 12/22/22 10:52 [facility] [id number]) Lumbar Spine Range of Motion Lumbar Spine Active Comments WFL but with inc pain end ranges. PT-OP-M Strength Start: 12/21/22 16:18 Freq: Status: Active Protocol: Document 12/22/22 09:33 [facility] (Rec: 12/22/22 10:52 [facility] [id number]) Hip Strength Hip Manual Muscle Testing Right Flexion (L2) 4- Good- Extension (S1) 3- Fair- Abduction 3- Fair- Adduction 3+ Fair+ External Rotation 3+ Fair+ Internal Rotation 4- Good- Left Flexion (L2) 4- Good- Extension (S1) 3 Fair Abduction 3+ Fair+ Adduction 3+ Fair+ External Rotation 3+ Fair+ Knee Strength Knee Manual Muscle Testing enrico Flexion (S2) 4+ Good+ Extension (L3) 4+ Good+ Ankle/Foot Strength Ankle and Foot Manual Muscle Testing Right Dorsiflexion (L4) 4 Good Plantarflexion (S1) 4 Good Left Dorsiflexion (L4) 4+ Good+ Plantarflexion (S1) 4+ Good+ PT-OP-Q Treatments Start: 12/21/22 16:18 Freq: Status: Active Protocol: Document 05/02/23 15:19 [facility] (Rec: 05/02/23 16:07 [facility] [id number]) Cardio Equipment Recumbent Stepper (Sci-Fit) Duration (Minutes) 5 Resistance 1-1.5 Seat Position 10 Other 1.0 mile Treadmill Duration (Minutes) 5 Speed 1.3 Incline 0 Other cues for heelstrike, gluteal activation, upright posture. Gym Equipment Shuttle Balance chains red Details bal and wt shift, fwd/bck Reps/Duration 4 min Therapeutic Exercises Sitting Exercises piriformis stretch Reps/Minutes 2x30 sit to stand Sitting Exercise Name some right knee pain Equipment Used mirror for visual cues in standing Reps/Minutes 5x2 Comments cues for set-up, core and gluteal engagement, alignment figure-4 Reps/Minutes 2x30 Standing Exercises resisted sidestep Equipment Used L1 TB Reps/Minutes 10 ft enrico QL stretch Standing Exercise Name iliopsoas Reps/Minutes 2x30 Comments cues for stretch up Gait Training Gait Activity stairs Device Used enrico rails Surface 4 and 6 Distance/Duration 3x ea Treatment Focus gluteal activation Comments alternating pattern, enrico UE support level Device Used cane Treatment Focus cues for dec lateral shift, gluteal activation, heel strike and push off Comments mirror for visual feedback. Manual Therapy Treatment Soft Tissue Mobilization IT band Comments doing at home Self-Care/Home Management Treatment Education Patient Education Body Mechanics,Fall Risk,Home Exercise Program,Pain Management,Posture Other Education instructed in use of rolling pin for self-massage quads and IT band PT-OP-T Assessment and Plan Start: 12/21/22 16:18 Freq: Status: Active Protocol: Document 05/02/23 15:19 [facility] (Rec: 05/02/23 16:07 [facility] [id number]) Physical Therapy Assessment Goals Three Impairment pain l/s and LE Impairment as high as 4/10 Halfway Goal (LTG) Improve pain by at least 50% to improve patient function and quality of life 02/21/23: goal progress, 20% dec 03/23/23: min pain 04/25/23: 3/10 left hip, knee and enrico buttocks, lateral thighs LTG Duration 05/26/23 One Impairment activity tolerance Impairment Oswestry Disability Index score 38% Lower extremity functional score 54% Search Engine Optimization Manager Goal (LTG) Improve NURIS to no greater than 25% as measure of improved activity tolerance. Improve LEFS to at least 70% 02/21/23: goal progress: NURIS 33 %, LEFS 53% 03/23/23: not done 04/25/22 improved to 65% Oswestry improved to 32% LTG Duration 05/26/23 Four Impairment weakness core and hips Impairment painful bed mobility. Short Term Goal (STG) Patient will be instructed in individualized progressive HEP for purposes of strengtheing and stabilization 04/23/22: goal met STG Duration goal met Search Engine Optimization Manager Goal (LTG) Patient will be independent and compliant with HEP and demonstrate improved hip and core muscle strength to at least 4+/5, and functionally will be able to stand on 1 leg for 10 sec without hip dropping\ 02/21/23: patient independent and compliant with HEP but has not met strength or function goal. 04/25/23 some goal progress, weakest in hips left greater than right worst in abduction with no change LTG Duration 05/26/23 Two Impairment gait dysfunction Impairment excess lateral sway, hip ER, Trendelenberg Halfway Goal (LTG) Patient will be able to walk with minimal to no lateral sway or Trendelenberg for improved function and decreased pain with walking in the home and community 02/21/23: Patient able to walk with min Trendelenberg if uses walker, inc with trekking poles, and worse with SPC. Patient wants to be able to primarily walk with SPC. Goal not achieved. 04/25/23: still has to help her on curbs, feels need for cane with gait. Not able to fully self-correct, dec body awareness and weakness hip abduction causes persistent Trendelenberg. Recommend patient consider talking with physician about possible EMG. LTG Duration 05/26/23 Assessment Summary Assessment able to increase to 5 min on treadmill, only 6x sit to stand due to fatigue, right knee pain. reviewed sidestepping with resistance with cues for form. Physical Therapy Plan Frequency and Duration Frequency of Treatment 2x/Week Duration of treatment (weeks) 4 Plan of Care Start Date 04/25/23 Plan of Care End Date 05/26/23 Therapeutic Interventions Therapeutic Interventions Balance Training,Gait Training ,Home Exercise Program, Neuromuscular Re-education, Orthotic/Prosthetic Management ,Patient/Caregiver Education, Self-Care/Home Management,Soft Tissue Mobilization,Taping, Therapeutic Activities, Therapeutic Exercises Modalities Cold Pack/Ice Massage,Electric Stimulation,Hot Packs, Infrared Therapy Next Visit Focus/Plan Next Note Type Treatment Note Next Visit Plan PNF for LE strengtheing. Cont increase treadmill, hip and core strengthening.
--- NOTE | 2023-05-09 15:30 | PT.OTN ---
Current Diagnoses Pain in left hip (05/09/23) Radiculopathy, lumbar region (05/09/23) Difficulty in walking, not elsewhere classified (05/09/23) Weakness (05/09/23) Physical Therapy Treatment Note PT-OP-A Visit Information Start: 12/21/22 16:18 Freq: Status: Active Protocol: Document 05/09/23 14:35 SAK (Rec: 05/09/23 15:16 SAK [id number]) Out-Patient Physical Therapy Visit Information Visit Information Visit Type Treatment Note Visit Start Time 14:35 Visit Stop Time 15:15 Total Visit Minutes 40 Visit Number 14 Evaluation Information Evaluation Date 12/22/22 PT-OP-B Current Condition Start: 12/21/22 16:18 Freq: Status: Active Protocol: Document 05/02/23 15:19 SAK (Rec: 05/02/23 16:07 SAK [id number]) Current Condition History of Current Condition Onset Date 04/01/23 Current Complaints left hip pain, lumbar radiculopathy History of Current Condition s/p lumbar laminectomy L3-L5, prior PT with some improvement, discharged to [facility] and instructions to resume aquatic exercise. Has been doing both but states feels she needs further PT to continue to progress due to persistent pain, difficulty walking. Reports using pillows for support as PT previously recommended. States pain with all mobility skills, occasionally wakes up due to pain. Does exercises in am in bed, SLS at bathtoom counter, HC stretch, iliopsoas stretch standing with sidebending Prior Treatments and Tests Prior PT, doing aquatic exercise. PT-OP-C Subjective Start: 12/21/22 16:18 Freq: Status: Active Protocol: Document 05/09/23 14:35 SAK (Rec: 05/09/23 15:16 SAK [id number]) OP-PT Subjective Patient Comments Patient Comments Has walked for up to 5 min on treadmill at fitness center. Patient frustrated today by insurance issues. PT-OP-G Mobility & Gait Start: 12/21/22 16:18 Freq: Status: Active Protocol: Document 12/22/22 09:33 SAK (Rec: 12/22/22 10:52 SAK [id number]) OP Gait Assessment Gait Gait Assistance Required: Independent Assistive Devices Assistive Device None,Straight Cane Orthotic/Prosthetic Devices or Brace: No Gait Deviations General Gait Pattern Ataxic,Lateral Trunk Lean, Narrow Based Gait Factors Limiting Gait Function Factors Limiting Gait Function Decreased Strength,Pain Comments Gait Comments Trendelenberg right Stair Climbing Evaluation Evaluation Level of Assist On Stairs Independent Devices Stair Climbing Assistive Devices Left Railing,Right Railing Technique/Endurance Stair Climbing Direction Ascend and Descend Stair Climbing Technique Step Over Step PT-OP-H Neuro Start: 12/21/22 16:18 Freq: Status: Active Protocol: Document 12/22/22 09:33 [facility] (Rec: 12/22/22 10:52 [facility] [id number]) Sensation Evaluation Gross Sensation Gross Sensation WNL PT-OP-J Posture/Palpation/Skin Start: 12/21/22 16:18 Freq: Status: Active Protocol: Document 12/22/22 09:33 SAK (Rec: 12/22/22 10:52 [facility] [id number]) Posture Evaluation Position Standing Head/C-Spine Posture Forward Head T-Spine Posture Increased Kyphosis L-Spine Posture Increased Lordosis Hip Posture (L) Externally Rotated,(R) Externally Rotated PT-OP-K Range of Motion Start: 12/21/22 16:18 Freq: Status: Active Protocol: Document 12/22/22 09:33 SAK (Rec: 12/22/22 10:52 [facility] [id number]) Lumbar Spine Range of Motion Lumbar Spine Active Comments WFL but with inc pain end ranges. PT-OP-M Strength Start: 12/21/22 16:18 Freq: Status: Active Protocol: Document 12/22/22 09:33 SAK (Rec: 12/22/22 10:52 [facility] [id number]) Hip Strength Hip Manual Muscle Testing Right Flexion (L2) 4- Good- Extension (S1) 3- Fair- Abduction 3- Fair- Adduction 3+ Fair+ External Rotation 3+ Fair+ Internal Rotation 4- Good- Left Flexion (L2) 4- Good- Extension (S1) 3 Fair Abduction 3+ Fair+ Adduction 3+ Fair+ External Rotation 3+ Fair+ Knee Strength Knee Manual Muscle Testing enrico Flexion (S2) 4+ Good+ Extension (L3) 4+ Good+ Ankle/Foot Strength Ankle and Foot Manual Muscle Testing Right Dorsiflexion (L4) 4 Good Plantarflexion (S1) 4 Good Left Dorsiflexion (L4) 4+ Good+ Plantarflexion (S1) 4+ Good+ PT-OP-Q Treatments Start: 12/21/22 16:18 Freq: Status: Active Protocol: Document 05/09/23 14:35 [facility] (Rec: 05/09/23 15:16 [facility] [id number]) Cardio Equipment Recumbent Stepper (Sci-Fit) Duration (Minutes) 10 Resistance 2 Seat Position 9 Other first 4.5 min UE/LE's, second 5.5 min LE's only, 1.05 miles Gym Equipment Therapeutic Ball 55 cm Exercise Details a/p pelvic tilt, lateral pelvic tilt, circles, march Ball Size/Color green Body Position Sitting Therapeutic Exercises Standing Exercises march Standing Exercise Name slow, controlled Resistance L1 TB Equipment Used parallel bars, mirror Reps/Minutes 10x5 Comments cues for neutral postural alignment resisted sidestep Resistance parallel bars. Equipment Used L1 TB Reps/Minutes 10 ft enrico QL stretch Standing Exercise Name iliopsoas Reps/Minutes 2x30 Comments cues for stretch up Gait Training Gait Activity level Device Used cane Treatment Focus cues for dec lateral shift, gluteal activation, heel strike and push off Comments mirror for visual feedback. Self-Care/Home Management Treatment Education Patient Education Body Mechanics,Fall Risk,Home Exercise Program,Pain Management,Posture PT-OP-T Assessment and Plan Start: 12/21/22 16:18 Freq: Status: Active Protocol: Document 05/09/23 14:35 [facility] (Rec: 05/09/23 15:16 [facility] [id number]) Physical Therapy Assessment Goals Three Impairment pain l/s and LE Impairment as high as 4/10 Senior Care Goal (LTG) Improve pain by at least 50% to improve patient function and quality of life 02/21/23: goal progress, 20% dec 03/23/23: min pain 04/25/23: 3/10 left hip, knee and enrico buttocks, lateral thighs LTG Duration 05/26/23 One Impairment activity tolerance Impairment Oswestry Disability Index score 38% Lower extremity functional score 54% Senior Care Goal (LTG) Improve NURIS to no greater than 25% as measure of improved activity tolerance. Improve LEFS to at least 70% 02/21/23: goal progress: NURIS 33 %, LEFS 53% 03/23/23: not done 04/25/22 improved to 65% Oswestry improved to 32% LTG Duration 05/26/23 Four Impairment weakness core and hips Impairment painful bed mobility. Short Term Goal (STG) Patient will be instructed in individualized progressive HEP for purposes of strengtheing and stabilization 04/23/22: goal met STG Duration goal met Senior Care Goal (LTG) Patient will be independent and compliant with HEP and demonstrate improved hip and core muscle strength to at least 4+/5, and functionally will be able to stand on 1 leg for 10 sec without hip dropping\ 02/21/23: patient independent and compliant with HEP but has not met strength or function goal. 04/25/23 some goal progress, weakest in hips left greater than right worst in abduction with no change LTG Duration 05/26/23 Two Impairment gait dysfunction Impairment excess lateral sway, hip ER, Trendelenberg Senior Care Goal (LTG) Patient will be able to walk with minimal to no lateral sway or Trendelenberg for improved function and decreased pain with walking in the home and community 02/21/23: Patient able to walk with min Trendelenberg if uses walker, inc with trekking poles, and worse with SPC. Patient wants to be able to primarily walk with SPC. Goal not achieved. 04/25/23: still has to help her on curbs, feels need for cane with gait. Not able to fully self-correct, dec body awareness and weakness hip abduction causes persistent Trendelenberg. Recommend patient consider talking with physician about possible EMG. LTG Duration 05/26/23 Assessment Summary Assessment Improving postural awareness but difficulty self-correcting without visual, verbal and manual cues. Added june with theraband to HEP Physical Therapy Plan Frequency and Duration Frequency of Treatment 2x/Week Duration of treatment (weeks) 4 Plan of Care Start Date 04/25/23 Plan of Care End Date 05/26/23 Therapeutic Interventions Therapeutic Interventions Balance Training,Gait Training ,Home Exercise Program, Neuromuscular Re-education, Orthotic/Prosthetic Management ,Patient/Caregiver Education, Self-Care/Home Management,Soft Tissue Mobilization,Taping, Therapeutic Activities, Therapeutic Exercises Modalities Cold Pack/Ice Massage,Electric Stimulation,Hot Packs, Infrared Therapy Next Visit Focus/Plan Next Note Type Treatment Note Next Visit Plan PNF for LE strengtheing. Cont increase treadmill, hip and core strengthening. Review therapy ball exercises.
--- NOTE | 2023-05-11 16:14 | PT.OTN ---
Current Diagnoses Pain in left hip (05/11/23) Radiculopathy, lumbar region (05/11/23) Difficulty in walking, not elsewhere classified (05/11/23) Weakness (05/11/23) Physical Therapy Treatment Note PT-OP-A Visit Information Start: 12/21/22 16:18 Freq: Status: Active Protocol: Document 05/11/23 15:16 SAK (Rec: 05/11/23 16:14 [facility] [id number]) Out-Patient Physical Therapy Visit Information Visit Information Visit Type Treatment Note Visit Start Time 15:17 Visit Stop Time 16:05 Visit Number 14 Evaluation Information Evaluation Date 12/22/22 PT-OP-B Current Condition Start: 12/21/22 16:18 Freq: Status: Active Protocol: Document 05/11/23 15:16 SAK (Rec: 05/11/23 16:14 [facility] [id number]) Current Condition History of Current Condition Onset Date 04/01/23 Current Complaints left hip pain, lumbar radiculopathy History of Current Condition s/p lumbar laminectomy L3-L5, prior PT with some improvement, discharged to [facility] and instructions to resume aquatic exercise. Has been doing both but states feels she needs further PT to continue to progress due to persistent pain, difficulty walking. Reports using pillows for support as PT previously recommended. States pain with all mobility skills, occasionally wakes up due to pain. Does exercises in am in bed, SLS at bathtoom counter, HC stretch, iliopsoas stretch standing with sidebending Prior Treatments and Tests Prior PT, doing aquatic exercise. PT-OP-C Subjective Start: 12/21/22 16:18 Freq: Status: Active Protocol: Document 05/11/23 15:16 SAK (Rec: 05/11/23 16:14 [facility] [id number]) OP-PT Subjective Patient Comments Patient Comments Went to aquatic exercise session today, did recommended activities after PT texted aquatic specialist. Got written report from visit with Dr. Pacheco regarding her knees ; shows severe bilateral knee arthritis, left hip bursitis PT-OP-G Mobility & Gait Start: 12/21/22 16:18 Freq: Status: Active Protocol: Document 12/22/22 09:33 SAK (Rec: 12/22/22 10:52 [facility] [id number]) OP Gait Assessment Gait Gait Assistance Required: Independent Assistive Devices Assistive Device None,Straight Cane Orthotic/Prosthetic Devices or Brace: No Gait Deviations General Gait Pattern Ataxic,Lateral Trunk Lean, Narrow Based Gait Factors Limiting Gait Function Factors Limiting Gait Function Decreased Strength,Pain Comments Gait Comments Trendelenberg right Stair Climbing Evaluation Evaluation Level of Assist On Stairs Independent Devices Stair Climbing Assistive Devices Left Railing,Right Railing Technique/Endurance Stair Climbing Direction Ascend and Descend Stair Climbing Technique Step Over Step PT-OP-H Neuro Start: 12/21/22 16:18 Freq: Status: Active Protocol: Document 12/22/22 09:33 [facility] (Rec: 12/22/22 10:52 [facility] [id number]) Sensation Evaluation Gross Sensation Gross Sensation WNL PT-OP-J Posture/Palpation/Skin Start: 12/21/22 16:18 Freq: Status: Active Protocol: Document 12/22/22 09:33 [facility] (Rec: 12/22/22 10:52 [facility] [id number]) Posture Evaluation Position Standing Head/C-Spine Posture Forward Head T-Spine Posture Increased Kyphosis L-Spine Posture Increased Lordosis Hip Posture (L) Externally Rotated,(R) Externally Rotated PT-OP-K Range of Motion Start: 12/21/22 16:18 Freq: Status: Active Protocol: Document 12/22/22 09:33 [facility] (Rec: 12/22/22 10:52 [facility] [id number]) Lumbar Spine Range of Motion Lumbar Spine Active Comments WFL but with inc pain end ranges. PT-OP-M Strength Start: 12/21/22 16:18 Freq: Status: Active Protocol: Document 12/22/22 09:33 [facility] (Rec: 12/22/22 10:52 [facility] [id number]) Hip Strength Hip Manual Muscle Testing Right Flexion (L2) 4- Good- Extension (S1) 3- Fair- Abduction 3- Fair- Adduction 3+ Fair+ External Rotation 3+ Fair+ Internal Rotation 4- Good- Left Flexion (L2) 4- Good- Extension (S1) 3 Fair Abduction 3+ Fair+ Adduction 3+ Fair+ External Rotation 3+ Fair+ Knee Strength Knee Manual Muscle Testing enrico Flexion (S2) 4+ Good+ Extension (L3) 4+ Good+ Ankle/Foot Strength Ankle and Foot Manual Muscle Testing Right Dorsiflexion (L4) 4 Good Plantarflexion (S1) 4 Good Left Dorsiflexion (L4) 4+ Good+ Plantarflexion (S1) 4+ Good+ PT-OP-Q Treatments Start: 12/21/22 16:18 Freq: Status: Active Protocol: Document 05/11/23 15:16 [facility] (Rec: 05/11/23 16:14 [facility] [id number]) Cardio Equipment Recumbent Stepper (Sci-Fit) Duration (Minutes) 5 Resistance 2 Seat Position 9 Gym Equipment Therapeutic Ball 55 cm Exercise Details a/p pelvic tilt, lateral pelvic tilt, circles, march Ball Size/Color green Body Position Sitting Therapeutic Exercises Standing Exercises hip extension Resistance L1 TB Equipment Used parallel bars Reps/Minutes 10x ea march Standing Exercise Name slow, controlled Resistance L1 TB Equipment Used parallel bars, mirror Reps/Minutes 10x5 Comments cues for neutral postural alignment resisted sidestep Resistance parallel bars. Equipment Used L1 TB Reps/Minutes 10 ft enrico QL stretch Standing Exercise Name iliopsoas Reps/Minutes 2x30 Comments cues for stretch up Gait Training Gait Activity stairs Device Used enrico rails Surface 4 and 6 Distance/Duration 3x ea Treatment Focus gluteal activation Comments alternating pattern, enrico UE support level Device Used cane Treatment Focus cues for dec lateral shift, gluteal activation, heel strike and push off Comments mirror for visual feedback. Self-Care/Home Management Treatment Education Patient Education Body Mechanics,Fall Risk,Home Exercise Program,Pain Management,Posture PT-OP-T Assessment and Plan Start: 12/21/22 16:18 Freq: Status: Active Protocol: Document 05/11/23 15:16 [facility] (Rec: 05/11/23 16:14 [facility] [id number]) Physical Therapy Assessment Goals Three Impairment pain l/s and LE Impairment as high as 4/10 Long-Term Goal (LTG) Improve pain by at least 50% to improve patient function and quality of life 02/21/23: goal progress, 20% dec 03/23/23: min pain 04/25/23: 3/10 left hip, knee and enrico buttocks, lateral thighs LTG Duration 05/26/23 One Impairment activity tolerance Impairment Oswestry Disability Index score 38% Lower extremity functional score 54% Long-Term Goal (LTG) Improve NURIS to no greater than 25% as measure of improved activity tolerance. Improve LEFS to at least 70% 02/21/23: goal progress: NURIS 33 %, LEFS 53% 03/23/23: not done 04/25/22 improved to 65% Oswestry improved to 32% LTG Duration 05/26/23 Four Impairment weakness core and hips Impairment painful bed mobility. Short Term Goal (STG) Patient will be instructed in individualized progressive HEP for purposes of strengtheing and stabilization 04/23/22: goal met STG Duration goal met Data Capture Specialist Goal (LTG) Patient will be independent and compliant with HEP and demonstrate improved hip and core muscle strength to at least 4+/5, and functionally will be able to stand on 1 leg for 10 sec without hip dropping\ 02/21/23: patient independent and compliant with HEP but has not met strength or function goal. 04/25/23 some goal progress, weakest in hips left greater than right worst in abduction with no change LTG Duration 05/26/23 Two Impairment gait dysfunction Impairment excess lateral sway, hip ER, Trendelenberg Long-Term Goal (LTG) Patient will be able to walk with minimal to no lateral sway or Trendelenberg for improved function and decreased pain with walking in the home and community 02/21/23: Patient able to walk with min Trendelenberg if uses walker, inc with trekking poles, and worse with SPC. Patient wants to be able to primarily walk with SPC. Goal not achieved. 04/25/23: still has to help her on curbs, feels need for cane with gait. Not able to fully self-correct, dec body awareness and weakness hip abduction causes persistent Trendelenberg. Recommend patient consider talking with physician about possible EMG. LTG Duration 05/26/23 Assessment Summary Assessment Patient fatigued after doing aquatic exercise. Issued written HO for therapy ball exercises after review today. Patient highly motivated but frustrated by difficulty with improving her strength and gait. Physical Therapy Plan Frequency and Duration Frequency of Treatment 2x/Week Duration of treatment (weeks) 4 Plan of Care Start Date 04/25/23 Plan of Care End Date 05/26/23 Therapeutic Interventions Therapeutic Interventions Balance Training,Gait Training ,Home Exercise Program, Neuromuscular Re-education, Orthotic/Prosthetic Management ,Patient/Caregiver Education, Self-Care/Home Management,Soft Tissue Mobilization,Taping, Therapeutic Activities, Therapeutic Exercises Modalities Cold Pack/Ice Massage,Electric Stimulation,Hot Packs, Infrared Therapy Next Visit Focus/Plan Next Note Type Treatment Note Next Visit Plan Continue progressive ther ex, assure patient safe and independent with using gym equipment for community exercise.
--- NOTE | 2023-05-16 16:13 | PT.OTN ---
Current Diagnoses Pain in left hip (05/16/23) Radiculopathy, lumbar region (05/16/23) Difficulty in walking, not elsewhere classified (05/16/23) Weakness (05/16/23) Physical Therapy Treatment Note PT-OP-A Visit Information Start: 12/21/22 16:18 Freq: Status: Active Protocol: Document 05/16/23 15:18 SAK (Rec: 05/16/23 16:12 SAK [id number]) Out-Patient Physical Therapy Visit Information Visit Information Visit Type Treatment Note Visit Start Time 15:17 Visit Stop Time 16:00 Visit Number 16 Evaluation Information Evaluation Date 12/22/22 PT-OP-B Current Condition Start: 12/21/22 16:18 Freq: Status: Active Protocol: Document 05/16/23 15:18 SAK (Rec: 05/16/23 16:12 SAK [id number]) Current Condition History of Current Condition Onset Date 04/01/23 Current Complaints left hip pain, lumbar radiculopathy History of Current Condition s/p lumbar laminectomy L3-L5, prior PT with some improvement, discharged to [facility] and instructions to resume aquatic exercise. Has been doing both but states feels she needs further PT to continue to progress due to persistent pain, difficulty walking. Reports using pillows for support as PT previously recommended. States pain with all mobility skills, occasionally wakes up due to pain. Does exercises in am in bed, SLS at bathtoom counter, HC stretch, iliopsoas stretch standing with sidebending Prior Treatments and Tests Prior PT, doing aquatic exercise. 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 Also did exercises in bed before getting up. Went to pool for aquatic exercise earlier in the day. Very fatigued last night. Pain lateral hip and knees variable, more sore last night . PT-OP-G Mobility & Gait Start: 12/21/22 16:18 Freq: Status: Active Protocol: Document 12/22/22 09:33 SAK (Rec: 12/22/22 10:52 [facility] [id number]) OP Gait Assessment Gait Gait Assistance Required: Independent Assistive Devices Assistive Device None,Straight Cane Orthotic/Prosthetic Devices or Brace: No Gait Deviations General Gait Pattern Ataxic,Lateral Trunk Lean, Narrow Based Gait Factors Limiting Gait Function Factors Limiting Gait Function Decreased Strength,Pain Comments Gait Comments Trendelenberg right Stair Climbing Evaluation Evaluation Level of Assist On Stairs Independent Devices Stair Climbing Assistive Devices Left Railing,Right Railing Technique/Endurance Stair Climbing Direction Ascend and Descend Stair Climbing Technique Step Over Step PT-OP-H Neuro Start: 12/21/22 16:18 Freq: Status: Active Protocol: Document 12/22/22 09:33 [facility] (Rec: 12/22/22 10:52 [facility] [id number]) Sensation Evaluation Gross Sensation Gross Sensation WNL PT-OP-J Posture/Palpation/Skin Start: 12/21/22 16:18 Freq: Status: Active Protocol: Document 12/22/22 09:33 [facility] (Rec: 12/22/22 10:52 [facility] [id number]) Posture Evaluation Position Standing Head/C-Spine Posture Forward Head T-Spine Posture Increased Kyphosis L-Spine Posture Increased Lordosis Hip Posture (L) Externally Rotated,(R) Externally Rotated PT-OP-K Range of Motion Start: 12/21/22 16:18 Freq: Status: Active Protocol: Document 12/22/22 09:33 [facility] (Rec: 12/22/22 10:52 [facility] [id number]) Lumbar Spine Range of Motion Lumbar Spine Active Comments WFL but with inc pain end ranges. PT-OP-M Strength Start: 12/21/22 16:18 Freq: Status: Active Protocol: Document 12/22/22 09:33 [facility] (Rec: 12/22/22 10:52 [facility] [id number]) Hip Strength Hip Manual Muscle Testing Right Flexion (L2) 4- Good- Extension (S1) 3- Fair- Abduction 3- Fair- Adduction 3+ Fair+ External Rotation 3+ Fair+ Internal Rotation 4- Good- Left Flexion (L2) 4- Good- Extension (S1) 3 Fair Abduction 3+ Fair+ Adduction 3+ Fair+ External Rotation 3+ Fair+ Knee Strength Knee Manual Muscle Testing enrico Flexion (S2) 4+ Good+ Extension (L3) 4+ Good+ Ankle/Foot Strength Ankle and Foot Manual Muscle Testing Right Dorsiflexion (L4) 4 Good Plantarflexion (S1) 4 Good Left Dorsiflexion (L4) 4+ Good+ Plantarflexion (S1) 4+ Good+ PT-OP-Q Treatments Start: 12/21/22 16:18 Freq: Status: Active Protocol: Document 05/16/23 15:18 [facility] (Rec: 05/16/23 16:12 [facility] [id number]) Cardio Equipment Recumbent Stepper (Sci-Fit) Duration (Minutes) 5 Resistance 2 Seat Position 9 Gym Equipment Cable Column (Body Solid) abd Resistance 30 Reps/Time 10x2 hip add Resistance 30 Reps/Time 10x2 Therapeutic Exercises Supine Exercises bridge Supine Exercise Name segmental Reps/Minutes 10x2 Comments cues for painfree, slow and controlled. Gait Training Gait Activity stairs Device Used enrico rails Surface 4 and 6 Distance/Duration 3x ea Treatment Focus gluteal activation Comments alternating pattern, enrico UE support level Device Used cane Treatment Focus cues for dec lateral shift, gluteal activation, heel strike and push off Comments mirror for visual feedback. Manual Therapy Treatment Soft Tissue Mobilization IT band Body Location left Mobilization Type Instrument Assisted Intensity/Depth mod Body Position Sidelying Comments rolling pin Self-Care/Home Management Treatment Activities Self-Care/Home Management Activities cut 05/02 cork for left shoe as trial due to 1/3 leg length discrepancy PT-OP-T Assessment and Plan Start: 12/21/22 16:18 Freq: Status: Active Protocol: Document 05/16/23 15:18 [facility] (Rec: 05/16/23 16:12 [facility] [id number]) Physical Therapy Assessment Goals Three Impairment pain l/s and LE Impairment as high as 4/10 Counselor At Law Goal (LTG) Improve pain by at least 50% to improve patient function and quality of life 02/21/23: goal progress, 20% dec 03/23/23: min pain 04/25/23: 3/10 left hip, knee and enrico buttocks, lateral thighs LTG Duration 05/26/23 One Impairment activity tolerance Impairment Oswestry Disability Index score 38% Lower extremity functional score 54% Counselor At [employer] Goal (LTG) Improve NURIS to no greater than 25% as measure of improved activity tolerance. Improve LEFS to at least 70% 02/21/23: goal progress: NURIS 33 %, LEFS 53% 03/23/23: not done 04/25/22 improved to 65% Oswestry improved to 32% LTG Duration 05/26/23 Four Impairment weakness core and hips Impairment painful bed mobility. Short Term Goal (STG) Patient will be instructed in individualized progressive HEP for purposes of strengtheing and stabilization 04/23/22: goal met STG Duration goal met Residential Goal (LTG) Patient will be independent and compliant with HEP and demonstrate improved hip and core muscle strength to at least 4+/5, and functionally will be able to stand on 1 leg for 10 sec without hip dropping\ 02/21/23: patient independent and compliant with HEP but has not met strength or function goal. 04/25/23 some goal progress, weakest in hips left greater than right worst in abduction with no change LTG Duration 05/26/23 Two Impairment gait dysfunction Impairment excess lateral sway, hip ER, Trendelenberg Residential Goal (LTG) Patient will be able to walk with minimal to no lateral sway or Trendelenberg for improved function and decreased pain with walking in the home and community 02/21/23: Patient able to walk with min Trendelenberg if uses walker, inc with trekking poles, and worse with SPC. Patient wants to be able to primarily walk with SPC. Goal not achieved. 04/25/23: still has to help her on curbs, feels need for cane with gait. Not able to fully self-correct, dec body awareness and weakness hip abduction causes persistent Trendelenberg. Recommend patient consider talking with physician about possible EMG. LTG Duration 05/26/23 Assessment Summary Assessment Patient fatigued today after very busy day yesterday, no pain with bed mobility or ascending stairs, c/o knee pain when descending stairs. Hip ab/ad with Body Solid machine today with good tolerance. improved alignment and muscle activation with sit to stand noted in waiting room today. Physical Therapy Plan Frequency and Duration Frequency of Treatment 2x/Week Duration of treatment (weeks) 4 Plan of Care Start Date 04/25/23 Plan of Care End Date 05/26/23 Therapeutic Interventions Therapeutic Interventions Balance Training,Gait Training ,Home Exercise Program, Neuromuscular Re-education, Orthotic/Prosthetic Management ,Patient/Caregiver Education, Self-Care/Home Management,Soft Tissue Mobilization,Taping, Therapeutic Activities, Therapeutic Exercises Modalities Cold Pack/Ice Massage,Electric Stimulation,Hot Packs, Infrared Therapy Next Visit Focus/Plan Next Note Type Treatment Note Next Visit Plan Continue progressive ther ex, assure patient safe and independent with using gym equipment for community exercise. Discuss POC
--- NOTE | 2023-05-18 16:19 | PT.OTRE ---
Current Diagnoses Pain in left hip (05/18/23) Radiculopathy, lumbar region (05/18/23) Difficulty in walking, not elsewhere classified (05/18/23) Weakness (05/18/23) Visit Care Team Role Provider Type Elvia Gordillo MD Primary Care Provider Physician Specialty: Family Practice Obstetrics Address: [address] [place] [address], [address] Email: [email or web address] Guadalupe Attending Provider Advanced Vaccinator Family Provider Referring Provider Specialty: Family Practice Address: [address] [place] [address], [facility] [place], [address] Email: [email or web address] Physical Therapy Re-Evaluation PT-OP-A Visit Information Start: 12/21/22 16:18 Freq: Status: Active Protocol: Document 05/18/23 15:20 SAK (Rec: 05/18/23 16:19 SAK [id number]) Out-Patient Physical Therapy Visit Information Visit Information Visit Type Treatment Note Visit Start Time 15:17 Visit Stop Time 16:00 Visit Number 17 Evaluation Information Evaluation Date 12/22/22 PT-OP-B Current Condition Start: 12/21/22 16:18 Freq: Status: Active Protocol: Document 05/18/23 15:20 SAK (Rec: 05/18/23 16:19 SAK [id number]) Current Condition History of Current Condition Onset Date 04/01/23 Current Complaints left hip pain, lumbar radiculopathy History of Current Condition s/p lumbar laminectomy L3-L5, prior PT with some improvement, discharged to [facility] and instructions to resume aquatic exercise. Has been doing both but states feels she needs further PT to continue to progress due to persistent pain, difficulty walking. Reports using pillows for support as PT previously recommended. States pain with all mobility skills, occasionally wakes up due to pain. Does exercises in am in bed, SLS at bathtoom counter, HC stretch, iliopsoas stretch standing with sidebending Prior Treatments and Tests Prior PT, doing aquatic exercise. PT-OP-C Subjective Start: 12/21/22 16:18 Freq: Status: Active Protocol: Document 05/18/23 15:20 [facility] (Rec: 05/18/23 16:19 [facility] [id number]) OP-PT Subjective Patient Comments Patient Comments Wants to discuss POC. Has organized her HEP according to where she does them; positions. Looked around at pool for weight machines that she can do, agrees to arrange to have tangible personal property appraiser show her how to use the machines PT-OP-G Mobility & Gait Start: 12/21/22 16:18 Freq: Status: Active Protocol: Document 12/22/22 09:33 [facility] (Rec: 12/22/22 10:52 [facility] [id number]) OP Gait Assessment Gait Gait Assistance Required: Independent Assistive Devices Assistive Device None,Straight Cane Orthotic/Prosthetic Devices or Brace: No Gait Deviations General Gait Pattern Ataxic,Lateral Trunk Lean, Narrow Based Gait Factors Limiting Gait Function Factors Limiting Gait Function Decreased Strength,Pain Comments Gait Comments Trendelenberg right Stair Climbing Evaluation Evaluation Level of Assist On Stairs Independent Devices Stair Climbing Assistive Devices Left Railing,Right Railing Technique/Endurance Stair Climbing Direction Ascend and Descend Stair Climbing Technique Step Over Step PT-OP-H Neuro Start: 12/21/22 16:18 Freq: Status: Active Protocol: Document 12/22/22 09:33 [facility] (Rec: 12/22/22 10:52 [facility] [id number]) Sensation Evaluation Gross Sensation Gross Sensation WNL PT-OP-J Posture/Palpation/Skin Start: 12/21/22 16:18 Freq: Status: Active Protocol: Document 12/22/22 09:33 [facility] (Rec: 12/22/22 10:52 [facility] [id number]) Posture Evaluation Position Standing Head/C-Spine Posture Forward Head T-Spine Posture Increased Kyphosis L-Spine Posture Increased Lordosis Hip Posture (L) Externally Rotated,(R) Externally Rotated PT-OP-K Range of Motion Start: 12/21/22 16:18 Freq: Status: Active Protocol: Document 12/22/22 09:33 [facility] (Rec: 12/22/22 10:52 [facility] [id number]) Lumbar Spine Range of Motion Lumbar Spine Active Comments WFL but with inc pain end ranges. PT-OP-M Strength Start: 12/21/22 16:18 Freq: Status: Active Protocol: Document 12/22/22 09:33 [facility] (Rec: 12/22/22 10:52 [facility] [id number]) Hip Strength Hip Manual Muscle Testing Right Flexion (L2) 4- Good- Extension (S1) 3- Fair- Abduction 3- Fair- Adduction 3+ Fair+ External Rotation 3+ Fair+ Internal Rotation 4- Good- Left Flexion (L2) 4- Good- Extension (S1) 3 Fair Abduction 3+ Fair+ Adduction 3+ Fair+ External Rotation 3+ Fair+ Knee Strength Knee Manual Muscle Testing [place] Flexion (S2) 4+ Good+ Extension (L3) 4+ Good+ Ankle/Foot Strength Ankle and Foot Manual Muscle Testing Right Dorsiflexion (L4) 4 Good Plantarflexion (S1) 4 Good Left Dorsiflexion (L4) 4+ Good+ Plantarflexion (S1) 4+ Good+ PT-OP-Q Treatments Start: 12/21/22 16:18 Freq: Status: Active Protocol: Document 05/18/23 15:20 [facility] (Rec: 05/18/23 16:19 [facility] [id number]) Cardio Equipment Recumbent Stepper (Sci-Fit) Duration (Minutes) 5 Resistance 2 Seat Position 9 Other first 5 min UE's and LE's, second 5 LE's only Gym Equipment Cable Column (Body Solid) lat pull Resistance 20 Reps/Time 10x abd Resistance 30 Reps/Time 10x2 hip add Resistance 30 Reps/Time 10x2 Therapeutic Ball 55 cm Exercise Details a/p pelvic tilt, lateral pelvic tilt, circles, march Ball Size/Color green Body Position Sitting Therapeutic Exercises Supine Exercises HS stretch Equipment Used floor, yoga mat Reps/Minutes 2x figure 4 stretch Equipment Used floor, yoga mat Reps/Minutes 2x bridge Supine Exercise Name segmental Equipment Used floor, yoga mat Reps/Minutes 10x2 Comments cues for painfree, slow and controlled. Therapeutic Activity Therapeutic Activity floor transfer Reps/Minutes 1x Comments cues Gait Training Gait Activity level Device Used cane Treatment Focus cues for dec lateral shift, gluteal activation, heel strike and push off Comments mirror for visual feedback. PT-OP-T Assessment and Plan Start: 12/21/22 16:18 Freq: Status: Active Protocol: Document 05/18/23 15:20 [facility] (Rec: 05/18/23 16:19 [facility] [id number]) Physical Therapy Assessment Goals Three Impairment pain l/s and LE Impairment as high as 4/10 Cupola Hoist Operator Goal (LTG) Improve pain by at least 50% to improve patient function and quality of life 02/21/23: goal progress, 20% dec 03/23/23: min pain 04/25/23: 3/10 left hip, knee and [place] buttocks, lateral thigh 05/18/23: remains 3/10 left hip, knee and [place] buttocks, lateral thigh LTG Duration 07/17/23 One Impairment activity tolerance Impairment Oswestry Disability Index score 38% Lower extremity functional score 54% Detention Goal (LTG) Improve NURIS to no greater than 25% as measure of improved activity tolerance. Improve LEFS to at least 70% 02/21/23: goal progress: NURIS 33 %, LEFS 53% 03/23/23: not done 04/25/22 LEFS improved to 65% Oswestry improved to 32% 05/18/23: NURIS 28%, LEFS 67% LTG Duration 07/17/23 Four Impairment weakness core and hips Impairment painful bed mobility. Short Term Goal (STG) Patient will be instructed in individualized progressive HEP for purposes of strengtheing and stabilization 04/23/22: goal met STG Duration goal met Detention Goal (LTG) Patient will be independent and compliant with HEP and demonstrate improved hip and core muscle strength to at least 4+/5, and functionally will be able to stand on 1 leg for 10 sec without hip dropping\ 02/21/23: patient independent and compliant with HEP but has not met strength or function goal. 04/25/23 some goal progress, weakest in hips left greater than right worst in abduction with no change 05/18/23: good compliance to HEP , now working on weight machines to be used at fitness center. REquires UE support for SLS. No change MMT LTG Duration 07/17/23 Two Impairment gait dysfunction Impairment excess lateral sway, hip ER, Trendelenberg Detention Goal (LTG) Patient will be able to walk with minimal to no lateral sway or Trendelenberg for improved function and decreased pain with walking in the home and community 02/21/23: Patient able to walk with min Trendelenberg if uses walker, inc with trekking poles, and worse with SPC. Patient wants to be able to primarily walk with SPC. Goal not achieved. 04/25/23: still has to help her on curbs, feels need for cane with gait. Not able to fully self-correct, dec body awareness and weakness hip abduction causes persistent Trendelenberg. Recommend patient consider talking with physician about possible EMG. 05/18/23: recommend patient discuss potential EMG due to persistent right hip weakness LTG Duration 07/17/23 Assessment Summary Assessment Patient remains highly motivated with PT, compliant to HEP and aquatic exercise. Have initiated patient education in use of weight machines for strengthening. Due to persistent weakness right hip have discussed whether EMG might be indicated ; patient to discuss with her physician. REcommend follow- up appointment in 3-4 weeks as she continues with home program and speaks with physician, possible 3-4 visits at that time to update HEP, continue PT for strengthening, balance, and pain management. Physical Therapy Plan Frequency and Duration Frequency of Treatment 4 visits Duration of treatment (weeks) 8 Plan of Care Start Date 05/18/23 Plan of Care End Date 07/17/23 Therapeutic Interventions Therapeutic Interventions Balance Training,Gait Training ,Home Exercise Program, Neuromuscular Re-education, Orthotic/Prosthetic Management ,Patient/Caregiver Education, Self-Care/Home Management,Soft Tissue Mobilization,Taping, Therapeutic Activities, Therapeutic Exercises Modalities Cold Pack/Ice Massage,Electric Stimulation,Hot Packs, Infrared Therapy Next Visit Focus/Plan Next Note Type Treatment Note Next Visit Plan Evaluate patient's response to home ex program, aquatic program, and possible fitness center ex. Progress as indicated .
--- NOTE | 2023-05-18 16:19 | PT.OPPOC ---
Physical, Occupational & Speech Therapy At [facility] Current Diagnoses Pain in left hip (05/18/23) Radiculopathy, lumbar region (05/18/23) Difficulty in walking, not elsewhere classified (05/18/23) Weakness (05/18/23) Visit Care Team Role Provider Type Elvia Gordillo MD Primary Care Provider Physician Specialty: Family Practice Obstetrics Address: [address] [place] [address], [address] Email: [email or web address] DAMION Guadalupe Attending Provider Advanced Clinical Engineering Manager Family Provider Referring Provider Specialty: Family Practice Address: [address] [place] [address], [facility] [place], [address] Email: [email or web address] Plan Of Care PT-OP-T Assessment and Plan Start: 12/21/22 16:18 Freq: Status: Active Protocol: Document 05/18/23 15:20 SAK (Rec: 05/18/23 16:19 SAK [id number]) Physical Therapy Assessment Goals Three Impairment pain l/s and LE Impairment as high as 4/10 Retail Buyer Goal (LTG) Improve pain by at least 50% to improve patient function and quality of life 02/21/23: goal progress, 20% dec 03/23/23: min pain 04/25/23: 3/10 left hip, knee and [place] buttocks, lateral thigh 05/18/23: remains 3/10 left hip, knee and [place] buttocks, lateral thigh LTG Duration 07/17/23 One Impairment activity tolerance Impairment Oswestry Disability Index score 38% Lower extremity functional score 54% Retail Buyer Goal (LTG) Improve NURIS to no greater than 25% as measure of improved activity tolerance. Improve LEFS to at least 70% 02/21/23: goal progress: NURIS 33 %, LEFS 53% 03/23/23: not done 04/25/22 LEFS improved to 65% Oswestry improved to 32% 05/18/23: NURIS 28%, LEFS 67% LTG Duration 07/17/23 Four Impairment weakness core and hips Impairment painful bed mobility. Short Term Goal (STG) Patient will be instructed in individualized progressive HEP for purposes of strengtheing and stabilization 04/23/22: goal met STG Duration goal met Retail Buyer Goal (LTG) Patient will be independent and compliant with HEP and demonstrate improved hip and core muscle strength to at least 4+/5, and functionally will be able to stand on 1 leg for 10 sec without hip dropping\ 02/21/23: patient independent and compliant with HEP but has not met strength or function goal. 04/25/23 some goal progress, weakest in hips left greater than right worst in abduction with no change 05/18/23: good compliance to HEP , now working on weight machines to be used at fitness center. REquires UE support for SLS. No change MMT LTG Duration 07/17/23 Two Impairment gait dysfunction Impairment excess lateral sway, hip ER, Trendelenberg Custodial Goal (LTG) Patient will be able to walk with minimal to no lateral sway or Trendelenberg for improved function and decreased pain with walking in the home and community 02/21/23: Patient able to walk with min Trendelenberg if uses walker, inc with trekking poles, and worse with SPC. Patient wants to be able to primarily walk with SPC. Goal not achieved. 04/25/23: still has to help her on curbs, feels need for cane with gait. Not able to fully self-correct, dec body awareness and weakness hip abduction causes persistent Trendelenberg. Recommend patient consider talking with physician about possible EMG. 05/18/23: recommend patient discuss potential EMG due to persistent right hip weakness LTG Duration 07/17/23 Assessment Summary Assessment Patient remains highly motivated with PT, compliant to HEP and aquatic exercise. Have initiated patient education in use of weight machines for strengthening. Due to persistent weakness right hip have discussed whether EMG might be indicated ; patient to discuss with her physician. REcommend follow- up appointment in 3-4 weeks as she continues with home program and speaks with physician, possible 3-4 visits at that time to update HEP, continue PT for strengthening, balance, and pain management. Physical Therapy Plan Frequency and Duration Frequency of Treatment 4 visits Duration of treatment (weeks) 8 Plan of Care Start Date 05/18/23 Plan of Care End Date 07/17/23 Therapeutic Interventions Therapeutic Interventions Balance Training,Gait Training ,Home Exercise Program, Neuromuscular Re-education, Orthotic/Prosthetic Management ,Patient/Caregiver Education, Self-Care/Home Management,Soft Tissue Mobilization,Taping, Therapeutic Activities, Therapeutic Exercises Modalities Cold Pack/Ice Massage,Electric Stimulation,Hot Packs, Infrared Therapy Next Visit Focus/Plan Next Note Type Treatment Note Next Visit Plan Evaluate patient's response to home ex program, aquatic program, and possible fitness center ex. Progress as indicated . Plan of Care Dates Plan of Care Start Date 05/18/23 Plan of Care End Date 07/17/23 Electronically Signed by: Fadumo Morse, PT 05/18/23 [id number] If you are in agreement with this Plan of Care, please return a signed and dated copy. I have reviewed this Plan of Care and certify that the skilled therapy services above are required to meet the patient?s needs. Physician Signature Date Printed Name and Credentials Clinical Instructor Signature Printed Name and Credentials
--- NOTE | 2023-05-18 16:21 | PT.OPPOC ---
Physical, Occupational & Speech Therapy At [facility] Current Diagnoses Pain in left hip (05/18/23) Radiculopathy, lumbar region (05/18/23) Difficulty in walking, not elsewhere classified (05/18/23) Weakness (05/18/23) Visit Care Team Role Provider Type Elvia Gordillo MD Primary Care Provider Physician Specialty: Family Practice Obstetrics Address: [address] [place] [address], [address] Email: [email or web address] DAMION Guadalupe Attending Provider Advanced Interior Design Assistant Family Provider Referring Provider Specialty: Family Practice Address: [address] [place] [address], [facility] [place], [address] Email: [email or web address] Plan Of Care PT-OP-T Assessment and Plan Start: 12/21/22 16:18 Freq: Status: Active Protocol: Document 05/18/23 15:20 SAK (Rec: 05/18/23 16:19 SAK [id number]) Physical Therapy Assessment Goals Three Impairment pain l/s and LE Impairment as high as 4/10 Fur Repair Inspector Goal (LTG) Improve pain by at least 50% to improve patient function and quality of life 02/21/23: goal progress, 20% dec 03/23/23: min pain 04/25/23: 3/10 left hip, knee and [place] buttocks, lateral thigh 05/18/23: remains 3/10 left hip, knee and [place] buttocks, lateral thigh LTG Duration 07/17/23 One Impairment activity tolerance Impairment Oswestry Disability Index score 38% Lower extremity functional score 54% Fur Repair Inspector Goal (LTG) Improve NURIS to no greater than 25% as measure of improved activity tolerance. Improve LEFS to at least 70% 02/21/23: goal progress: NURIS 33 %, LEFS 53% 03/23/23: not done 04/25/22 LEFS improved to 65% Oswestry improved to 32% 05/18/23: NURIS 28%, LEFS 67% LTG Duration 07/17/23 Four Impairment weakness core and hips Impairment painful bed mobility. Short Term Goal (STG) Patient will be instructed in individualized progressive HEP for purposes of strengtheing and stabilization 04/23/22: goal met STG Duration goal met Fur Repair Inspector Goal (LTG) Patient will be independent and compliant with HEP and demonstrate improved hip and core muscle strength to at least 4+/5, and functionally will be able to stand on 1 leg for 10 sec without hip dropping\ 02/21/23: patient independent and compliant with HEP but has not met strength or function goal. 04/25/23 some goal progress, weakest in hips left greater than right worst in abduction with no change 05/18/23: good compliance to HEP , now working on weight machines to be used at fitness center. REquires UE support for SLS. No change MMT LTG Duration 07/17/23 Two Impairment gait dysfunction Impairment excess lateral sway, hip ER, Trendelenberg Alf Goal (LTG) Patient will be able to walk with minimal to no lateral sway or Trendelenberg for improved function and decreased pain with walking in the home and community 02/21/23: Patient able to walk with min Trendelenberg if uses walker, inc with trekking poles, and worse with SPC. Patient wants to be able to primarily walk with SPC. Goal not achieved. 04/25/23: still has to help her on curbs, feels need for cane with gait. Not able to fully self-correct, dec body awareness and weakness hip abduction causes persistent Trendelenberg. Recommend patient consider talking with physician about possible EMG. 05/18/23: recommend patient discuss potential EMG due to persistent right hip weakness LTG Duration 07/17/23 Assessment Summary Assessment Patient remains highly motivated with PT, compliant to HEP and aquatic exercise. Have initiated patient education in use of weight machines for strengthening. Due to persistent weakness right hip have discussed whether EMG might be indicated ; patient to discuss with her physician. REcommend follow- up appointment in 3-4 weeks as she continues with home program and speaks with physician, possible 3-4 visits at that time to update HEP, continue PT for strengthening, balance, and pain management. Physical Therapy Plan Frequency and Duration Frequency of Treatment 4 visits Duration of treatment (weeks) 8 Plan of Care Start Date 05/18/23 Plan of Care End Date 07/17/23 Therapeutic Interventions Therapeutic Interventions Balance Training,Gait Training ,Home Exercise Program, Neuromuscular Re-education, Orthotic/Prosthetic Management ,Patient/Caregiver Education, Self-Care/Home Management,Soft Tissue Mobilization,Taping, Therapeutic Activities, Therapeutic Exercises Modalities Cold Pack/Ice Massage,Electric Stimulation,Hot Packs, Infrared Therapy Next Visit Focus/Plan Next Note Type Treatment Note Next Visit Plan Evaluate patient's response to home ex program, aquatic program, and possible fitness center ex. Progress as indicated . Plan of Care Dates Plan of Care Start Date 05/18/23 Plan of Care End Date 07/17/23 Electronically Signed by: Fadumo Morse, PT 05/18/23 [id number] If you are in agreement with this Plan of Care, please return a signed and dated copy. I have reviewed this Plan of Care and certify that the skilled therapy services above are required to meet the patient?s needs. Physician Signature Date Printed Name and Credentials Clinical Instructor Signature Printed Name and Credentials
--- NOTE | 2023-07-04 16:30 | PT.OTN ---
Current Diagnoses Pain in left hip (07/04/23) Radiculopathy, lumbar region (07/04/23) Difficulty in walking, not elsewhere classified (07/04/23) Weakness (07/04/23) Physical Therapy Treatment Note PT-OP-A Visit Information Start: 12/21/22 16:18 Freq: Status: Active Protocol: Document 07/04/23 15:19 SAK (Rec: 07/04/23 16:30 [facility] [id number]) Out-Patient Physical Therapy Visit Information Visit Information Visit Type Treatment Note Visit Start Time 15:17 Visit Stop Time 16:00 Visit Number 18 Evaluation Information Evaluation Date 12/22/22 PT-OP-B Current Condition Start: 12/21/22 16:18 Freq: Status: Active Protocol: Document 07/04/23 15:19 SAK (Rec: 07/04/23 16:30 [facility] [id number]) Current Condition History of Current Condition Onset Date 04/01/23 Current Complaints left hip pain, lumbar radiculopathy History of Current Condition s/p lumbar laminectomy L3-L5, prior PT with some improvement, discharged to [facility] and instructions to resume aquatic exercise. Has been doing both but states feels she needs further PT to continue to progress due to persistent pain, difficulty walking. Reports using pillows for support as PT previously recommended. States pain with all mobility skills, occasionally wakes up due to pain. Does exercises in am in bed, SLS at bathtoom counter, HC stretch, iliopsoas stretch standing with sidebending Prior Treatments and Tests Prior PT, doing aquatic exercise. PT-OP-C Subjective Start: 12/21/22 16:18 Freq: Status: Active Protocol: Document 07/04/23 15:19 SAK (Rec: 07/04/23 16:30 [facility] [id number]) OP-PT Subjective Patient Comments Patient Comments Reports has had more hip pain. Never got referral for EMG. Having persistent hip pain. Worst c/o is fatigue. 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 When goes to pool, tries to start with treadmill, now able to do 10 min at 2.0 mph, walked .33, tries to do without UE's. Hasn't been using mirror at home. Uses cane consistently outside, not inside. PT-OP-G Mobility & Gait Start: 12/21/22 16:18 Freq: Status: Active Protocol: Document 12/22/22 09:33 [facility] (Rec: 12/22/22 10:52 [facility] [id number]) OP Gait Assessment Gait Gait Assistance Required: Independent Assistive Devices Assistive Device None,Straight Cane Orthotic/Prosthetic Devices or Brace: No Gait Deviations General Gait Pattern Ataxic,Lateral Trunk Lean, Narrow Based Gait Factors Limiting Gait Function Factors Limiting Gait Function Decreased Strength,Pain Comments Gait Comments Trendelenberg right Stair Climbing Evaluation Evaluation Level of Assist On Stairs Independent Devices Stair Climbing Assistive Devices Left Railing,Right Railing Technique/Endurance Stair Climbing Direction Ascend and Descend Stair Climbing Technique Step Over Step PT-OP-H Neuro Start: 12/21/22 16:18 Freq: Status: Active Protocol: Document 12/22/22 09:33 [facility] (Rec: 12/22/22 10:52 [facility] [id number]) Sensation Evaluation Gross Sensation Gross Sensation WNL PT-OP-J Posture/Palpation/Skin Start: 12/21/22 16:18 Freq: Status: Active Protocol: Document 12/22/22 09:33 [facility] (Rec: 12/22/22 10:52 [facility] [id number]) Posture Evaluation Position Standing Head/C-Spine Posture Forward Head T-Spine Posture Increased Kyphosis L-Spine Posture Increased Lordosis Hip Posture (L) Externally Rotated,(R) Externally Rotated PT-OP-K Range of Motion Start: 12/21/22 16:18 Freq: Status: Active Protocol: Document 12/22/22 09:33 [facility] (Rec: 12/22/22 10:52 [facility] [id number]) Lumbar Spine Range of Motion Lumbar Spine Active Comments WFL but with inc pain end ranges. PT-OP-M Strength Start: 12/21/22 16:18 Freq: Status: Active Protocol: Document 12/22/22 09:33 [facility] (Rec: 12/22/22 10:52 [facility] [id number]) Hip Strength Hip Manual Muscle Testing Right Flexion (L2) 4- Good- Extension (S1) 3- Fair- Abduction 3- Fair- Adduction 3+ Fair+ External Rotation 3+ Fair+ Internal Rotation 4- Good- Left Flexion (L2) 4- Good- Extension (S1) 3 Fair Abduction 3+ Fair+ Adduction 3+ Fair+ External Rotation 3+ Fair+ Knee Strength Knee Manual Muscle Testing enrico Flexion (S2) 4+ Good+ Extension (L3) 4+ Good+ Ankle/Foot Strength Ankle and Foot Manual Muscle Testing Right Dorsiflexion (L4) 4 Good Plantarflexion (S1) 4 Good Left Dorsiflexion (L4) 4+ Good+ Plantarflexion (S1) 4+ Good+ PT-OP-Q Treatments Start: 12/21/22 16:18 Freq: Status: Active Protocol: Document 07/04/23 15:19 [facility] (Rec: 07/04/23 16:30 [facility] [id number]) Cardio Equipment Recumbent Stepper (Sci-Fit) Duration (Minutes) 8 Resistance 2 Seat Position 11 Other first 4 min UE's and LE's, second 4 LE's only Gym Equipment Therapeutic Ball 55 cm Exercise Details a/p pelvic tilt, lateral pelvic tilt, circles, march Ball Size/Color green Body Position Sitting Therapeutic Exercises Standing Exercises hip abduction Reps/Minutes 10x5 Comments enrico UE support IT band stretch Reps/Minutes 2x30 overhead stretch Reps/Minutes 30 shoulder rolls Reps/Minutes 5x wall posture. Standing Exercise Name with shoulder ER Reps/Minutes 1 min split squat Equipment Used wall Reps/Minutes 2x30 calf stretch Equipment Used stair Reps/Minutes 2x30 Comments cues for straight foot, upright posture with glut set for hip flex stretch Gait Training Gait Activity pre-gait wt shifts Distance/Duration 6 min Treatment Focus symmetry, hips level Comments use of mirror cues for gluteal activation decrease step length for improved stability. level Device Used parallel bars Treatment Focus cues for dec lateral shift, gluteal activation, heel strike and push off Comments mirror for visual feedback. Self-Care/Home Management Treatment Education Patient Education Body Mechanics,Fall Risk,Home Exercise Program,Pain Management,Posture PT-OP-T Assessment and Plan Start: 12/21/22 16:18 Freq: Status: Active Protocol: Document 07/04/23 15:19 [facility] (Rec: 07/04/23 16:30 [facility] [id number]) Physical Therapy Assessment Goals Three Impairment pain l/s and LE Impairment as high as 4/10 [employer] Goal (LTG) Improve pain by at least 50% to improve patient function and quality of life 02/21/23: goal progress, 20% dec 03/23/23: min pain 04/25/23: 3/10 left hip, knee and enrico buttocks, lateral thigh 05/18/23: remains 3/10 left hip, knee and enrico buttocks, lateral thigh LTG Duration 07/17/23 One Impairment activity tolerance Impairment Oswestry Disability Index score 38% Lower extremity functional score 54% [employer] Goal (LTG) Improve NURIS to no greater than 25% as measure of improved activity tolerance. Improve LEFS to at least 70% 02/21/23: goal progress: NURIS 33 %, LEFS 53% 03/23/23: not done 04/25/22 LEFS improved to 65% Oswestry improved to 32% 05/18/23: NURIS 28%, LEFS 67% LTG Duration 07/17/23 Four Impairment weakness core and hips Impairment painful bed mobility. Short Term Goal (STG) Patient will be instructed in individualized progressive HEP for purposes of strengtheing and stabilization 04/23/22: goal met STG Duration goal met [employer] Goal (LTG) Patient will be independent and compliant with HEP and demonstrate improved hip and core muscle strength to at least 4+/5, and functionally will be able to stand on 1 leg for 10 sec without hip dropping\ 02/21/23: patient independent and compliant with HEP but has not met strength or function goal. 04/25/23 some goal progress, weakest in hips left greater than right worst in abduction with no change 05/18/23: good compliance to HEP , now working on weight machines to be used at fitness center. REquires UE support for SLS. No change MMT LTG Duration 07/17/23 Two Impairment gait dysfunction Impairment excess lateral sway, hip ER, Trendelenberg Alf Goal (LTG) Patient will be able to walk with minimal to no lateral sway or Trendelenberg for improved function and decreased pain with walking in the home and community 02/21/23: Patient able to walk with min Trendelenberg if uses walker, inc with trekking poles, and worse with SPC. Patient wants to be able to primarily walk with SPC. Goal not achieved. 04/25/23: still has to help her on curbs, feels need for cane with gait. Not able to fully self-correct, dec body awareness and weakness hip abduction causes persistent Trendelenberg. Recommend patient consider talking with physician about possible EMG. 05/18/23: recommend patient discuss potential EMG due to persistent right hip weakness LTG Duration 07/17/23 Assessment Summary Assessment Patient returns to PT, has been compliant to HEP, no worsening of hip pain, min LBP , patient highly compliant to HEP. Still demonstrating Trendelenberg gait right, using cane consistently. Hasn 't asked for an EMG yet. We reviewed her HEP program, corrections and modifications made to some and standing hip abduction added due to persistent difficulty performing sidelying against gravity. Physical Therapy Plan Frequency and Duration Frequency of Treatment 4 visits Duration of treatment (weeks) 8 Plan of Care Start Date 05/18/23 Plan of Care End Date 07/17/23 Therapeutic Interventions Therapeutic Interventions Balance Training,Gait Training ,Home Exercise Program, Neuromuscular Re-education, Orthotic/Prosthetic Management ,Patient/Caregiver Education, Self-Care/Home Management,Soft Tissue Mobilization,Taping, Therapeutic Activities, Therapeutic Exercises Modalities Cold Pack/Ice Massage,Electric Stimulation,Hot Packs, Infrared Therapy Next Visit Focus/Plan Next Note Type Re-Evaluation Next Visit Plan Re-evaluation, discuss POC, continue PT.
--- NOTE | 2023-07-11 16:19 | PT.OTRE ---
Current Diagnoses Pain in left hip (07/11/23) Radiculopathy, lumbar region (07/11/23) Difficulty in walking, not elsewhere classified (07/11/23) Weakness (07/11/23) Visit Care Team Role Provider Type Elvia Gordillo MD Primary Care Provider Physician Specialty: Family Practice Obstetrics Address: [address] [place] [address], [id number] Email: [email or web address] [email or web address] Attending Provider [employer] Supervisor Family Provider Referring Provider Specialty: Family Practice Address: [address] [place] [address], [place], [address] Email: [email or web address] Physical Therapy Re-Evaluation PT-OP-A Visit Information Start: 12/21/22 16:18 Freq: Status: Active Protocol: Document 07/11/23 15:13 SAK (Rec: 07/11/23 16:19 [facility] [id number]) Out-Patient Physical Therapy Visit Information Visit Information Visit Type Treatment Note Visit Start Time 15:15 Visit Stop Time 16:00 Visit Number 18 PT-OP-B Current Condition Start: 12/21/22 16:18 Freq: Status: Active Protocol: Document 07/11/23 15:13 SAK (Rec: 07/11/23 16:19 [facility] [id number]) Current Condition History of Current Condition Onset Date 04/01/23 Current Complaints left hip pain, lumbar radiculopathy History of Current Condition s/p lumbar laminectomy L3-L5, prior PT with some improvement, discharged to [facility] and instructions to resume aquatic exercise. Has been doing both but states feels she needs further PT to continue to progress due to persistent pain, difficulty walking. Reports using pillows for support as PT previously recommended. States pain with all mobility skills, occasionally wakes up due to pain. Does exercises in am in bed, SLS at bathtoom counter, HC stretch, iliopsoas stretch standing with sidebending Prior Treatments and Tests Prior PT, doing aquatic exercise. PT-OP-C Subjective Start: 12/21/22 16:18 Freq: Status: Active Protocol: Document 07/04/23 15:19 SAK (Rec: 07/04/23 16:30 [facility] [id number]) OP-PT Subjective Patient Comments Patient Comments Reports has had more hip pain. Never got referral for EMG. Having persistent hip pain. Worst c/o is fatigue. 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 When goes to pool, tries to start with treadmill, now able to do 10 min at 2.0 mph, walked .33, tries to do without UE's. Hasn't been using mirror at home. Uses cane consistently outside, not inside. PT-OP-G Mobility & Gait Start: 12/21/22 16:18 Freq: Status: Active Protocol: Document 12/22/22 09:33 [facility] (Rec: 12/22/22 10:52 [facility] [id number]) OP Gait Assessment Gait Gait Assistance Required: Independent Assistive Devices Assistive Device None,Straight Cane Orthotic/Prosthetic Devices or Brace: No Gait Deviations General Gait Pattern Ataxic,Lateral Trunk Lean, Narrow Based Gait Factors Limiting Gait Function Factors Limiting Gait Function Decreased Strength,Pain Comments Gait Comments Trendelenberg right Stair Climbing Evaluation Evaluation Level of Assist On Stairs Independent Devices Stair Climbing Assistive Devices Left Railing,Right Railing Technique/Endurance Stair Climbing Direction Ascend and Descend Stair Climbing Technique Step Over Step PT-OP-H Neuro Start: 12/21/22 16:18 Freq: Status: Active Protocol: Document 12/22/22 09:33 [facility] (Rec: 12/22/22 10:52 [facility] [id number]) Sensation Evaluation Gross Sensation Gross Sensation WNL PT-OP-J Posture/Palpation/Skin Start: 12/21/22 16:18 Freq: Status: Active Protocol: Document 12/22/22 09:33 SAK (Rec: 12/22/22 10:52 [facility] [id number]) Posture Evaluation Position Standing Head/C-Spine Posture Forward Head T-Spine Posture Increased Kyphosis L-Spine Posture Increased Lordosis Hip Posture (L) Externally Rotated,(R) Externally Rotated PT-OP-K Range of Motion Start: 12/21/22 16:18 Freq: Status: Active Protocol: Document 12/22/22 09:33 [facility] (Rec: 12/22/22 10:52 [facility] [id number]) Lumbar Spine Range of Motion Lumbar Spine Active Comments WFL but with inc pain end ranges. PT-OP-M Strength Start: 12/21/22 16:18 Freq: Status: Active Protocol: Document 12/22/22 09:33 SAK (Rec: 12/22/22 10:52 [facility] [id number]) Hip Strength Hip Manual Muscle Testing Right Flexion (L2) 4- Good- Extension (S1) 3- Fair- Abduction 3- Fair- Adduction 3+ Fair+ External Rotation 3+ Fair+ Internal Rotation 4- Good- Left Flexion (L2) 4- Good- Extension (S1) 3 Fair Abduction 3+ Fair+ Adduction 3+ Fair+ External Rotation 3+ Fair+ Knee Strength Knee Manual Muscle Testing enrico Flexion (S2) 4+ Good+ Extension (L3) 4+ Good+ Ankle/Foot Strength Ankle and Foot Manual Muscle Testing Right Dorsiflexion (L4) 4 Good Plantarflexion (S1) 4 Good Left Dorsiflexion (L4) 4+ Good+ Plantarflexion (S1) 4+ Good+ PT-OP-Q Treatments Start: 12/21/22 16:18 Freq: Status: Active Protocol: Document 07/11/23 15:13 [facility] (Rec: 07/11/23 16:19 [facility] [id number]) Cardio Equipment Recumbent Bicycle Duration (Minutes) 10 Resistance 2-5 Seat Position 4 Other educ for proper fit Therapeutic Exercises Standing Exercises hip abduction Reps/Minutes 10x5 Comments enrico UE support IT band stretch Reps/Minutes 2x30 Comments cues for neutral spine, tall reach Gait Training Gait Activity level Device Used cane (hurry cane) Treatment Focus cues for dec lateral shift, gluteal activation, heel strike and push off Comments mirror for visual feedback, then 200 ft with cane PT-OP-T Assessment and Plan Start: 12/21/22 16:18 Freq: Status: Active Protocol: Document 07/11/23 15:13 [facility] (Rec: 07/11/23 16:19 [facility] [id number]) Physical Therapy Assessment Goals Three Impairment pain l/s and LE Impairment as high as 4/10 Psychology Associate Goal (LTG) Improve pain by at least 50% to improve patient function and quality of life 02/21/23: goal progress, 20% dec 03/23/23: min pain 04/25/23: 3/10 left hip, knee and enrico buttocks, lateral thigh 05/18/23: remains 3 left hip, knee and enrico buttocks, lateral thigh 07/11/23: pain steady at 06/24 LTG Duration 07/25/23 One Impairment activity tolerance Impairment Oswestry Disability Index score 38% Lower extremity functional score 54% [employer] Goal (LTG) Improve NURIS to no greater than 25% as measure of improved activity tolerance. Improve LEFS to at least 70% 02/21/23: goal progress: NURIS 33 %, LEFS 53% 03/23/23: not done 04/25/22 LEFS improved to 65% Oswestry improved to 32% 05/18/23: NURIS 28%, LEFS 67% 07/11/23: NURIS 26%, LEFS 65% LTG Duration 07/25/23 Four Impairment weakness core and hips Impairment painful bed mobility. Short Term Goal (STG) Patient will be instructed in individualized progressive HEP for purposes of strengtheing and stabilization 04/23/22: goal met STG Duration goal met [facility] Goal (LTG) Patient will be independent and compliant with HEP and demonstrate improved hip and core muscle strength to at least 4+/5, and functionally will be able to stand on 1 leg for 10 sec without hip dropping\ 02/21/23: patient independent and compliant with HEP but has not met strength or function goal. 04/25/23 some goal progress, weakest in hips left greater than right worst in abduction with no change 05/18/23: good compliance to HEP , now working on weight machines to be used at fitness center. REquires UE support for SLS. No change MMT 07/11/23: continue to progress and modify HEP, instructed in HIIT for use with exercise bike and aquatic exercise LTG Duration 07/25/23 Two Impairment gait dysfunction Impairment excess lateral sway, hip ER, Trendelenberg Psychology Associate Goal (LTG) Patient will be able to walk with minimal to no lateral sway or Trendelenberg for improved function and decreased pain with walking in the home and community 02/21/23: Patient able to walk with min Trendelenberg if uses walker, inc with trekking poles, and worse with SPC. Patient wants to be able to primarily walk with SPC. Goal not achieved. 04/25/23: still has to help her on curbs, feels need for cane with gait. Not able to fully self-correct, dec body awareness and weakness hip abduction causes persistent Trendelenberg. Recommend patient consider talking with physician about possible EMG. 05/18/23: recommend patient discuss potential EMG due to persistent right hip weakness 07/11/23: requires use of a cane and can only correct approx 75% LTG Duration 07/25/23 Assessment Summary Assessment Patient progress appears to be plateauing at this time. Have been unable to achieve strengthening of hip abductors on right; she continues to ambulate with a Trendelenberg gait and is now willing to be compliant with the use of a cane for improved mechanics with gait. Feel she may benefit from an EMG to see if there is a neurological reason for hip weakness. Her pain has reduced to a 3/10, she no longer has pain with bed mobility. She is highly compliant with her HEP. One of her biggest complaints at this time is fatigue level and she was encouraged to talk further with her physician about this , consider diet and fluid intake. Feel she would benefit from 2 further PT visits to finalize her HEP, assure safety and independence with use of cane on all surfaces, and instruct in floor transfer. Physical Therapy Plan Frequency and Duration Frequency of Treatment 2 visits Duration of treatment (weeks) 3 Plan of Care Start Date 07/11/23 Plan of Care End Date 07/25/23 Therapeutic Interventions Therapeutic Interventions Balance Training,Gait Training ,Home Exercise Program, Neuromuscular Re-education, Orthotic/Prosthetic Management ,Patient/Caregiver Education, Self-Care/Home Management,Soft Tissue Mobilization,Taping, Therapeutic Activities, Therapeutic Exercises Modalities Cold Pack/Ice Massage,Electric Stimulation,Hot Packs, Infrared Therapy Next Visit Focus/Plan Next Note Type Treatment Note Next Visit Plan 2 more visits to assure safety and independence with HEP, assess response to recumbant exercise bike and review HIIT. Do further gait training with cane on uneven surfaces. Floor transfer training.
--- NOTE | 2023-07-18 14:51 | PT.OTRE ---
Current Diagnoses Pain in left hip (07/18/23) Radiculopathy, lumbar region (07/18/23) Difficulty in walking, not elsewhere classified (07/18/23) Weakness (07/18/23) Visit Care Team Role Provider Type Elvia Gordillo MD Primary Care Provider Physician Specialty: Family Practice Obstetrics Address: [address] [place] [address], [id number] Email: [email or web address] Guadalupe Attending Provider Advanced Transportation Attendant Family Provider Referring Provider Specialty: Family Practice Address: [address] [place] [address], [facility] [place], [address] Email: [email or web address] Physical Therapy Re-Evaluation PT-OP-A Visit Information Start: 12/21/22 16:18 Freq: Status: Active Protocol: Document 07/18/23 13:43 SAK (Rec: 07/18/23 14:51 SAK [id number]) Out-Patient Physical Therapy Visit Information Visit Information Visit Type Treatment Note Visit Start Time 13:44 Visit Stop Time 14:33 Visit Number 19 Evaluation Information Evaluation Date 12/22/22 PT-OP-B Current Condition Start: 12/21/22 16:18 Freq: Status: Active Protocol: Document 07/18/23 13:43 SAK (Rec: 07/18/23 14:51 SAK [id number]) Current Condition History of Current Condition Onset Date 04/01/23 Current Complaints left hip pain, lumbar radiculopathy History of Current Condition s/p lumbar laminectomy L3-L5, prior PT with some improvement, discharged to [facility] and instructions to resume aquatic exercise. Has been doing both but states feels she needs further PT to continue to progress due to persistent pain, difficulty walking. Reports using pillows for support as PT previously recommended. States pain with all mobility skills, occasionally wakes up due to pain. Does exercises in am in bed, SLS at bathtoom counter, HC stretch, iliopsoas stretch standing with sidebending Prior Treatments and Tests Prior PT, doing aquatic exercise. PT-OP-C Subjective Start: 12/21/22 16:18 Freq: Status: Active Protocol: Document 07/18/23 13:43 [facility] (Rec: 07/18/23 14:51 [facility] [id number]) OP-PT Subjective Patient Comments Patient Comments Is back to going to the pool 2x/wk, using a couple machines at the pool. Feels hip pain in the morning which improves after walking around a little bit. Has used the treadmill again up to 5 min on treadmill , using PT-OP-G Mobility & Gait Start: 12/21/22 16:18 Freq: Status: Active Protocol: Document 12/22/22 09:33 [facility] (Rec: 12/22/22 10:52 [facility] [id number]) OP Gait Assessment Gait Gait Assistance Required: Independent Assistive Devices Assistive Device None,Straight Cane Orthotic/Prosthetic Devices or Brace: No Gait Deviations General Gait Pattern Ataxic,Lateral Trunk Lean, Narrow Based Gait Factors Limiting Gait Function Factors Limiting Gait Function Decreased Strength,Pain Comments Gait Comments Trendelenberg right Stair Climbing Evaluation Evaluation Level of Assist On Stairs Independent Devices Stair Climbing Assistive Devices Left Railing,Right Railing Technique/Endurance Stair Climbing Direction Ascend and Descend Stair Climbing Technique Step Over Step PT-OP-H Neuro Start: 12/21/22 16:18 Freq: Status: Active Protocol: Document 12/22/22 09:33 [facility] (Rec: 12/22/22 10:52 [facility] [id number]) Sensation Evaluation Gross Sensation Gross Sensation WNL PT-OP-J Posture/Palpation/Skin Start: 12/21/22 16:18 Freq: Status: Active Protocol: Document 12/22/22 09:33 [facility] (Rec: 12/22/22 10:52 [facility] [id number]) Posture Evaluation Position Standing Head/C-Spine Posture Forward Head T-Spine Posture Increased Kyphosis L-Spine Posture Increased Lordosis Hip Posture (L) Externally Rotated,(R) Externally Rotated PT-OP-K Range of Motion Start: 12/21/22 16:18 Freq: Status: Active Protocol: Document 12/22/22 09:33 [facility] (Rec: 12/22/22 10:52 [facility] [id number]) Lumbar Spine Range of Motion Lumbar Spine Active Comments WFL but with inc pain end ranges. PT-OP-M Strength Start: 12/21/22 16:18 Freq: Status: Active Protocol: Document 12/22/22 09:33 [facility] (Rec: 12/22/22 10:52 [facility] [id number]) Hip Strength Hip Manual Muscle Testing Right Flexion (L2) 4- Good- Extension (S1) 3- Fair- Abduction 3- Fair- Adduction 3+ Fair+ External Rotation 3+ Fair+ Internal Rotation 4- Good- Left Flexion (L2) 4- Good- Extension (S1) 3 Fair Abduction 3+ Fair+ Adduction 3+ Fair+ External Rotation 3+ Fair+ Knee Strength Knee Manual Muscle Testing enrico Flexion (S2) 4+ Good+ Extension (L3) 4+ Good+ Ankle/Foot Strength Ankle and Foot Manual Muscle Testing Right Dorsiflexion (L4) 4 Good Plantarflexion (S1) 4 Good Left Dorsiflexion (L4) 4+ Good+ Plantarflexion (S1) 4+ Good+ PT-OP-Q Treatments Start: 12/21/22 16:18 Freq: Status: Active Protocol: Document 07/18/23 13:43 [facility] (Rec: 07/18/23 14:51 [facility] [id number]) Cardio Equipment Recumbent Bicycle Duration (Minutes) 10 Resistance 2-5 Seat Position 4 PT-OP-T Assessment and Plan Start: 12/21/22 16:18 Freq: Status: Active Protocol: Document 07/18/23 13:43 [facility] (Rec: 07/18/23 14:51 [facility] [id number]) Physical Therapy Assessment Goals Three Impairment pain l/s and LE Impairment as high as 4/10 Longterm Goal (LTG) Improve pain by at least 50% to improve patient function and quality of life 02/21/23: goal progress, 20% dec 03/23/23: min pain 04/25/23: 3/10 left hip, knee and enrico buttocks, lateral thigh 05/18/23: remains 3/10 left hip, knee and enrico buttocks, lateral thigh 07/11/23: pain steady at 3/10 LTG Duration 07/25/23 One Impairment activity tolerance Impairment Oswestry Disability Index score 38% Lower extremity functional score 54% Agricultural Equipment Sales Engineer Goal (LTG) Improve NURIS to no greater than 25% as measure of improved activity tolerance. Improve LEFS to at least 70% 02/21/23: goal progress: NURIS 33 %, LEFS 53% 03/23/23: not done 04/25/22 LEFS improved to 65% Oswestry improved to 32% 05/18/23: NURIS 28%, LEFS 67% 07/11/23: NURIS 26%, LEFS 65% LTG Duration 08/17/23 Four Impairment weakness core and hips Impairment painful bed mobility. Short Term Goal (STG) Patient will be instructed in individualized progressive HEP for purposes of strengtheing and stabilization 04/23/22: goal met STG Duration goal met Agricultural Equipment Sales Engineer Goal (LTG) Patient will be independent and compliant with HEP and demonstrate improved hip and core muscle strength to at least 4+/5, and functionally will be able to stand on 1 leg for 10 sec without hip dropping\ 02/21/23: patient independent and compliant with HEP but has not met strength or function goal. 04/25/23 some goal progress, weakest in hips left greater than right worst in abduction with no change 05/18/23: good compliance to HEP , now working on weight machines to be used at fitness center. REquires UE support for SLS. No change MMT 07/11/23: continue to progress and modify HEP, instructed in HIIT for use with exercise bike and aquatic exercise LTG Duration 08/17/23 Two Impairment gait dysfunction Impairment excess lateral sway, hip ER, Trendelenberg Longterm Goal (LTG) Patient will be able to walk with minimal to no lateral sway or Trendelenberg for improved function and decreased pain with walking in the home and community 02/21/23: Patient able to walk with min Trendelenberg if uses walker, inc with trekking poles, and worse with SPC. Patient wants to be able to primarily walk with SPC. Goal not achieved. 04/25/23: still has to help her on curbs, feels need for cane with gait. Not able to fully self-correct, dec body awareness and weakness hip abduction causes persistent Trendelenberg. Recommend patient consider talking with physician about possible EMG. 05/18/23: recommend patient discuss potential EMG due to persistent right hip weakness 07/11/23: requires use of a cane and can only correct approx 75% LTG Duration 08/17/23 Assessment Summary Assessment Covarrubias very fatigued today, hasn' t yet seen physician for potential blood work to discuss fatigue and also hasn' t been able to talk with her physician about an EMG; have suggested potential EMG due to difficulty with gaining any strength in her hip abductors with significant Trendelenberg persisting. She had to miss cancel her next appointment so recommend recertification for 1 further PT visit to go over weight machines that can be used at fitness center per patient request. Patient was able to do a floor transfer independently, is now consistently using cane with gait per PT recommendation with notable improved gait. Reviewed use of rolling pin for self massage quads, TFL, and ITB. She demonstrated good understanding of HIIT principle for exercise. Physical Therapy Plan Frequency and Duration Frequency of Treatment 2 visits Duration of treatment (weeks) 3 Plan of Care Start Date 07/18/23 Plan of Care End Date 08/17/23 Therapeutic Interventions Therapeutic Interventions Balance Training,Gait Training ,Home Exercise Program, Neuromuscular Re-education, Orthotic/Prosthetic Management ,Patient/Caregiver Education, Self-Care/Home Management,Soft Tissue Mobilization,Taping, Therapeutic Activities, Therapeutic Exercises Modalities Cold Pack/Ice Massage,Electric Stimulation,Hot Packs, Infrared Therapy Next Visit Focus/Plan Next Note Type Treatment Note Next Visit Plan 1 further PT visit for instruction in safe use of exercise machines for community fitness, then plan discharge.
--- NOTE | 2023-07-18 14:51 | PT.OPPOC ---
Physical, Occupational & Speech Therapy At [facility] Current Diagnoses Pain in left hip (07/18/23) Radiculopathy, lumbar region (07/18/23) Difficulty in walking, not elsewhere classified (07/18/23) Weakness (07/18/23) Visit Care Team Role Provider Type Elvia Gordillo MD Primary Care Provider Physician Specialty: Family Practice Obstetrics Address: [address] [place] [address], [address] Email: [email or web address] DAMION Guadalupe Attending Provider Advanced Groundwater Monitoring Technician Family Provider Referring Provider Specialty: Family Practice Address: [address] [place] [address], [facility] [place], [address] Email: [email or web address] Plan Of Care PT-OP-T Assessment and Plan Start: 12/21/22 16:18 Freq: Status: Active Protocol: Document 07/18/23 13:43 SAK (Rec: 07/18/23 14:51 SAK [id number]) Physical Therapy Assessment Goals Three Impairment pain l/s and LE Impairment as high as 4/10 Washing Machine Repairer Goal (LTG) Improve pain by at least 50% to improve patient function and quality of life 02/21/23: goal progress, 20% dec 03/23/23: min pain 04/25/23: 3/10 left hip, knee and enrico buttocks, lateral thigh 05/18/23: remains 3/10 left hip, knee and enrico buttocks, lateral thigh 07/11/23: pain steady at 3/10 LTG Duration 07/25/23 One Impairment activity tolerance Impairment Oswestry Disability Index score 38% Lower extremity functional score 54% Snf Goal (LTG) Improve NURIS to no greater than 25% as measure of improved activity tolerance. Improve LEFS to at least 70% 02/21/23: goal progress: NURIS 33 %, LEFS 53% 03/23/23: not done 04/25/22 LEFS improved to 65% Oswestry improved to 32% 05/18/23: NURIS 28%, LEFS 67% 07/11/23: NURIS 26%, LEFS 65% LTG Duration 08/17/23 Four Impairment weakness core and hips Impairment painful bed mobility. Short Term Goal (STG) Patient will be instructed in individualized progressive HEP for purposes of strengtheing and stabilization 04/23/22: goal met STG Duration goal met Snf Goal (LTG) Patient will be independent and compliant with HEP and demonstrate improved hip and core muscle strength to at least 4+/5, and functionally will be able to stand on 1 leg for 10 sec without hip dropping\ 02/21/23: patient independent and compliant with HEP but has not met strength or function goal. 04/25/23 some goal progress, weakest in hips left greater than right worst in abduction with no change 05/18/23: good compliance to HEP , now working on weight machines to be used at fitness center. REquires UE support for SLS. No change MMT 07/11/23: continue to progress and modify HEP, instructed in HIIT for use with exercise bike and aquatic exercise LTG Duration 08/17/23 Two Impairment gait dysfunction Impairment excess lateral sway, hip ER, Trendelenberg Washing Machine Repairer Goal (LTG) Patient will be able to walk with minimal to no lateral sway or Trendelenberg for improved function and decreased pain with walking in the home and community 02/21/23: Patient able to walk with min Trendelenberg if uses walker, inc with trekking poles, and worse with SPC. Patient wants to be able to primarily walk with SPC. Goal not achieved. 04/25/23: still has to help her on curbs, feels need for cane with gait. Not able to fully self-correct, dec body awareness and weakness hip abduction causes persistent Trendelenberg. Recommend patient consider talking with physician about possible EMG. 05/18/23: recommend patient discuss potential EMG due to persistent right hip weakness 07/11/23: requires use of a cane and can only correct approx 75% LTG Duration 08/17/23 Assessment Summary Assessment Covarrubias very fatigued today, hasn' t yet seen physician for potential blood work to discuss fatigue and also hasn' t been able to talk with her physician about an EMG; have suggested potential EMG due to difficulty with gaining any strength in her hip abductors with significant Trendelenberg persisting. She had to miss cancel her next appointment so recommend recertification for 1 further PT visit to go over weight machines that can be used at fitness center per patient request. Patient was able to do a floor transfer independently, is now consistently using cane with gait per PT recommendation with notable improved gait. Reviewed use of rolling pin for self massage quads, TFL, and ITB. She demonstrated good understanding of HIIT principle for exercise. Physical Therapy Plan Frequency and Duration Frequency of Treatment 2 visits Duration of treatment (weeks) 3 Plan of Care Start Date 07/18/23 Plan of Care End Date 08/17/23 Therapeutic Interventions Therapeutic Interventions Balance Training,Gait Training ,Home Exercise Program, Neuromuscular Re-education, Orthotic/Prosthetic Management ,Patient/Caregiver Education, Self-Care/Home Management,Soft Tissue Mobilization,Taping, Therapeutic Activities, Therapeutic Exercises Modalities Cold Pack/Ice Massage,Electric Stimulation,Hot Packs, Infrared Therapy Next Visit Focus/Plan Next Note Type Treatment Note Next Visit Plan 1 further PT visit for instruction in safe use of exercise machines for community fitness, then plan discharge. Plan of Care Dates Plan of Care Start Date 07/18/23 Plan of Care End Date 08/17/23 Electronically Signed by: Fadumo Morse, PT 07/18/23 4738 If you are in agreement with this Plan of Care, please return a signed and dated copy. I have reviewed this Plan of Care and certify that the skilled therapy services above are required to meet the patient?s needs. Physician Signature Date Printed Name and Credentials Clinical Instructor Signature Printed Name and Credentials
--- NOTE | 2023-08-17 16:17 | PT.OTN ---
Current Diagnoses Pain in left hip (08/17/23) Radiculopathy, lumbar region (08/17/23) Difficulty in walking, not elsewhere classified (08/17/23) Weakness (08/17/23) Physical Therapy Treatment Note PT-OP-A Visit Information Start: 12/21/22 16:18 Freq: Status: Active Protocol: Document 08/17/23 15:16 SAK (Rec: 08/17/23 16:05 [facility] [id number]) Out-Patient Physical Therapy Visit Information Visit Information Visit Type Treatment Note Visit Start Time 15:15 Visit Stop Time 16:05 Visit Number 20 Evaluation Information Evaluation Date 12/22/22 PT-OP-B Current Condition Start: 12/21/22 16:18 Freq: Status: Active Protocol: Document 08/17/23 15:16 SAK (Rec: 08/17/23 16:05 [facility] [id number]) Current Condition History of Current Condition Onset Date 04/01/23 Current Complaints left hip pain, lumbar radiculopathy History of Current Condition s/p lumbar laminectomy L3-L5, prior PT with some improvement, discharged to [facility] and instructions to resume aquatic exercise. Has been doing both but states feels she needs further PT to continue to progress due to persistent pain, difficulty walking. Reports using pillows for support as PT previously recommended. States pain with all mobility skills, occasionally wakes up due to pain. Does exercises in am in bed, SLS at bathtoom counter, HC stretch, iliopsoas stretch standing with sidebending Prior Treatments and Tests Prior PT, doing aquatic exercise. PT-OP-C Subjective Start: 12/21/22 16:18 Freq: Status: Active Protocol: Document 08/17/23 15:16 SAK (Rec: 08/17/23 16:05 [facility] [id number]) OP-PT Subjective Patient Comments Patient Comments My goal today is to have you check my performance on different exercises. Using ex bike and treadmill at fitness center. Goal is MWF at pool. PT-OP-G Mobility & Gait Start: 12/21/22 16:18 Freq: Status: Active Protocol: Document 12/22/22 09:33 SAK (Rec: 12/22/22 10:52 SAK [id number]) OP Gait Assessment Gait Gait Assistance Required: Independent Assistive Devices Assistive Device None,Straight Cane Orthotic/Prosthetic Devices or Brace: No Gait Deviations General Gait Pattern Ataxic,Lateral Trunk Lean, Narrow Based Gait Factors Limiting Gait Function Factors Limiting Gait Function Decreased Strength,Pain Comments Gait Comments Trendelenberg right Stair Climbing Evaluation Evaluation Level of Assist On Stairs Independent Devices Stair Climbing Assistive Devices Left Railing,Right Railing Technique/Endurance Stair Climbing Direction Ascend and Descend Stair Climbing Technique Step Over Step PT-OP-H Neuro Start: 12/21/22 16:18 Freq: Status: Active Protocol: Document 12/22/22 09:33 [facility] (Rec: 12/22/22 10:52 [facility] [id number]) Sensation Evaluation Gross Sensation Gross Sensation WNL PT-OP-J Posture/Palpation/Skin Start: 12/21/22 16:18 Freq: Status: Active Protocol: Document 12/22/22 09:33 [facility] (Rec: 12/22/22 10:52 [facility] [id number]) Posture Evaluation Position Standing Head/C-Spine Posture Forward Head T-Spine Posture Increased Kyphosis L-Spine Posture Increased Lordosis Hip Posture (L) Externally Rotated,(R) Externally Rotated PT-OP-K Range of Motion Start: 12/21/22 16:18 Freq: Status: Active Protocol: Document 12/22/22 09:33 [facility] (Rec: 12/22/22 10:52 [facility] [id number]) Lumbar Spine Range of Motion Lumbar Spine Active Comments WFL but with inc pain end ranges. PT-OP-M Strength Start: 12/21/22 16:18 Freq: Status: Active Protocol: Document 12/22/22 09:33 [facility] (Rec: 12/22/22 10:52 [facility] [id number]) Hip Strength Hip Manual Muscle Testing Right Flexion (L2) 4- Good- Extension (S1) 3- Fair- Abduction 3- Fair- Adduction 3+ Fair+ External Rotation 3+ Fair+ Internal Rotation 4- Good- Left Flexion (L2) 4- Good- Extension (S1) 3 Fair Abduction 3+ Fair+ Adduction 3+ Fair+ External Rotation 3+ Fair+ Knee Strength Knee Manual Muscle Testing enrico Flexion (S2) 4+ Good+ Extension (L3) 4+ Good+ Ankle/Foot Strength Ankle and Foot Manual Muscle Testing Right Dorsiflexion (L4) 4 Good Plantarflexion (S1) 4 Good Left Dorsiflexion (L4) 4+ Good+ Plantarflexion (S1) 4+ Good+ PT-OP-Q Treatments Start: 12/21/22 16:18 Freq: Status: Active Protocol: Document 08/17/23 15:16 [facility] (Rec: 08/17/23 16:05 [facility] [id number]) Cardio Equipment Recumbent Bicycle Other review use, HS activation Therapeutic Exercises Standing Exercises calf raise Reps/Minutes 10x Comments with eccentric lowering gastroc and soleus stretch Reps/Minutes 2x30 each wall push up Reps/Minutes 10x wall posture. Standing Exercise Name with shoulder ER Reps/Minutes 1 min Gait Training Gait Activity stairs Device Used enrico rails Surface 4 and 6 Distance/Duration 3x ea Treatment Focus gluteal activation Comments alternating pattern, enrico UE support level Device Used cane ([employer] cane) Treatment Focus cues for dec lateral shift, gluteal activation, heel strike and push off Comments mirror for visual feedback, then 200 ft with cane Self-Care/Home Management Treatment Education Patient Education Body Mechanics,Fall Risk,Home Exercise Program,Pain Management,Posture Other Education answered patient questions regarding HEP, correct form . Good return demonstration after instruction PT-OP-T Assessment and Plan Start: 12/21/22 16:18 Freq: Status: Active Protocol: Document 08/17/23 15:16 [facility] (Rec: 08/17/23 16:05 [facility] [id number]) Physical Therapy Assessment Goals Three Impairment pain l/s and LE Impairment as high as 4/10 Senior Care Goal (LTG) Improve pain by at least 50% to improve patient function and quality of life 02/21/23: goal progress, 20% dec 03/23/23: min pain 04/25/23: 3/10 left hip, knee and enrico buttocks, lateral thigh 05/18/23: remains 3/10 left hip, knee and enrico buttocks, lateral thigh 07/11/23: pain steady at 3/10 LTG Duration 07/25/23 One Impairment activity tolerance Impairment Oswestry Disability Index score 38% Lower extremity functional score 54% Senior Care Goal (LTG) Improve NURIS to no greater than 25% as measure of improved activity tolerance. Improve LEFS to at least 70% 02/21/23: goal progress: NURIS 33 %, LEFS 53% 03/23/23: not done 04/25/22 LEFS improved to 65% Oswestry improved to 32% 05/18/23: NURIS 28%, LEFS 67% 07/11/23: NURIS 26%, LEFS 65% LTG Duration 08/17/23 Four Impairment weakness core and hips Impairment painful bed mobility. Short Term Goal (STG) Patient will be instructed in individualized progressive HEP for purposes of strengtheing and stabilization 04/23/22: goal met STG Duration goal met Senior Care Goal (LTG) Patient will be independent and compliant with HEP and demonstrate improved hip and core muscle strength to at least 4+/5, and functionally will be able to stand on 1 leg for 10 sec without hip dropping\ 02/21/23: patient independent and compliant with HEP but has not met strength or function goal. 04/25/23 some goal progress, weakest in hips left greater than right worst in abduction with no change 05/18/23: good compliance to HEP , now working on weight machines to be used at fitness center. REquires UE support for SLS. No change MMT 07/11/23: continue to progress and modify HEP, instructed in HIIT for use with exercise bike and aquatic exercise LTG Duration 08/17/23 Two Impairment gait dysfunction Impairment excess lateral sway, hip ER, Trendelenberg Cathead Worker Goal (LTG) Patient will be able to walk with minimal to no lateral sway or Trendelenberg for improved function and decreased pain with walking in the home and community 02/21/23: Patient able to walk with min Trendelenberg if uses walker, inc with trekking poles, and worse with SPC. Patient wants to be able to primarily walk with SPC. Goal not achieved. 04/25/23: still has to help her on curbs, feels need for cane with gait. Not able to fully self-correct, dec body awareness and weakness hip abduction causes persistent Trendelenberg. Recommend patient consider talking with physician about possible EMG. 05/18/23: recommend patient discuss potential EMG due to persistent right hip weakness 07/11/23: requires use of a cane and can only correct approx 75% LTG Duration 08/17/23 Assessment Summary Assessment No fulrther improvement noted since last note. Patient with good compliance to using cane reduces Trendelenberg and compensation. Independent with HEP, highly compliant to HEP, aquatic exercise. Ready for discharge to independent HEP and self management. Physical Therapy Plan Discharge Physical Therapy Discharge Reasons Plateau in Progress
== END 2023-08-21 11:09 | disposition home or self-care (01) ==
LOC: PHYS 15:15
PROVIDERS: Family Provider Internal Medicine; PCP Student in an Organized Health Care Education/Training Program; Referring Provider Internal Medicine; Visit Provider Internal Medicine
DX: M25.552 Pain in left hip (principal); M54.16 Radiculopathy, lumbar region; R26.2 Difficulty in walking, not elsewhere classified; R53.1 Weakness
CPT/HCPCS: 97110; 97112; 97116; 97140; 97162; 97530; 97535

== ENCOUNTER → 2024-02-05 08:02 | Outpatient (CLI) | payer MEDICARE, SELFPAY ==
[2024-02-05 08:51] LABS: Hematocrit 39.4 % (36-46); Hemoglobin 13.3 g/dL (12.0-16.0); Mean Corpuscular HGB Conc 33.8 % (30-36); Mean Corpuscular Hemoglobin 33.2 PG (26-34); Mean Corpuscular Volume 98.2 fL (80-100); Platelet Count 232 X10^3/uL (150-400); Red Blood Cell Count 4.01 X10^6/uL (4.0-5.2); Red Cell Distribution Width 12.7 % (11.6-14.8)
[2024-02-05 09:03] LABS: Alanine Aminotransferase 20 IU/L (<35); Albumin 4.1 g/dL (3.5-5.0); Alkaline Phosphatase 79 U/L (38-126); Aspartate Aminotransferase 23 IU/L (14-36); BUN Creatinine Ratio 29.2 (6-22); Bilirubin Total 0.9 mg/dL (0.2-1.3); Blood Urea Nitrogen 19 mg/dL (7-17); Calcium 9.4 mg/dL (8.4-10.2); Carbon Dioxide 25 mmol/L (22-32); Chloride 106 mmol/L (98-107); Estimated Glomerular Filt Rate > 60 mL/min (>60); Globulin 2.8 g/dL (1.7-4.1); Glucose 97 mg/dL (80-110); HEMOLYSIS < 15 (0-50); Potassium 4.1 mmol/L (3.4-5.1); Sodium 136 mmol/L (137-145); Total Protein 6.9 g/dL (6.3-8.2)
[2024-02-05 09:04] LABS: Albumin Globulin Ratio 1.5 (1.0-2.8); Cholesterol 168 mg/dL (140-199); HDL Cholesterol 65 mg/dL (40-60); HEMOLYSIS < 15 (0-50); Iron 96 ug/dL (37-170); LDL Cholesterol Calculated 59 mg/dL (<100); Triglycerides 218 mg/dL (35-150)
[2024-02-05 09:14] LABS: Percent Iron Saturation 32 % (15-50); Total Iron Binding Capacity 303 ug/dL (265-497); Transferrin 242 mg/dL (206-381)
[2024-02-05 09:22] LABS: Free T3, Triiodothyronine Free 3.56 pg/mL (2.77-5.27); Free T4, Direct Thyroxine 1.17 ng/dL (0.78-2.19)
[2024-02-05 09:35] LABS: Thyroid Stimulating Hormone 2.26 uIU/mL (0.47-4.68)
[2024-02-05 09:38] LABS: Ferritin 76 ng/mL (11-264)
== END ==
PROVIDERS: Family Provider Internal Medicine; PCP Student in an Organized Health Care Education/Training Program; Referring Provider Student in an Organized Health Care Education/Training Program; Visit Provider Student in an Organized Health Care Education/Training Program
DX: E78.5 Hyperlipidemia, unspecified (principal); E03.9 Hypothyroidism, unspecified; R53.83 Other fatigue
CPT/HCPCS: 36415; 80053; 80061; 82728; 83540; 83550; 84439; 84443; 84481; 85027

== ENCOUNTER → 2024-05-16 08:07 | Outpatient (CLI) | payer MEDICARE, SELFPAY ==
--- NOTE | 2024-05-16 08:08 | DI.ECHO.S_ITS ---
[place] [facility]---------+ [facility] : : [address] : : [place] : : [id number] : : Phone: [phone] Echocardiogram Report + + :Name: FRANTZ BUTTERFIELD Study Date: 05/16/2024 Height: 62 in : :Hospital ReadingLocation: Weight: 162 lb : : Gender: Female BSA: 1.7 m2 : :: 1945 Age: 78 yrs BP: 154/93 mmHg: :Reason For Study: HYPERTENSION : :Ordering Physician: SHY, : :CHERI Performed By: Emily Ambrosio : :Referring: CHERI BEGUM : + + Interpretation Summary Normal sinus rhythm. Normal LV size and wall thickness. Normal wall motion and LV systolic function. Ejection fraction 60-65%. Stage I diastolic dysfunction. Normal chamber sizes. No significant valvular abnormalities. Compared to prior echocardiogram August 28, 2018, no changes have occurred. Hypertension remains uncontrolled. Procedure: A two-dimensional transthoracic echocardiogram with color flow and Doppler was performed. The study quality was technically adequate. Comparison is made with the echocardiogram of 08/28/2018. The patient was in sinus rhythm with heart rates between 63-69 bpm during the exam. Left Ventricle: The left ventricle is normal in size and wall thickness. The ejection fraction is estimated to be 60-65%. Diastolic parameters suggest a relaxation abnormality of the left ventricle, consistent with probable normal filling pressures. Right Ventricle: The right ventricle is normal in size and function. Atria: The left atrial size is normal. Right atrial size is normal. There is no Doppler evidence for an interatrial shunt. Mitral Valve: The mitral valve leaflets appear to open well. There is mild mitral regurgitation. Aortic Valve: The aortic valve is trileaflet. The aortic valve opens well. There is no aortic valve stenosis. No aortic regurgitation is present. Tricuspid Valve: The tricuspid valve leaflets are thin and pliable. There is trace tricuspid regurgitation. Pulmonary artery pressures cannot be estimated because of the lack of a measurable TR jet velocity. Pulmonic Valve: The pulmonic valve leaflets are thin and pliable; valve motion is normal. There is mild pulmonic regurgitation. Great Vessels: The aortic root is normal size. The dimensions of the ascending aorta are normal. The IVC is of normal diameter and collapses greater than 50% with a sniff. This suggests a low right atrial pressure of 3 mm Hg. Pericardium/ Pleura There is no pericardial effusion. There is no pleural effusion. MMode/2D Measurements & Calculations LVIDd: 4.8 cm LVOT diam: 2.0 cm LVIDs: 2.9 cm Ao root diam: 2.7 cm FS: 39.8 % asc Aorta Diam: 2.5 cm EPSS: 0.49 cm Ao Arch Diam (Prox Trans): 2.4 cm IVSd: 0.57 cm LVPWd: 0.70 cm LV pantoja. diameter/BSA (cm/m^2): 2.7 LV sys. diameter/BSA (cm/m^2): 1.6 LA A2 area: 20.1 cm2 RA long axis: 4.6 cm LA A4 area: 17.9 cm2 RA area: 13.6 cm2 LA length (vol): 5.2 cm RA vol: 34.0 ml LA vol: 59.4 ml RA : 19.5 ml/m2 LA vol index: 34.0 ml/m2 IVC diam: 1.1 cm RVD1 (basal): 3.9 cm RVD2 (mid): 3.1 cm TAPSE: 2.1 cm Doppler Measurements & Calculations Ao V2 max: 147.4 cm/sec LVOT Max Angel: 89.9 cm/sec Ao V2 mean: 95.7 cm/sec LV V1 max P.2 mmHg Ao max P.7 mmHg LV V1 VTI: 20.1 cm Ao mean P.2 mmHg MARTÍN(I,D): 1.9 cm2 Ao V2 VTI: 32.0 cm MARTÍN(V,D): 1.8 cm2 sev ratio: 0.63 MARTÍN indexed to BSA (cm^2/m^2): 1.1 MV E max angel: 84.5 cm/sec PA V2 max: 103.4 cm/sec MV A max angel: 100.9 cm/sec PA V2 mean: 70.0 cm/sec MV E/A: 0.84 PA mean P.2 mmHg Med Peak E' Angel: 7.0 cm/sec PA pr(Accel): 15.6 mmHg E/E' med: 12.0 Lat Peak E' Angel: 7.7 cm/sec E/E' lat: 10.9 E/e' average: 11.5 MV dec time: 0.22 sec SV(LVOT): 60.0 ml Electronically signed by: Ayana Barbosa M.D. on Reading Physician:05/16/2024 11:03 AM
== END ==
PROVIDERS: Family Provider Internal Medicine; PCP Student in an Organized Health Care Education/Training Program; Referring Provider Student in an Organized Health Care Education/Training Program; Visit Provider Student in an Organized Health Care Education/Training Program
DX: I34.0 Nonrheumatic mitral (valve) insufficiency (principal); I37.1 Nonrheumatic pulmonary valve insufficiency; I10 Essential (primary) hypertension
CPT/HCPCS: 93306

== ENCOUNTER → 2024-09-04 12:49 | Outpatient (CLI) | payer MEDICARE, SELFPAY ==
--- NOTE | 2024-09-04 12:51 | DI.MG.S_ITS ---
MM screening mammo BI: 09/04/2024. BI-RADS: 1 CLINICAL: 79-year old female for bilateral screening mammogram. Tyrer-Cuzick lifetime risk of 1.4%. No personal or first-degree family history of breast cancer. PRIOR EXAMS 06/02/2023, 11/26/2021, 11/29/2019, 05/19/2017, 01/29/2015. MAMMOGRAPHY TECHNIQUE: 2D and 3D (tomosynthesis) digital mammographic views obtained, with additional images as needed for full coverage. Current study was also evaluated with a Computer Aided Detection (CAD) system. DENSITY A. The breasts are almost entirely fatty. MAMMOGRAPHY FINDINGS Bilateral: No suspicious mass, asymmetry, microcalcification, or other abnormality seen. IMPRESSION: * No evidence of malignancy. RECOMMENDATIONS Bilateral * Annual screening mammography. OVERALL ASSESSMENT CATEGORY BI-RADS-1: Negative. The [employer] recommends annual screening mammography beginning at age 40 for women with average risk of breast cancer. ELECTRONICALLY SIGNED: Tobias Kumar M.D. on 09/05/2024 at 08:02:32 AM PT Interpreting Station ID: [id number]
== END ==
PROVIDERS: Family Provider Internal Medicine; PCP Student in an Organized Health Care Education/Training Program; Referring Provider Student in an Organized Health Care Education/Training Program; Visit Provider Student in an Organized Health Care Education/Training Program
DX: Z12.31 Encounter for screening mammogram for malignant neoplasm of breast (principal)
CPT/HCPCS: 77063; 77067

== ENCOUNTER 2025-01-24 10:42 | Emergency (ER) | payer MEDICARE, SELFPAY ==
[2025-01-24 11:23] VITALS: BP 190/91; PULSE 92; RESP 16; TEMP 36.7; O2SAT 100; BMI 28.9
--- NOTE | 2025-01-24 12:31 | ED.BACK ---
HPI - Back Pain/Injury General Chief Complaint: Back Pain/Injury Stated Complaint: rt hip pain after slip on stairs Time Seen by Provider: 01/24/25 12:11 History of Present Illness HPI Narrative: Ms. Corrales is a very pleasant 79-year-old female with a past medical history of hypertension, hyperlipidemia, hypothyroidism, lumbar microdiskectomy who presents to the emergency department for right hip pain that started this morning. Patient states that she was at the gym, stepping up onto the treadmill when her pain started. She would stepped onto the treadmill with her left foot and then when she attempted to bring up her right leg her toe got caught causing acute pain in the right glute/hip region. Patient did walk on the treadmill for 10 minutes and then use a bike for 10 minutes, when she attempted to get herself into the pool she realized that her right hip was hurting and causing her to have unsteady balance. Because of this she came to the emergency department for further evaluation. She is ambulatory but with discomfort in the right SI joint region. No numbness, tingling, weakness of the lower extremities, no bowel or bladder dysfunction, no hematuria or dysuria. No back pain. No fall or direct trauma. She is here with her . Related Data Home Medications ?Medication ?Instructions ?Recorded ?Confirmed [VITEYES areds II] PO DAILY ##0 07/21/17 09/27/24 acetaminophen 650 mg 650 mg PO TID 02/07/23 09/27/24 tablet,extended release (Tylenol Arthritis Pain) cholecalciferol (vitamin D3) 50 100 mcg PO DAILY 02/07/23 09/27/24 mcg (2,000 unit) tablet (Vitamin D3) omega 5-oxd-bmx-fish oil 900 cap PO omega fatty acids 02/15/24 09/27/24 mg-1,400 mg capsule,delayed release (Fish Oil) Previous Rx's ?Medication ?Instructions ?Recorded meloxicam 7.5 mg tablet 7.5 mg PO DAILY #90 tabs 09/02/24 pantoprazole 20 mg tablet,delayed 20 mg PO DAILY #90 tabs 09/02/24 release rizatriptan 5 mg disintegrating See Rx Instructions PO .COMPLEX 09/02/24 tablet #30 tabs atorvastatin 10 mg tablet 10 mg PO DAILY #90 tabs 11/25/24 levothyroxine 50 mcg tablet 50 mcg PO DAILY #90 tabs 11/25/24 losartan 25 mg tablet 25 mg PO DAILY #90 tabs 11/25/24 Allergies Allergy/AdvReac Type Severity Reaction Status Date / Time tree and shrub pollen Allergy Mild Verified 09/27/24 10:59 meperidine Allergy Unknown EXTREME Verified 09/27/24 10:59 NAUSEA Review of Systems Review of Systems ROS Unobtainable: All systems reviewed & are unremarkable except as noted in HPI and below Patient History Surgical History [place] teeth removed History of cholecystectomy (01/30/14) History of cataract surgery (01/24/13) Family History Mother Bipolar 1 disorder Diabetes mellitus Father Social History marital status: alcohol intake: current alcohol intake frequency: holidays/special occasions only Exam Narrative Exam Narrative: GENERAL: 79 year old patient appears stated age. Well-developed patient, in no acute distress. HEAD: Atraumatic. Normocephalic. EYES: No scleral icterus. No injection or drainage. NECK: Trachea midline. Cervical ROM intact. CARDIOVASCULAR: Regular rate RESPIRATORY: ?Nonlabored respirations. ?Speaking in clear, full sentences. ? GASTROINTESTINAL: Abdomen soft, non-tender, nondistended. EXTREMITIES: No LE edema. 2+ DIP pulses BL, brisk cap refill on toes. Tenderness in right SI joint region, with subjective pain in the right glute muscle that is nontender. No bruising erythema or skin changes of the legs. BACK: No midline or paraspinal lumbar tenderness. NEURO: AOx3. ?Clear speech. ?Moves all 4 extremities appropriately. SKIN: No rash or erythema of visible areas Initial Vital Signs Initial Vital Signs: Vital Signs Temperature 98.0 F 01/24/25 11:23 Pulse Rate 92 H 01/24/25 11:23 Respiratory Rate 16 01/24/25 11:23 Blood Pressure 190/91 H 01/24/25 11:23 Pulse Oximetry 100 01/24/25 11:23 Oxygen Delivery Method Room Air 01/24/25 11:23 Course Orders Ordered: ED Orders 01/24/25 12:41 XR hip w pel RT 2V Stat Vital Signs Vital signs: Vital Signs - 8 hr 01/24/25 11:23 01/24/25 14:48 Temperature 98.0 F Pulse Rate 92 H 78 Respiratory Rate 16 16 Blood Pressure 190/91 H 161/81 H Pulse Oximetry 100 99 Oxygen Delivery Method Room Air Room Air MDM - Back Pain/Injury Medical Records Attestation: I reviewed the patient's medical records. Imaging Data XR R Hip w Pelv: Radiologist's Impression: PROCEDURE: XR HIP W PEL IF DONE RT 2V INDICATIONS: R hip /SI joint pain after extension injury TECHNIQUE: AP pelvis with lateral view of the right hip. COMPARISON: [facility], , XR HIP W PEL IF DONE KIARA 3TO4V, 02/18/2023, 12:18. FINDINGS: Moderate degenerative changes bilateral hips with joint space narrowing and osteophytes Kellgren Reji grade 3. Degenerative changes lower lumbar spine and sacroiliac joints. No radiographic evidence of displaced fracture, dislocation or high attenuation soft tissue foreign body. IMPRESSION: Degenerative changes as discussed above. No radiographic evidence of displaced fracture or dislocation. If symptoms persist or worsen, or there is high clinical suspicion of pelvic/hip abnormality, CT or MRI could be performed. Dictated by: Ronald Paula M.D. on 01/24/2025 at 14:28 Approved by: Ronald Paula M.D. on 01/24/2025 at 14:31 [facility] Narrative Medical decision making narrative: 79-year-old female with a past medical history of hypertension, hyperlipidemia, hypothyroidism, lumbar microdiskectomy who presents to the emergency department for right hip pain that started this morning Differential diagnosis includes but isn't limited to right sacroiliitis, lumbar radiculopathy, glutes strain, hip strain, osteoarthritis, fracture, etc. On exam the patient is in no acute distress, nontoxic appearing, vital signs appropriate except for elevated blood pressure, she is due for her afternoon losartan. She has no lower extremity numbness tingling or weakness, she is neurovascularly intact, no bowel or bladder incontinence or saddle anesthesia, no back pain or tenderness. She does have right SI/glute pain. Given patient age, we will obtain x-ray right hip to rule out bony abnormality, she declines need for pain medication at this time. Patient requesting discharge home prior to x-ray result. X-ray resulted as I was typing discharge paperwork, x-ray reveals degenerative changes of the bilateral hips, lumbar spine and sacroiliac joints. Discussed with the patient arthritis in addition to overlying likely muscle strain given extension like injury. Recommended supportive care, pain limiting exercise, follow up with PCP. Discussed strict ER return precautions. Patient verbalized understanding of all information is agreeable to plan. She is ambulatory and stable for discharge home. Discharge Plan Departure Patient Disposition: Home Clinical Impression: Acute pain of right hip, Bilateral hip joint arthritis, Arthritis of sacroiliac joint Instructions: DI for Hip Pain Activity Restrictions/Additional Instructions: Dear Ms. Corrales, Thank you for coming to the emergency department. Today you were evaluated for right hip/groin pain. Your x-ray did reveal moderate degenerative changes of both hips in addition to the lower lumbar spine and sacroiliac joints. I suspect your injury of the gym today may have strained some of the muscles in the right glute, worsening your sacroiliac joint pain. Please rest, apply ice or heat to the area of pain, use ibuprofen and/or acetaminophen if needed for pain, and follow up with your primary care doctor. Please allow your pain to limit your activity, you may continue doing your normal exercises if it feels right. Please follow up with your primary care doctor within the next 2-3 days for ER follow-up. (If you do not have a PCP you can call [phone]. ?to schedule an appointment with an [facility] Primary Care Provider) IF YOU DEVELOP ANY NEW OR WORSENING SYMPTOMS, RETURN TO THE ER! Please read the attached instructions, they highlight more specific treatments and interventions for you at home. Thank you for letting me participate in your care, Sherrell Marsh PA-C Prescriptions: No Action cholecalciferol (vitamin D3) [Vitamin D3] 50 mcg (2,000 unit) tablet 100 mcg PO DAILY acetaminophen [Tylenol Arthritis Pain] 650 mg tablet extended release 650 mg PO TID Fish Oil 900-1,400 mg capsule,delayed release(DR/EC) PO meloxicam 7.5 mg tablet 7.5 mg PO DAILY Qty: 90 3RF pantoprazole 20 mg tablet,delayed release (DR/EC) 20 mg PO DAILY Qty: 90 3RF rizatriptan 5 mg tablet,disintegrating See Rx Instructions PO .COMPLEX Qty: 30 3RF Rx Instructions: take 1 tablet at onset of headache; if no relief, may repeat 1 tablet after at least 2 hrs PO [VITEYES areds II] PO DAILY Qty: 0 losartan 25 mg tablet 25 mg PO DAILY Qty: 90 3RF levothyroxine 50 mcg tablet 50 mcg PO DAILY Qty: 90 3RF atorvastatin 10 mg tablet 10 mg PO DAILY Qty: 90 3RF Referrals: Elvia Gordillo MD [Primary Care Provider, Family Practice] Stand Alone Forms: Patient Portal/API
--- NOTE | 2025-01-24 12:41 | DI.RAD.S_ITS ---
PROCEDURE: XR HIP W PEL IF DONE RT 2V INDICATIONS: R hip /SI joint pain after extension injury TECHNIQUE: AP pelvis with lateral view of the right hip. COMPARISON: [facility], [facility], XR HIP W PEL IF DONE KIARA 3TO4V, 02/18/2023, 12:18. FINDINGS: Moderate degenerative changes bilateral hips with joint space narrowing and osteophytes Kellgren Reji grade 3. Degenerative changes lower lumbar spine and sacroiliac joints. No radiographic evidence of displaced fracture, dislocation or high attenuation soft tissue foreign body. IMPRESSION: Degenerative changes as discussed above. No radiographic evidence of displaced fracture or dislocation. If symptoms persist or worsen, or there is high clinical suspicion of pelvic/hip abnormality, CT or MRI could be performed. Dictated by: Ronald Paula M.D. on 01/24/2025 at 14:28 Approved by: Ronald Paula M.D. on 01/24/2025 at 14:31
[2025-01-24 14:48] VITALS: BP 161/81; PULSE 78; RESP 16; O2SAT 99
== END 2025-01-24 14:49 | disposition home or self-care (01) ==
PROVIDERS: Emergency Provider Physician Assistant; PCP Student in an Organized Health Care Education/Training Program
DX: M25.551 Pain in right hip (principal); M16.0 Bilateral primary osteoarthritis of hip; M46.1 Sacroiliitis, not elsewhere classified
CPT/HCPCS: 73502; 99281; 99283

== ENCOUNTER → 2025-02-14 08:33 | Outpatient (CLI) | payer MEDICARE, SELFPAY ==
[2025-02-14 09:05] LABS: Add Manual Diff / Slide Review NO; Hematocrit 38.3 % (36-46); Hemoglobin 12.9 g/dL (12.0-16.0); Lymphocytes Absolute Auto 2400 /uL (1100-4500); Mean Corpuscular HGB Conc 33.7 % (30-36); Mean Corpuscular Hemoglobin 32.7 PG (26-34); Mean Corpuscular Volume 97.0 fL (80-100); Platelet Count 235 X10^3/uL (150-400)
[2025-02-14 09:41] LABS: HEMOLYSIS < 15 (0-50); Iron 127 ug/dL (37-170)
[2025-02-14 09:42] LABS: Blood Urea Nitrogen 19 mg/dL (7-17); Cholesterol 141 mg/dL (140-199); Estimated Glomerular Filt Rate > 60 mL/min (>60); HDL Cholesterol 67 mg/dL (40-60); Triglycerides 204 mg/dL (35-150)
[2025-02-14 09:52] LABS: Percent Iron Saturation 46 % (15-50); Total Iron Binding Capacity 279 ug/dL (265-497); Transferrin 239 mg/dL (206-381)
[2025-02-14 09:58] LABS: Vitamin D 25 Hydroxy (D3) 41.9 ng/mL (30.0-100.0)
[2025-02-14 10:13] LABS: Thyroid Stimulating Hormone 1.71 uIU/mL (0.47-4.68)
[2025-02-14 10:17] LABS: Ferritin 84 ng/mL (11-264)
== END ==
PROVIDERS: PCP Student in an Organized Health Care Education/Training Program; Referring Provider Student in an Organized Health Care Education/Training Program; Visit Provider Student in an Organized Health Care Education/Training Program
DX: I10 Essential (primary) hypertension (principal); E55.9 Vitamin D deficiency, unspecified; R53.83 Other fatigue
CPT/HCPCS: 36415; 80061; 82306; 82565; 82728; 83540; 83550; 84443; 84520; 85025

== ENCOUNTER → 2025-02-18 13:34 | Outpatient (CLI) | payer MEDICARE, SELFPAY ==
[2025-02-18 15:24] LABS: Microalbumi Creatinin Ratio Ur 58.0 ug/mg CR (<30)
== END ==
PROVIDERS: PCP Student in an Organized Health Care Education/Training Program; Referring Provider Student in an Organized Health Care Education/Training Program; Visit Provider Student in an Organized Health Care Education/Training Program
DX: I10 Essential (primary) hypertension (principal)
CPT/HCPCS: 82043; 82570